=== PATIENT | male | born 1945 | race Caucasian/White ===

== ENCOUNTER 2020-07-14 22:18 | Inpatient (IN) | payer MEDICARE, BC, SELFPAY ==
--- NOTE | ~2020-07-14 | CT_ITS ---
EXAMINATION: CT abdomen pelvis wo con DATE: 07/14/2020 23:49 INDICATION: History of lymphoma. Leg weakness. TECHNIQUE: Computed tomography (CT) of the abdomen and pelvis was performed without intravenous contr ast. Automated exposure control and iterative reconstruction technique were employed. Exam dose: 174 0.68 mGy-cm total exam DLP. COMPARISON: 05/15/2018 CT abdomen pelvis 06/26/2018 PET/CT scan FINDINGS: There is focal patchy left upper lobe. Right patchy left lower lobe infiltrate. Minimal dependent atelectasis in the right lower lobe. Normal heart size. No pericardial or pleural effusion. There are innumerable dependent gallstones. No gallbladder wall thickening or pericholecystic fluid o r fat stranding. No bile duct or pancreatic duct dilatation. Mild surface nodularity of the liver is again suggested, possibly secondary to cirrhosis. Borderline splenic size. Normal morphology of the adrenal glands. Approximately 6.5 x 7.7 mm left renal pelvic calculus (1297 Hounsfield units). Up to 6 x 10.5 mm lower pole left renal calculus (1134 Hounsfield units). There are several additiona l smaller left renal calculi and a couple of nonobstructing right renal calculi. No hydroureteronephrosis is evident. The urinary bladder is unremarkable. Mild prostate enlargement and calcification. Mild bilateral fat containing inguinal hernias. Small fat-containing umbilical hernia. There is a large left anterior ventral abdominal wall hernia containing transverse colon and small surinder wel without strangulation or obstruction. Normal caliber of the abdominal aorta. No intraperitoneal or retroperitoneal or pelvic mass lesion or adenopathy or ascites. Diffuse idiopathic skeletal hyperostosis of the thoracic spine. No suspicious osteolytic or osteoblas tic lesions are noted. IMPRESSION: Left upper and lower lobe infiltrates Cholelithiasis Cirrhosis of the liver Borderline splenic size Bilateral nephrolithiasis Large left anterior ventral abdominal wall hernia containing nonobstructed transverse colon and small bowel Reviewed, dictated and finalized at [facility]. Reviewed, dictated and finalized at [facility]. IMPRESSION: Left upper and lower lobe infiltrates Cholelithiasis Cirrhosis of the liver Borderline splenic size Bilateral nephrolithiasis Large left anterior ventral abdominal wall hernia containing nonobstructed hinkle sverse colon and small bowel
--- NOTE | ~2020-07-14 | XR_ITS ---
XR chest 2V DATE: 07/14/2020 22:49 INDICATION: Fever, sore throat. History of hypertension, lymphoma TECHNIQUE: AP and lateral views COMPARISON: 06/28/2018 portable AP chest FINDINGS: Interval removal of Port-A-Cath since 06/28/2018. Normal heart size. No hilar or mediastinal enlargement is evident. Mild aortic unfolding. There is mild infiltrate or atelectasis at the left lung base. The lungs otherwise appear clear. Prominent osteoarthritic change at both glenohumeral joints. IMPRESSION: Mild infiltrate or atelectasis at left lung base Reviewed, dictated and finalized at [facility].
[2020-07-14 22:17] VITALS: BP 152/112; PULSE 138; RESP 31; TEMP 37.9; O2SAT 97
--- NOTE | 2020-07-14 22:27 | ECG_ITS ---
Measurements Intervals [place] Rate: 76 P: SD: 0 QRS: -76 QRSD: 146 T: 46 QT: 334 QTc: 376 Interpretive Statements ATRIAL FLUTTER/TACHYCARDIA WITH RAPID VENTRICULAR RESPONSE RIGHT BUNDLE BRANCH BLOCK LEFT ANTERIOR FASCICULAR BLOCK LEFT VENTRICULAR HYPERTROPHY AND ST-T CHANGE BASELINE WANDER- I, II, III, AVR, AVL, AVF ABNORMAL ECG Electronically Signed On 07-15-2020 8:47:48 CDT by Chase Ortiz D.O.
[2020-07-14 22:44] LABS: Basophils Absolute Auto 0.1 K/mm3 (0.0-0.1); Basophils Percent Auto 0.6 % (0.2-1.2); Eosinophils Absolute Auto 0.2 K/mm3 (0-0.3); Eosinophils Percent Auto 1.6 % (0-4.4); Hemoglobin 16.2 g/dL (14.0-18.0); Immature Granulocyte Absolute 0.04 K/mm3 (0.00-0.031); Immature Granulocyte Percent A 0.4 % (0-0.5); Lymphocytes Absolute Auto 1.72 K/mm3 (0.9-3.2); Lymphocytes Percent Auto 16.2 % (18.3-44.2); Mean Corpuscular HGB Conc 33.8 g/dl (32-36); Mean Corpuscular Hemoglobin 31.3 pg (26-34); Mean Corpuscular Volume 92.7 fl (80-100); Mean Platelet Volume 10.6 fl (7.4-10.4); Monocytes Percent Auto 9.6 % (2.6-8.5); Neutrophils Absolute Auto 7.6 K/mm3 (1.3-6.7); Neutrophils Percent Auto 71.6 % (45.5-73.1); Platelet Count Result 141 k/mm3 (150-375); Red Blood Count 5.18 M/mm3 (4.6-6.20); White Blood Count 10.6 K/mm3 (4.5-10.0)
[2020-07-14 22:56] LABS: Lactic Acid Reflex 3.8 mmol/L (0.7-2.1)
[2020-07-14 22:57] LABS: Alanine Aminotransferase 41 U/L (4-50); Albumin Level 4.8 g/dL (3.5-5.1); Alkaline Phosphatase 113 U/L (38-126); Anion Gap 16 mmol/L (8-16); Aspartate Amino Transferase 63 U/L (17-59); Bilirubin,Total 1.2 mg/dL (0.2-1.3); Blood Urea Nitrogen 13 mg/dL (9-20); Calcium 10.1 mg/dL (8.4-10.2); Carbon Dioxide 24 mmol/L (22-30); Chloride 95 mmol/L (98-107); Estimated CRCL calculation 70 ml/min; Estimated Glomerular Filt Rate 59; Glucose 179 mg/dL (75-110); Potassium 3.7 mmol/L (3.4-5.0); Sodium 135 mmol/L (137-145)
--- NOTE | 2020-07-14 22:58 | ED.GENADULT ---
HPI - General Adult General Chief complaint: Weakness Stated complaint: leg weakness Time Seen by Provider: 07/14/20 22:39 Source: patient, family, EMS and RN notes reviewed Mode of arrival: EMS Limitations: no limitations History of Present Illness HPI narrative: Patient 74 years old white male brought to the emergency room from home by ambulance complaining of general weakness, sore throat, coughing, loose stool and fever for the last 2 days. Patient denies any nausea, vomiting, chest pain, shortness of breath, abdominal pain. History of lymphoma last management was 2 years ago. Last second dose of Covid vaccine intake was 2 weeks ago Related Data Home Medications Medication Instructions Recorded Confirmed acetaminophen 325 mg capsule 650 mg PO Q4H PRN cap 01/25/19 12/20/19 Allergies Allergy/AdvReac Type Severity Reaction Status Date / Time azithromycin Allergy Unknown Rash Verified 12/20/19 09:31 Sulfa (Sulfonamide Allergy Rash Verified 07/14/20 23:21 Antibiotics) Review of Systems Review of Systems: Narrative: CONSTITUTIONAL: Denies fever, chills, or sweats. EYES: Denies visual changes, redness, or discharge. ENT: Denies rhinorrhea, congestion, sore throat, or otalgia. CARDIOVASCULAR: Denies chest pain, palpitations, or edema. RESPIRATORY: Denies cough or dyspnea. GASTROINTESTINAL: Denies abdominal pain, nausea, vomiting, or diarrhea. GENITOURINARY: Denies dysuria or hematuria. SKIN: Denies rash or itching. MUSCULOSKELETAL: Denies back pain, joint pain, or myalgia. NEUROLOGIC: Denies headache, numbness, or weakness. PSYCHIATRIC: Denies anxiety or depression. PMFSH Past Medical History Medical History Anxiety Aortic stenosis Chronic back pain Essential (primary) hypertension GERD without esophagitis Glaucoma Hyperlipidemia Insomnia Lymphoma Follows with Dr Quiroz - oncology Peripheral neuropathy Type 2 diabetes mellitus with diabetic neuropathy Social History Social History Smoking status: Current every day smoker Alcohol intake: never Exam Narrative: Exam Narrative: General appearance: Well-developed, well-nourished, morbidly obese, son at the bedside Skin: Normal color Head: Normocephalic, nontraumatic Eyes: Clear conjunctiva ENT: Oropharynx normal, dry oral cavity, ears normal, nose normal Neck: Supple, nontender Chest and respiratory: Airway patent, no respiratory distress, no accessory muscle use Heart: Regular rate/rhythm Abdomen: Soft, nontender, no organomegaly, quiet bowel sounds Vascular: Normal peripheral pulses, normal capillary refill. Neurologic: Alert and disoriented to his name only Course Course Emergency Course: Stable Vital Signs Vital signs: Vital Signs Temperature 37.9 C H 07/14/20 22:17 Pulse Rate 138 H 07/14/20 22:17 Respiratory Rate 31 H 07/14/20 22:17 Blood Pressure 152/112 H 07/14/20 22:17 Pulse Oximetry 97 07/14/20 22:17 Temperature 37.9 C H 07/14/20 22:17 Pulse Rate 138 H 07/14/20 22:17 Respiratory Rate 31 H 07/14/20 22:17 Blood Pressure 152/112 H 07/14/20 22:17 Pulse Oximetry 97 07/14/20 22:17 Medical Decision Making [facility] Narrative Medical decision making narrative: Patient presents with weakness. Differential diagnosis as below. Labs, blood culture, UA, chest x-ray, rapid strep, ordered. Further plan to follow Differential Diagnosis Differential Diagnosis: Viral infection, pneumonia, electrolyte imbalance, kidney failure, recurrence of lymphoma Vital Signs Vital Signs: Vital Signs Temperature 37.9 C H 07/14/20 22:17 Pulse Ra
[2020-07-14 23:14] LABS: Troponin I 0.041 ng/mL (0.000-0.034)
[2020-07-14 23:19] VITALS: BP 156/102; PULSE 136; RESP 29; O2SAT 95
[2020-07-14] MEDS: SODIUM CHLORIDE 0.9% IV 1,000 ML 999 ML IV CONT (23:22)
[2020-07-14] MEDS: ACETAMINOPHEN 500 MG TABLET 1000 MG PO (23:23)
[2020-07-15] VITALS (19 sets, daily range): BP systolic 119–155; BP diastolic 71–98; PULSE 79–123; RESP 18–25; TEMP 36.3–36.9; O2SAT 95–99; BMI 47.0
[2020-07-15] MEDS: SODIUM CHLORIDE 0.9% IV 1,000 ML 999 ML IV CONT (00:29)
[2020-07-15 01:41] LABS: Add Urine Microscopic? YES; Appearance Urine Clear (Clear); Bilirubin Urine Negative (Negative); Blood Urine 2+ (Negative); Calcium Oxalate Crystals Urine Present /hpf; Color Urine Yellow (Yellow); Glucose Urine UA 1+ mg/dL (Negative); Ketones Urine 1+ mg/dL (Negative); Leukocyte Esterase Ur Negative LEU/UL (Negative); Mucus Urine Rare /lpf; Nitrate Urine Negative (Negative); Protein Urine 2+ mg/dL (Negative); RBC Urine 21-50 /hpf (0-2); Specific Grav Ur 1.023 (1.001-1.035); Squamous Epithelial Cell Urine Rare /hpf (Few); WBC Urine 0-3 /hpf
[2020-07-15 01:42] LABS: Reflex Lactic Acid Yes or No Add Lactic
--- NOTE | 2020-07-15 02:21 | PC.NURSE ---
This patient, Pino Arias, was admitted to IMU Room 213-01. Patient/family oriented to hospital policies and general routines including ID bracelet, bed and alarms, visiting hours, pain management, procedures, bathroom and other care routines, personal items, smoking policy, room service/diet, and visiting hours. Information on how to activate the Rapid Response Team has been discussed. Patient/Family are encouraged to report perceived risks to care and to ask questions if they do not understand what they are told or what they should do.
[2020-07-15 02:25] LABS: Lactic Acid 1.2 mmol/L (0.7-2.1)
[2020-07-15 03:02] LABS: Troponin I 0.074 ng/mL (0.000-0.034)
--- NOTE | 2020-07-15 03:12 | PC.NURSE ---
Pt given bath upon arrival to unit. pt groin and skin folds macerated with urine. Pt noted to have some dried fecal material on arms as well.
--- NOTE | 2020-07-15 03:25 | ECG_ITS ---
Measurements Intervals [place] Rate: 109 P: -78 [place]: 255 QRS: -73 QRSD: 142 T: 76 QT: 343 QTc: 462 Interpretive Statements SINUS TACHYCARDIA WITH FIRST DEGREE AV BLOCK RIGHT BUNDLE BRANCH BLOCK LEFT ANTERIOR FASCICULAR BLOCK VOLTAGE CRITERIA FOR LVH BASELINE ARTIFACT- I, III, AVR, AVL ABNORMAL ECG Electronically Signed On 07-15-2020 8:51:20 CDT by Chase Ortiz D.O.
--- NOTE | 2020-07-15 03:25 | PM.IMHP ---
H&P: HPI History of Present Illness Date/Time: 07/15/20 03:25 Chief Complaint: weakness Narrative: Patient 74 years old male presents to the ED today with generalised wekaness, sore thraot, coughing and low grade fever since past 2 days. he states he was feeling lot weaker than usual. he is usually bed bound and only uses walker to get to the kitchen or bathroom one to two times in a day, lays on recliner, nomtamicaaly has his family members or other caretakers help him. he reports he has covid vaccine series completed about 2 weeks ago. he denies any exposure to coivd. no nausea, vomiting. he has chornic abdominal pain and loose stools. he was diagnsoed with cirrhosis of liver suspected to be due to alcohol abuse in the past. hx of B cell lymphoma, completed treatment and in remission since past 2 years. In the ED, hew as noted to be tachycardic, mildly febrile with lactic acidosis and also with mild leukocytosis. cxr with basal pneumoina, ct abdomen done confers the simliar findings as well. he recieveed levaquin in the ed. and recived ivf. his lactate has been back normal and his tachycardia has improved as well. Review of Systems Review of Systems: Narrative: - CONSTITUTIONAL: Denies weight loss, reports fever and chills. - HEENT: Denies changes in vision and hearing - RESPIRATORY: reprots some SOB and cough. - CV: Denies palpitations and CP. - GI: Denies abdominal pain, nausea, vomiting and diarrhea. - : Denies dysuria and urinary frequency. - MSK: Denies myalgia and joint pain. - SKIN: Denies rash and pruritus. - NEUROLOGICAL: Denies headache and syncope. - PSYCHIATRIC: Denies recent changes in mood. Denies anxiety and depression. All systems reviewed & are unremarkable except as noted in HPI and below Constitutional: Constitutional: Reports fatigue and Reports weakness Neurologic: Reports weakness Endocrine: Endocrine: Reports fatigue PMF Past Medical History Medical History Anxiety Aortic stenosis Chronic back pain Essential (primary) hypertension GERD without esophagitis Glaucoma Hyperlipidemia Insomnia Lymphoma Follows with Dr Quiroz - oncology Peripheral neuropathy Type 2 diabetes mellitus with diabetic neuropathy Social History Social History Smoking packs per day: 1 Smoking cigarettes per day: 20.0 Smoking status: Former smoker Alcohol intake: never Gender identity (if verbalized by the patient): Male Spiritual care concerns: No Meds Home Medications and Allergies Home Medications Medication Instructions Recorded Confirmed Type acetaminophen 325 mg capsule 650 mg PO Q4H PRN cap 01/25/19 07/15/20 History atorvastatin 20 mg tablet 20 mg PO DAILY #90 tablet 01/08/20 07/15/20 Rx sulfamethoxazole 800 1 tablet PO DAILY #90 tablet 06/15/20 07/15/20 Rx mg-trimethoprim 160 mg tablet lorazepam 0.5 mg tablet 0.5 mg PO BID PRN #60 tablet 07/07/20 07/15/20 Rx glipizide 5 mg tablet See Rx Instructions PO DAILY #360 07/09/20 07/15/20 Rx tablet brimonidine-timolol [Combigan] 1 drp EACH EYE DAILY 07/15/20 07/15/20 History cyclobenzaprine See Rx Instructions .ROUTE 07/15/20 07/15/20 History .COMPLEX PRN finasteride 5 mg PO DAILY 07/15/20 07/15/20 History ketoconazole 1 applic TOPICAL BID 07/15/20 07/15/20 History metformin 500 mg PO BID 07/15/20 07/15/20 History ropinirole See Rx Instructions .ROUTE .COMPLEX 07/15/20 07/15/20 History trazodone See Rx Instructions .ROUTE 07/15/20 07/15/20 History .COMPLEX PRN Allergies Allergy/AdvReac Type Severity Reaction Status Date / Time azithromycin Allergy Unknown Rash Verified 12/20/19 09:31 Vital Signs Vital Signs - 24 hr 07/14/20 22:17 07/14/20 23:19 07/15/20 00:20 Temperature 100.3 F H Pulse Rate 138 H 136 H 123 H Respiratory Rate 31 H 29 H 22 H Blood Pressure 152/112 H 156/102 H 155/90 H Pulse Oximetry
[2020-07-15 04:39] LABS: Hemoglobin A1C 8.2 % (<5.7)
[2020-07-15 04:40] LABS: Lactic Acid Reflex 1.1 mmol/L (0.7-2.1)
[2020-07-15 04:57] LABS: Troponin I 0.079 ng/mL (0.000-0.034)
[2020-07-15] MEDS: SODIUM CHLORIDE 0.9% IV 1,000 ML 75 ML IV CONT (06:37)
[2020-07-15 08:44] LABS: Glucose Point of Care 169 mg/dl (65-105)
[2020-07-15] MEDS: BRIMONIDINE TARTRATE 0.2% OP SOLN 5 ML BTL 1 DROP EACH EYE (08:48)
[2020-07-15] MEDS: ENOXAPARIN 40 MG/0.4 ML SYRINGE SUB-Q (08:48)
[2020-07-15] MEDS: FINASTERIDE 5 MG TABLET PO (08:48)
[2020-07-15] MEDS: rOPINIRole HCL 0.5 MG TABLET BY MOUTH ×2 (08:48→21:27)
[2020-07-15] MEDS: TIMOLOL MALEATE 0.5% OP SOLN 5 ML BOTTLE 1 DROP EACH EYE (08:48)
[2020-07-15] MEDS: ATORVASTATIN 20 MG TABLET PO (08:48)
[2020-07-15 12:05] LABS: Glucose Point of Care 197 mg/dl (65-105)
--- NOTE | 2020-07-15 12:39 | P.PNCROSS_ITS ---
Event Note Event Note Event Note: Follow-up rounding note Patient admitted after midnight At the time my visit he is doing very well He complains of of cough preceded by symptoms of sore throat and runny nose He has been vaccinated against COVID He is not hypoxic on room air plan Continue current care Transfer to [facility] floor with quality assurance monitor body
--- NOTE | 2020-07-15 13:51 | PM.CNCAR ---
Assessment and Plan Assessment and plan (1) Aortic stenosis: Code(s): I35.0 - Nonrheumatic aortic (valve) stenosis Status: Chronic Assessment and Plan: Previously moderate to severe with no further workup. Will recheck a 2D echocardiogram with Doppler (2) Essential (primary) hypertension: Code(s): I10 - Essential (primary) hypertension Status: Acute Assessment and Plan: At goal (3) Elevated troponin: Code(s): R77.8 - Other specified abnormalities of plasma proteins Status: Acute Assessment and Plan: Not related to acute plaque rupture. Possibly secondary to underlying sepsis with aortic stenosis. Will start aspirin 81 mg p.o. daily. Check a 2D echocardiogram Doppler. Will DC IV fluids. Check fasting lipid panel as well as replace the potassium 40 mEq p.o. x1. (4) Hyperlipidemia: Code(s): E78.5 - Hyperlipidemia, unspecified Status: Chronic Assessment and Plan: On statin (5) TARA on CPAP: Code(s): G47.33 - Obstructive sleep apnea (adult) (pediatric); Z99.89 - Dependence on other enabling machines and devices Status: Acute (6) Pneumonia: Qualifiers: Laterality: left Lung location: unspecified part of lung Pneumonia type: due to unspecified organism Qualified Code(s): J18.9 - Pneumonia, unspecified organism Code(s): J18.9 - Pneumonia, unspecified organism Status: Acute Assessment and Plan: Possible COVID infection. Currently in process of being ruled out History of Present Illness History of Present Illness Consult date/time: 07/15/20 13:51 Requesting physician: Jed Spence MD Consult reason: Other (Elevated troponin) Reason For Visit: Pneumonia, elevated troponin, sepsis Narrative: Date of service 07/15/2020 History: Patient 74-year-old male who I have seen today at the request of Dr. Spence in cardiology consultation because of elevated troponin. Patient came to hospital because of generalized weakness, 3-4 day history of sore throat, in coughing. He did have his COVID vaccine is currently in the process of being ruled out for COVID. White count is slightly elevated. In the process of workup troponins were drawn which were minimally elevated and Cardiology consultation was therefore requested. He does have a history of moderate to severe aortic stenosis dating back to 2019 and he has had no follow-up of his aortic stenosis. Instead he was focused on his B-cell lymphoma treatment. Patient states that he has had some progressively worsening shortness of breath also over the past week or so.. No chest pain. No syncope, presyncope, paroxysmal nocturnal dyspnea, orthopnea, edema or palpitations. Review of Systems Review of Systems: All systems reviewed & are unremarkable except as noted in HPI and below Constitutional: Constitutional: Reports weakness Eyes: Eyes: Denies blurry vision ENT: Reports Normal hearing present Cardiovascular: Cardiovascular: Denies chest pain Respiratory: Respiratory: Reports dyspnea Gastrointestinal: Gastrointestinal: Denies abdominal pain Genitourinary: Genitourinary: Denies dysuria Musculoskeletal: Musculoskeletal: Denies neck pain Integumentary/Breasts: Skin/Breast: Denies dry skin Neurologic: Denies headache(s) Psychiatric: Psychiatric: Denies anxiety Endocrine: Endocrine: Denies excessive sweating Hematologic/Lymphatic: Hematologic/Lymphatic: Denies easy bleeding Allergic/Immunologic: Allergic/Immunologic: Denies GI upset with certain foods PMFSH Past Medical History Medical History Anxiety Aortic stenosis Chronic back pain Essential (primary) hypertension GERD without esophagitis Glaucoma Hyperlipidemia Insomnia Lymphoma Follows with Dr Quiroz - oncology Peripheral neuropathy Type 2 diabetes mellitus with diabetic neuropathy Family History Family History (Reviewed
[2020-07-15] MEDS: POTASSIUM CHLORIDE 20 MEQ TABLET 40 MEQ PO (15:06)
[2020-07-15 15:17] LABS: Cholesterol 128 mg/dL (0-200); HDL Direct 28 mg/dL; Triglycerides 146 mg/dL (<150)
[2020-07-15 15:27] LABS: LDL Cholesterol Direct 57 mg/dL
[2020-07-15 17:34] LABS: Glucose Point of Care 240 mg/dl (65-105)
[2020-07-15] MEDS: guaiFENesin 12 HR 600 MG TABCR 1200 MG PO (17:36)
[2020-07-15] MEDS: BENZONATATE 100 MG CAPSULE PO ×2 (17:36→23:09)
[2020-07-15 17:41] LABS: SARS-CoV-2 RNA PCR Negative
[2020-07-15] MEDS: INSULIN ASPART (*BKC) 100 UNITS/ML SUB-Q (18:59)
--- NOTE | 2020-07-15 19:07 | PC.NURSE ---
This patient, Pino Arias, was transferred to [ [id number]] on 07/15/20 at 1920 (pt will be moved by nightshift staff). Personal belongings sent with patient. Report given to [ADRIAN Burden @ [id number]]. Appropriate documentation sent with patient.
--- NOTE | 2020-07-15 19:30 | ADMGEN ---
This patient, Pino Arias, was admitted to [facility] Surg Room 329-01. Patient/family oriented to hospital policies and general routines including ID bracelet, bed and alarms, visiting hours, pain management, procedures, bathroom and other care routines, personal items, smoking policy, room service/diet, and visiting hours. Information on how to activate the Rapid Response Team has been discussed. Patient/Family are encouraged to report perceived risks to care and to ask questions if they do not understand what they are told or what they should do.
[2020-07-15] MEDS: TOLNAFTATE 1% POWDER 45 GM BTL 1 APPLIC TOPICAL (21:27)
[2020-07-15 22:40] LABS: Glucose Point of Care 228 mg/dl (65-105)
[2020-07-16] VITALS (12 sets, daily range): BP systolic 133–148; BP diastolic 75–86; PULSE 86–110; RESP 20; TEMP 36.1–36.6; O2SAT 93–98
--- NOTE | 2020-07-16 | ECHO_ITS ---
Patient Info Name: Pino Arias Age: 74 years : 1945 Gender: Male Ht: 70 in Wt: 327 lbs BSA: 2.78 m2 HR: 104 bpm BP: 148 / 80 mmHg Heart Rhythm: Sinus Rhythm Technical Quality: Poor Exam Date: 07/16/2020 9:13 AM Exam Location: [facility] Patient Status: Inpatient Admit Date: 07/15/2020 Staff Ordering Physician: Dell Wilcox MD Ticket Printer: Beba Duggan RDCS Attending Provider: Dell Wilcox MD Exam Type: CA echo dop color flow w con Study Info Indications - ELEVATED TROPONIN Complete two-dimensional, color flow and Doppler transthoracic echocardiogram is performed with contrast to opacify the left ventricle and to improve the deliniation of the left ventricle endocardial borders. Contrast/Agitated Saline Contrast/Ag. Saline: Definity Amount: 1.00 ml Administered By: Alana Dodd RN Existing IV Access: Yes IV Access Condition: patent with no signs of infiltration Reason for Poor Study: patient body habitus Summary 1. Left ventricular chamber dimension is normal. 2. Left ventricular systolic function is hyperdynamic, estimated at >70%. 3. There is severely increased left ventricular wall thickness. 4. The left ventricular diastolic function is abnormal. 5. Left atrial chamber dimension is mildly enlarged. 6. The aortic valve is not well visualized. 7. There is moderate aortic valve stenosis with a peak velocity of 335.63 cm/s, mean gradient of 31 mmHg, and aortic valve area of 1.55 cm2. 8. There is severe aortic valve calcification. 9. There is mild mitral valve regurgitation. 10. Consider BROOKE for further anatomical evaluation. 11. There is mild pulmonic regurgitation. Left Ventricle Left ventricular chamber dimension is normal. Left ventricular systolic function is hyperdynamic, estimated at >70%. There is severely increased left ventricular wall thickness. The left ventricular diastolic function is abnormal. Right Ventricle Right ventricular chamber dimension is normal. Right ventricular systolic function is normal. Left Atria Left atrial chamber dimension is mildly enlarged. Right Atria Right atrial chamber dimension is normal. Atrial Septum Intact interatrial septum visualized by color flow imaging. Aortic Valve The aortic valve is not well visualized. There is moderate aortic valve stenosis with a peak velocity of 335.63 cm/s, mean gradient of 31 mmHg, and aortic valve area of 1.55 cm2. There is trace aortic valve regurgitation. There is severe aortic valve calcification. Consider BROOKE for further anatomical evaluation. Pulmonic Valve The pulmonic valve is not well visualized. There is no pulmonic valve stenosis. There is mild pulmonic regurgitation. Mitral Valve The mitral valve has calcified annulus. There is no mitral valve stenosis. There is mild mitral valve regurgitation. Tricuspid Valve The tricuspid valve leaflets are normal. There is no significant tricuspid valve stenosis. There is trace tricuspid valve regurgitation. Pericardium/Pleural The pericardium appears normal. There is no pericardial effusion. Inferior Vena Cava Normal inferior vena cava with >50% collapse upon inspiration consistent with normal right atrial pressure, 5 mmHg. Aorta The aortic root size at the sinus of Valsalva is normal. The prox ascending aorta size is normal. Left Ventricular Outflow Tract
[2020-07-16] MEDS: guaiFENesin 12 HR 600 MG TABCR 1200 MG PO ×2 (05:36→17:36)
[2020-07-16] MEDS: BENZONATATE 100 MG CAPSULE PO ×3 (05:37→23:14)
[2020-07-16 06:04] LABS: Basophils Percent Auto 0.5 % (0.2-1.2); Eosinophils Percent Auto 0.5 % (0-4.4); Hemoglobin 14.6 g/dL (14.0-18.0); Immature Granulocyte Absolute 0.03 K/mm3 (0.00-0.031); Immature Granulocyte Percent A 0.3 % (0-0.5); Immature Platelet Fraction Pct 7.1 % (0.9-11.2); Lymphocytes Absolute Auto 1.62 K/mm3 (0.9-3.2); Lymphocytes Percent Auto 18.4 % (18.3-44.2); Mean Corpuscular HGB Conc 34.8 g/dl (32-36); Mean Corpuscular Hemoglobin 31.5 pg (26-34); Mean Corpuscular Volume 90.5 fl (80-100); Mean Platelet Volume 10.8 fl (7.4-10.4); Monocytes Absolute Auto 0.9 K/mm3 (0.1-0.6); Monocytes Percent Auto 10.3 % (2.6-8.5); Neutrophils Absolute Auto 6.2 K/mm3 (1.3-6.7); Platelet Count Result 132 k/mm3 (150-375); Red Blood Count 4.64 M/mm3 (4.6-6.20); Red Cell Distribution Width 13.6 % (11.5-14.5); White Blood Count 8.8 K/mm3 (4.5-10.0)
[2020-07-16 06:14] LABS: Alanine Aminotransferase 31 U/L (4-50); Albumin Level 4.2 g/dL (3.5-5.1); Alkaline Phosphatase 89 U/L (38-126); Anion Gap 12 mmol/L (8-16); Aspartate Amino Transferase 43 U/L (17-59); Blood Urea Nitrogen 12 mg/dL (9-20); Carbon Dioxide 24 mmol/L (22-30); Chloride 98 mmol/L (98-107); Estimated CRCL calculation 103 ml/min; Estimated Glomerular Filt Rate > 60; Glucose 205 mg/dL (75-110); Potassium 3.9 mmol/L (3.4-5.0); Sodium 134 mmol/L (137-145)
[2020-07-16 08:09] LABS: Glucose Point of Care 198 mg/dl (65-105)
[2020-07-16] MEDS: PERFLUTREN LIPID MICROSPHERES 1.5 ML VIAL DILUTED TO 10 ML TOTAL VOLUME IV PUSH (09:35)
[2020-07-16] MEDS: ENOXAPARIN 40 MG/0.4 ML SYRINGE SUB-Q (09:56)
[2020-07-16] MEDS: rOPINIRole HCL 0.5 MG TABLET BY MOUTH ×2 (09:56→21:24)
[2020-07-16] MEDS: FINASTERIDE 5 MG TABLET PO (09:56)
[2020-07-16] MEDS: ATORVASTATIN 20 MG TABLET PO (09:56)
[2020-07-16] MEDS: ASPIRIN 81 MG ENTERIC TABLET PO (09:56)
[2020-07-16] MEDS: TIMOLOL MALEATE 0.5% OP SOLN 5 ML BOTTLE 1 DROP EACH EYE (09:57)
[2020-07-16] MEDS: TOLNAFTATE 1% POWDER 45 GM BTL 1 APPLIC TOPICAL ×2 (09:57→21:24)
[2020-07-16] MEDS: BRIMONIDINE TARTRATE 0.2% OP SOLN 5 ML BTL 1 DROP EACH EYE (09:57)
[2020-07-16 11:48] LABS: Glucose Point of Care 198 mg/dl (65-105)
--- NOTE | 2020-07-16 11:51 | PM.PNCARD ---
Progress Note: A&P Assessment and Plan (1) Aortic stenosis: Code(s): I35.0 - Nonrheumatic aortic (valve) stenosis Status: Chronic Assessment and Plan: echo pending (2) Essential (primary) hypertension: Code(s): I10 - Essential (primary) hypertension Status: Acute Assessment and Plan: At goal (3) Elevated troponin: Code(s): R77.8 - Other specified abnormalities of plasma proteins Status: Acute Assessment and Plan: will add some low-dose metoprolol 12.5 mg p.o. b.i.d. (4) Hyperlipidemia: Code(s): E78.5 - Hyperlipidemia, unspecified Status: Chronic Assessment and Plan: On statin (5) TARA on CPAP: Code(s): G47.33 - Obstructive sleep apnea (adult) (pediatric); Z99.89 - Dependence on other enabling machines and devices Status: Acute (6) Pneumonia: Qualifiers: Laterality: left Lung location: unspecified part of lung Pneumonia type: due to unspecified organism Qualified Code(s): J18.9 - Pneumonia, unspecified organism Code(s): J18.9 - Pneumonia, unspecified organism Status: Acute Assessment and Plan: per hospitalists Subjective Date/time seen: Patient 74-year-old male who I have seen today at the request of Dr. Spence in cardiology consultation because of elevated troponin. Date of service 07/16/2020: He denies any chest pain but still has a sore throat. Still coughing. No shortness of breath Review of Systems Review of Systems: All systems reviewed & are unremarkable except as noted in HPI and below Constitutional: Constitutional: Denies excessive sweating, Denies headache(s) and Reports weakness Eyes: Eyes: Denies blurry vision ENT: Reports Normal hearing present, Denies headache(s) and Denies neck pain Cardiovascular: Cardiovascular: Denies chest pain and Reports dyspnea Respiratory: Respiratory: Reports dyspnea Gastrointestinal: Gastrointestinal: Denies abdominal pain Genitourinary: Genitourinary: Denies dysuria Musculoskeletal: Musculoskeletal: Denies neck pain Integumentary/Breasts: Skin/Breast: Denies dry skin Neurologic: Reports Normal hearing present, Denies headache(s) and Reports weakness Psychiatric: Psychiatric: Denies anxiety Endocrine: Endocrine: Denies excessive sweating Hematologic/Lymphatic: Hematologic/Lymphatic: Denies easy bleeding Allergic/Immunologic: Allergic/Immunologic: Denies GI upset with certain foods Exam Narrative: Exam Narrative: Alert oriented. Appears stated age Const: General: comfortable and no acute distress HENMT: General nose exam: Normal nares present Eyes: Sclera: sclerae normal Neck: Neck: supple and no JVD Chest: Other: No reproducible chest wall pain to palpation Resp: Auscultation: diminished lung sounds Cardio: Rate: regular rate Rhythm: regular rhythm GI: Inspection: non-distended Skin: General skin exam: normal color Neuro: Cranial nerves: Yes Normal hearing present Cognition (Neuro): normal cognition Speech: normal speech Extrem: General: normal to inspection, no edema and no pedal edema Psych: Affect: normal affect Objective Data Vital Signs Vital Signs: Vital Signs - 24 hr 07/15/20 12:00 07/15/20 13:03 07/15/20 16:00 Temperature 36.7 C Pulse Rate 99 100 102 H Respiratory Rate 22 H Blood Pressure 125/82 Pulse Oximetry 97 97 07/15/20 17:42 07/15/20 19:20 07/15/20 20:00 Temperature 36.3 C L 36.3 C L Pulse Rate 101 H 104 H 106 H Respiratory Rate 23 H 18 Blood Pressure 152/84 H 130/79 Pulse Oximetry 98 97 07/15/20 22:10 07/16/20 00:00 07/16/20 04:00 Temperature Pulse Rate 79 107 H 108 H Respiratory Rate 23 H Blood Pressure Pulse Oximetry 95 07/16/20 06:00 07/16/20 08:00 07/16/20 09:43 Temperature 36.1 C L Pulse Rate 107 H 100 Respiratory Rate 20 Blood Pressure 148/80 H Pulse Oximetry 93 95 Intake/Output Intake/Output: Intake
--- NOTE | 2020-07-16 12:16 | PM.IMPN ---
Progress Note: A&P Assessment and Plan (1) Sepsis: Qualifiers: Sepsis acute organ dysfunction status: unspecified Sepsis type: sepsis due to unspecified organism Qualified Code(s): A41.9 - Sepsis, unspecified organism Code(s): A41.9 - Sepsis, unspecified organism Status: Acute (2) Elevated troponin: Code(s): R77.8 - Other specified abnormalities of plasma proteins Status: Acute (3) Lymphoma: Code(s): C85.90 - Non-Hodgkin lymphoma, unspecified, unspecified site Status: Acute (4) Type 2 diabetes mellitus with diabetic neuropathy: Code(s): E11.40 - Type 2 diabetes mellitus with diabetic neuropathy, unspecified Status: Chronic (5) Peripheral neuropathy: Code(s): G62.9 - Polyneuropathy, unspecified Status: Chronic (6) Aortic stenosis: Code(s): I35.0 - Nonrheumatic aortic (valve) stenosis Status: Chronic (7) Chronic back pain: Code(s): M54.9 - Dorsalgia, unspecified; G89.29 - Other chronic pain Status: Chronic (8) Insomnia: Code(s): G47.00 - Insomnia, unspecified Status: Chronic (9) GERD without esophagitis: Code(s): K21.9 - Gastro-esophageal reflux disease without esophagitis Status: Chronic (10) Anxiety: Code(s): F41.9 - Anxiety disorder, unspecified Status: Chronic (11) Hyperlipidemia: Code(s): E78.5 - Hyperlipidemia, unspecified Status: Chronic (12) Essential (primary) hypertension: Code(s): I10 - Essential (primary) hypertension Status: Acute (13) TARA on CPAP: Code(s): G47.33 - Obstructive sleep apnea (adult) (pediatric); Z99.89 - Dependence on other enabling machines and devices Status: Acute (14) Bilateral interstitial pneumonia: Code(s): J84.9 - Interstitial pulmonary disease, unspecified Status: Acute Additional Plan # sepsis; from pneumonia. wbc mildy elevated. lactic acidosis. iv resuscitation. received 2 l iv ns in the ED. continue iv NS @ 75 ccc/hr. # lactic acidosis # pneumonia: CAP. levaquin iv. cxr and ct reviewed. swab for covid # recent covid vaccination 2 weeks back # elevated tronpoin: marcial from above. trend. cardiology consultation in am. no active chest pain. repeat ekg and montiro any dyanmic changes. # htn; stable # HLP; stable. # chornic back pain # GERD: home med # TARA on CPAP # type 2 DM with peripheral neuropathy: ssi. hold oha # hx of B cell lymphoma in remission. # DVT proph: lovenox 07/16/20 trop elevation associated w sepsis cont abx for multifocal pna BG above goal adjust insulin supportive care Chloraseptic spray ordered for comfort am labs PT/OT Subjective Date/time seen: 07/16/20 12:16 complains of cough and sore throat, feels unwell Exam Narrative: Exam Narrative: GENERAL: The patient is well developed, not in acute distress HEENT: Nonicteric sclerae, EOMI. Oropharynx clear. Moist mucous membranes. Conjunctivae appear well perfused. CHEST: Chest wall is nontender. HEART: Regular rate and rhythm without murmur, rubs, or gallops LUNGS: B/L fine crackles no respiratory distress ABDOMEN: Soft, positive bowel sounds, non-tender, no organomegaly. SKIN: No rash, no excessive bruising, petechiae, or purpura. NEUROLOGIC: Cranial nerves II-XII intact, alert and oriented x 3, no gross motor deficits EXTREMITIES: no edema, cyanosis or clubbing Objective Data Vital Signs Vital Signs: Vital Signs - 24 hr 07/15/20 13:03 07/15/20 16:00 07/15/20 17:42 Temperature 98.0 F 97.3 F L Pulse Rate 100 102 H 101 H Respiratory Rate 22 H 23 H Blood Pressure 125/82 152/84 H Pulse Oximetry 97 98 07/15/20 19:20 07/15/20 20:00 07/15/20 22:10 Temperature 97.3 F L Pulse Rate 104 H 106 H 79 Respiratory Rate 18 23 H Blood Pressure 130/79 Pulse Oximetry 97 95 07/16/20 00:00 07/16/20 04:00 07/16/20 06:00 Temperature 97 F L Pulse Rate 107 H 108 H 107 H Respiratory Rate 20 B
[2020-07-16 17:33] LABS: Glucose Point of Care 213 mg/dl (65-105)
[2020-07-16] MEDS: INSULIN ASPART (*BKC) 100 UNITS/ML SUB-Q (17:34)
[2020-07-16] MEDS: METOPROLOL TARTRATE 12.5 MG TABLET PO (21:34)
[2020-07-16 21:39] LABS: Glucose Point of Care 259 mg/dl (65-105)
[2020-07-17] VITALS (11 sets, daily range): BP systolic 117–137; BP diastolic 78–79; PULSE 79–98; RESP 16–18; TEMP 36.6–36.7; O2SAT 94–98
[2020-07-17] MEDS: LORazepam (*CRX) 0.5 MG TABLET PO ×3 (03:14→22:06)
[2020-07-17] MEDS: PHENOL/SOD PHENO SPRAY CHERRY (*BKC) 1 SPRAY MUCOUS MEM ×3 (03:14→20:31)
[2020-07-17] MEDS: BENZONATATE 100 MG CAPSULE PO (05:03)
[2020-07-17] MEDS: guaiFENesin 12 HR 600 MG TABCR 1200 MG PO ×2 (05:03→17:33)
[2020-07-17 06:36] LABS: Basophils Absolute Auto 0.1 K/mm3 (0.0-0.1); Basophils Percent Auto 0.6 % (0.2-1.2); Eosinophils Absolute Auto 0.2 K/mm3 (0-0.3); Eosinophils Percent Auto 2.6 % (0-4.4); Hematocrit 45.8 % (42.0-52.0); Hemoglobin 15.6 g/dL (14.0-18.0); Immature Granulocyte Absolute 0.03 K/mm3 (0.00-0.031); Immature Granulocyte Percent A 0.4 % (0-0.5); Immature Platelet Fraction Pct 8.3 % (0.9-11.2); Lymphocytes Absolute Auto 1.88 K/mm3 (0.9-3.2); Lymphocytes Percent Auto 23.4 % (18.3-44.2); Mean Corpuscular HGB Conc 34.1 g/dl (32-36); Mean Corpuscular Hemoglobin 31.3 pg (26-34); Mean Corpuscular Volume 91.8 fl (80-100); Mean Platelet Volume 10.3 fl (7.4-10.4); Monocytes Absolute Auto 0.9 K/mm3 (0.1-0.6); Monocytes Percent Auto 10.8 % (2.6-8.5); Neutrophils Percent Auto 62.2 % (45.5-73.1); Platelet Count Result 147 k/mm3 (150-375); Red Blood Count 4.99 M/mm3 (4.6-6.20)
[2020-07-17 06:48] LABS: Anion Gap 10 mmol/L (8-16); Blood Urea Nitrogen 14 mg/dL (9-20); CRP 5.4 mg/dL (<1.0); Calcium 9.4 mg/dL (8.4-10.2); Carbon Dioxide 25 mmol/L (22-30); Chloride 99 mmol/L (98-107); Estimated CRCL calculation 104 ml/min; Estimated Glomerular Filt Rate > 60; Glucose 220 mg/dL (75-110); Magnesium 1.6 mg/dL (1.6-2.3); Potassium 3.8 mmol/L (3.4-5.0); Sodium 134 mmol/L (137-145)
[2020-07-17 07:44] LABS: Glucose Point of Care 225 mg/dl (65-105)
[2020-07-17] MEDS: INSULIN ASPART (*BKC) 100 UNITS/ML SUB-Q ×3 (08:37→17:30)
[2020-07-17] MEDS: BRIMONIDINE TARTRATE 0.2% OP SOLN 5 ML BTL 1 DROP EACH EYE (08:45)
[2020-07-17] MEDS: TOLNAFTATE 1% POWDER 45 GM BTL 1 APPLIC TOPICAL ×2 (08:45→20:34)
[2020-07-17] MEDS: TIMOLOL MALEATE 0.5% OP SOLN 5 ML BOTTLE 1 DROP EACH EYE (08:45)
[2020-07-17] MEDS: rOPINIRole HCL 0.5 MG TABLET BY MOUTH ×2 (08:45→20:31)
[2020-07-17] MEDS: ENOXAPARIN 40 MG/0.4 ML SYRINGE SUB-Q (08:45)
[2020-07-17] MEDS: METOPROLOL TARTRATE 12.5 MG TABLET PO ×2 (08:46→20:30)
[2020-07-17] MEDS: FINASTERIDE 5 MG TABLET PO (08:46)
[2020-07-17] MEDS: ASPIRIN 81 MG ENTERIC TABLET PO (08:47)
[2020-07-17] MEDS: ATORVASTATIN 20 MG TABLET PO (08:48)
--- NOTE | 2020-07-17 09:14 | PM.PNCARD ---
Progress Note: A&P Assessment and Plan (1) Aortic stenosis: Code(s): I35.0 - Nonrheumatic aortic (valve) stenosis Status: Chronic Assessment and Plan: At least moderate aortic stenosis. Aortic valve is not well visualized and by gradients it is approaching severe. Outpatient follow-up is advised (2) Essential (primary) hypertension: Code(s): I10 - Essential (primary) hypertension Status: Acute Assessment and Plan: At goal (3) Elevated troponin: Code(s): R77.8 - Other specified abnormalities of plasma proteins Status: Acute Assessment and Plan: Continue metoprolol, aspirin, statin. Outpatient Lexiscan myocardial perfusion study will be ordered for ischemic evaluation (4) Hyperlipidemia: Code(s): E78.5 - Hyperlipidemia, unspecified Status: Chronic Assessment and Plan: On statin (5) TARA on CPAP: Code(s): G47.33 - Obstructive sleep apnea (adult) (pediatric); Z99.89 - Dependence on other enabling machines and devices Status: Acute (6) Pneumonia: Qualifiers: Laterality: left Lung location: unspecified part of lung Pneumonia type: due to unspecified organism Qualified Code(s): J18.9 - Pneumonia, unspecified organism Code(s): J18.9 - Pneumonia, unspecified organism Status: Deleted Assessment and Plan: per hospitalists Subjective Date/time seen: 07/17/20 09:14 Interval history: 74-year-old with pneumonia Date of service 07/17/2020: Feeling better. Cough has improved. Sore throat has improved. No chest pain Review of Systems Review of Systems: All systems reviewed & are unremarkable except as noted in HPI and below Constitutional: Constitutional: Denies excessive sweating, Denies headache(s) and Reports weakness Eyes: Eyes: Denies blurry vision ENT: Reports Normal hearing present, Denies headache(s) and Denies neck pain Cardiovascular: Cardiovascular: Denies chest pain and Reports dyspnea Respiratory: Respiratory: Reports dyspnea Gastrointestinal: Gastrointestinal: Denies abdominal pain Genitourinary: Genitourinary: Denies dysuria Musculoskeletal: Musculoskeletal: Denies neck pain Integumentary/Breasts: Skin/Breast: Denies dry skin Neurologic: Reports Normal hearing present, Denies headache(s) and Reports weakness Psychiatric: Psychiatric: Denies anxiety Endocrine: Endocrine: Denies excessive sweating Hematologic/Lymphatic: Hematologic/Lymphatic: Denies easy bleeding Allergic/Immunologic: Allergic/Immunologic: Denies GI upset with certain foods Exam Narrative: Exam Narrative: Alert oriented. Appears stated age Const: General: comfortable and no acute distress HENMT: General nose exam: Normal nares present Eyes: Sclera: sclerae normal Neck: Neck: supple and no JVD Chest: Other: No reproducible chest wall pain to palpation Resp: Auscultation: diminished lung sounds Cardio: Rate: regular rate Rhythm: regular rhythm Heart sounds: Murmur heart sound present GI: Inspection: non-distended Skin: General skin exam: normal color Neuro: Cranial nerves: Yes Normal hearing present Cognition (Neuro): normal cognition Speech: normal speech Extrem: General: normal to inspection, no edema and no pedal edema Psych: Affect: normal affect Objective Data Vital Signs Vital Signs: Vital Signs - 24 hr 07/16/20 09:43 07/16/20 12:00 07/16/20 14:00 Temperature 36.1 C L Pulse Rate 110 H 95 Respiratory Rate 20 Blood Pressure 144/86 H Pulse Oximetry 95 98 07/16/20 16:00 07/16/20 20:00 07/16/20 21:34 Temperature Pulse Rate 100 99 97 Respiratory Rate Blood Pressure Pulse Oximetry 07/16/20 22:00 07/16/20 23:12 07/17/20 00:00 Temperature 36.6 C Pulse Rate 86 91 96 Respiratory Rate 20 20 Blood Pressure 133/75 Pulse Oximetry 98 97 07/17/20 04:00 07/17/20 06:00 07/17/20 08:46 Temperature 36.7 C Pulse Rate 88 87 9
[2020-07-17] MEDS: ACETAMINOPHEN 325 MG TABLET 650 MG PO (10:52)
[2020-07-17 11:45] LABS: Glucose Point of Care 264 mg/dl (65-105)
[2020-07-17 16:59] LABS: Glucose Point of Care 242 mg/dl (65-105)
--- NOTE | 2020-07-17 17:35 | PM.IMPN ---
Progress Note: A&P Assessment and Plan (1) Sepsis: Qualifiers: Sepsis acute organ dysfunction status: unspecified Sepsis type: sepsis due to unspecified organism Qualified Code(s): A41.9 - Sepsis, unspecified organism Code(s): A41.9 - Sepsis, unspecified organism Status: Acute (2) Elevated troponin: Code(s): R77.8 - Other specified abnormalities of plasma proteins Status: Acute (3) Lymphoma: Code(s): C85.90 - Non-Hodgkin lymphoma, unspecified, unspecified site Status: Acute (4) Type 2 diabetes mellitus with diabetic neuropathy: Code(s): E11.40 - Type 2 diabetes mellitus with diabetic neuropathy, unspecified Status: Chronic (5) Peripheral neuropathy: Code(s): G62.9 - Polyneuropathy, unspecified Status: Chronic (6) Aortic stenosis: Code(s): I35.0 - Nonrheumatic aortic (valve) stenosis Status: Chronic (7) Chronic back pain: Code(s): M54.9 - Dorsalgia, unspecified; G89.29 - Other chronic pain Status: Chronic (8) Insomnia: Code(s): G47.00 - Insomnia, unspecified Status: Chronic (9) GERD without esophagitis: Code(s): K21.9 - Gastro-esophageal reflux disease without esophagitis Status: Chronic (10) Anxiety: Code(s): F41.9 - Anxiety disorder, unspecified Status: Chronic (11) Hyperlipidemia: Code(s): E78.5 - Hyperlipidemia, unspecified Status: Chronic (12) Essential (primary) hypertension: Code(s): I10 - Essential (primary) hypertension Status: Acute (13) TARA on CPAP: Code(s): G47.33 - Obstructive sleep apnea (adult) (pediatric); Z99.89 - Dependence on other enabling machines and devices Status: Acute (14) Bilateral interstitial pneumonia: Code(s): J84.9 - Interstitial pulmonary disease, unspecified Status: Acute Additional Plan sepsis; from pneumonia. wbc mildy elevated. lactic acidosis. iv resuscitation. received 2 l iv ns in the ED. continue iv NS @ 75 ccc/hr. # lactic acidosis # pneumonia: CAP. levaquin iv. cxr and ct reviewed. swab for covid # recent covid vaccination 2 weeks back # elevated tronpoin: marcial from above. trend. cardiology consultation in am. no active chest pain. repeat ekg and montiro any dyanmic changes. # htn; stable # HLP; stable. # chornic back pain # GERD: home med # TARA on CPAP # type 2 DM with peripheral neuropathy: ssi. hold oha # hx of B cell lymphoma in remission. # DVT proph: lovenox 07/16/20 trop elevation associated w sepsis cont abx for multifocal pna BG above goal adjust insulin supportive care Chloraseptic spray ordered for comfort am labs PT/OT 07/17/20 improving as anticipated continue current medical therapy will need ongoing workup in the outpatient setting per cardiology called to pharmacy to requesting information about [facility] ordered antibiotic therapy as suppressant agent ??? increase insulin Subjective Date/time seen: 07/17/20 17:35 patient reports that he is feeling better today he is now on room air. He agrees to go home in the morning after we discuss with pharmacist what his [facility] recommended medication name is and what the indication is. Exam Const: General: comfortable and no acute distress HENMT: General nose exam: Normal nares present Eyes: Sclera: sclerae normal Neck: Neck: no JVD GI: Inspection: non-distended Skin: General skin exam: normal color Neuro: Cranial nerves: Yes Normal hearing present Cognition (Neuro): normal cognition Speech: normal speech Extrem: General: normal to inspection, no edema and no pedal edema Psych: Affect: normal affect Objective Data Vital Signs Vital Signs: Vital Signs - 24 hr 07/16/20 20:00 07/16/20 21:34 07/16/20 22:00 Temperature 98 F Pulse Rate 99 97 86 Respiratory Rate 20 Blood Pressure 133/75 Pulse Oximetry 98 07/16/20 23:12 07/17/20 00:00 07/17/20 04:00 Temperature Pulse Rate 91 9
[2020-07-17] MEDS: INSULIN GLARGINE (*BKC) 100 UNITS/ML 10 UNITS SUB-Q (20:38)
[2020-07-17 21:11] LABS: Glucose Point of Care 242 mg/dl (65-105)
[2020-07-17] MEDS: traZODone HCL 50 MG TABLET 150 MG BY MOUTH (22:07)
[2020-07-18] VITALS (8 sets, daily range): BP systolic 124–142; BP diastolic 77–86; PULSE 83–109; RESP 16–21; TEMP 35.6–37.1; O2SAT 95–98
[2020-07-18] MEDS: guaiFENesin 12 HR 600 MG TABCR 1200 MG PO (05:53)
--- NOTE | 2020-07-18 08:08 | PM.PNCARD ---
Progress Note: A&P Assessment and Plan (1) Aortic stenosis: Code(s): I35.0 - Nonrheumatic aortic (valve) stenosis Status: Chronic Assessment and Plan: At least moderate aortic stenosis. Aortic valve is not well visualized and by gradients it is approaching severe. Outpatient follow-up is advised. Reviewed with patient. Okay for discharge. (2) Essential (primary) hypertension: Code(s): I10 - Essential (primary) hypertension Status: Acute Assessment and Plan: Reasonably controlled. (3) Elevated troponin: Code(s): R77.8 - Other specified abnormalities of plasma proteins Status: Acute Assessment and Plan: Peaked at 0.079. Continue metoprolol, aspirin, statin. Outpatient Lexiscan myocardial perfusion study will be ordered for ischemic evaluation (4) Hyperlipidemia: Code(s): E78.5 - Hyperlipidemia, unspecified Status: Chronic Assessment and Plan: On statin (5) TARA on CPAP: Code(s): G47.33 - Obstructive sleep apnea (adult) (pediatric); Z99.89 - Dependence on other enabling machines and devices Status: Acute Subjective Date/time seen: 07/18/20 08:08 Interval history: Follow-up for 74-year-old male with pneumonia, elevated troponins, and aortic stenosis Date of service 07/18/2020: Feeling better, still with a cough but not bad, not needing oxygen, eager for discharge. Out of bed a little bit, up in a chair yesterday. Review of Systems Review of Systems: All systems reviewed & are unremarkable except as noted in HPI and below Constitutional: Constitutional: Denies excessive sweating, Denies headache(s) and Reports weakness Eyes: Eyes: Denies blurry vision ENT: Reports Normal hearing present and Denies headache(s) Cardiovascular: Cardiovascular: Denies chest pain and Reports dyspnea Respiratory: Respiratory: Reports chest congestion, Reports cough (Productive) and Reports dyspnea Gastrointestinal: Gastrointestinal: Denies abdominal pain Comments: Poor appetite, does not like the food here. Genitourinary: Genitourinary: Denies dysuria Musculoskeletal: Musculoskeletal: Reports myalgias (Generalized mild aches and pains) and Reports neck pain Integumentary/Breasts: Skin/Breast: Denies dry skin Neurologic: Reports Normal hearing present, Denies headache(s) and Reports weakness Psychiatric: Psychiatric: Denies anxiety Endocrine: Endocrine: Denies excessive sweating Hematologic/Lymphatic: Hematologic/Lymphatic: Denies easy bleeding Exam Narrative: Exam Narrative: Alert oriented. Appears stated age Const: General: comfortable and no acute distress HENMT: General nose exam: Normal nares present Eyes: Sclera: sclerae normal Neck: Neck: supple and no JVD Resp: Auscultation: diminished lung sounds Cardio: Rate: regular rate Rhythm: regular rhythm Heart sounds: Murmur heart sound present Other: Harsh high-pitched shrill but faint 1-2/6 DANIKA left sternal border GI: Inspection: non-distended GI Palp: No abdominal tenderness and No Tenderness to palpation present (GI) Skin: General skin exam: normal color Neuro: Cranial nerves: Yes Normal hearing present Cognition (Neuro): normal cognition Speech: normal speech Extrem: General: normal to inspection, no edema and no pedal edema Psych: Affect: normal affect Objective Data Vital Signs Vital Signs: Vital Signs - 24 hr 07/17/20 08:46 07/17/20 12:00 07/17/20 14:00 Temperature 97.8 F Pulse Rate 98 89 90 Respiratory Rate 18 Blood Pressure 117/78 Pulse Oximetry 98 07/17/20 16:00 07/17/20 20:00 07/17/20 20:30 Temperature Pulse Rate 97 87 97 Respiratory Rate Blood Pressure Pulse Oximetry 07/17/20 21:23 07/18/20 00:00 07/18/20 00:11 Temperature 98.1 F Pulse Rate 79 88 90 Respiratory Rate 16 21 H Blood Pressure 126/79 Pulse Oximetry 97 95 07/18/20 04:00 07/18/20 05:50 Temperature 98.7 F Pulse Rate 90 94 Re
[2020-07-18 08:29] LABS: Glucose Point of Care 221 mg/dl (65-105)
[2020-07-18] MEDS: TOLNAFTATE 1% POWDER 45 GM BTL 1 APPLIC TOPICAL (09:05)
[2020-07-18] MEDS: TIMOLOL MALEATE 0.5% OP SOLN 5 ML BOTTLE 1 DROP EACH EYE (09:06)
[2020-07-18] MEDS: ENOXAPARIN 40 MG/0.4 ML SYRINGE SUB-Q (09:06)
[2020-07-18] MEDS: METOPROLOL TARTRATE 12.5 MG TABLET PO (09:06)
[2020-07-18] MEDS: FINASTERIDE 5 MG TABLET PO (09:06)
[2020-07-18] MEDS: BRIMONIDINE TARTRATE 0.2% OP SOLN 5 ML BTL 1 DROP EACH EYE (09:06)
[2020-07-18] MEDS: ASPIRIN 81 MG ENTERIC TABLET PO (09:06)
[2020-07-18] MEDS: BENZONATATE 100 MG CAPSULE PO (09:08)
[2020-07-18] MEDS: ATORVASTATIN 20 MG TABLET PO (09:08)
[2020-07-18] MEDS: rOPINIRole HCL 0.5 MG TABLET BY MOUTH (09:08)
[2020-07-18] MEDS: INSULIN ASPART (*BKC) 100 UNITS/ML SUB-Q (09:11)
[2020-07-18] MEDS: LORazepam (*CRX) 0.5 MG TABLET PO (09:11)
[2020-07-18 12:52] LABS: Glucose Point of Care 230 mg/dl (65-105)
--- NOTE | 2020-07-18 14:17 | PM.DS ---
DS: Admitting Diagnosis Admitting Diagnosis Admitting Diagnosis: (1) Pneumonia: Qualifiers: Laterality: left Lung location: unspecified part of lung Pneumonia type: due to unspecified organism Qualified Code(s): J18.9 - Pneumonia, unspecified organism Code(s): J18.9 - Pneumonia, unspecified organism Status: Acute (2) Sepsis: Qualifiers: Sepsis acute organ dysfunction status: unspecified Sepsis type: sepsis due to unspecified organism Qualified Code(s): A41.9 - Sepsis, unspecified organism Code(s): A41.9 - Sepsis, unspecified organism Status: Acute (3) Elevated troponin: Code(s): R77.8 - Other specified abnormalities of plasma proteins Status: Acute (4) Lymphoma: Code(s): C85.90 - Non-Hodgkin lymphoma, unspecified, unspecified site Status: Acute (5) Type 2 diabetes mellitus with diabetic neuropathy: Code(s): E11.40 - Type 2 diabetes mellitus with diabetic neuropathy, unspecified Status: Chronic (6) Peripheral neuropathy: Code(s): G62.9 - Polyneuropathy, unspecified Status: Chronic (7) Aortic stenosis: Code(s): I35.0 - Nonrheumatic aortic (valve) stenosis Status: Chronic (8) Chronic back pain: Code(s): M54.9 - Dorsalgia, unspecified; G89.29 - Other chronic pain Status: Chronic (9) Insomnia: Code(s): G47.00 - Insomnia, unspecified Status: Chronic (10) GERD without esophagitis: Code(s): K21.9 - Gastro-esophageal reflux disease without esophagitis Status: Chronic (11) Anxiety: Code(s): F41.9 - Anxiety disorder, unspecified Status: Chronic (12) Hyperlipidemia: Code(s): E78.5 - Hyperlipidemia, unspecified Status: Chronic (13) Essential (primary) hypertension: Code(s): I10 - Essential (primary) hypertension Status: Acute (14) TARA on CPAP: Code(s): G47.33 - Obstructive sleep apnea (adult) (pediatric); Z99.89 - Dependence on other enabling machines and devices Status: Acute DS: Discharge Diagnosis Discharge Diagnosis (1) Sepsis: Qualifiers: Sepsis acute organ dysfunction status: unspecified Sepsis type: sepsis due to unspecified organism Qualified Code(s): A41.9 - Sepsis, unspecified organism Code(s): A41.9 - Sepsis, unspecified organism Status: Acute (2) Elevated troponin: Code(s): R77.8 - Other specified abnormalities of plasma proteins Status: Acute (3) Lymphoma: Code(s): C85.90 - Non-Hodgkin lymphoma, unspecified, unspecified site Status: Acute (4) Type 2 diabetes mellitus with diabetic neuropathy: Code(s): E11.40 - Type 2 diabetes mellitus with diabetic neuropathy, unspecified Status: Chronic (5) Peripheral neuropathy: Code(s): G62.9 - Polyneuropathy, unspecified Status: Chronic (6) Aortic stenosis: Code(s): I35.0 - Nonrheumatic aortic (valve) stenosis Status: Chronic (7) Chronic back pain: Code(s): M54.9 - Dorsalgia, unspecified; G89.29 - Other chronic pain Status: Chronic (8) Insomnia: Code(s): G47.00 - Insomnia, unspecified Status: Chronic (9) GERD without esophagitis: Code(s): K21.9 - Gastro-esophageal reflux disease without esophagitis Status: Chronic (10) Anxiety: Code(s): F41.9 - Anxiety disorder, unspecified Status: Chronic (11) Hyperlipidemia: Code(s): E78.5 - Hyperlipidemia, unspecified Status: Chronic (12) Essential (primary) hypertension: Code(s): I10 - Essential (primary) hypertension Status: Acute (13) TARA on CPAP: Code(s): G47.33 - Obstructive sleep apnea (adult) (pediatric); Z99.89 - Dependence on other enabling machines and devices Status: Acute (14) Bilateral interstitial pneumonia: Code(s): J84.9 - Interstitial pulmonary disease, unspecified Status: Acute DS: Summary Hospital Course Reason for h
== END 2020-07-18 15:15 | disposition home health service (06) | DRG 872 ==
LOC: ANHED 07-15 00:37 → ANHIMU 07-15 12:37 → ANH3MEDSUR 07-16 15:01 → ANHIMU 07-20 15:22
PROVIDERS: Internal Medicine Cardiovascular Disease; Admitting Provider Internal Medicine; Emergency Provider Emergency Medicine; PCP Family Medicine; Visit Provider Hospitalist
DX: A41.9 Sepsis, unspecified organism (principal); C85.90 Non-Hodgkin lymphoma, unspecified, unspecified site; J84.9 Interstitial pulmonary disease, unspecified; Z20.822 Contact with and (suspected) exposure to COVID-19; I10 Essential (primary) hypertension; R77.8 Other specified abnormalities of plasma proteins; E11.42 Type 2 diabetes mellitus with diabetic polyneuropathy; I35.0 Nonrheumatic aortic (valve) stenosis; M54.9 Dorsalgia, unspecified; G89.29 Other chronic pain; G47.33 Obstructive sleep apnea (adult) (pediatric); G47.00 Insomnia, unspecified; K21.9 Gastro-esophageal reflux disease without esophagitis; J02.9 Acute pharyngitis, unspecified; F41.9 Anxiety disorder, unspecified; E78.5 Hyperlipidemia, unspecified; Z79.84 Long term (current) use of oral hypoglycemic drugs; Z79.899 Other long term (current) drug therapy; Z87.891 Personal history of nicotine dependence; Z99.89 Dependence on other enabling machines and devices
CPT/HCPCS: 36415; 51701; 71046; 74176; 80048; 80053; 80061; 81001; 82948; 83036; 83605; 83735; 84484; 85025; 85055; 86140; 87040; 87081; 87880; 93005; 96360; 97110; 97116; 97161; 97165; 97530; 97535; 99285; A9270; C8929; C9803; J1650; J1815; J1956; J7030; Q9957; U0003; U0005

== ENCOUNTER 2020-08-05 06:37 | Emergency (ER) | payer MEDICARE, BC, SELFPAY ==
[2020-08-05] VITALS (44 sets, daily range): BP systolic 88–157; BP diastolic 66–103; PULSE 115–132; RESP 16–35; TEMP 36.5; O2SAT 92–97
--- NOTE | ~2020-08-05 | XR_ITS ---
XR tibia fibula RT 2V 08/05/2020 12:02 Indication: Right leg pain Procedure: 2 views right tibia/fibula Comparison: No prior studies for comparison. Findings: There is advanced osteoarthritis of the right knee. No fracture, subluxation or dislocation . There is moderate osteoarthritis of the midfoot. There are degenerative calcaneal enthesophytes. Mi ld soft tissue swelling anterior to the midshaft of the tibia. No foreign bodies. Impression: 1: No acute fracture. Reviewed, dictated and finalized at location B. Impression: 1: No acute fracture.
--- NOTE | ~2020-08-05 | XR_ITS ---
EXAMINATION: XR chest 1V portable DATE: 08/05/2020 07:19 INDICATION: Weakness TECHNIQUE: frontal view of the chest was obtained. COMPARISON: Chest radiograph dated 07/14/2020 FINDINGS: The lungs remain clear with no focal airspace opacities, pulmonary edema, pleural effusion or pneumot horax. The cardiomediastinal silhouette is normal. Moderate left and severe right glenohumeral osteoa rthritis. IMPRESSION: 1. No acute cardiopulmonary disease. Reviewed, dictated and finalized at location A.
--- NOTE | 2020-08-05 06:51 | ECG_ITS ---
Measurements Intervals [place] Rate: 129 P: -83 ND: 207 QRS: -78 QRSD: 142 T: 68 QT: 351 QTc: 514 Interpretive Statements ATRIAL FLUTTER/TACHYCARDIA WITH RAPID VENTRICULAR RESPONSE RIGHT BUNDLE BRANCH BLOCK LEFT ANTERIOR FASCICULAR BLOCK LEFT VENTRICULAR HYPERTROPHY AND ST-T CHANGE BASELINE ARTIFACT- I, III, AVR, AVL, AVF, V1-V2 ABNORMAL ECG Electronically Signed On 08-05-2020 7:19:28 CDT by Chase Ortiz D.O.
[2020-08-05 07:20] LABS: Basophils Percent Auto 0.3 % (0.2-1.2); Eosinophils Percent Auto 0.3 % (0-4.4); Hematocrit 47.1 % (42.0-52.0); Hemoglobin 15.8 g/dL (14.0-18.0); Immature Granulocyte Absolute 0.05 K/mm3 (0.00-0.031); Immature Granulocyte Percent A 0.4 % (0-0.5); Lymphocytes Absolute Auto 0.78 K/mm3 (0.9-3.2); Lymphocytes Percent Auto 6.6 % (18.3-44.2); Mean Corpuscular HGB Conc 33.5 g/dl (32-36); Mean Corpuscular Hemoglobin 31.9 pg (26-34); Monocytes Absolute Auto 0.4 K/mm3 (0.1-0.6); Monocytes Percent Auto 3.4 % (2.6-8.5); Neutrophils Absolute Auto 10.6 K/mm3 (1.3-6.7); Platelet Count Result 161 k/mm3 (150-375); Red Blood Count 4.96 M/mm3 (4.6-6.20); Red Cell Distribution Width 14.3 % (11.5-14.5); White Blood Count 11.9 K/mm3 (4.5-10.0)
[2020-08-05 07:24] LABS: Alanine Aminotransferase 26 U/L (4-50); Albumin Level 4.4 g/dL (3.5-5.1); Alkaline Phosphatase 89 U/L (38-126); Anion Gap 12 mmol/L (8-16); Aspartate Amino Transferase 35 U/L (17-59); Bilirubin,Total 0.9 mg/dL (0.2-1.3); Blood Urea Nitrogen 20 mg/dL (9-20); Calcium 9.4 mg/dL (8.4-10.2); Carbon Dioxide 21 mmol/L (22-30); Chloride 103 mmol/L (98-107); Estimated CRCL calculation 74 ml/min; Estimated Glomerular Filt Rate > 60; Glucose 283 mg/dL (75-110); Potassium 4.4 mmol/L (3.4-5.0); Sodium 136 mmol/L (137-145)
[2020-08-05] MEDS: SODIUM CHLORIDE 0.9% IV 1,000 ML 999 ML IV CONT (07:35)
[2020-08-05 08:07] LABS: Lactic Acid Reflex 1.9 mmol/L (0.7-2.1)
[2020-08-05 08:18] LABS: CRP 7.2 mg/dL (<1.0)
[2020-08-05 08:23] LABS: Partial Thromboplastin Time 27.5 SECONDS (22.3-36.8); Prothrombin Time 14.1 Seconds (11.1-14.7)
[2020-08-05 11:06] LABS: Add Urine Microscopic? YES; Appearance Urine Clear (Clear); Bacteria Urine Trace /hpf; Bilirubin Urine Negative (Negative); Blood Urine 1+ (Negative); Color Urine Amber (Yellow); Glucose Urine UA 2+ mg/dL (Negative); Ketones Urine 1+ mg/dL (Negative); Leukocyte Esterase Ur Trace LEU/UL (Negative); Mucus Urine Rare /lpf; Nitrate Urine Negative (Negative); Protein Urine 2+ mg/dL (Negative); RBC Urine 51-75 /hpf (0-2); Specific Grav Ur 1.029 (1.001-1.035)
[2020-08-05] MEDS: ONDANSETRON INJ 4 MG/2 ML VIAL IV PUSH (11:51)
[2020-08-05] MEDS: HYDROmorphone HCL INJ (*CRX) 1 MG/ML SYR 0.5 MG IV PUSH (11:51)
--- NOTE | 2020-08-05 13:08 | ED.GENADULT ---
HPI - General Adult General Chief complaint: Weakness Stated complaint: WEAKNESS/FALL Time Seen by Provider: 08/05/20 07:20 Source: patient, EMS and RN notes reviewed Mode of arrival: EMS Limitations: no limitations History of Present Illness HPI narrative: Patient 75 years old white female brought to the emergency room from home by ambulance complaining of general weakness for almost more than 2 weeks. Patient was hospitalized in our hospital 2 weeks ago for pneumonia. Currently patient on home rehab without any significant improvement. Patient uses walker, last night had a fall causing skin tear of the right lower leg. Patient denies head injury or other injuries. Patient lives with his son, fever full code, no blood thinner, could not get out of bed today because of the general weakness. Related Data Home Medications Medication Instructions Recorded Confirmed acetaminophen 325 mg capsule 650 mg PO Q4H PRN cap 01/25/19 07/15/20 Combigan 1 drp EACH EYE DAILY 07/15/20 07/15/20 cyclobenzaprine See Rx Instructions .ROUTE 07/15/20 07/15/20 .COMPLEX PRN finasteride 5 mg PO DAILY 07/15/20 07/15/20 ketoconazole 1 applic TOPICAL BID 07/15/20 07/15/20 ropinirole See Rx Instructions .ROUTE .COMPLEX 07/15/20 07/15/20 trazodone See Rx Instructions .ROUTE 07/15/20 07/15/20 .COMPLEX PRN Allergies Allergy/AdvReac Type Severity Reaction Status Date / Time azithromycin Allergy Unknown Rash Verified 12/20/19 09:31 Review of Systems Review of Systems: Narrative: CONSTITUTIONAL: Denies fever, chills, or sweats. EYES: Denies visual changes, redness, or discharge. ENT: Denies rhinorrhea, congestion, sore throat, or otalgia. CARDIOVASCULAR: Denies chest pain, palpitations, or edema. RESPIRATORY: Denies cough or dyspnea. GASTROINTESTINAL: Denies abdominal pain, nausea, vomiting, or diarrhea. GENITOURINARY: Denies dysuria or hematuria. SKIN: Denies rash or itching. MUSCULOSKELETAL: Denies back pain, joint pain, or myalgia. NEUROLOGIC: Denies headache, numbness, or weakness. PSYCHIATRIC: Denies anxiety or depression. [facility] Past Medical History Medical History Anxiety Aortic stenosis Chronic back pain Essential (primary) hypertension GERD without esophagitis Glaucoma Hyperlipidemia Insomnia Lymphoma Follows with Dr Quiroz - oncology Peripheral neuropathy Type 2 diabetes mellitus with diabetic neuropathy Family History Family History Father Lung cancer Social History Social History Smoking packs per day: 1 Smoking cigarettes per day: 20.0 Smoking status: Former smoker Alcohol intake: never Gender identity (if verbalized by the patient): Male Spiritual care concerns: No Exam Narrative: Exam Narrative: General appearance: Well-developed, well-nourished, morbidly obese, Skin: Normal color, skin abrasions right lower leg anterior laterally Head: Normocephalic, nontraumatic Eyes: Clear conjunctiva ENT: Oropharynx normal, ears normal, nose normal Neck: Supple, nontender Chest and respiratory: Airway patent, no respiratory distress, no accessory muscle use Heart: Regular rate/rhythm Abdomen: Soft, nontender, no organomegaly, quiet bowel sounds Vascular: Normal peripheral pulses, normal capillary refill. Musculoskeletal: Generally weak with poor range of motion all over Neurologic: Alert and oriented ?3, COMBINATION MACHINE TENDER is normal as tested, no gross motor deficit Course Course Emergency Course: Stable Vital Signs Vital signs: Vital Signs Temperature 36.5 C 08/05/20 06:40 Pulse Rat
[2020-08-05 13:49] LABS: EDCOVIDSCREEN Negative (Negative)
== END 2020-08-05 18:52 ==
PROVIDERS: Emergency Provider Emergency Medicine; PCP Family Medicine
DX: R53.1 Weakness (principal); S80.811A Abrasion, right lower leg, initial encounter; C85.90 Non-Hodgkin lymphoma, unspecified, unspecified site; I35.0 Nonrheumatic aortic (valve) stenosis; E11.42 Type 2 diabetes mellitus with diabetic polyneuropathy; I10 Essential (primary) hypertension; F41.9 Anxiety disorder, unspecified; Z87.891 Personal history of nicotine dependence; Z79.82 Long term (current) use of aspirin; Z79.84 Long term (current) use of oral hypoglycemic drugs; W19.XXXA Unspecified fall, initial encounter; Z20.822 Contact with and (suspected) exposure to COVID-19
CPT/HCPCS: 36415; 71045; 73590; 80053; 81001; 83605; 85025; 85610; 85730; 86140; 87040; 87077; 87086; 87088; 87186; 87426; 93005; 96361; 96374; 96375; 99284; C9803; J1170; J2405; J7030

== ENCOUNTER 2020-09-16 18:54 | Inpatient (IN) | payer MEDICARE, BC, SELFPAY ==
[2020-09-16] VITALS (11 sets, daily range): BP systolic 98–147; BP diastolic 63–109; PULSE 97–131; RESP 16–28; TEMP 36.6–38.5; O2SAT 87–99
--- NOTE | ~2020-09-16 | CT_ITS ---
EXAMINATION: CT brain wo con DATE: 09/18/2020 11:41 INDICATION: Altered mental status. Atrial fibrillation. TECHNIQUE: Computed tomography (CT) of the head was performed without intravenous contrast. The mA wa s adjusted according to patient size. Iterative reconstruction technique was employed. Exam dose: 68 1.00 mGy-cm total exam DLP. COMPARISON: None FINDINGS: There is central and cortical cerebral and cerebellar atrophy. Prominent bilateral carotid siphon internal carotid artery calcifications. There is nonspecific dimin ished attenuation of the cerebral white matter, likely due to chronic small vessel ischemic changes. No intracranial mass lesion or hemorrhage or cerebrovascular accident is detected. No midline shift o r mass effect. No subdural or epidural hematoma. No orbital mass lesion. No fracture or bone destruction of the cranial vault. There is asymmetric thickening of the lateral w all the right maxillary sinus and right nasal antral window. The paranasal sinuses appear normally de veloped and aerated. The mastoid air cells likewise appear normally developed and aerated. IMPRESSION: Central and cortical cerebral and cerebellar atrophy Cerebral atherosclerosis and chronic small vessel ischemic changes of the cerebral white Reviewed, dictated and finalized at Location A. Reviewed, dictated and finalized at location B. IMPRESSION: Central and cortical cerebral and cerebellar atrophy Cerebral atherosclerosis and chronic small vessel ischemic changes of the cereb ral white
--- NOTE | ~2020-09-16 | XR_ITS ---
EXAMINATION: XR chest 1V portable DATE: 09/16/2020 19:20 INDICATION: Fever and shortness of breath. TECHNIQUE: A single frontal view of the chest was obtained. COMPARISON: Chest single view 08/05/2020, CT abdomen and pelvis 07/14/2020 FINDINGS: There are mild airspace opacities in left lower lung zone. No pleural effusion or pneumotho rax. The heart size is normal. IMPRESSION: 1. Mild airspace opacities in left lower lung zone, consistent with atelectasis/scarring versus pneum onia. Reviewed, dictated and finalized at location A. IMPRESSION: 1. Mild airspace opacities in left lower lung zone, consistent with atelectasis /scarring versus pneumonia.
--- NOTE | 2020-09-16 19:14 | ECG_ITS ---
Measurements Intervals [place] Rate: 131 P: 158 [place]: 109 QRS: -71 QRSD: 146 T: 77 QT: 346 QTc: 511 Interpretive Statements ATRIAL FLUTTER/TACHYCARDIA WITH RAPID VENTRICULAR RESPONSE RIGHT BUNDLE BRANCH BLOCK LEFT ANTERIOR FASCICULAR BLOCK BASELINE ARTIFACT- V1, V3-V6 ABNORMAL ECG Electronically Signed On 09-17-2020 5:55:58 CDT by Chase Ortiz D.O.
--- NOTE | 2020-09-16 19:27 | PC.NURSE ---
Assumed care of pt at this time. Report taken from Blanche CAMPBELL. Pt alert and upright on stretcher, on 2L NC.
[2020-09-16 20:06] LABS: Basophils Percent Auto 0.3 % (0.2-1.2); Eosinophils Percent Auto 0.2 % (0-4.4); Hematocrit 41.3 % (42.0-52.0); Hemoglobin 13.8 g/dL (14.0-18.0); Immature Granulocyte Absolute 0.06 K/mm3 (0.00-0.031); Immature Granulocyte Percent A 0.5 % (0-0.5); Lymphocytes Absolute Auto 0.84 K/mm3 (0.9-3.2); Lymphocytes Percent Auto 7.1 % (18.3-44.2); Mean Corpuscular HGB Conc 33.4 g/dl (32-36); Mean Corpuscular Hemoglobin 32.2 pg (26-34); Mean Corpuscular Volume 96.3 fl (80-100); Mean Platelet Volume 10.7 fl (7.4-10.4); Monocytes Absolute Auto 0.9 K/mm3 (0.1-0.6); Monocytes Percent Auto 7.8 % (2.6-8.5); Neutrophils Absolute Auto 9.9 K/mm3 (1.3-6.7); Neutrophils Percent Auto 84.1 % (45.5-73.1); Platelet Count Result 143 k/mm3 (150-375); Red Blood Count 4.29 M/mm3 (4.6-6.20); Red Cell Distribution Width 14.2 % (11.5-14.5); White Blood Count 11.8 K/mm3 (4.5-10.0)
[2020-09-16 20:15] LABS: Lactic Acid Reflex 2.2 mmol/L (0.7-2.1)
[2020-09-16 20:16] LABS: Alanine Aminotransferase 25 U/L (4-50); Albumin Level 4.4 g/dL (3.5-5.1); Alkaline Phosphatase 105 U/L (38-126); Anion Gap 12 mmol/L (8-16); Aspartate Amino Transferase 33 U/L (17-59); Bilirubin,Total 0.8 mg/dL (0.2-1.3); Blood Urea Nitrogen 14 mg/dL (9-20); Calcium 9.8 mg/dL (8.4-10.2); Carbon Dioxide 23 mmol/L (22-30); Chloride 100 mmol/L (98-107); Estimated CRCL calculation 67 ml/min; Estimated Glomerular Filt Rate 59; Glucose 189 mg/dL (65-110); Potassium 4.4 mmol/L (3.4-5.0); Sodium 135 mmol/L (137-145)
[2020-09-16 20:25] LABS: NT Pro B Type Natriuretic Pept 806 pg/mL (5-100)
--- NOTE | 2020-09-16 20:55 | ED.GENADULT ---
HPI - General Adult General Chief complaint: Weakness Stated complaint: weakness Time Seen by Provider: 09/16/20 18:59 Source: patient Mode of arrival: EMS Limitations: no limitations History of Present Illness HPI narrative: 75-year-old with a history of hypertension, hyperlipidemia, diabetes, peripheral neuropathy here with complaints of marked weakness since this evening. Patient states that he woke up okay but since this afternoon he started feeling extremely weak in his lower extremities could not get of the toilet. He states that he had to call 911 for help and patient was later brought here to the ER. Patient denies any cough shortness of breath, chest pain or abdominal pain. He states he is just weak in his lower extremities. Onset (ago): hour(s) (5) Severity: moderate Quality: other (Weakness) Pain Consistency: constant Relieving factors: none Exacerbating factors: none Associated symptoms: fever/chills Treatments prior to arrival: none Related Data Home Medications Medication Instructions Recorded Confirmed acetaminophen 325 mg capsule 650 mg PO Q4H PRN cap 01/25/19 09/15/20 Combigan 1 drp EACH EYE DAILY 07/15/20 09/15/20 finasteride 5 mg PO DAILY 07/15/20 09/15/20 ketoconazole 1 applic TOPICAL BID 07/15/20 09/15/20 ropinirole 0.5 mg PO 07/15/20 09/15/20 trazodone 150 mg HS PRN 07/15/20 09/15/20 glipizide PO DAILY 08/05/20 09/15/20 Allergies Allergy/AdvReac Type Severity Reaction Status Date / Time azithromycin Allergy Unknown Rash Verified 09/16/20 20:03 [facility] Past Medical History Medical History Anxiety Aortic stenosis Chronic back pain Essential (primary) hypertension GERD without esophagitis Glaucoma Hyperlipidemia Insomnia Lymphoma Follows with Dr Quiroz - oncology Peripheral neuropathy Type 2 diabetes mellitus with diabetic neuropathy Family History Family History Father Lung cancer Social History Social History Smoking packs per day: 1 Smoking cigarettes per day: 20.0 Smoking status: Former smoker Alcohol intake: never Gender identity (if verbalized by the patient): Male Spiritual care concerns: No Course Vital Signs Vital signs: Vital Signs Temperature 38.5 C H 09/16/20 18:58 Pulse Rate 131 H 09/16/20 18:58 Respiratory Rate 25 H 09/16/20 18:58 Blood Pressure 147/109 H 09/16/20 18:58 Pulse Oximetry 87 L 09/16/20 18:58 Temperature 37.8 C H 09/16/20 20:45 Pulse Rate 121 H 09/16/20 20:45 Respiratory Rate 22 H 09/16/20 20:45 Blood Pressure 130/80 09/16/20 20:45 Pulse Oximetry 97 09/16/20 20:45 Medical Decision Making Vital Signs Vital Signs: Vital Signs Temperature 38.5 C H 09/16/20 18:58 Pulse Rate 131 H 09/16/20 18:58 Respiratory Rate 25 H 09/16/20 18:58 Blood Pressure 147/109 H 09/16/20 18:58 Pulse Oximetry 87 L 09/16/20 18:58 Temperature 37.8 C H 09/16/20 20:45 Pulse Rate 121 H 09/16/20 20:45 Respiratory Rate 22 H 09/16/20 20:45 Blood Pressure 130/80 09/16/20 20:45 Pulse Oximetry 97 09/16/20 20:45 Lab Data Result diagrams: 09/16/20 19:51 09/16/20 19:51 Labs: Lab Results 09/16/20 09/16/20 09/16/20 Range/Units 19:51 19:51 19:51 WBC 11.8 H (4.5-10.0) K/mm3 RBC 4.29 L (4.6-6.20) M/mm3 Hgb 13.8 L (14.0-18.0) g/dL Hct 41.3 L (42.0-52.0) % MCV 96.3 (80-100) fl MCH 32.2 (26-34) pg MCHC 33.4 (32-36) g/dl RDW 14.2 (11.5-14.5) % Plt Count 143 L (150-375) k/mm3 MPV 10.7 H (7.4-10.4) fl Immature Gran % (Auto) 0.5 (0-0.5) % Neut % (Auto) 84.1 H (45.5-73.1) % Lymph % (Auto) 7.1 L (18.3-44.2) % [place] % (Auto) 7.8 (2.6-8.5) % Eos % (Auto) 0.2 (0-4.4) % Baso % (Auto) 0.3 (0.2-1.2) % Lymph # (Auto) 0.84 L (0.9-3.2) K/mm3 [place] # (Auto
--- NOTE | 2020-09-16 20:57 | PC.NURSE ---
Pt states he does not feel safe to go home due to the increased weakness. Pt states he would like help finding placement for rehab.
[2020-09-16 20:59] LABS: Add Urine Microscopic? YES; Appearance Urine Cloudy (Clear); Bacteria Urine Trace /hpf; Bilirubin Urine Negative (Negative); Blood Urine 1+ (Negative); Color Urine Yellow (Yellow); Glucose Urine UA 1+ mg/dL (Negative); Ketones Urine 1+ mg/dL (Negative); Leukocyte Esterase Ur 3+ LEU/UL (Negative); Mucus Urine Rare /lpf; Nitrate Urine Negative (Negative); Protein Urine 2+ mg/dL (Negative); Specific Grav Ur 1.014 (1.001-1.035); Urobilinogen Urine Negative mg/dL (<2.0); WBC Urine >75 /hpf
[2020-09-16] MEDS: dilTIAZem HCl INJ 25 MG/5 ML VIAL 10 MG IV PUSH (21:11)
[2020-09-16 23:03] LABS: Reflex Lactic Acid Yes or No Add Lactic
[2020-09-17] VITALS (19 sets, daily range): BP systolic 120–148; BP diastolic 53–86; PULSE 78–114; RESP 14–24; TEMP 36.4–37.2; O2SAT 94–100; BMI 44.8
--- NOTE | 2020-09-17 00:05 | ADMGEN ---
This patient, Pino Arias, was admitted to IMU Room 214-01 at 2345. Patient/family oriented to hospital policies and general routines including ID bracelet, bed and alarms, visiting hours, pain management, procedures, bathroom and other care routines, personal items, smoking policy, room service/diet, and visiting hours. Information on how to activate the Rapid Response Team has been discussed. Patient/Family are encouraged to report perceived risks to care and to ask questions if they do not understand what they are told or what they should do.
[2020-09-17] MEDS: SODIUM CHLORIDE 0.9% IV 1,000 ML 75 ML IV CONT ×2 (00:38→13:47)
--- NOTE | 2020-09-17 00:56 | PM.IMHP ---
H&P: HPI History of Present Illness Date/Time: 09/17/20 00:56 Chief Complaint: WEAKNESS Narrative: This is a 75-year-old male with past medical history significant for type 2 diabetes mellitus, morbid obesity, Diastolic heart failure, moderate aortic stenosis, mitral regurgitation, atrial flutter, right bundle branch block. patient had a recent hospitalization in July in our hospital for pneumonia he was treated and he was discharged home with home health. he comes to the emergency room due to weakness and epigastric discomfort. upon arrival to the emergency room patient was found to be on atrial fibrillation with rapid ventricular response. Patient usually walks within the house to the bathroom and never leaves the house is pretty much homebound his activity is limited to his living space. He denies any fevers rigors chills cough sputum production nausea vomiting diarrhea. Preliminary workup was significant for A SLIGHTLY ELEVATED TROPONIN A SLIGHT ELEVATED LEUKOCYTE COUNT AND URINALYSIS WITH SIGNIFICANT WBC'S. Review of Systems Review of Systems: GENERALIZED WEAKNESS Constitutional: Constitutional: Denies chills, Denies fatigue, Denies fever(s), Denies malaise and Reports weakness Eyes: Eyes: Denies change in vision ENT: Reports system reviewed and no additional complaints, except as documented Cardiovascular: Cardiovascular: Reports chest pain, Denies irregular heart rhythm, Denies radiating jaw, neck or arm pain, Denies palpitations and Reports dyspnea on exertion Respiratory: Respiratory: Reports cough ( NONPRODUCTIVE) Gastrointestinal: Gastrointestinal: Reports abdominal pain, Denies nausea and Denies vomiting Musculoskeletal: Musculoskeletal: Reports muscle weakness Integumentary/Breasts: Skin/Breast: Reports rash ( ABDOMINAL FOLD AND BILATERAL GROIN) Neurologic: Reports system reviewed and no additional complaints, except as documented Psychiatric: Psychiatric: Reports no additional psychiatric complaints Endocrine: Endocrine: Reports no additional endocrine complaints Hematologic/Lymphatic: Hematologic/Lymphatic: Reports no additional hematologic/lymphatic complaints Allergic/Immunologic: Allergic/Immunologic: Reports no additional allergic/immunologic complaints [facility] Past Medical History Medical History Anxiety Aortic stenosis Chronic back pain Essential (primary) hypertension GERD without esophagitis Glaucoma Hyperlipidemia Insomnia Lymphoma Follows with Dr Quiroz - oncology Peripheral neuropathy Type 2 diabetes mellitus with diabetic neuropathy Family History Family History (Updated 09/17/20 @ 00:08 by Lois Echeverria RN) Father Lung cancer Mother Diabetes mellitus Cancer Hx of CABG Glaucoma Social History Social History Smoking packs per day: 1 Smoking cigarettes per day: 20.0 Smoking status: Former smoker Alcohol intake: never Substance use: never Gender identity (if verbalized by the patient): Male Spiritual care concerns: No Meds Home Medications and Allergies Home Medications Medication Instructions Recorded Confirmed Type acetaminophen 325 mg capsule 650 mg PO Q4H PRN cap 01/25/19 09/17/20 History atorvastatin 20 mg tablet 20 mg PO DAILY #90 tablet 01/08/20 09/17/20 Rx Combigan 1 drp EACH EYE DAILY 07/15/20 09/17/20 History finasteride 5 mg PO DAILY 07/15/20 09/17/20 History ketoconazole 1 applic TOPICAL BID 07/15/20 09/17/20 History ropinirole 0.5 mg PO HS 07/15/20 09/17/20 History trazodone 150 mg HS PRN 07/15/20 09/17/20 History aspirin 81 mg PO QAM 30 Days #30 tablet 07/17/20 09/17/20 Rx metformin 1,000 mg PO BID #60 tablet 07/17/20 09/17/20 Rx metoprolol tartrate 12.5 mg PO DAILY #30 tablet 07/17/20 09/17/20 Rx tolnaftate 1 applic TOPICAL Q12HR 20 Days #30 07/17/20 09/17/20 Rx g glipizide 10 mg PO DAILY 08/05/20 09/17/20 History lorazepa
[2020-09-17 01:17] LABS: Lactic Acid 1.2 mmol/L (0.7-2.1)
--- NOTE | 2020-09-17 01:36 | PCRCNOTE ---
Pt refuses hospital issued CPAP. Pt states he will have someone bring his unit tomorrow.
[2020-09-17 01:50] LABS: Troponin I 0.091 ng/mL (0.000-0.034)
--- NOTE | 2020-09-17 02:06 | ECG_ITS ---
Measurements Intervals [place] Rate: 89 P: 149 [place]: 188 QRS: -31 QRSD: 145 T: 149 QT: 398 QTc: 484 Interpretive Statements SINUS RHYTHM LEFT AXIS DEVIATION RIGHT BUNDLE BRANCH BLOCK LEFT VENTRICULAR HYPERTROPHY AND ST-T CHANGE MINIMAL Q WAVES- HIGH LATERAL LEADS ABNORMAL ECG Electronically Signed On 09-17-2020 8:50:35 CDT by Chase Ortiz D.O.
[2020-09-17 04:44] LABS: Anion Gap 8 mmol/L (8-16); Blood Urea Nitrogen 15 mg/dL (9-20); Calcium 9.2 mg/dL (8.4-10.2); Carbon Dioxide 22 mmol/L (22-30); Chloride 103 mmol/L (98-107); Estimated CRCL calculation 80 ml/min; Estimated Glomerular Filt Rate > 60; Glucose 154 mg/dL (65-110); Potassium 4.1 mmol/L (3.4-5.0); Sodium 133 mmol/L (137-145)
[2020-09-17 05:01] LABS: Troponin I 0.095 ng/mL (0.000-0.034)
[2020-09-17 05:16] LABS: Basophils Percent Auto 0.3 % (0.2-1.2); Eosinophils Percent Auto 0.5 % (0-4.4); Hematocrit 38.7 % (42.0-52.0); Hemoglobin 12.7 g/dL (14.0-18.0); Immature Granulocyte Absolute 0.03 K/mm3 (0.00-0.031); Immature Granulocyte Percent A 0.3 % (0-0.5); Immature Platelet Fraction Pct 6.1 % (0.9-11.2); Lymphocytes Absolute Auto 1.56 K/mm3 (0.9-3.2); Mean Corpuscular HGB Conc 32.8 g/dl (32-36); Mean Corpuscular Hemoglobin 31.7 pg (26-34); Mean Corpuscular Volume 96.5 fl (80-100); Monocytes Absolute Auto 1.1 K/mm3 (0.1-0.6); Monocytes Percent Auto 12.5 % (2.6-8.5); Neutrophils Absolute Auto 5.9 K/mm3 (1.3-6.7); Neutrophils Percent Auto 68.4 % (45.5-73.1); Platelet Count Result 140 k/mm3 (150-375); Red Blood Count 4.01 M/mm3 (4.6-6.20); Red Cell Distribution Width 14.2 % (11.5-14.5); White Blood Count 8.7 K/mm3 (4.5-10.0)
[2020-09-17] MEDS: HEPARIN SODIUM 5,000 UNITS/ML VIAL 5000 UNITS SUB-Q ×3 (05:27→20:57)
[2020-09-17] MEDS: TOLNAFTATE 1% POWDER 45 GM BTL 1 APPLIC TOPICAL ×2 (05:58→20:58)
[2020-09-17 08:04] LABS: Prothrombin Time 13.5 Seconds (11.1-14.7)
[2020-09-17] MEDS: BRIMONIDINE TARTRATE 0.2% OP SOLN 5 ML BTL 1 DROP EACH EYE (08:08)
[2020-09-17] MEDS: ASPIRIN 81 MG ENTERIC TABLET PO (08:08)
[2020-09-17 08:09] LABS: Glucose Point of Care 135 mg/dl (65-105)
[2020-09-17] MEDS: METOPROLOL TARTRATE 12.5 MG TABLET PO ×2 (08:09→20:54)
[2020-09-17] MEDS: FINASTERIDE 5 MG TABLET PO (08:10)
[2020-09-17] MEDS: TIMOLOL MALEATE 0.5% OP SOLN 5 ML BOTTLE 1 DROP EACH EYE (08:10)
[2020-09-17] MEDS: ATORVASTATIN 20 MG TABLET PO (08:11)
[2020-09-17] MEDS: MICONAZOLE NITRATE 2% CREAM 30 GM TUBE 1 APPLIC TOPICAL ×2 (09:06→21:07)
[2020-09-17 12:02] LABS: Glucose Point of Care 193 mg/dl (65-105)
[2020-09-17 16:10] LABS: Glucose Point of Care 176 mg/dl (65-105)
--- NOTE | 2020-09-17 16:15 | P.PNIM_ITS ---
Progress Note: A&P Assessment and Plan (1) Urinary tract infection: Code(s): N39.0 - Urinary tract infection, site not specified Status: Acute Assessment and Plan: UA abnormal on presentation with complaints of urinary frequency * Begin IV Rocephin * Urine cultures and blood cultures pending. Await results and tailor antibiotics accordingly * T-max 101.3?, remaining afebrile today. * Discontinue IV fluids as he has been adequately rehydrated and is tolerating oral intake (2) Atrial fibrillation with RVR: Code(s): I48.91 - Unspecified atrial fibrillation Status: Acute Assessment and Plan: evident on EKG at presentation with rate up to 130 * started on Cardizem drip which has since been discontinued * sinus rhythm restored; rate is controlled at this time * continue metoprolol tartrate 12.5 mg b.i.d. * consult to cardiology. Appreciate discussion with family regarding anticoagulation risks versus benefits * monitor on telemetry (3) Elevated troponin: Code(s): R77.8 - Other specified abnormalities of plasma proteins Status: Acute Assessment and Plan: Troponins mildly elevated. * he remained asymptomatic * likely related to atrial tachycardia * appreciate cardiology consultation (4) TARA on CPAP: Code(s): G47.33 - Obstructive sleep apnea (adult) (pediatric); Z99.89 - Dependence on other enabling machines and devices Status: Acute Assessment and Plan: * continue with CPAP at night (5) Essential (primary) hypertension: Code(s): I10 - Essential (primary) hypertension Status: Acute Assessment and Plan: Blood pressures reviewed and have been generally well controlled. Last BP 148/72 * Continue metoprolol * Monitor BP trends (6) Type 2 diabetes mellitus with diabetic neuropathy: Qualifiers: Diabetes mellitus supervisor intermediates insulin use: without supervisor intermediates use Qualified Code(s): E11.40 - Type 2 diabetes mellitus with diabetic neuropathy, unspecified Code(s): E11.40 - Type 2 diabetes mellitus with diabetic neuropathy, unspecified Status: Chronic Assessment and Plan: blood sugars reviewed and have been fairly well controlled * continue Accu-Cheks, sliding scale insulin, hypoglycemic protocol * metformin and glipizide on hold * check updated A1c (7) Generalized weakness: Code(s): R53.1 - Weakness Status: Acute Assessment and Plan: He called EMS because he was not able to get himself up off the toilet and has felt progressively weaker * Suspect related to physical deconditioning, likely worsened by acute infection * Appreciate PT/OT eval * Son feels that patient would benefit from rehab, although the patient is more hesitant Subjective Date/time seen: 09/17/20 16:15 Interval history: date of service: 09/17/20 Pino Arias is a 75-year-old male with a history of hypertension, hyperlipidemia, lymphoma, type 2 diabetes mellitus, aortic stenosis, and anxiety who is seen in follow-up for atrial fibrillation with RVR and suspected UTI. He has multiple complaints today and many of them are chronic in nature. First, he states that he has been unable to take a deep breath and feels that when he does, he has a pit in his stomach or chest that he cannot get air to. This has been going on for the better part of a year. He was just seen by his PCP but did not mention this. Also states frequent urination ongoing for about 1 year with multiple tri
--- NOTE | 2020-09-17 16:15 | PM.IMPN ---
Progress Note: A&P Assessment and Plan (1) Urinary tract infection: Code(s): N39.0 - Urinary tract infection, site not specified Status: Acute Assessment and Plan: UA abnormal on presentation with complaints of urinary frequency Begin IV Rocephin Urine cultures and blood cultures pending. Await results and tailor antibiotics accordingly T-max 101.3?, remaining afebrile today. Discontinue IV fluids as he has been adequately rehydrated and is tolerating oral intake (2) Atrial fibrillation with RVR: Code(s): I48.91 - Unspecified atrial fibrillation Status: Acute Assessment and Plan: evident on EKG at presentation with rate up to 130 started on Cardizem drip which has since been discontinued sinus rhythm restored; rate is controlled at this time continue metoprolol tartrate 12.5 mg b.i.d. consult to cardiology. Appreciate discussion with family regarding anticoagulation risks versus benefits monitor on telemetry (3) Elevated troponin: Code(s): R77.8 - Other specified abnormalities of plasma proteins Status: Acute Assessment and Plan: Troponins mildly elevated. he remained asymptomatic likely related to atrial tachycardia appreciate cardiology consultation (4) TARA on CPAP: Code(s): G47.33 - Obstructive sleep apnea (adult) (pediatric); Z99.89 - Dependence on other enabling machines and devices Status: Acute Assessment and Plan: continue with CPAP at night (5) Essential (primary) hypertension: Code(s): I10 - Essential (primary) hypertension Status: Acute Assessment and Plan: Blood pressures reviewed and have been generally well controlled. Last BP 148/72 Continue metoprolol Monitor BP trends (6) Type 2 diabetes mellitus with diabetic neuropathy: Qualifiers: Diabetes mellitus parts counterman insulin use: without parts counterman use Qualified Code(s): E11.40 - Type 2 diabetes mellitus with diabetic neuropathy, unspecified Code(s): E11.40 - Type 2 diabetes mellitus with diabetic neuropathy, unspecified Status: Chronic Assessment and Plan: blood sugars reviewed and have been fairly well controlled continue Accu-Cheks, sliding scale insulin, hypoglycemic protocol metformin and glipizide on hold check updated A1c (7) Generalized weakness: Code(s): R53.1 - Weakness Status: Acute Assessment and Plan: He called EMS because he was not able to get himself up off the toilet and has felt progressively weaker Suspect related to physical deconditioning, likely worsened by acute infection Appreciate PT/OT eval Son feels that patient would benefit from rehab, although the patient is more hesitant Subjective Date/time seen: 09/17/20 16:15 Interval history: date of service: 09/17/20 Pino Arias is a 75-year-old male with a history of hypertension, hyperlipidemia, lymphoma, type 2 diabetes mellitus, aortic stenosis, and anxiety who is seen in follow-up for atrial fibrillation with RVR and suspected UTI. He has multiple complaints today and many of them are chronic in nature. First, he states that he has been unable to take a deep breath and feels that when he does, he has a pit in his stomach or chest that he cannot get air to. This has been going on for the better part of a year. He was just seen by his PCP but did not mention this. Also states frequent urination ongoing for about 1 year with multiple trips to urinate throughout the night. He denies dysuria or hematuria. He also notes a mild tremor that occurs with activity such as feeding himself. Also ongoing for >1 year but has not been addressed with PCP. Reports last BM was 3 days ago and he is feeling constipated. He denies chest pain. He did have palpitations this morning but this has resolved. He feels very weak which is worsened over the past few days. He has no strength in his lower e
[2020-09-17] MEDS: rOPINIRole HCL 0.5 MG TABLET PO (20:55)
[2020-09-17] MEDS: ONDANSETRON INJ 4 MG/2 ML VIAL IV PUSH (21:14)
[2020-09-17 21:15] LABS: Glucose Point of Care 190 mg/dl (65-105)
[2020-09-18] VITALS (16 sets, daily range): BP systolic 109–141; BP diastolic 41–88; PULSE 77–113; RESP 16–23; TEMP 35.9–36.6; O2SAT 92–98
[2020-09-18] MEDS: HEPARIN SODIUM 5,000 UNITS/ML VIAL 5000 UNITS SUB-Q ×3 (05:04→22:04)
[2020-09-18 06:54] LABS: Basophils Percent Auto 0.3 % (0.2-1.2); Eosinophils Percent Auto 0.1 % (0-4.4); Hematocrit 39.4 % (42.0-52.0); Immature Granulocyte Absolute 0.04 K/mm3 (0.00-0.031); Immature Granulocyte Percent A 0.3 % (0-0.5); Immature Platelet Fraction Pct 5.6 % (0.9-11.2); Lymphocytes Absolute Auto 1.43 K/mm3 (0.9-3.2); Lymphocytes Percent Auto 11.9 % (18.3-44.2); Mean Corpuscular Hemoglobin 31.9 pg (26-34); Mean Corpuscular Volume 96.6 fl (80-100); Mean Platelet Volume 10.6 fl (7.4-10.4); Monocytes Absolute Auto 1.4 K/mm3 (0.1-0.6); Monocytes Percent Auto 11.6 % (2.6-8.5); Neutrophils Absolute Auto 9.1 K/mm3 (1.3-6.7); Neutrophils Percent Auto 75.8 % (45.5-73.1); Platelet Count Result 146 k/mm3 (150-375); Red Blood Count 4.08 M/mm3 (4.6-6.20)
[2020-09-18 07:02] LABS: Anion Gap 9 mmol/L (8-16); Blood Urea Nitrogen 13 mg/dL (9-20); Calcium 8.6 mg/dL (8.4-10.2); Carbon Dioxide 22 mmol/L (22-30); Chloride 97 mmol/L (98-107); Estimated CRCL calculation 86 ml/min; Estimated Glomerular Filt Rate > 60; Glucose 160 mg/dL (65-110); Potassium 3.7 mmol/L (3.4-5.0); Sodium 128 mmol/L (137-145)
[2020-09-18 07:14] LABS: Hemoglobin A1C 5.8 % (<5.7)
[2020-09-18] MEDS: ASPIRIN 81 MG ENTERIC TABLET PO (08:29)
[2020-09-18] MEDS: FINASTERIDE 5 MG TABLET PO (08:30)
[2020-09-18] MEDS: METOPROLOL TARTRATE 12.5 MG TABLET PO ×2 (08:30→20:24)
[2020-09-18] MEDS: ATORVASTATIN 20 MG TABLET PO (08:31)
[2020-09-18] MEDS: TIMOLOL MALEATE 0.5% OP SOLN 5 ML BOTTLE 1 DROP EACH EYE (08:31)
[2020-09-18] MEDS: BRIMONIDINE TARTRATE 0.2% OP SOLN 5 ML BTL 1 DROP EACH EYE (08:31)
[2020-09-18] MEDS: MICONAZOLE NITRATE 2% CREAM 30 GM TUBE 1 APPLIC TOPICAL ×2 (08:36→20:26)
[2020-09-18] MEDS: TOLNAFTATE 1% POWDER 45 GM BTL 1 APPLIC TOPICAL ×2 (08:36→20:26)
[2020-09-18 08:49] LABS: Glucose Point of Care 164 mg/dl (65-105)
[2020-09-18 12:28] LABS: Glucose Point of Care 198 mg/dl (65-105)
--- NOTE | 2020-09-18 12:42 | PM.CNCAR ---
Assessment and Plan Additional Plan this is a 75-year-old man with: Mild to moderate aortic valve stenosis by recent echocardiography. He has no other cardiac history he does have some conduction system disease with bifascicular block according to the ECG. Upon reviewing his chart it is my impression that he probably was in simple sinus tachycardia on presentation since as I mentioned in the text of my note above his heart rate gradually improved and slow down while he has been in the hospital for a couple of days rather than abrupt point of conversion from atrial flutter to sinus rhythm. At this point I would discontinue systemic anticoagulation since I do not think he was in atrial flutter on presentation. As his heart rate is normal now so I do not see the need to advance his beta-swati treatment. Longitudinal follow-up of his aortic valve disease would be appropriate but as the patient on a sleep told me he is not interested in anything like this and he was offered office follow-up on the last discharge about a month ago and was not interested in that. I do not have any other cardiac recommendations to make at this time Santos Cruz MD [facility] History of Present Illness History of Present Illness Consult date/time: 09/18/20 12:42 Consult reason: aortic stenosis Reason For Visit: atrial fib with RVR, fever, lower ext. weakness Narrative: this is a 75-year-old man who I have not seen previously am seeing at the request of the hospitalist today because of concern regarding atrial tachyarrhythmias. The patient was recently seen by my partners in the hospital here when he was in the hospital with what appeared to be urinary infection and some sepsis and in that setting had a modest troponin elevation. Apparently he is known to have aortic stenosis by previous medical records an echocardiography. His aortic valve stenosis appears up till now to be asymptomatic although he is a very debilitated morbidly obese patient who does not hardly perform any physical activities of any kind. In the hospital last month he was seen by Dr. Mansfield of our practice. Echocardiogram was done which demonstrated vigorous left ventricular systolic function and what appears to be mild aortic valve stenosis with a valve area of 1.5 cm2. The patient was discharged to home after recovery from that infection and read long-term/longitudinal follow-up of his aortic valve disease in our office was recommended. The patient did schedule any such appointment because he states he is not interested in cardiac follow-up or with does not believe that he would ever consider the option of an aortic valve procedure. As such he did not schedule follow-up nor does he wish to schedule anything at this time. He was hospitalized again here a couple of days ago with symptoms of severe lower extremity weakness to the point where he could not stand up. The specific reason for this is not known to me he states when he does ambulate at home for a long time he does use a walker in his very weak unsteady gait. He has had previous hip and knee surgery he thinks this has something to do with that. In any event he was unable to stand up and so he was brought to the hospital. Once again he has evidence of a urinary infection has been treated with antibiotics. He is supine in bed when I entered the room to see him and does not offer any other complaints. Specifically he has not been having any chest pain pressure or heaviness he denies any sense of palpitations. On admission to the hospital he was very tachycardic with a regular rhythm at with a pattern of right bundle branch block and left anterior fascicular block. Since he has been in the hospital his heart rate has gradually decreased he is now obviously in sinus rhythm. As his heart rate gradually decreased it was obvious that he had a sinus mechanism. There was no abrupt point of conversion from an atrial tachyarrhythmia back to sinus upon my rev
[2020-09-18] MEDS: ACETAMINOPHEN 325 MG TABLET 650 MG PO ×2 (13:16→20:24)
[2020-09-18] MEDS: ONDANSETRON INJ 4 MG/2 ML VIAL IV PUSH (13:16)
--- NOTE | 2020-09-18 14:38 | P.PNIM_ITS ---
Progress Note: A&P Assessment and Plan (1) Urinary tract infection: Code(s): N39.0 - Urinary tract infection, site not specified Status: Acute Assessment and Plan: UA abnormal on presentation with complaints of urinary frequency * Urine culture with >100k Enterococcus * Stop Rocephin and switch to Vancomycin * Blood cultures negative to date * T-max 101.3?, remaining afebrile >24 hours (2) Tachycardia: Code(s): R00.0 - Tachycardia, unspecified Status: Acute Assessment and Plan: Presented with heart rate in the 130s, EKG findings concerning for atrial fibrillation/flutter with rapid ventricular response * Started on Cardizem drip, rate improved with this and was discontinued on 09/17 * Continuing with p.o. metoprolol tartrate 12.5 b.i.d. * Seen in consultation by cardiology regarding concerns for AFib/flutter. Per cardiology, felt to be sinus tachycardia which was likely related to acute infection and fever. * Monitor on telemetry (3) Elevated troponin: Code(s): R77.8 - Other specified abnormalities of plasma proteins Status: Acute Assessment and Plan: Troponins mildly elevated. * he remained asymptomatic * likely related to atrial tachycardia * no further cardiac workup at this time per cardiology recommendations (4) TARA on CPAP: Code(s): G47.33 - Obstructive sleep apnea (adult) (pediatric); Z99.89 - Dependence on other enabling machines and devices Status: Acute Assessment and Plan: * continue with CPAP at night (5) Essential (primary) hypertension: Code(s): I10 - Essential (primary) hypertension Status: Acute Assessment and Plan: Blood pressures reviewed and have been generally well controlled. Last BP 125/73 * Continue metoprolol * Monitor BP trends (6) Type 2 diabetes mellitus with diabetic neuropathy: Qualifiers: Diabetes mellitus intermodal dispatcher insulin use: without group home use Qualified Code(s): E11.40 - Type 2 diabetes mellitus with diabetic neuropathy, unspecified Code(s): E11.40 - Type 2 diabetes mellitus with diabetic neuropathy, unspecified Status: Chronic Assessment and Plan: A1c is 5.8. Blood sugars reviewed and have been fairly well controlled * continue Accu-Cheks, sliding scale insulin, hypoglycemic protocol * metformin and glipizide on hold (7) Generalized weakness: Code(s): R53.1 - Weakness Status: Acute Assessment and Plan: He called EMS because he was not able to get himself up off the toilet and has felt progressively weaker * Suspect related to physical deconditioning, likely worsened by acute infection * Appreciate PT/OT eval * Son feels that patient would benefit from rehab and is concerned he cannot care for him at home. Care coordination following. Subjective Date/time seen: 09/18/20 14:38 Interval history: date of service: 09/17/20 Pino Arias is a 75-year-old male with a history of hypertension, hyperlipidemia, lymphoma, type 2 diabetes mellitus, aortic stenosis, and anxiet y who is seen in follow-up for urinary tract infection. He is doing fairly Well today. He is complaining of pain his periumbilical region started this afternoon also complains of back very poor and has had much oral intake. Denies nausea or vomiting just states nothing sounds good. No fevers or chills. he reported loose stool today. He is urinating frequently but denies dysuria, hematuria, suprapubic pain, flank pain, back pain.
--- NOTE | 2020-09-18 14:38 | PM.IMPN ---
Progress Note: A&P Assessment and Plan (1) Urinary tract infection: Code(s): N39.0 - Urinary tract infection, site not specified Status: Acute Assessment and Plan: UA abnormal on presentation with complaints of urinary frequency Urine culture with >100k Enterococcus Stop Rocephin and switch to Vancomycin Blood cultures negative to date T-max 101.3?, remaining afebrile >24 hours (2) Tachycardia: Code(s): R00.0 - Tachycardia, unspecified Status: Acute Assessment and Plan: Presented with heart rate in the 130s, EKG findings concerning for atrial fibrillation/flutter with rapid ventricular response Started on Cardizem drip, rate improved with this and was discontinued on 09/17 Continuing with p.o. metoprolol tartrate 12.5 b.i.d. Seen in consultation by cardiology regarding concerns for AFib/flutter. Per cardiology, felt to be sinus tachycardia which was likely related to acute infection and fever. Monitor on telemetry (3) Elevated troponin: Code(s): R77.8 - Other specified abnormalities of plasma proteins Status: Acute Assessment and Plan: Troponins mildly elevated. he remained asymptomatic likely related to atrial tachycardia no further cardiac workup at this time per cardiology recommendations (4) TARA on CPAP: Code(s): G47.33 - Obstructive sleep apnea (adult) (pediatric); Z99.89 - Dependence on other enabling machines and devices Status: Acute Assessment and Plan: continue with CPAP at night (5) Essential (primary) hypertension: Code(s): I10 - Essential (primary) hypertension Status: Acute Assessment and Plan: Blood pressures reviewed and have been generally well controlled. Last BP 125/73 Continue metoprolol Monitor BP trends (6) Type 2 diabetes mellitus with diabetic neuropathy: Qualifiers: Diabetes mellitus manager intermediate insulin use: without snf use Qualified Code(s): E11.40 - Type 2 diabetes mellitus with diabetic neuropathy, unspecified Code(s): E11.40 - Type 2 diabetes mellitus with diabetic neuropathy, unspecified Status: Chronic Assessment and Plan: A1c is 5.8. Blood sugars reviewed and have been fairly well controlled continue Accu-Cheks, sliding scale insulin, hypoglycemic protocol metformin and glipizide on hold (7) Generalized weakness: Code(s): R53.1 - Weakness Status: Acute Assessment and Plan: He called EMS because he was not able to get himself up off the toilet and has felt progressively weaker Suspect related to physical deconditioning, likely worsened by acute infection Appreciate PT/OT eval Son feels that patient would benefit from rehab and is concerned he cannot care for him at home. Care coordination following. Subjective Date/time seen: 09/18/20 14:38 Interval history: date of service: 09/17/20 Pino Arias is a 75-year-old male with a history of hypertension, hyperlipidemia, lymphoma, type 2 diabetes mellitus, aortic stenosis, and anxiety who is seen in follow-up for urinary tract infection. He is doing fairly Well today. He is complaining of pain his periumbilical region started this afternoon also complains of back very poor and has had much oral intake. Denies nausea or vomiting just states nothing sounds good. No fevers or chills. he reported loose stool today. He is urinating frequently but denies dysuria, hematuria, suprapubic pain, flank pain, back pain. He has not been out of bed today. She continues to endorse weakness in his lower extremities and also complains of some neuropathy. Denies shortness breath, cough, chest pain, or palpitations. At patient's request, I spoke with his son via phone to provide updates answer questions. Review of Systems Review of Systems: All systems reviewed & are unremarkable except as noted in HPI and below Exam Narrative: Mr. Andrade
[2020-09-18 17:12] LABS: Glucose Point of Care 232 mg/dl (65-105)
[2020-09-18] MEDS: SACCHAROMYCES BOULARDII 250 MG CAPSULE PO (17:35)
[2020-09-18] MEDS: INSULIN ASPART (*BKC) 100 UNITS/ML SUB-Q (17:36)
--- NOTE | 2020-09-18 18:00 | PC.NURSE ---
This patient, Pino Arias, was received from [ ] on 09/18/20 at 1830. Patient/family oriented to unit policies and routines
[2020-09-18] MEDS: rOPINIRole HCL 0.5 MG TABLET PO (20:24)
[2020-09-18] MEDS: FAMOTIDINE 20 MG TABLET PO (20:25)
[2020-09-18 20:51] LABS: Glucose Point of Care 162 mg/dl (65-105)
[2020-09-18] MEDS: traZODone HCL 50 MG TABLET 150 MG BY MOUTH (22:04)
[2020-09-19] VITALS (8 sets, daily range): BP systolic 101–128; BP diastolic 56–68; PULSE 66–93; RESP 16–20; TEMP 35.8–36.8; O2SAT 94–99
[2020-09-19] MEDS: ONDANSETRON INJ 4 MG/2 ML VIAL IV PUSH ×3 (02:23→12:19)
[2020-09-19] MEDS: ACETAMINOPHEN 325 MG TABLET 650 MG PO ×4 (04:04→21:36)
[2020-09-19] MEDS: HEPARIN SODIUM 5,000 UNITS/ML VIAL 5000 UNITS SUB-Q ×3 (05:30→21:21)
[2020-09-19 05:54] LABS: Hemoglobin 12.3 g/dL (14.0-18.0); Immature Platelet Fraction Pct 6.7 % (0.9-11.2); Mean Corpuscular HGB Conc 32.4 g/dl (32-36); Mean Corpuscular Hemoglobin 31.1 pg (26-34); Mean Platelet Volume 10.4 fl (7.4-10.4); Platelet Count Result 122 k/mm3 (150-375); Red Blood Count 3.96 M/mm3 (4.6-6.20); White Blood Count 8.7 K/mm3 (4.5-10.0)
[2020-09-19 06:07] LABS: Anion Gap 8 mmol/L (8-16); Blood Urea Nitrogen 14 mg/dL (9-20); Calcium 8.7 mg/dL (8.4-10.2); Carbon Dioxide 23 mmol/L (22-30); Chloride 99 mmol/L (98-107); Estimated CRCL calculation 86 ml/min; Estimated Glomerular Filt Rate > 60; Glucose 189 mg/dL (65-110); Potassium 3.5 mmol/L (3.4-5.0); Sodium 130 mmol/L (137-145)
[2020-09-19] MEDS: FINASTERIDE 5 MG TABLET PO (08:19)
[2020-09-19] MEDS: ATORVASTATIN 20 MG TABLET PO (08:19)
[2020-09-19] MEDS: SACCHAROMYCES BOULARDII 250 MG CAPSULE PO ×2 (08:19→18:11)
[2020-09-19] MEDS: ASPIRIN 81 MG ENTERIC TABLET PO (08:19)
[2020-09-19] MEDS: FAMOTIDINE 20 MG TABLET PO ×2 (08:20→21:21)
[2020-09-19] MEDS: METOPROLOL TARTRATE 12.5 MG TABLET PO ×2 (08:21→21:21)
[2020-09-19] MEDS: BRIMONIDINE TARTRATE 0.2% OP SOLN 5 ML BTL 1 DROP EACH EYE (08:22)
[2020-09-19] MEDS: TIMOLOL MALEATE 0.5% OP SOLN 5 ML BOTTLE 1 DROP EACH EYE (08:22)
[2020-09-19] MEDS: TOLNAFTATE 1% POWDER 45 GM BTL 1 APPLIC TOPICAL ×2 (08:23→21:21)
[2020-09-19] MEDS: MICONAZOLE NITRATE 2% CREAM 30 GM TUBE 1 APPLIC TOPICAL ×2 (08:23→21:23)
[2020-09-19 08:43] LABS: Glucose Point of Care 176 mg/dl (65-105)
[2020-09-19] MEDS: INSULIN ASPART (*BKC) 100 UNITS/ML SUB-Q ×2 (13:12→18:42)
[2020-09-19 13:23] LABS: Glucose Point of Care 224 mg/dl (65-105)
--- NOTE | 2020-09-19 14:50 | P.PNIM_ITS ---
Progress Note: A&P Assessment and Plan (1) Urinary tract infection: Code(s): N39.0 - Urinary tract infection, site not specified Status: Acute Assessment and Plan: UA abnormal on presentation with complaints of urinary frequency * Urine culture with >100k Enterococcus * Continue IV Vancomycin started on 09/18/20 * Blood cultures negative to date * T-max 101.3?, remaining afebrile >48 hours (2) Tachycardia: Code(s): R00.0 - Tachycardia, unspecified Status: Acute Assessment and Plan: Presented with heart rate in the 130s, EKG findings concerning for atrial fibrillation/flutter with rapid ventricular response * Started on Cardizem drip, rate improved with this and was discontinued on 09/17 * Continuing with p.o. metoprolol tartrate 12.5 b.i.d. * Seen in consultation by cardiology regarding concerns for AFib/flutter. Per cardiology, felt to be sinus tachycardia which was likely related to acute infection and fever. * Monitor on telemetry; no episodes of tachycardia today (3) Elevated troponin: Code(s): R77.8 - Other specified abnormalities of plasma proteins Status: Acute Assessment and Plan: Troponins mildly elevated. * he remained asymptomatic * likely related to atrial tachycardia * no further cardiac workup at this time per cardiology recommendations (4) TARA on CPAP: Code(s): G47.33 - Obstructive sleep apnea (adult) (pediatric); Z99.89 - Dependence on other enabling machines and devices Status: Acute Assessment and Plan: * continue with CPAP at night (5) Essential (primary) hypertension: Code(s): I10 - Essential (primary) hypertension Status: Acute Assessment and Plan: Blood pressures reviewed and have been generally well controlled. Last BP 102/62 * Continue metoprolol * Monitor BP trends (6) Type 2 diabetes mellitus with diabetic neuropathy: Qualifiers: Diabetes mellitus natural gas engineer insulin use: without natural gas engineer use Qualified Code(s): E11.40 - Type 2 diabetes mellitus with diabetic neuropathy, unspecified Code(s): E11.40 - Type 2 diabetes mellitus with diabetic neuropathy, unspecified Status: Chronic Assessment and Plan: A1c is 5.8. Blood sugars reviewed and have been fairly well controlled * continue Accu-Cheks, sliding scale insulin, hypoglycemic protocol * metformin and glipizide on hold (7) Generalized weakness: Code(s): R53.1 - Weakness Status: Acute Assessment and Plan: He called EMS because he was not able to get himself up off the toilet and has felt progressively weaker * Suspect related to physical deconditioning, likely worsened by acute infection * Appreciate PT/OT eval * TSH wnl. Will check B12 and folate * Son feels that patient would benefit from rehab and is concerned he cannot care for him at home. Care coordination following. Planning for SNF at [facility]. Awaiting insurance authorization. (8) Abnormal head CT: Code(s): R93.0 - Abnormal findings on diagnostic imaging of skull and head, not elsewhere classified Status: Acute Assessment and Plan: Head CT performed on 09/18 with central and cortical cerebral and cerebellar atrophy. * No history of CVA, however patient's son notes progressive issues with short- term memory. also has noticed mild tremor ongoing for >1 year. this may be explained by head CT findings. Could also be contributing to the patient's weakness. He cheek
--- NOTE | 2020-09-19 14:50 | PM.IMPN ---
Progress Note: A&P Assessment and Plan (1) Urinary tract infection: Code(s): N39.0 - Urinary tract infection, site not specified Status: Acute Assessment and Plan: UA abnormal on presentation with complaints of urinary frequency Urine culture with >100k Enterococcus Continue IV Vancomycin started on 09/18/20 Blood cultures negative to date T-max 101.3?, remaining afebrile >48 hours (2) Tachycardia: Code(s): R00.0 - Tachycardia, unspecified Status: Acute Assessment and Plan: Presented with heart rate in the 130s, EKG findings concerning for atrial fibrillation/flutter with rapid ventricular response Started on Cardizem drip, rate improved with this and was discontinued on 09/17 Continuing with p.o. metoprolol tartrate 12.5 b.i.d. Seen in consultation by cardiology regarding concerns for AFib/flutter. Per cardiology, felt to be sinus tachycardia which was likely related to acute infection and fever. Monitor on telemetry; no episodes of tachycardia today (3) Elevated troponin: Code(s): R77.8 - Other specified abnormalities of plasma proteins Status: Acute Assessment and Plan: Troponins mildly elevated. he remained asymptomatic likely related to atrial tachycardia no further cardiac workup at this time per cardiology recommendations (4) TARA on CPAP: Code(s): G47.33 - Obstructive sleep apnea (adult) (pediatric); Z99.89 - Dependence on other enabling machines and devices Status: Acute Assessment and Plan: continue with CPAP at night (5) Essential (primary) hypertension: Code(s): I10 - Essential (primary) hypertension Status: Acute Assessment and Plan: Blood pressures reviewed and have been generally well controlled. Last BP 102/62 Continue metoprolol Monitor BP trends (6) Type 2 diabetes mellitus with diabetic neuropathy: Qualifiers: Diabetes mellitus manager long term care insulin use: without group home use Qualified Code(s): E11.40 - Type 2 diabetes mellitus with diabetic neuropathy, unspecified Code(s): E11.40 - Type 2 diabetes mellitus with diabetic neuropathy, unspecified Status: Chronic Assessment and Plan: A1c is 5.8. Blood sugars reviewed and have been fairly well controlled continue Accu-Cheks, sliding scale insulin, hypoglycemic protocol metformin and glipizide on hold (7) Generalized weakness: Code(s): R53.1 - Weakness Status: Acute Assessment and Plan: He called EMS because he was not able to get himself up off the toilet and has felt progressively weaker Suspect related to physical deconditioning, likely worsened by acute infection Appreciate PT/OT eval TSH wnl. Will check B12 and folate Son feels that patient would benefit from rehab and is concerned he cannot care for him at home. Care coordination following. Planning for SNF at [facility]. Awaiting insurance authorization. (8) Abnormal head CT: Code(s): R93.0 - Abnormal findings on diagnostic imaging of skull and head, not elsewhere classified Status: Acute Assessment and Plan: Head CT performed on 09/18 with central and cortical cerebral and cerebellar atrophy. No history of CVA, however patient's son notes progressive issues with short-term memory. also has noticed mild tremor ongoing for >1 year. this may be explained by head CT findings. Could also be contributing to the patient's weakness. He has no focal deficits. He will benefit from outpatient neurology follow-up. Subjective Date/time seen: 09/19/20 14:50 Interval history: date of service: 09/19/20 Pnio Arias is a 75-year-old male with a history of hypertension, hyperlipidemia, lymphoma, type 2 diabetes mellitus, aortic stenosis, and anxiety who is seen in follow-up for urinary tract infection. He is doing well today. He does have some epigastric discomfort with eating b
[2020-09-19 18:57] LABS: Glucose Point of Care 242 mg/dl (65-105)
[2020-09-19] MEDS: traZODone HCL 50 MG TABLET 150 MG BY MOUTH (21:21)
[2020-09-19] MEDS: rOPINIRole HCL 0.5 MG TABLET PO (21:21)
[2020-09-19 21:34] LABS: Glucose Point of Care 170 mg/dl (65-105)
[2020-09-20] VITALS (11 sets, daily range): BP systolic 102–140; BP diastolic 52–85; PULSE 64–100; RESP 16–20; TEMP 35.9–36.8; O2SAT 95–100
[2020-09-20 01:34] LABS: Vancomycin Trough 17.4 ug/mL (10.0-20.0)
[2020-09-20 06:11] LABS: Hematocrit 37.5 % (42.0-52.0); Hemoglobin 12.4 g/dL (14.0-18.0); Mean Corpuscular HGB Conc 33.1 g/dl (32-36); Mean Corpuscular Hemoglobin 31.6 pg (26-34); Mean Corpuscular Volume 95.4 fl (80-100); Mean Platelet Volume 10.9 fl (7.4-10.4); Platelet Count Result 128 k/mm3 (150-375); Red Blood Count 3.93 M/mm3 (4.6-6.20); Red Cell Distribution Width 13.9 % (11.5-14.5); White Blood Count 6.8 K/mm3 (4.5-10.0)
[2020-09-20 06:27] LABS: Anion Gap 7 mmol/L (8-16); Blood Urea Nitrogen 14 mg/dL (9-20); Calcium 9.1 mg/dL (8.4-10.2); Carbon Dioxide 27 mmol/L (22-30); Chloride 101 mmol/L (98-107); Estimated CRCL calculation 87 ml/min; Estimated Glomerular Filt Rate > 60; Glucose 163 mg/dL (65-110); Lipase 156 U/L (23-300); Potassium 3.6 mmol/L (3.4-5.0); Sodium 135 mmol/L (137-145)
[2020-09-20] MEDS: HEPARIN SODIUM 5,000 UNITS/ML VIAL 5000 UNITS SUB-Q ×3 (06:43→21:46)
[2020-09-20 07:28] LABS: Folic Acid 12.4 ng/mL (2.76->20)
[2020-09-20 07:34] LABS: Glucose Point of Care 196 mg/dl (65-105)
[2020-09-20] MEDS: TIMOLOL MALEATE 0.5% OP SOLN 5 ML BOTTLE 1 DROP EACH EYE (10:36)
[2020-09-20] MEDS: FINASTERIDE 5 MG TABLET PO (10:36)
[2020-09-20] MEDS: BRIMONIDINE TARTRATE 0.2% OP SOLN 5 ML BTL 1 DROP EACH EYE (10:36)
[2020-09-20] MEDS: ASPIRIN 81 MG ENTERIC TABLET PO (10:37)
[2020-09-20] MEDS: ATORVASTATIN 20 MG TABLET PO (10:37)
[2020-09-20] MEDS: METOPROLOL TARTRATE 12.5 MG TABLET PO ×2 (10:37→20:30)
[2020-09-20] MEDS: FAMOTIDINE 20 MG TABLET PO ×2 (10:37→20:30)
[2020-09-20] MEDS: SACCHAROMYCES BOULARDII 250 MG CAPSULE PO ×2 (10:37→17:19)
[2020-09-20] MEDS: MICONAZOLE NITRATE 2% CREAM 30 GM TUBE 1 APPLIC TOPICAL ×2 (10:40→20:33)
[2020-09-20] MEDS: TOLNAFTATE 1% POWDER 45 GM BTL 1 APPLIC TOPICAL ×2 (10:40→20:32)
[2020-09-20] MEDS: ONDANSETRON INJ 4 MG/2 ML VIAL IV PUSH (10:44)
[2020-09-20] MEDS: ACETAMINOPHEN 325 MG TABLET 650 MG PO ×2 (10:44→21:45)
--- NOTE | 2020-09-20 10:45 | P.PNIM_ITS ---
Progress Note: A&P Assessment and Plan (1) Urinary tract infection: Code(s): N39.0 - Urinary tract infection, site not specified Status: Acute Assessment and Plan: UA abnormal on presentation with complaints of urinary frequency * Urine culture with >100k Enterococcus * Discontinue IV vancomycin (received 2 days of therapy) and transition to p.o. ampicillin * Blood cultures negative to date * T-max 101.3?, remaining afebrile >72 hours (2) Tachycardia: Code(s): R00.0 - Tachycardia, unspecified Status: Acute Assessment and Plan: Presented with heart rate in the 130s, EKG findings concerning for atrial fibrillation/flutter with rapid ventricular response * Started on Cardizem drip, rate improved with this and was discontinued on 09/17 * Continuing with p.o. metoprolol tartrate 12.5 b.i.d. * Seen in consultation by cardiology regarding concerns for AFib/flutter. Per cardiology, felt to be sinus tachycardia which was likely related to acute infection and fever. * Rate has been well controlled and he remains in sinus rhythm. Will discontinue telemetry today. (3) Generalized weakness: Code(s): R53.1 - Weakness Status: Acute Assessment and Plan: He called EMS because he was not able to get himself up off the toilet and has felt progressively weaker for the past few months * Suspect related to physical deconditioning, likely worsened by acute infection * Appreciate PT/OT eval * TSH, B12, and folate within normal limits * Son feels that patient would benefit from rehab and is concerned he cannot care for him at home. Care coordination following. Planning for SNF at [facility]. Awaiting insurance authorization. Hopeful discharge tomorrow (4) Type 2 diabetes mellitus with diabetic neuropathy: Qualifiers: Diabetes mellitus terminal makeup operator insulin use: without fpc use Qualified Code(s): E11.40 - Type 2 diabetes mellitus with diabetic neuropathy, unspecified Code(s): E11.40 - Type 2 diabetes mellitus with diabetic neuropathy, unspecified Status: Chronic Assessment and Plan: A1c is 5.8. Blood sugars reviewed and have been fairly well controlled * continue Accu-Cheks, sliding scale insulin, hypoglycemic protocol * metformin and glipizide on hold (5) Abnormal head CT: Code(s): R93.0 - Abnormal findings on diagnostic imaging of skull and head, not elsewhere classified Status: Acute Assessment and Plan: Head CT performed on 09/18 with central and cortical cerebral and cerebellar atrophy. * No history of CVA, however patient's son notes progressive issues with short- term memory. also has noticed mild tremor ongoing for >1 year. this may be explained by head CT findings. Could also be contributing to the patient's weakness. He has no focal deficits. * He will benefit from outpatient neurology follow-up. * Findings discussed with patient and son. They would like to follow-up with PCP and consider neurology referral (6) Essential (primary) hypertension: Code(s): I10 - Essential (primary) hypertension Status: Acute Assessment and Plan: Blood pressures reviewed and have been generally well controlled. Last BP 130/82 * Continue metoprolol * Monitor BP trends (7) Elevated troponin: Code(s): R77.8 - Other specified abnormalities of plasma proteins Status: Acute Assessment and Plan: Troponins mildly elevated. He was asymptomatic and this was likely related to at
--- NOTE | 2020-09-20 10:45 | PM.IMPN ---
Progress Note: A&P Assessment and Plan (1) Urinary tract infection: Code(s): N39.0 - Urinary tract infection, site not specified Status: Acute Assessment and Plan: UA abnormal on presentation with complaints of urinary frequency Urine culture with >100k Enterococcus Discontinue IV vancomycin (received 2 days of therapy) and transition to p.o. ampicillin Blood cultures negative to date T-max 101.3?, remaining afebrile >72 hours (2) Tachycardia: Code(s): R00.0 - Tachycardia, unspecified Status: Acute Assessment and Plan: Presented with heart rate in the 130s, EKG findings concerning for atrial fibrillation/flutter with rapid ventricular response Started on Cardizem drip, rate improved with this and was discontinued on 09/17 Continuing with p.o. metoprolol tartrate 12.5 b.i.d. Seen in consultation by cardiology regarding concerns for AFib/flutter. Per cardiology, felt to be sinus tachycardia which was likely related to acute infection and fever. Rate has been well controlled and he remains in sinus rhythm. Will discontinue telemetry today. (3) Generalized weakness: Code(s): R53.1 - Weakness Status: Acute Assessment and Plan: He called EMS because he was not able to get himself up off the toilet and has felt progressively weaker for the past few months Suspect related to physical deconditioning, likely worsened by acute infection Appreciate PT/OT eval TSH, B12, and folate within normal limits Son feels that patient would benefit from rehab and is concerned he cannot care for him at home. Care coordination following. Planning for SNF at [facility]. Awaiting insurance authorization. Hopeful discharge tomorrow (4) Type 2 diabetes mellitus with diabetic neuropathy: Qualifiers: Diabetes mellitus fdc insulin use: without local intermodal truck driver use Qualified Code(s): E11.40 - Type 2 diabetes mellitus with diabetic neuropathy, unspecified Code(s): E11.40 - Type 2 diabetes mellitus with diabetic neuropathy, unspecified Status: Chronic Assessment and Plan: A1c is 5.8. Blood sugars reviewed and have been fairly well controlled continue Accu-Cheks, sliding scale insulin, hypoglycemic protocol metformin and glipizide on hold (5) Abnormal head CT: Code(s): R93.0 - Abnormal findings on diagnostic imaging of skull and head, not elsewhere classified Status: Acute Assessment and Plan: Head CT performed on 09/18 with central and cortical cerebral and cerebellar atrophy. No history of CVA, however patient's son notes progressive issues with short-term memory. also has noticed mild tremor ongoing for >1 year. this may be explained by head CT findings. Could also be contributing to the patient's weakness. He has no focal deficits. He will benefit from outpatient neurology follow-up. Findings discussed with patient and son. They would like to follow-up with PCP and consider neurology referral (6) Essential (primary) hypertension: Code(s): I10 - Essential (primary) hypertension Status: Acute Assessment and Plan: Blood pressures reviewed and have been generally well controlled. Last BP 130/82 Continue metoprolol Monitor BP trends (7) Elevated troponin: Code(s): R77.8 - Other specified abnormalities of plasma proteins Status: Acute Assessment and Plan: Troponins mildly elevated. He was asymptomatic and this was likely related to atrial tachycardia. No further cardiac workup at this time per cardiology recommendations (8) TARA on CPAP: Code(s): G47.33 - Obstructive sleep apnea (adult) (pediatric); Z99.89 - Dependence on other enabling machines and devices Status: Acute Assessment and Plan: Continue with CPAP at night Subjective Date/time seen: 09/20/20 10:45 Interval history: date of service: 09/20/20 Pino Hugo is a 75-ye
[2020-09-20 11:35] LABS: Glucose Point of Care 280 mg/dl (65-105)
[2020-09-20] MEDS: AMPICILLIN TRIHYDRATE 500 MG CAPSULE PO ×3 (12:11→23:56)
[2020-09-20] MEDS: INSULIN ASPART (*BKC) 100 UNITS/ML SUB-Q ×2 (12:14→17:34)
[2020-09-20 17:22] LABS: Glucose Point of Care 213 mg/dl (65-105)
[2020-09-20] MEDS: DOCUSATE SODIUM 100 MG CAPSULE PO (20:30)
[2020-09-20] MEDS: rOPINIRole HCL 0.5 MG TABLET PO (20:32)
[2020-09-20] MEDS: WATER FOR IRRIGATION, STERILE 1,000 ML BOTTLE 1000 ML (20:34)
[2020-09-20 22:56] LABS: Glucose Point of Care 246 mg/dl (65-105)
[2020-09-21] VITALS: PULSE 108
[2020-09-21 04:00] VITALS: PULSE 63
[2020-09-21 06:00] VITALS: BP 128/65; PULSE 87; RESP 22; TEMP 36.5; O2SAT 96
[2020-09-21] MEDS: AMPICILLIN TRIHYDRATE 500 MG CAPSULE PO ×2 (06:03→11:28)
[2020-09-21] MEDS: HEPARIN SODIUM 5,000 UNITS/ML VIAL 5000 UNITS SUB-Q (06:03)
[2020-09-21 06:08] LABS: Estimated CRCL calculation 87 ml/min; Estimated Glomerular Filt Rate > 60
[2020-09-21 07:24] LABS: Glucose Point of Care 321 mg/dl (65-105)
[2020-09-21 08:58] VITALS: PULSE 92
[2020-09-21] MEDS: METOPROLOL TARTRATE 12.5 MG TABLET PO (08:58)
[2020-09-21] MEDS: FAMOTIDINE 20 MG TABLET PO (08:59)
[2020-09-21] MEDS: DOCUSATE SODIUM 100 MG CAPSULE PO (08:59)
[2020-09-21] MEDS: ATORVASTATIN 20 MG TABLET PO (08:59)
[2020-09-21] MEDS: BRIMONIDINE TARTRATE 0.2% OP SOLN 5 ML BTL 1 DROP EACH EYE (08:59)
[2020-09-21] MEDS: SACCHAROMYCES BOULARDII 250 MG CAPSULE PO (08:59)
[2020-09-21] MEDS: ASPIRIN 81 MG ENTERIC TABLET PO (08:59)
[2020-09-21] MEDS: INSULIN ASPART (*BKC) 100 UNITS/ML SUB-Q ×3 (08:59→11:28)
[2020-09-21] MEDS: FINASTERIDE 5 MG TABLET PO (08:59)
[2020-09-21] MEDS: TIMOLOL MALEATE 0.5% OP SOLN 5 ML BOTTLE 1 DROP EACH EYE (09:01)
[2020-09-21] MEDS: TOLNAFTATE 1% POWDER 45 GM BTL 1 APPLIC TOPICAL (09:01)
[2020-09-21] MEDS: MICONAZOLE NITRATE 2% CREAM 30 GM TUBE 1 APPLIC TOPICAL (09:01)
[2020-09-21] MEDS: polyethylene glycoL 3350 17 GM POWD.PACK PO (09:02)
[2020-09-21 10:30] VITALS: BP 141/75; PULSE 68; RESP 20; TEMP 36.6; O2SAT 100
[2020-09-21 11:21] LABS: Glucose Point of Care 208 mg/dl (65-105)
[2020-09-21] MEDS: ONDANSETRON INJ 4 MG/2 ML VIAL IV PUSH (11:28)
--- NOTE | 2020-09-21 13:24 | PM.DS ---
DS: Admitting Diagnosis Admitting Diagnosis UTI DS: Discharge Diagnosis Discharge Diagnosis (1) Urinary tract infection: Code(s): N39.0 - Urinary tract infection, site not specified Status: Acute Assessment and Plan: UA abnormal on presentation with complaints of urinary frequency. Initially started on IV Rocephin which was discontinued after preliminary urine culture with growth of >100k Enterococcus. Transitioned to IV vancomycin and was transitioned to p.o. ampicillin which he will continue to complete a 7 day course (2) Sepsis: Code(s): A41.9 - Sepsis, unspecified organism Status: Acute Assessment and Plan: Met criteria for sepsis on admission with fever, tachycardia, tachypnea, and leukocytosis with lactic acid 2.2. Source of infection felt to be urinary tract infection. Lactic improved to 1.2 with IV fluid rehydration. Sepsis resolved with treatment of UTI as described above. Blood cultures negative after 6 days. Final cultures will be monitored. (3) Tachycardia: Code(s): R00.0 - Tachycardia, unspecified Status: Acute Assessment and Plan: Presented with heart rate in the 130s, EKG findings concerning for atrial fibrillation/flutter with rapid ventricular response. Started on Cardizem drip. Rate improved with this and was discontinued on 09/17. he was seen in consultation by cardiology regarding concerns for AFib/flutter. per Cardiology, felt to be sinus tachycardia which was likely related to acute infection and fever. Rate remained controlled throughout hospitalization and he was in sinus rhythm. Continue with p.o. metoprolol tartrate 12.5 b.i.d. (4) Generalized weakness: Code(s): R53.1 - Weakness Status: Acute Assessment and Plan: He called EMS because he was not able to get himself up off the toilet and has felt progressively weaker for the past few months. Suspect related to physical deconditioning, likely worsened by acute infection. TSH, B12, and folate within normal limits. Both he and his son felt that he would not be able to care for himself at home. He was evaluated by PT/OT and he was accepted for SNF at [facility]. (5) Type 2 diabetes mellitus with diabetic neuropathy: Qualifiers: Diabetes mellitus intermediate designer insulin use: without nursing home use Qualified Code(s): E11.40 - Type 2 diabetes mellitus with diabetic neuropathy, unspecified Code(s): E11.40 - Type 2 diabetes mellitus with diabetic neuropathy, unspecified Status: Chronic Assessment and Plan: A1c is 5.8. Monitored with accuchecks and covered with sliding scale insulin during hospital stay. Continue metformin and glipizide. (6) Abnormal head CT: Code(s): R93.0 - Abnormal findings on diagnostic imaging of skull and head, not elsewhere classified Status: Acute Assessment and Plan: Head CT performed on 09/18 with central and cortical cerebral and cerebellar atrophy. No history of CVA. Patient's son notes progressive issues with short-term memory. Also has noticed mild tremor ongoing for >1 year. This may be explained by head CT findings. Could also be contributing to the patient's weakness. He has no focal deficits. He will benefit from outpatient neurology follow-up. Findings discussed with patient and son. They would like to follow-up with PCP and consider neurology referral (7) Essential (primary) hypertension: Code(s): I10 - Essential (primary) hypertension Status: Acute Assessment and Plan: Blood pressures reviewed and have been generally well controlled. Continue metoprolol (8) Elevated troponin: Code(s): R77.8 - Other specified abnormalities of plasma proteins Status: Acute Assessment and Plan: Troponins mildly elevated. He was asymptomatic and this was likely related to atrial tachycardia. No further cardiac workup at this time per cardiology recommenda
== END 2020-09-21 15:35 | disposition swing bed (61) | DRG 872 ==
LOC: ANHED 19:25 → ANHIMU 09-17 02:25 → ANH2MED 09-21 13:22 → ANHIMU 09-24 12:24
PROVIDERS: Admitting Provider Internal Medicine; Emergency Provider Family Medicine; PCP Family Medicine; Visit Provider Physician Assistant
DX: A41.9 Sepsis, unspecified organism (principal); N39.0 Urinary tract infection, site not specified; I48.91 Unspecified atrial fibrillation; B35.6 Tinea cruris; F41.9 Anxiety disorder, unspecified; G47.33 Obstructive sleep apnea (adult) (pediatric); E11.42 Type 2 diabetes mellitus with diabetic polyneuropathy; E78.5 Hyperlipidemia, unspecified
CPT/HCPCS: 36415; 51701; 70450; 71045; 80048; 80053; 80202; 81001; 82565; 82607; 82746; 82948; 83036; 83605; 83690; 83880; 84484; 85025; 85027; 85055; 85610; 85730; 87040; 87077; 87086; 87088; 87186; 93005; 94660; 96365; 96375; 97110; 97161; 97165; 97530; 97535; 99285; A9270; J0131; J0696; J1644; J1815; J2405; J3370; J7030

== ENCOUNTER 2020-09-21 16:28 | Inpatient (IN) | payer MEDICARE, BC, SELFPAY ==
[2020-09-21 18:20] VITALS: PULSE 67; RESP 16; TEMP 37.1; O2SAT 95
[2020-09-21 18:24] VITALS: BP 140/68
[2020-09-21] MEDS: ACETAMINOPHEN 325 MG TABLET 650 MG PO (21:07)
[2020-09-21 21:11] LABS: Glucose Point of Care 217 mg/dl (65-105)
[2020-09-21] MEDS: traZODone HCL 50 MG TABLET 150 MG BY MOUTH (22:00)
[2020-09-21] MEDS: rOPINIRole HCL 0.5 MG TABLET PO (22:00)
[2020-09-21] MEDS: TOLNAFTATE 1% POWDER 45 GM BTL 1 APPLIC TOPICAL (22:02)
[2020-09-21] MEDS: LORazepam (*CRX) 0.5 MG TABLET PO (22:02)
[2020-09-22 01:51] VITALS: BP 124/71; PULSE 72; RESP 20; TEMP 36.4; O2SAT 95
--- NOTE | 2020-09-22 02:13 | PM.IMHP ---
H&P: HPI History of Present Illness Date/Time: 09/22/20 02:13 Chief Complaint: Weakness Narrative: 75-year-old man with a history of type 2 diabetes transferred from [facility] to this hospital as a swing bed. Patient presented to [facility] on September 16 with fever, tachycardia, and weakness. He was found to have sepsis there was initially treated with Rocephin but then switched to vancomycin and then to ampicillin for Enterococcus UTI. Tachycardia was felt to be sinus and due to infection and fever. He is to continue with 4 more days of ampicillin p.o. and PT/OT. Review of Systems Review of Systems: All systems reviewed & are unremarkable except as noted in HPI and below Constitutional: Constitutional: Denies anorexia, Denies body ache(s), Denies headache(s), Denies night sweats and Reports weakness Eyes: Eyes: Denies blurry vision and Denies diplopia ENT: Denies vertigo, Denies dizziness, Denies nasal discharge and Denies sore throat Cardiovascular: Cardiovascular: Denies chest pain, Denies rapid heart rate, Denies irregular heart rhythm and Denies leg edema Respiratory: Respiratory: Denies chest congestion, Denies cough and Denies dyspnea Gastrointestinal: Gastrointestinal: Denies abdominal pain, Denies melena, Denies hematochezia, Denies nausea and Denies vomiting Genitourinary: Genitourinary: Denies hematuria, Denies dysuria, Denies flank pain and Denies urinary frequency Musculoskeletal: Musculoskeletal: Denies arthralgias and Denies joint swelling Integumentary/Breasts: Skin/Breast: Denies pruritus, Denies lesions, Denies erythema and Denies rash Neurologic: Denies confusion, Denies vertigo, Denies dizziness and Reports weakness Hematologic/Lymphatic: Hematologic/Lymphatic: Denies easy bleeding and Denies easy bruising Allergic/Immunologic: Allergic/Immunologic: Denies urticaria, Denies lip swelling, Denies throat swelling and Denies tongue swelling [facility] Past Medical History Medical History (Updated 09/22/20 @ 02:37 by Bhanu Ruelas MD) Anxiety Aortic stenosis Chronic back pain Essential (primary) hypertension GERD without esophagitis Glaucoma Hyperlipidemia Insomnia Intertrigo Lymphoma Follows with Dr Quiroz - oncology Peripheral neuropathy Type 2 diabetes mellitus with diabetic neuropathy Family History Family History (Updated 09/17/20 @ 00:08 by Lois Echeverria RN) Father Lung cancer Mother Diabetes mellitus Cancer Hx of CABG Glaucoma Social History Social History Smoking packs per day: 1 Smoking cigarettes per day: 20.0 Smoking status: Former smoker Tobacco type: cigarettes Alcohol intake: former Substance use: never Gender identity (if verbalized by the patient): Male Sexual Orientation (if Verbalized by the Patient): Straight or Heterosexual Spiritual care concerns: No Meds Home Medications and Allergies Home Medications Medication Instructions Recorded Confirmed Type acetaminophen 325 mg capsule 650 mg PO Q4H PRN cap 01/25/19 09/21/20 History atorvastatin 20 mg tablet 20 mg PO DAILY #90 tablet 01/08/20 09/21/20 Rx Combigan 1 drp EACH EYE DAILY 07/15/20 09/21/20 History finasteride 5 mg PO DAILY 07/15/20 09/21/20 History ketoconazole 1 applic TOPICAL BID 07/15/20 09/21/20 History ropinirole 0.5 mg PO HS 07/15/20 09/21/20 History trazodone 150 mg HS PRN 07/15/20 09/21/20 History aspirin 81 mg PO QAM 30 Days #30 tablet 07/17/20 09/21/20 Rx metformin 1,000 mg PO BID #60 tablet 07/17/20 09/21/20 Rx metoprolol tartrate 12.5 mg PO DAILY #30 tablet 07/17/20 09/21/20 Rx tolnaftate 1 applic TOPICAL Q12HR 20 Days #30 07/17/20 09/21/20 Rx g glipizide 10 mg PO QAM 08/05/20 09/21/20 History lorazepam 0.5 mg tablet 0.5 mg PO BID PRN #60 tablet 09/10/20 09/21/20 Rx glipizide 5 mg PO QPM 09/17/20 09/21/20 History Saccharomyces boulardii [Florastor] 250 mg PO BID #20 ca
[2020-09-22 05:49] LABS: Basophils Absolute Auto 0.04 K/mm3 (0.00-0.10); Basophils Percent Auto 0.6 % (0.0-1.0); Eosinophils Absolute Auto 0.26 K/mm3 (0.02-0.50); Eosinophils Percent Auto 4.1 % (1.0-6.0); Hematocrit 39.8 % (37.0-46.0); Hemoglobin 12.8 g/dL (12.4-15.3); Immature Granulocyte Absolute 0.05 K/mm3 (0.00-0.00); Immature Granulocyte Percent A 0.8 % (0.0-0.0); Lymphocytes Absolute Auto 1.61 K/mm3 (1.10-4.50); Lymphocytes Percent Auto 25.3 % (18.0-42.0); Mean Corpuscular HGB Conc 32.2 g/dL (32.0-36.0); Mean Corpuscular Hemoglobin 31.4 pg (27.0-31.0); Mean Corpuscular Volume 97.5 fL (78.0-102.0); Mean Platelet Volume 10.9 fl (8.7-11.0); Monocytes Absolute Auto 0.62 K/mm3 (0.10-0.90); Monocytes Percent Auto 9.7 % (2.0-11.0); Neutrophils Absolute Auto 3.8 K/mm3 (1.7-7.2); Neutrophils Percent Auto 59.5 % (50.0-70.0); Platelet Count Result 142 K/mm3 (150-420); Red Blood Count 4.08 M/mm3 (4.70-6.10); Red Cell Distribution Width 13.7 % (11.6-14.4); White Blood Count 6.4 K/mm3 (4.8-10.8)
[2020-09-22 06:23] LABS: Alanine Aminotransferase 57 U/L (16-63); Alkaline Phosphatase 172 U/L (46-116); Anion Gap 11 mmol/L (8-16); Aspartate Amino Transferase 40 U/L (15-37); Bilirubin,Total 0.3 mg/dL (0.00-1.00); Blood Urea Nitrogen 14 mg/dL (7-18); Calcium 9.1 mg/dL (8.5-10.1); Carbon Dioxide 28 mmol/L (21-32); Chloride 104 mmol/L (98-108); Estimated Glomerular Filt Rate > 60; Glucose 159 mg/dL (70-99); Osmolality Calculated 299 mOsm/kg (285-295); Potassium 3.5 mmol/L (3.5-5.1); Sodium 143 mmol/L (136-145); Total Protein 6.9 g/dL (6.4-8.2)
[2020-09-22 08:00] VITALS: BP 133/80; PULSE 100; RESP 20; TEMP 36.4; O2SAT 98
[2020-09-22 08:42] LABS: Glucose Point of Care 203 mg/dl (65-105)
[2020-09-22] MEDS: ASPIRIN 81 MG ENTERIC TABLET PO (10:06)
[2020-09-22] MEDS: metFORMIN HCL 500 MG TABLET 1000 MG PO ×2 (10:06→17:58)
[2020-09-22] MEDS: FINASTERIDE 5 MG TABLET PO (10:06)
[2020-09-22] MEDS: glipiZIDE 5 MG TABLET 10 MG PO (10:07)
[2020-09-22] MEDS: ATORVASTATIN 10 MG TABLET 20 MG PO (10:07)
[2020-09-22 10:12] VITALS: PULSE 82
[2020-09-22] MEDS: BRIMONIDINE TARTRATE 0.2% OP SOLN 5 ML BTL 1 DROP EACH EYE (10:12)
[2020-09-22] MEDS: METOPROLOL TARTRATE 12.5 MG TABLET PO (10:12)
[2020-09-22] MEDS: SACCHAROMYCES BOULARDII 250 MG CAPSULE PO ×2 (10:14→17:59)
[2020-09-22] MEDS: MICONAZOLE NITRATE 2% CREAM 30 GM TUBE 1 APPLIC TOPICAL ×2 (10:14→18:00)
[2020-09-22] MEDS: TIMOLOL MALEATE 0.5% OP SOLN 5 ML BOTTLE 1 DROP EACH EYE (10:15)
[2020-09-22] MEDS: TOLNAFTATE 1% POWDER 45 GM BTL 1 APPLIC TOPICAL ×2 (10:15→21:34)
[2020-09-22] MEDS: AMOXICILLIN 500 MG CAPSULE PO ×3 (10:21→21:42)
[2020-09-22 12:06] LABS: Glucose Point of Care 193 mg/dl (65-105)
[2020-09-22 16:00] VITALS: BP 111/55; PULSE 68; RESP 18; TEMP 36.3; O2SAT 96
[2020-09-22 17:43] LABS: Glucose Point of Care 104 mg/dl (65-105)
[2020-09-22] MEDS: glipiZIDE 5 MG TABLET PO (17:59)
[2020-09-22] MEDS: rOPINIRole HCL 0.5 MG TABLET PO (21:34)
[2020-09-22] MEDS: ACETAMINOPHEN 325 MG TABLET 650 MG PO (21:35)
[2020-09-22 21:40] LABS: Glucose Point of Care 82 mg/dl (65-105)
[2020-09-22] MEDS: LORazepam (*CRX) 0.5 MG TABLET PO (21:42)
[2020-09-23] VITALS: BP 110/70; PULSE 68; RESP 20; TEMP 35.9; O2SAT 97
--- NOTE | 2020-09-23 00:07 | PC.NURSE ---
Pt resting quietly in bed and watching TV. Pt doesnt voice any c/o discomfort.
--- NOTE | 2020-09-23 02:14 | PC.NURSE ---
Pt up to the bathroom with his walker and standby assist of one. Pt voided 250 ml of clear, michael urine and returned to bed with his walker and standby assist of one. Side rails up x 2 and call pacheco within reach.
--- NOTE | 2020-09-23 04:03 | PC.NURSE ---
Pt asleep and no signs of discomfort noted.
--- NOTE | 2020-09-23 05:45 | PC.NURSE ---
Pt up to the bathroom with his walker and standby assist of one. Pt voided 200 ml of clear, michael urine and returned back to bed with the walker and standby assist of one. Side rails up x2 and call pacheco within reach.
[2020-09-23] MEDS: AMOXICILLIN 500 MG CAPSULE PO ×4 (06:16→22:20)
[2020-09-23 08:00] VITALS: BP 122/80; PULSE 80; RESP 18; TEMP 36.2; O2SAT 95
[2020-09-23 08:05] LABS: Glucose Point of Care 144 mg/dl (65-105)
[2020-09-23] MEDS: metFORMIN HCL 500 MG TABLET 1000 MG PO ×2 (09:36→17:12)
[2020-09-23] MEDS: FINASTERIDE 5 MG TABLET PO (09:36)
[2020-09-23] MEDS: ATORVASTATIN 10 MG TABLET 20 MG PO (09:36)
[2020-09-23] MEDS: ASPIRIN 81 MG ENTERIC TABLET PO (09:36)
[2020-09-23] MEDS: glipiZIDE 5 MG TABLET 10 MG PO (09:36)
[2020-09-23 09:37] VITALS: PULSE 80
[2020-09-23] MEDS: BRIMONIDINE TARTRATE 0.2% OP SOLN 5 ML BTL 1 DROP EACH EYE (09:37)
[2020-09-23] MEDS: SACCHAROMYCES BOULARDII 250 MG CAPSULE PO ×2 (09:37→17:14)
[2020-09-23] MEDS: MICONAZOLE NITRATE 2% CREAM 30 GM TUBE 1 APPLIC TOPICAL ×2 (09:37→17:14)
[2020-09-23] MEDS: TIMOLOL MALEATE 0.5% OP SOLN 5 ML BOTTLE 1 DROP EACH EYE (09:37)
[2020-09-23] MEDS: METOPROLOL TARTRATE 12.5 MG TABLET PO (09:37)
[2020-09-23] MEDS: TOLNAFTATE 1% POWDER 45 GM BTL 1 APPLIC TOPICAL ×2 (09:38→22:29)
[2020-09-23] MEDS: ACETAMINOPHEN 325 MG TABLET 650 MG PO ×2 (09:41→22:23)
--- NOTE | 2020-09-23 10:53 | P.PN_ITS ---
Progress Note: A&P Assessment and Plan (1) Weakness: Code(s): R53.1 - Weakness Status: Acute Assessment and Plan: ? Exhibit tolerance during physical activity as evidenced by a normal fluctuation of vital signs during physical activity. ? Patient will be ability to perform required activities of daily living. ? Provide appropriate nutrition for healing and strength. ? Use appropriate to prevent falls. ? Continue physical therapy/occupational therapy. Patient with a history of multiple falls (2) Essential (primary) hypertension: Code(s): I10 - Essential (primary) hypertension Status: Acute Assessment and Plan: * Stable * Continue metoprolol 12.5 mg daily * Vital signs as ordered * Will adjust medication as needed (3) Hyperlipidemia: Qualifiers: Hyperlipidemia type: unspecified Qualified Code(s): E78.5 - Hyperlipidemia, unspecified Code(s): E78.5 - Hyperlipidemia, unspecified Status: Chronic Assessment and Plan: * Continue statin (4) Anxiety: Code(s): F41.9 - Anxiety disorder, unspecified Status: Chronic Assessment and Plan: * Continue Ativan (5) GERD without esophagitis: Code(s): K21.9 - Gastro-esophageal reflux disease without esophagitis Status: Chronic Assessment and Plan: * Started pantoprazole (6) Insomnia: Qualifiers: Insomnia type: unspecified Qualified Code(s): G47.00 - Insomnia, unspecified Code(s): G47.00 - Insomnia, unspecified Status: Chronic (7) Chronic back pain: Code(s): M54.9 - Dorsalgia, unspecified; G89.29 - Other chronic pain Status: Chronic Assessment and Plan: * Continue pain medication (8) Peripheral neuropathy: Code(s): G62.9 - Polyneuropathy, unspecified Status: Chronic Assessment and Plan: * Continue gabapentin (9) Type 2 diabetes mellitus with diabetic neuropathy: Qualifiers: Diabetes mellitus armament repairer insulin use: without fci use Qualified Code(s): E11.40 - Type 2 diabetes mellitus with diabetic neuropathy, unspecified Code(s): E11.40 - Type 2 diabetes mellitus with diabetic neuropathy, unspecified Status: Chronic Assessment and Plan: * Blood sugar stable * Continue Accu-Chek with hypoglycemic protocol and sliding scale * Continue Metformin and glipizide * Will adjust medication as needed * A1c 09/18/2020 5.8 (10) TARA on CPAP: Code(s): G47.33 - Obstructive sleep apnea (adult) (pediatric); Z99.89 - Dependence on other enabling machines and devices Status: Acute Assessment and Plan: * Continue CPAP with home settings (11) Urinary tract infection: Code(s): N39.0 - Urinary tract infection, site not specified Status: Acute Assessment and Plan: * Patient ampicillin p.o., it is nonformulary for this hospital patient started on amoxicillin 500 mg every 6 hours which is equivalent to ampicillin * UA culture at [facility] with the growth of Enterococcus species which is susceptible to ampicillin * Continue amoxicillin 5 out of 16 doses (12) Atrial fibrillation with RVR: Code(s): I48.91 - Unspecified atrial fibrillation Status: Acute Assessment and Plan: * Continue metoprolol 12.5 and aspirin 81 mg * Patient has a history of multiple falls (13) Erythema intertrigo: Code(s): L30.4 - Erythema intertrigo Status: Acute Assessment and Plan: * Continue tolnaftate for total of 2
--- NOTE | 2020-09-23 10:53 | WPDPN ---
Progress Note: A&P Assessment and Plan (1) Weakness: Code(s): R53.1 - Weakness Status: Acute Assessment and Plan: ? Exhibit tolerance during physical activity as evidenced by a normal fluctuation of vital signs during physical activity. ? Patient will be ability to perform required activities of daily living. ? Provide appropriate nutrition for healing and strength. ? Use appropriate to prevent falls. ? Continue physical therapy/occupational therapy. Patient with a history of multiple falls (2) Essential (primary) hypertension: Code(s): I10 - Essential (primary) hypertension Status: Acute Assessment and Plan: Stable Continue metoprolol 12.5 mg daily Vital signs as ordered Will adjust medication as needed (3) Hyperlipidemia: Qualifiers: Hyperlipidemia type: unspecified Qualified Code(s): E78.5 - Hyperlipidemia, unspecified Code(s): E78.5 - Hyperlipidemia, unspecified Status: Chronic Assessment and Plan: Continue statin (4) Anxiety: Code(s): F41.9 - Anxiety disorder, unspecified Status: Chronic Assessment and Plan: Continue Ativan (5) GERD without esophagitis: Code(s): K21.9 - Gastro-esophageal reflux disease without esophagitis Status: Chronic Assessment and Plan: Started pantoprazole (6) Insomnia: Qualifiers: Insomnia type: unspecified Qualified Code(s): G47.00 - Insomnia, unspecified Code(s): G47.00 - Insomnia, unspecified Status: Chronic (7) Chronic back pain: Code(s): M54.9 - Dorsalgia, unspecified; G89.29 - Other chronic pain Status: Chronic Assessment and Plan: Continue pain medication (8) Peripheral neuropathy: Code(s): G62.9 - Polyneuropathy, unspecified Status: Chronic Assessment and Plan: Continue gabapentin (9) Type 2 diabetes mellitus with diabetic neuropathy: Qualifiers: Diabetes mellitus cross country truck driver insulin use: without cross country truck driver use Qualified Code(s): E11.40 - Type 2 diabetes mellitus with diabetic neuropathy, unspecified Code(s): E11.40 - Type 2 diabetes mellitus with diabetic neuropathy, unspecified Status: Chronic Assessment and Plan: Blood sugar stable Continue Accu-Chek with hypoglycemic protocol and sliding scale Continue Metformin and glipizide Will adjust medication as needed A1c 09/18/2020 5.8 (10) TARA on CPAP: Code(s): G47.33 - Obstructive sleep apnea (adult) (pediatric); Z99.89 - Dependence on other enabling machines and devices Status: Acute Assessment and Plan: Continue CPAP with home settings (11) Urinary tract infection: Code(s): N39.0 - Urinary tract infection, site not specified Status: Acute Assessment and Plan: Patient ampicillin p.o., it is nonformulary for this hospital patient started on amoxicillin 500 mg every 6 hours which is equivalent to ampicillin UA culture at [facility] with the growth of Enterococcus species which is susceptible to ampicillin Continue amoxicillin 5 out of 16 doses (12) Atrial fibrillation with RVR: Code(s): I48.91 - Unspecified atrial fibrillation Status: Acute Assessment and Plan: Continue metoprolol 12.5 and aspirin 81 mg Patient has a history of multiple falls (13) Erythema intertrigo: Code(s): L30.4 - Erythema intertrigo Status: Acute Assessment and Plan: Continue tolnaftate for total of 20 days then re-evaluate. (14) Diarrhea: Code(s): R19.7 - Diarrhea, unspecified Status: Acute Assessment and Plan: Possibly secondary to with the use of antibiotic C. difficile ordered and pending If C. difficile is negative will start Imodium (15) BPH (benign prostatic hyperplasia): Code(s): N40.0 - Benign prostatic hyperplasia without lower urinary tract symptoms Status: Acute Assessment and Plan: Con
[2020-09-23 12:48] LABS: Glucose Point of Care 154 mg/dl (65-105)
[2020-09-23 16:00] VITALS: BP 121/84; PULSE 71; RESP 16; TEMP 36.1; O2SAT 95
[2020-09-23] MEDS: glipiZIDE 5 MG TABLET PO (17:13)
[2020-09-23 17:45] LABS: Glucose Point of Care 132 mg/dl (65-105)
[2020-09-23] MEDS: LOPERAMIDE HCL 2 MG CAPSULE PO (19:15)
--- NOTE | 2020-09-23 22:00 | PC.NURSE ---
Patient's BG was assessed per HS protocol and was 76. Patient was asymptomatic. Patient was given snack and juice. Patient ate 100% and drank 240ml of orange juice. Patient was educated on nutrition and diet. Patient educated on eating and what kind of food to eat. service promoter salesperson notified.
[2020-09-23] MEDS: rOPINIRole HCL 0.5 MG TABLET PO (22:20)
[2020-09-23] MEDS: traZODone HCL 50 MG TABLET 150 MG BY MOUTH (22:23)
[2020-09-23] MEDS: LORazepam (*CRX) 0.5 MG TABLET PO (22:27)
[2020-09-23 22:37] LABS: Glucose Point of Care 76 mg/dl (65-105)
--- NOTE | 2020-09-23 23:30 | PC.NURSE ---
Pt up to the bathroom with his walker and standby assist of one; Pt voided and returned to bed with the walker and standby assist of one. Side rails up x2 and call pacheco within reach.
[2020-09-24] VITALS: BP 139/77; BP 146/64; PULSE 108; PULSE 80; RESP 20; TEMP 35.9; TEMP 36.6; O2SAT 100; O2SAT 98
--- NOTE | 2020-09-24 00:04 | PC.NURSE ---
Pt called and asked if he could sit up in the chair. Pt up to the chair with his walker and standby assist of one
--- NOTE | 2020-09-24 01:14 | PC.NURSE ---
Pt called to go back to bed; Pt assisted to the bathroom and back to bed with the walker and assist of one. Side rails up x2 and call pacheco within reach.
--- NOTE | 2020-09-24 01:50 | PC.NURSE ---
Pt called to sit up in the chair-states he cant sleep. Pt assisted up to the chair with the walker and standby assist of one.
--- NOTE | 2020-09-24 03:06 | PC.NURSE ---
Pt asleep and no signs of discomfort noted.
[2020-09-24] MEDS: AMOXICILLIN 500 MG CAPSULE PO ×4 (04:06→21:12)
--- NOTE | 2020-09-24 04:09 | PC.NURSE ---
Pt given amoxicillin 500 mg po as ordered.
--- NOTE | 2020-09-24 06:13 | PC.NURSE ---
Pt asleep in the chair; No signs of discomfort noted.
[2020-09-24 08:00] VITALS: BP 129/72; PULSE 91; RESP 18; TEMP 36.4; O2SAT 96
[2020-09-24 08:12] LABS: Glucose Point of Care 142 mg/dl (65-105)
[2020-09-24 09:20] VITALS: PULSE 91
[2020-09-24] MEDS: ACETAMINOPHEN 325 MG TABLET 650 MG PO ×2 (09:20→16:45)
[2020-09-24] MEDS: MICONAZOLE NITRATE 2% CREAM 30 GM TUBE 1 APPLIC TOPICAL ×2 (09:20→16:46)
[2020-09-24] MEDS: METOPROLOL TARTRATE 12.5 MG TABLET PO (09:20)
[2020-09-24] MEDS: ASPIRIN 81 MG ENTERIC TABLET PO (09:20)
[2020-09-24] MEDS: PANTOPRAZOLE SOD SESQUIHYDRATE 20 MG TAB PO (09:22)
[2020-09-24] MEDS: ATORVASTATIN 10 MG TABLET 20 MG PO (09:22)
[2020-09-24] MEDS: glipiZIDE 5 MG TABLET 10 MG PO (09:22)
[2020-09-24] MEDS: FINASTERIDE 5 MG TABLET PO (09:23)
[2020-09-24] MEDS: BRIMONIDINE TARTRATE 0.2% OP SOLN 5 ML BTL 1 DROP EACH EYE (09:23)
[2020-09-24] MEDS: metFORMIN HCL 500 MG TABLET 1000 MG PO ×2 (09:23→16:44)
[2020-09-24] MEDS: SACCHAROMYCES BOULARDII 250 MG CAPSULE PO ×2 (09:23→16:47)
[2020-09-24] MEDS: TIMOLOL MALEATE 0.5% OP SOLN 5 ML BOTTLE 1 DROP EACH EYE (09:24)
[2020-09-24] MEDS: TOLNAFTATE 1% POWDER 45 GM BTL 1 APPLIC TOPICAL ×2 (09:24→21:38)
[2020-09-24 12:21] LABS: Glucose Point of Care 167 mg/dl (65-105)
[2020-09-24] MEDS: LOPERAMIDE HCL 2 MG CAPSULE PO ×2 (13:11→16:50)
[2020-09-24 15:52] VITALS: BP 111/61; PULSE 64; RESP 16; TEMP 36.1; O2SAT 100
[2020-09-24 16:27] LABS: Glucose Point of Care 135 mg/dl (65-105)
[2020-09-24] MEDS: glipiZIDE 5 MG TABLET PO (16:46)
[2020-09-24] MEDS: traZODone HCL 50 MG TABLET 150 MG BY MOUTH (21:12)
[2020-09-24] MEDS: LORazepam (*CRX) 0.5 MG TABLET PO (21:13)
[2020-09-24] MEDS: rOPINIRole HCL 0.5 MG TABLET PO (21:13)
[2020-09-24 21:22] LABS: Glucose Point of Care 80 mg/dl (65-105)
[2020-09-25] VITALS: BP 136/72; PULSE 70; RESP 20; TEMP 36.4; O2SAT 97
[2020-09-25 00:17] VITALS: BMI 42.5
[2020-09-25] MEDS: AMOXICILLIN 500 MG CAPSULE PO ×4 (03:53→21:18)
[2020-09-25 07:55] LABS: Glucose Point of Care 114 mg/dl (65-105)
[2020-09-25 08:00] VITALS: BP 126/78; PULSE 90; RESP 20; TEMP 36.1; O2SAT 99
[2020-09-25] MEDS: SACCHAROMYCES BOULARDII 250 MG CAPSULE PO ×2 (08:39→17:11)
[2020-09-25] MEDS: ASPIRIN 81 MG ENTERIC TABLET PO (08:40)
[2020-09-25] MEDS: glipiZIDE 5 MG TABLET 10 MG PO (08:40)
[2020-09-25] MEDS: ACETAMINOPHEN 325 MG TABLET 650 MG PO (08:40)
[2020-09-25] MEDS: FINASTERIDE 5 MG TABLET PO (08:40)
[2020-09-25] MEDS: PANTOPRAZOLE SOD SESQUIHYDRATE 20 MG TAB PO (08:40)
[2020-09-25] MEDS: metFORMIN HCL 500 MG TABLET 1000 MG PO ×2 (08:40→16:56)
[2020-09-25 08:42] VITALS: PULSE 90
[2020-09-25] MEDS: METOPROLOL TARTRATE 12.5 MG TABLET PO (08:42)
[2020-09-25] MEDS: BRIMONIDINE TARTRATE 0.2% OP SOLN 5 ML BTL 1 DROP EACH EYE (08:42)
[2020-09-25] MEDS: ATORVASTATIN 10 MG TABLET 20 MG PO (08:42)
[2020-09-25] MEDS: TOLNAFTATE 1% POWDER 45 GM BTL 1 APPLIC TOPICAL ×2 (08:43→23:19)
[2020-09-25] MEDS: MICONAZOLE NITRATE 2% CREAM 30 GM TUBE 1 APPLIC TOPICAL ×2 (08:43→16:57)
[2020-09-25] MEDS: TIMOLOL MALEATE 0.5% OP SOLN 5 ML BOTTLE 1 DROP EACH EYE (08:43)
[2020-09-25 12:19] LABS: Glucose Point of Care 91 mg/dl (65-105)
[2020-09-25 16:00] VITALS: BP 125/93; PULSE 73; RESP 24; TEMP 36.1; O2SAT 99
[2020-09-25 16:35] LABS: Glucose Point of Care 77 mg/dl (65-105)
[2020-09-25] MEDS: glipiZIDE 5 MG TABLET PO (16:57)
[2020-09-25] MEDS: LOPERAMIDE HCL 2 MG CAPSULE PO ×2 (18:11→19:55)
[2020-09-25] MEDS: rOPINIRole HCL 0.5 MG TABLET PO (21:18)
[2020-09-25] MEDS: traZODone HCL 50 MG TABLET 150 MG BY MOUTH (21:18)
[2020-09-25 23:58] VITALS: BP 141/70; PULSE 86; RESP 20; TEMP 36.6; O2SAT 97
[2020-09-26] MEDS: AMOXICILLIN 500 MG CAPSULE PO (03:55)
[2020-09-26 07:29] LABS: Glucose Point of Care 91 mg/dl (65-105)
[2020-09-26 08:00] VITALS: BP 133/76; PULSE 86; RESP 16; TEMP 36; O2SAT 95
[2020-09-26 08:00] LABS: Glucose Point of Care 116 mg/dl (65-105)
[2020-09-26] MEDS: MICONAZOLE NITRATE 2% CREAM 30 GM TUBE 1 APPLIC TOPICAL ×2 (08:00→17:22)
[2020-09-26] MEDS: metFORMIN HCL 500 MG TABLET 1000 MG PO ×2 (08:10→17:21)
--- NOTE | 2020-09-26 09:24 | PM.EVENT ---
Event Note Event Note Event Note: Patient notes that he continues to have diarrhea according to nursing staff his stools are soft but not liquid. I explained to patient that there is a difference between having soft stool and liquid stool also told him that I will stop his probiotic to see if that was the possible source for his diarrhea. His C. difficile is negative continue Imodium
[2020-09-26] MEDS: ASPIRIN 81 MG ENTERIC TABLET PO (09:56)
[2020-09-26] MEDS: PANTOPRAZOLE SOD SESQUIHYDRATE 20 MG TAB PO (09:56)
[2020-09-26] MEDS: ATORVASTATIN 10 MG TABLET 20 MG PO (09:58)
[2020-09-26] MEDS: FINASTERIDE 5 MG TABLET PO (09:59)
[2020-09-26] MEDS: glipiZIDE 5 MG TABLET 10 MG PO (09:59)
[2020-09-26 10:00] VITALS: PULSE 78
[2020-09-26] MEDS: METOPROLOL TARTRATE 12.5 MG TABLET PO (10:00)
[2020-09-26] MEDS: BRIMONIDINE TARTRATE 0.2% OP SOLN 5 ML BTL 1 DROP EACH EYE (10:06)
[2020-09-26] MEDS: TIMOLOL MALEATE 0.5% OP SOLN 5 ML BOTTLE 1 DROP EACH EYE (10:06)
[2020-09-26] MEDS: TOLNAFTATE 1% POWDER 45 GM BTL 1 APPLIC TOPICAL ×2 (10:07→21:45)
[2020-09-26 11:57] LABS: Glucose Point of Care 139 mg/dl (65-105)
[2020-09-26 16:25] VITALS: BP 111/64; PULSE 72; RESP 20; TEMP 36.6; O2SAT 99
[2020-09-26] MEDS: glipiZIDE 5 MG TABLET PO (17:21)
[2020-09-26 17:26] LABS: Glucose Point of Care 143 mg/dl (65-105)
--- NOTE | 2020-09-26 21:30 | PC.NURSE ---
Accuchek:52 at 2124; asymptomatic. Rechecked 2129: Accuchek:64. Patient given ice cream and turkey sandwich. Ambulated to bathroom with steady gait requiring assist of one for safety.
[2020-09-26] MEDS: rOPINIRole HCL 0.5 MG TABLET PO (21:43)
[2020-09-26] MEDS: traZODone HCL 50 MG TABLET 150 MG BY MOUTH (21:43)
[2020-09-26] MEDS: LORazepam (*CRX) 0.5 MG TABLET PO (21:43)
[2020-09-26 22:47] LABS: Glucose Point of Care 53 mg/dl (65-105)
[2020-09-26 22:47] LABS: Glucose Point of Care 64 mg/dl (65-105)
--- NOTE | 2020-09-26 23:10 | PC.NURSE ---
Accuchek:239 after eating half of sandwich and 100% of ice cream
[2020-09-26 23:15] LABS: Glucose Point of Care 239 mg/dl (65-105)
[2020-09-26 23:57] VITALS: BP 136/73; PULSE 84; RESP 20; TEMP 35.8; O2SAT 97
[2020-09-27] MEDS: ACETAMINOPHEN 325 MG TABLET 650 MG PO ×2 (00:19→09:29)
--- NOTE | 2020-09-27 00:27 | PC.NURSE ---
Refused CPAP; states sleeping in chair. Given additional ice cream and tonya crackers per patient request.
--- NOTE | 2020-09-27 03:00 | PC.NURSE ---
Sleeping in recliner with feet elevated and upon 1 pillow. No distress is noted. Skin pink. No signs of pain.
[2020-09-27] MEDS: metFORMIN HCL 500 MG TABLET 1000 MG PO ×2 (07:50→17:11)
[2020-09-27] MEDS: glipiZIDE 5 MG TABLET 10 MG PO (07:52)
[2020-09-27 07:56] LABS: Glucose Point of Care 189 mg/dl (65-105)
[2020-09-27 08:00] VITALS: BP 114/66; PULSE 88; RESP 16; TEMP 35.8; O2SAT 98
[2020-09-27] MEDS: MICONAZOLE NITRATE 2% CREAM 30 GM TUBE 1 APPLIC TOPICAL ×2 (09:20→17:12)
[2020-09-27] MEDS: TOLNAFTATE 1% POWDER 45 GM BTL 1 APPLIC TOPICAL ×2 (09:20→20:41)
[2020-09-27 09:22] VITALS: PULSE 74
[2020-09-27] MEDS: METOPROLOL TARTRATE 12.5 MG TABLET PO (09:22)
[2020-09-27] MEDS: FINASTERIDE 5 MG TABLET PO (09:23)
[2020-09-27] MEDS: PANTOPRAZOLE SOD SESQUIHYDRATE 20 MG TAB PO (09:23)
[2020-09-27] MEDS: ATORVASTATIN 10 MG TABLET 20 MG PO (09:23)
[2020-09-27] MEDS: ASPIRIN 81 MG ENTERIC TABLET PO (09:24)
[2020-09-27] MEDS: BRIMONIDINE TARTRATE 0.2% OP SOLN 5 ML BTL 1 DROP EACH EYE (09:25)
[2020-09-27] MEDS: TIMOLOL MALEATE 0.5% OP SOLN 5 ML BOTTLE 1 DROP EACH EYE (09:25)
[2020-09-27 12:03] LABS: Glucose Point of Care 86 mg/dl (65-105)
[2020-09-27 15:40] VITALS: BP 143/75; PULSE 79; RESP 18; TEMP 35.9; O2SAT 99
[2020-09-27] MEDS: glipiZIDE 5 MG TABLET PO (17:12)
[2020-09-27 17:35] LABS: Glucose Point of Care 118 mg/dl (65-105)
[2020-09-27] MEDS: LOPERAMIDE HCL 2 MG CAPSULE PO (19:35)
[2020-09-27] MEDS: rOPINIRole HCL 0.5 MG TABLET PO (20:40)
[2020-09-27] MEDS: traZODone HCL 50 MG TABLET 150 MG BY MOUTH (20:41)
[2020-09-27] MEDS: LORazepam (*CRX) 0.5 MG TABLET PO (20:41)
[2020-09-27 20:54] LABS: Glucose Point of Care 85 mg/dl (65-105)
[2020-09-28] VITALS: BP 127/77; PULSE 72; RESP 20; TEMP 36.7; O2SAT 96
[2020-09-28 07:45] VITALS: BP 145/70; PULSE 78; RESP 18; TEMP 36.4; O2SAT 97
[2020-09-28 08:07] LABS: Glucose Point of Care 126 mg/dl (65-105)
[2020-09-28] MEDS: BRIMONIDINE TARTRATE 0.2% OP SOLN 5 ML BTL 1 DROP EACH EYE (09:01)
[2020-09-28] MEDS: TIMOLOL MALEATE 0.5% OP SOLN 5 ML BOTTLE 1 DROP EACH EYE (09:02)
[2020-09-28] MEDS: MICONAZOLE NITRATE 2% CREAM 30 GM TUBE 1 APPLIC TOPICAL ×2 (09:03→17:58)
[2020-09-28] MEDS: glipiZIDE 5 MG TABLET 10 MG PO (09:04)
[2020-09-28] MEDS: ATORVASTATIN 10 MG TABLET 20 MG PO (09:04)
[2020-09-28] MEDS: FINASTERIDE 5 MG TABLET PO (09:04)
[2020-09-28] MEDS: metFORMIN HCL 500 MG TABLET 1000 MG PO ×2 (09:04→17:57)
[2020-09-28] MEDS: PANTOPRAZOLE SOD SESQUIHYDRATE 20 MG TAB PO (09:04)
[2020-09-28 09:05] VITALS: PULSE 76
[2020-09-28] MEDS: ASPIRIN 81 MG ENTERIC TABLET PO (09:05)
[2020-09-28] MEDS: TOLNAFTATE 1% POWDER 45 GM BTL 1 APPLIC TOPICAL ×2 (09:05→21:03)
[2020-09-28] MEDS: traMADol HCL (*CRX) 50 MG TABLET PO ×2 (09:05→17:56)
[2020-09-28] MEDS: METOPROLOL TARTRATE 12.5 MG TABLET PO (09:05)
[2020-09-28] MEDS: LORazepam (*CRX) 0.5 MG TABLET PO ×2 (09:06→21:01)
[2020-09-28 12:04] LABS: Glucose Point of Care 112 mg/dl (65-105)
--- NOTE | 2020-09-28 13:09 | PHAR ---
verified with [facility] in [place] that pt takes metoprolol tartrate (not succinate) 12.5mg only once daily
[2020-09-28 16:00] VITALS: BP 105/80; PULSE 73; RESP 20; TEMP 36; O2SAT 98
[2020-09-28 17:08] LABS: Glucose Point of Care 106 mg/dl (65-105)
[2020-09-28] MEDS: glipiZIDE 5 MG TABLET PO (17:57)
[2020-09-28 20:59] LABS: Glucose Point of Care 85 mg/dl (65-105)
[2020-09-28] MEDS: traZODone HCL 50 MG TABLET 150 MG BY MOUTH (21:01)
[2020-09-28] MEDS: ACETAMINOPHEN 325 MG TABLET 650 MG PO (21:01)
[2020-09-28] MEDS: rOPINIRole HCL 0.5 MG TABLET PO (21:01)
[2020-09-29] VITALS: BP 117/76; PULSE 85; RESP 16; TEMP 36.6; O2SAT 95
[2020-09-29 07:35] LABS: Glucose Point of Care 112 mg/dl (65-105)
[2020-09-29 07:41] VITALS: BP 127/71; PULSE 86; RESP 18; TEMP 35; O2SAT 96
[2020-09-29] MEDS: metFORMIN HCL 500 MG TABLET 1000 MG PO (08:23)
[2020-09-29] MEDS: glipiZIDE 5 MG TABLET 10 MG PO (08:23)
[2020-09-29] MEDS: ATORVASTATIN 10 MG TABLET 20 MG PO (08:24)
[2020-09-29] MEDS: ASPIRIN 81 MG ENTERIC TABLET PO (08:24)
[2020-09-29] MEDS: PANTOPRAZOLE SOD SESQUIHYDRATE 20 MG TAB PO (08:25)
[2020-09-29] MEDS: BRIMONIDINE TARTRATE 0.2% OP SOLN 5 ML BTL 1 DROP EACH EYE (08:25)
[2020-09-29] MEDS: TIMOLOL MALEATE 0.5% OP SOLN 5 ML BOTTLE 1 DROP EACH EYE (08:25)
[2020-09-29] MEDS: FINASTERIDE 5 MG TABLET PO (08:25)
[2020-09-29 08:26] VITALS: PULSE 86
[2020-09-29] MEDS: TOLNAFTATE 1% POWDER 45 GM BTL 1 APPLIC TOPICAL ×2 (08:26→20:54)
[2020-09-29] MEDS: MICONAZOLE NITRATE 2% CREAM 30 GM TUBE 1 APPLIC TOPICAL ×2 (08:26→17:02)
[2020-09-29] MEDS: METOPROLOL TARTRATE 12.5 MG TABLET PO (08:26)
[2020-09-29] MEDS: LORazepam (*CRX) 0.5 MG TABLET PO ×2 (08:27→20:40)
[2020-09-29] MEDS: ACETAMINOPHEN 325 MG TABLET 650 MG PO (08:27)
--- NOTE | 2020-09-29 10:03 | P.PNIM_ITS ---
Progress Note: A&P Assessment and Plan (1) Weakness: Code(s): R53.1 - Weakness <Jaspreet ChangTODDC - Last Filed: 09/29/20 12:38> Status: Acute <Jaspreet ChangALLISONJohnnyReba - Last Filed: 09/29/20 12:38> Assessment and Plan: ? Exhibit tolerance during physical activity as evidenced by a normal fluctuation of vital signs during physical activity. ? Patient will be ability to perform required activities of daily living. ? Provide appropriate nutrition for healing and strength. ? Use appropriate to prevent falls. ? Continue physical therapy/occupational therapy. Patient with a history of multiple falls 10/09/2020 Pt states he is working with PT/OT and says he is being told he is doing well <Jaspreet ChangKEVON - Last Filed: 09/29/20 12:38> (2) Essential (primary) hypertension: Code(s): I10 - Essential (primary) hypertension <Jaspreet ChangKEVON - Last Filed: 09/29/20 12:38> Status: Acute <Jaspreet ChangALLISON-C - Last Filed: 09/29/20 12:38> Assessment and Plan: * Stable * Continue metoprolol 12.5 mg daily * Vital signs as ordered * Will adjust medication as needed 10/09/2020 VSS, no need to adjust medication at this time <Jaspreet ChangALLISON-C - Last Filed: 09/29/20 12:38> (3) Hyperlipidemia: Qualifiers: Hyperlipidemia type: unspecified Qualified Code(s): E78.5 - Hyperlipidemia, unspecified <Jaspreet ChangTODDC - Last Filed: 09/29/20 12:38> Code(s): E78.5 - Hyperlipidemia, unspecified <Jaspreet ButlerALLISON limon-C - Last Filed: 09/29/20 12:38> Status: Chronic <Jaspreet ChangALLISON-C - Last Filed: 09/29/20 12:38> Assessment and Plan: * Continue statin <Jaspreet ButlerALLISON limon-C - Last Filed: 09/29/20 12:38> (4) Anxiety: Code(s): F41.9 - Anxiety disorder, unspecified <Jaspreet Chang BAIL ATTACHER-C - Last Filed: 09/29/20 12:38> Status: Chronic <Jaspreet Chang BAIL ATTACHER-C - Last Filed: 09/29/20 12:38> Assessment and Plan: * Continue Ativan <Jaspreet Chang BAIL ATTACHER-C - Last Filed: 09/29/20 12:38> (5) GERD without esophagitis: Code(s): K21.9 - Gastro-esophageal reflux disease without esophagitis <Jaspreet Chang BAIL ATTACHER-C - Last Filed: 09/29/20 12:38> Status: Chronic <Jaspreet Chang BAIL ATTACHER-C - Last Filed: 09/29/20 12:38> Assessment and Plan: * Started pantoprazole <Jaspreet Chang BAIL ATTACHER-C - Last Filed: 09/29/20 12:38> (6) Insomnia: Qualifiers: Insomnia type: unspecified Qualified Code(s): G47.00 - Insomnia, unspecified <Jaspreet Chang BAIL ATTACHER-C - Last Filed: 09/29/20 12:38> Code(s): G47.00 - Insomnia, unspecified <Jaspreet Chang BAIL ATTACHER-C - Last Filed: 09/29/20 12:38> Status: Chronic <Jaspreet Chang BAIL ATTACHER-C - Last Filed: 09/29/20 12:38> Assessment and Plan: Pt does have 150 mg of Trazodone HS PRN <Jaspreet Chang BAIL ATTACHER-C - Last Filed: 09/29/20 12:38> (7) Chronic back pain: Code(s): M54.9 - Dorsalgia, unspecified; G89.29 - Other chronic pain <Jaspreet Chang BAIL ATTACHER-C - Last Filed: 09/29/20 12:38> Status: Chronic <Jaspreet Chang BAIL ATTACHER-C - Last Filed: 09/29/20 12:38> Assessment and Plan: * Continue pain medication <Jaspreet Chang BAIL ATTACHER-C - Last Filed: 09/29/20 12:38> (8) Peripheral neuropathy: Code(s): G62.9 - Polyneuropathy, unspecified <KEVON Hastings - Last Filed: 09/29/20 12:38> Status: Chronic <KEVON Hastings - Last Filed: 09/29/20 12:38> Assessment and Plan:
--- NOTE | 2020-09-29 10:03 | PM.IMPN ---
Progress Note: A&P Assessment and Plan (1) Weakness: Code(s): R53.1 - Weakness <Jaspreet ChangKEVON - Last Filed: 09/29/20 12:38> Status: Acute <Jaspreet ChangKEVON - Last Filed: 09/29/20 12:38> Assessment and Plan: ? Exhibit tolerance during physical activity as evidenced by a normal fluctuation of vital signs during physical activity. ? Patient will be ability to perform required activities of daily living. ? Provide appropriate nutrition for healing and strength. ? Use appropriate to prevent falls. ? Continue physical therapy/occupational therapy. Patient with a history of multiple falls 10/09/2020 Pt states he is working with PT/OT and says he is being told he is doing well <Jaspreet ButlerKEVON limon - Last Filed: 09/29/20 12:38> (2) Essential (primary) hypertension: Code(s): I10 - Essential (primary) hypertension <Jaspreet ButlerKEVON limon - Last Filed: 09/29/20 12:38> Status: Acute <Jaspreet ChangKEVON - Last Filed: 09/29/20 12:38> Assessment and Plan: Stable Continue metoprolol 12.5 mg daily Vital signs as ordered Will adjust medication as needed 10/09/2020 VSS, no need to adjust medication at this time <Jaspreet ChangKEVON - Last Filed: 09/29/20 12:38> (3) Hyperlipidemia: Qualifiers: Hyperlipidemia type: unspecified Qualified Code(s): E78.5 - Hyperlipidemia, unspecified <Jaspreet ButlerTODD limonC - Last Filed: 09/29/20 12:38> Code(s): E78.5 - Hyperlipidemia, unspecified <Jaspreet Dasilva KEVON Chang - Last Filed: 09/29/20 12:38> Status: Chronic <Jaspreet ButlerKEVON limon - Last Filed: 09/29/20 12:38> Assessment and Plan: Continue statin <Jaspreet Dasilva KEVON Chang - Last Filed: 09/29/20 12:38> (4) Anxiety: Code(s): F41.9 - Anxiety disorder, unspecified <Jaspreet Chang REGULATORY AFFAIRS SPEC-C - Last Filed: 09/29/20 12:38> Status: Chronic <Jaspreet Chang REGULATORY AFFAIRS SPEC-C - Last Filed: 09/29/20 12:38> Assessment and Plan: Continue Ativan <Jaspreet Chang REGULATORY AFFAIRS SPEC-C - Last Filed: 09/29/20 12:38> (5) GERD without esophagitis: Code(s): K21.9 - Gastro-esophageal reflux disease without esophagitis <Jaspreet Chang REGULATORY AFFAIRS SPEC-C - Last Filed: 09/29/20 12:38> Status: Chronic <Jaspreet Chang REGULATORY AFFAIRS SPEC-C - Last Filed: 09/29/20 12:38> Assessment and Plan: Started pantoprazole <Jaspreet Chang REGULATORY AFFAIRS SPEC-C - Last Filed: 09/29/20 12:38> (6) Insomnia: Qualifiers: Insomnia type: unspecified Qualified Code(s): G47.00 - Insomnia, unspecified <Jaspreet Chang REGULATORY AFFAIRS SPEC-C - Last Filed: 09/29/20 12:38> Code(s): G47.00 - Insomnia, unspecified <Jaspreet Chang REGULATORY AFFAIRS SPEC-C - Last Filed: 09/29/20 12:38> Status: Chronic <Jaspreet Chang REGULATORY AFFAIRS SPEC-C - Last Filed: 09/29/20 12:38> Assessment and Plan: Pt does have 150 mg of Trazodone HS PRN <Jaspreet Chang REGULATORY AFFAIRS SPEC-C - Last Filed: 09/29/20 12:38> (7) Chronic back pain: Code(s): M54.9 - Dorsalgia, unspecified; G89.29 - Other chronic pain <Jaspreet Chang REGULATORY AFFAIRS SPEC-C - Last Filed: 09/29/20 12:38> Status: Chronic <Jaspreet Chang REGULATORY AFFAIRS SPEC-C - Last Filed: 09/29/20 12:38> Assessment and Plan: Continue pain medication <Jaspreet Chang REGULATORY AFFAIRS SPEC-C - Last Filed: 09/29/20 12:38> (8) Peripheral neuropathy: Code(s): G62.9 - Polyneuropathy, unspecified <KEVON Hastings - Last Filed: 09/29/20 12:38> Status: Chronic <KEVON Hastings - Last Filed: 09/29/20 12:38> Assessment and Plan: Continue gabapentin <KEVON Hastings - Last Filed: 09/29/20 12:38> (9) Type 2 diabetes mellitus with diabetic neuropathy: Qualifiers: Diabetes mellitus petroleum terminal plant operator insulin use: without petroleum terminal plant operator use Qualified Code(s): E11.40 - Type 2 diabetes mellitus with diabetic neuropathy, unspecified <KEVON Hastings - Last Filed:
--- NOTE | 2020-09-29 11:10 | PC.NURSE ---
PT in to work with patient
--- NOTE | 2020-09-29 14:00 | PC.NURSE ---
Resting in chair, legs elevated, personal items in reach
[2020-09-29] MEDS: traMADol HCL (*CRX) 50 MG TABLET PO (14:36)
[2020-09-29 15:57] VITALS: BP 94/54; PULSE 71; RESP 18; TEMP 35.9; O2SAT 100
[2020-09-29 16:28] LABS: Glucose Point of Care 66 mg/dl (65-105)
[2020-09-29] MEDS: traZODone HCL 50 MG TABLET 150 MG BY MOUTH (20:40)
[2020-09-29] MEDS: rOPINIRole HCL 0.5 MG TABLET PO (20:40)
[2020-09-29 22:22] LABS: Glucose Point of Care 158 mg/dl (65-105)
[2020-09-30 00:31] VITALS: BP 114/73; PULSE 80; RESP 20; TEMP 35.8; O2SAT 98
[2020-09-30 08:00] VITALS: BP 126/72; PULSE 84; RESP 20; TEMP 35.8; O2SAT 96
[2020-09-30 08:02] LABS: Glucose Point of Care 144 mg/dl (65-105)
[2020-09-30] MEDS: glipiZIDE 5 MG TABLET 10 MG PO (08:22)
[2020-09-30] MEDS: PANTOPRAZOLE SOD SESQUIHYDRATE 20 MG TAB PO (08:23)
[2020-09-30] MEDS: metFORMIN HCL 500 MG TABLET 1000 MG PO ×2 (08:23→16:48)
[2020-09-30] MEDS: ASPIRIN 81 MG ENTERIC TABLET PO (08:23)
[2020-09-30 08:24] VITALS: PULSE 83
[2020-09-30] MEDS: METOPROLOL TARTRATE 12.5 MG TABLET PO (08:24)
[2020-09-30] MEDS: ATORVASTATIN 10 MG TABLET 20 MG PO (08:24)
[2020-09-30] MEDS: FINASTERIDE 5 MG TABLET PO (08:24)
[2020-09-30] MEDS: MICONAZOLE NITRATE 2% CREAM 30 GM TUBE 1 APPLIC TOPICAL ×2 (08:27→16:49)
[2020-09-30] MEDS: BRIMONIDINE TARTRATE 0.2% OP SOLN 5 ML BTL 1 DROP EACH EYE (08:27)
[2020-09-30] MEDS: TIMOLOL MALEATE 0.5% OP SOLN 5 ML BOTTLE 1 DROP EACH EYE (08:27)
[2020-09-30] MEDS: TOLNAFTATE 1% POWDER 45 GM BTL 1 APPLIC TOPICAL ×2 (08:27→21:17)
[2020-09-30] MEDS: LORazepam (*CRX) 0.5 MG TABLET PO ×2 (08:35→20:45)
[2020-09-30] MEDS: traMADol HCL (*CRX) 50 MG TABLET PO ×2 (08:35→16:54)
--- NOTE | 2020-09-30 13:09 | PCPTNOTE ---
09/30/20 - 1300 - attended patient care plan meeting with Gali (care coordination), myself, and patient in attendance. handed over patient progress update sheet with plan to DC patient home this Monday or Monday depending on patient's family schedule. RAMIRO
[2020-09-30 16:00] VITALS: BP 121/67; PULSE 75; RESP 18; TEMP 35.7; O2SAT 100
[2020-09-30 16:43] LABS: Glucose Point of Care 176 mg/dl (65-105)
[2020-09-30] MEDS: glipiZIDE 5 MG TABLET PO (16:49)
[2020-09-30] MEDS: rOPINIRole HCL 0.5 MG TABLET PO (20:45)
[2020-09-30] MEDS: traZODone HCL 50 MG TABLET 150 MG BY MOUTH ×2 (20:45→21:18)
[2020-09-30 21:06] LABS: Glucose Point of Care 115 mg/dl (65-105)
[2020-09-30] MEDS: ACETAMINOPHEN 325 MG TABLET 650 MG PO (22:06)
[2020-10-01 00:04] VITALS: BP 129/72; PULSE 75; RESP 20; TEMP 36.1; O2SAT 93
[2020-10-01 08:00] VITALS: BP 122/79; PULSE 84; RESP 20; TEMP 36.4; O2SAT 98
[2020-10-01] MEDS: LORazepam (*CRX) 0.5 MG TABLET PO (08:07)
[2020-10-01] MEDS: glipiZIDE 5 MG TABLET 10 MG PO (08:10)
[2020-10-01] MEDS: TOLNAFTATE 1% POWDER 45 GM BTL 1 APPLIC TOPICAL ×2 (08:13→21:12)
[2020-10-01] MEDS: TIMOLOL MALEATE 0.5% OP SOLN 5 ML BOTTLE 1 DROP EACH EYE (08:14)
[2020-10-01] MEDS: metFORMIN HCL 500 MG TABLET 1000 MG PO ×2 (08:18→16:53)
[2020-10-01] MEDS: FINASTERIDE 5 MG TABLET PO (08:19)
[2020-10-01 08:20] VITALS: PULSE 84
[2020-10-01] MEDS: PANTOPRAZOLE SOD SESQUIHYDRATE 20 MG TAB PO (08:20)
[2020-10-01] MEDS: ATORVASTATIN 10 MG TABLET 20 MG PO (08:20)
[2020-10-01] MEDS: ASPIRIN 81 MG ENTERIC TABLET PO (08:20)
[2020-10-01] MEDS: METOPROLOL TARTRATE 12.5 MG TABLET PO (08:20)
[2020-10-01] MEDS: MICONAZOLE NITRATE 2% CREAM 30 GM TUBE 1 APPLIC TOPICAL ×2 (08:21→16:54)
[2020-10-01] MEDS: BRIMONIDINE TARTRATE 0.2% OP SOLN 5 ML BTL 1 DROP EACH EYE (08:21)
[2020-10-01 15:30] VITALS: BP 105/74; PULSE 75; RESP 18; TEMP 36.3; O2SAT 100
[2020-10-01] MEDS: glipiZIDE 5 MG TABLET PO (16:54)
[2020-10-01 16:55] LABS: Glucose Point of Care 92 mg/dl (65-105)
[2020-10-01] MEDS: LORazepam (*CRX) 1 MG TABLET PO (20:59)
[2020-10-01] MEDS: ACETAMINOPHEN 325 MG TABLET 650 MG PO (20:59)
[2020-10-01] MEDS: rOPINIRole HCL 0.5 MG TABLET PO (20:59)
[2020-10-01] MEDS: traZODone HCL 50 MG TABLET 150 MG BY MOUTH (20:59)
[2020-10-01 21:07] LABS: Glucose Point of Care 92 mg/dl (65-105)
[2020-10-01 23:40] VITALS: BP 90/58; PULSE 77; RESP 20; TEMP 36; O2SAT 98
--- NOTE | 2020-10-01 23:40 | PC.NURSE ---
Pt sleeping per chair. Awakens for assessment and VS. Pt states he doesn't want to be bothered, he just wants to sleep. BP 82/48 on machine. 90/58 taken manually. Pt asymptomatic. Denies pain. A&Ox3. Call pacheco in reach. Reminded to call with needs.
--- NOTE | 2020-10-01 23:42 | PC.NURSE ---
Dr. Vargas notified of patient's BP.
--- NOTE | 2020-10-01 23:43 | PC.NURSE ---
Doctor notified regarding low BP's. Will recheck in 1 hour. Patient asymptomatic.
[2020-10-02 00:53] VITALS: BP 96/56
--- NOTE | 2020-10-02 01:50 | PC.NURSE ---
Pt up in chair. Continues to sleep. No distress noted.
--- NOTE | 2020-10-02 02:50 | PC.NURSE ---
Pt sleeping per chair. Appears comfortable. Call pacheco in reach.
--- NOTE | 2020-10-02 05:55 | PC.NURSE ---
Pt sleeping in chair. No distress noted.
[2020-10-02 08:00] VITALS: BP 136/84; PULSE 96; RESP 20; TEMP 35.9; O2SAT 99
[2020-10-02] MEDS: ATORVASTATIN 10 MG TABLET 20 MG PO (08:12)
[2020-10-02] MEDS: FINASTERIDE 5 MG TABLET PO (08:12)
[2020-10-02] MEDS: metFORMIN HCL 500 MG TABLET 1000 MG PO ×2 (08:12→17:33)
[2020-10-02] MEDS: glipiZIDE 5 MG TABLET 10 MG PO (08:12)
[2020-10-02] MEDS: PANTOPRAZOLE SOD SESQUIHYDRATE 20 MG TAB PO (08:13)
[2020-10-02] MEDS: ASPIRIN 81 MG ENTERIC TABLET PO (08:13)
[2020-10-02 08:16] VITALS: PULSE 96
[2020-10-02] MEDS: METOPROLOL TARTRATE 12.5 MG TABLET PO (08:16)
[2020-10-02] MEDS: LORazepam (*CRX) 1 MG TABLET PO ×2 (08:16→20:52)
[2020-10-02] MEDS: traMADol HCL (*CRX) 50 MG TABLET PO (08:17)
[2020-10-02] MEDS: TIMOLOL MALEATE 0.5% OP SOLN 5 ML BOTTLE 1 DROP EACH EYE (08:24)
[2020-10-02] MEDS: BRIMONIDINE TARTRATE 0.2% OP SOLN 5 ML BTL 1 DROP EACH EYE (08:24)
[2020-10-02] MEDS: MICONAZOLE NITRATE 2% CREAM 30 GM TUBE 1 APPLIC TOPICAL (08:24)
[2020-10-02 15:35] VITALS: BP 114/64; PULSE 77; RESP 18; TEMP 36.3; O2SAT 99
[2020-10-02] MEDS: glipiZIDE 5 MG TABLET PO (17:33)
[2020-10-02 17:39] LABS: Glucose Point of Care 243 mg/dl (65-105)
[2020-10-02] MEDS: rOPINIRole HCL 0.5 MG TABLET PO (20:52)
[2020-10-02 21:34] LABS: Glucose Point of Care 101 mg/dl (65-105)
[2020-10-03 00:24] VITALS: BP 137/66; PULSE 72; RESP 20; TEMP 35.9; O2SAT 98
[2020-10-03] MEDS: TOLNAFTATE 1% POWDER 45 GM BTL 1 APPLIC TOPICAL ×2 (06:08→09:04)
[2020-10-03 08:00] VITALS: BP 129/70; PULSE 83; RESP 16; TEMP 35.8; O2SAT 96
[2020-10-03 08:16] LABS: Glucose Point of Care 113 mg/dl (65-105)
[2020-10-03] MEDS: TIMOLOL MALEATE 0.5% OP SOLN 5 ML BOTTLE 1 DROP EACH EYE (09:02)
[2020-10-03] MEDS: BRIMONIDINE TARTRATE 0.2% OP SOLN 5 ML BTL 1 DROP EACH EYE (09:03)
[2020-10-03 09:04] VITALS: PULSE 68
[2020-10-03] MEDS: METOPROLOL TARTRATE 12.5 MG TABLET PO (09:04)
[2020-10-03] MEDS: ASPIRIN 81 MG ENTERIC TABLET PO (09:04)
[2020-10-03] MEDS: FINASTERIDE 5 MG TABLET PO (09:04)
[2020-10-03] MEDS: glipiZIDE 5 MG TABLET 10 MG PO (09:04)
[2020-10-03] MEDS: metFORMIN HCL 500 MG TABLET 1000 MG PO (09:04)
[2020-10-03] MEDS: PANTOPRAZOLE SOD SESQUIHYDRATE 20 MG TAB PO (09:05)
[2020-10-03] MEDS: ATORVASTATIN 10 MG TABLET 20 MG PO (09:05)
[2020-10-03] MEDS: LORazepam (*CRX) 1 MG TABLET PO (09:05)
[2020-10-03] MEDS: traMADol HCL (*CRX) 50 MG TABLET PO (09:05)
--- NOTE | 2020-10-03 10:48 | PM.DS ---
DS: Admitting Diagnosis Admitting Diagnosis UTI, BPH, Weakness DS: Discharge Diagnosis Discharge Diagnosis (1) Weakness: Code(s): R53.1 - Weakness Status: Acute Assessment and Plan: ? Exhibit tolerance during physical activity as evidenced by a normal fluctuation of vital signs during physical activity. ? Patient will be ability to perform required activities of daily living. ? Provide appropriate nutrition for healing and strength. ? Use appropriate to prevent falls. ? Continue physical therapy/occupational therapy. Patient with a history of multiple falls 09/29/2020 Pt states he is working with PT/OT and says he is being told he is doing well 10/03/2020 Pt states he has been working with PT/OT and feels he is strong enough to return home safely (2) Essential (primary) hypertension: Code(s): I10 - Essential (primary) hypertension Status: Acute Assessment and Plan: Stable Continue metoprolol 12.5 mg daily Vital signs as ordered Will adjust medication as needed 09/29/2020 VSS, no need to adjust medication at this time 10/03/2020 VSS, no changes were made to his medications (3) Hyperlipidemia: Qualifiers: Hyperlipidemia type: unspecified Qualified Code(s): E78.5 - Hyperlipidemia, unspecified Code(s): E78.5 - Hyperlipidemia, unspecified Status: Chronic Assessment and Plan: Continue statin (4) Anxiety: Code(s): F41.9 - Anxiety disorder, unspecified Status: Chronic Assessment and Plan: Continue Ativan (5) GERD without esophagitis: Code(s): K21.9 - Gastro-esophageal reflux disease without esophagitis Status: Chronic Assessment and Plan: Started pantoprazole (6) Insomnia: Qualifiers: Insomnia type: unspecified Qualified Code(s): G47.00 - Insomnia, unspecified Code(s): G47.00 - Insomnia, unspecified Status: Chronic Assessment and Plan: Pt does have 150 mg of Trazodone HS PRN 10/03/2020 No issues reported by Pt or staff (7) Chronic back pain: Code(s): M54.9 - Dorsalgia, unspecified; G89.29 - Other chronic pain Status: Chronic Assessment and Plan: Continue pain medication (8) Peripheral neuropathy: Code(s): G62.9 - Polyneuropathy, unspecified Status: Chronic Assessment and Plan: Continue gabapentin (9) Type 2 diabetes mellitus with diabetic neuropathy: Qualifiers: Diabetes mellitus intermediate school teacher insulin use: without intermediate school teacher use Qualified Code(s): E11.40 - Type 2 diabetes mellitus with diabetic neuropathy, unspecified Code(s): E11.40 - Type 2 diabetes mellitus with diabetic neuropathy, unspecified Status: Chronic Assessment and Plan: Blood sugar stable Continue Accu-Chek with hypoglycemic protocol and sliding scale Continue Metformin and glipizide Will adjust medication as needed A1c 09/18/2020 5.8 09/29/2020 Glucose is well controlled, no changes to medications or diet 10/03/2020 Glucose well controlled (10) TARA on CPAP: Code(s): G47.33 - Obstructive sleep apnea (adult) (pediatric); Z99.89 - Dependence on other enabling machines and devices Status: Acute Assessment and Plan: Continue CPAP with home settings (11) Urinary tract infection: Code(s): N39.0 - Urinary tract infection, site not specified Status: Acute Assessment and Plan: Patient ampicillin p.o., it is nonformulary for this hospital patient started on amoxicillin 500 mg every 6 hours which is equivalent to ampicillin UA culture at [facility] with the growth of Enterococcus species which is susceptible to ampicillin Continue amoxicillin 5 out of 16 doses 09/29/2020 No c/o urinary symptoms 10/03/2020 no symptoms (12) Atrial fibrillation with RVR: Code(s): I48.91 - Unspecified atrial fibrillation Status: Acute Assessment and Plan: Continue metoprolol 12.5 and aspirin 81 mg Pat
[2020-10-03 11:59] LABS: Glucose Point of Care 121 mg/dl (65-105)
--- NOTE | 2020-10-03 14:10 | PC.NURSE ---
Discharge instructions reviewed with patient and son. Son carried belongings out to vehicle. Patient taken off floor per wheelchair.
[2020-10-05 14:51] LABS: Glucose Point of Care 142 mg/dl (65-105)
[2020-10-05 14:51] LABS: Glucose Point of Care 150 mg/dl (65-105)
[2020-10-05 14:51] LABS: Glucose Point of Care 139 mg/dl (65-105)
[2020-10-05 14:51] LABS: Glucose Point of Care 122 mg/dl (65-105)
[2020-10-05 14:51] LABS: Glucose Point of Care 126 mg/dl (65-105)
[2020-10-05 14:51] LABS: Glucose Point of Care 118 mg/dl (65-105)
== END 2020-10-03 14:10 | disposition home health service (06) | DRG 948 ==
PROVIDERS: Admitting Provider Emergency Medicine; PCP Family Medicine; Visit Provider Emergency Medicine
DX: R53.1 Weakness (principal); N39.0 Urinary tract infection, site not specified; C85.90 Non-Hodgkin lymphoma, unspecified, unspecified site; I48.20 Chronic atrial fibrillation, unspecified; E78.5 Hyperlipidemia, unspecified; E11.42 Type 2 diabetes mellitus with diabetic polyneuropathy; I35.0 Nonrheumatic aortic (valve) stenosis; I10 Essential (primary) hypertension; K21.9 Gastro-esophageal reflux disease without esophagitis; L30.4 Erythema intertrigo; H40.9 Unspecified glaucoma; M54.9 Dorsalgia, unspecified; N40.0 Benign prostatic hyperplasia without lower urinary tract symptoms; R19.7 Diarrhea, unspecified; G47.33 Obstructive sleep apnea (adult) (pediatric); G89.29 Other chronic pain; G47.00 Insomnia, unspecified; B95.2 Enterococcus as the cause of diseases classified elsewhere; F41.9 Anxiety disorder, unspecified; Z87.891 Personal history of nicotine dependence
CPT/HCPCS: 36415; 80053; 82948; 85025; 87324; 97110; 97161; 97165; 97530; 97535; A9270

== ENCOUNTER 2021-02-27 23:30 | Inpatient (IN) | payer MEDICARE, BC, SELFPAY ==
--- NOTE | ~2021-02-27 | CT_ITS ---
EXAMINATION: CT brain wo con DATE: 02/28/2021 11:03 INDICATION: Weakness. TECHNIQUE: Computed tomography (CT) of the head was performed without intravenous contrast. The dose- length product was 681.00 mGy-cm. Automated exposure control and iterative reconstruction technique w ere employed. COMPARISON: CT dated 09/18/2020 FINDINGS: Generalized atrophy. There are scattered mild periventricular and subcortical white matter changes, most likely related to small vessel ischemic disease (microangiopathy). No ventriculomegaly or midline shift. Basilar cisterns are patent. There is mild mucosal thickening of the ethmoid air ce lls. There is mucoperiosteal reaction of the right maxillary sinus. Mastoids are pneumatized. IMPRESSION: 1. No acute intracranial abnormality. 2: Chronic age-related findings. Reviewed, dictated and finalized at location A. E RECRUITER
--- NOTE | ~2021-02-27 | XR_ITS ---
EXAMINATION: XR chest 1V portable 02/28/2021 01:12 INDICATION: Fever and cough PROCEDURE: AP portable chest COMPARISON: Comparison to multiple prior studies sequentially, with oldest reviewed study dated 06/28. FINDINGS: The lungs are clear. The cardiomediastinal silhouette is within normal limits. There are no pleural effusions. There is no pneumothorax suspected. 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 IMPRESSION: 1: NO ACUTE CARDIOPULMONARY DISEASE. Reviewed, dictated and finalized at location A. ATRIC CARE MANAGER
[2021-02-27 23:39] VITALS: BP 129/82; PULSE 108; RESP 16; TEMP 37.3; O2SAT 100
[2021-02-28] VITALS (30 sets, daily range): BP systolic 111–139; BP diastolic 58–92; PULSE 83–118; RESP 18–26; TEMP 36.3–37.7; O2SAT 93–99; BMI 43.5; BMI 43.6
[2021-02-28] MEDS: SODIUM CHLORIDE 0.9% IV 1,000 ML 999 ML IV CONT (01:26)
[2021-02-28 01:39] LABS: Basophils Percent Auto 0.3 % (0.2-1.2); Eosinophils Percent Auto 0.3 % (0-4.4); Hematocrit 41.1 % (42.0-52.0); Hemoglobin 14.1 g/dL (14.0-18.0); Immature Granulocyte Absolute 0.02 K/mm3 (0.00-0.031); Immature Granulocyte Percent A 0.3 % (0-0.5); Lymphocytes Absolute Auto 1.08 K/mm3 (0.9-3.2); Lymphocytes Percent Auto 14.2 % (18.3-44.2); Mean Corpuscular HGB Conc 34.3 g/dl (32-36); Mean Corpuscular Volume 93.4 fl (80-100); Mean Platelet Volume 11.7 fl (7.4-10.4); Monocytes Absolute Auto 0.8 K/mm3 (0.1-0.6); Neutrophils Absolute Auto 5.7 K/mm3 (1.3-6.7); Neutrophils Percent Auto 73.9 % (45.5-73.1); Platelet Count Result 106 k/mm3 (150-375); White Blood Count 7.6 K/mm3 (4.5-10.0)
[2021-02-28 01:56] LABS: Lactic Acid Reflex 2.5 mmol/L (0.7-2.1)
[2021-02-28 02:25] LABS: Alanine Aminotransferase 42 U/L (4-50); Albumin Level 4.3 g/dL (3.5-5.1); Alkaline Phosphatase 100 U/L (38-126); Anion Gap 11 mmol/L (8-16); Aspartate Amino Transferase 59 U/L (17-59); Bilirubin,Total 0.7 mg/dL (0.2-1.3); Blood Urea Nitrogen 23 mg/dL (9-20); Carbon Dioxide 25 mmol/L (22-30); Chloride 96 mmol/L (98-107); Estimated CRCL calculation 65 ml/min; Estimated Glomerular Filt Rate 59; Glucose 170 mg/dL (65-110); Potassium 3.9 mmol/L (3.4-5.0); Sodium 132 mmol/L (137-145)
--- NOTE | 2021-02-28 03:24 | ED.GENADULT ---
HPI - General Adult General Chief complaint: Weakness Stated complaint: general weakness Time Seen by Provider: 02/28/21 00:50 History of Present Illness HPI narrative: Patient 75-year-old gentleman who presents the emergency department with chief complaint of generalized weakness. Patient was exposed to COVID-19 with his son being positive for COVID. Patient reports that he is achy all over feels weak. Patient reports he was recently treated for UTI Related Data Home Medications Medication Instructions Recorded Confirmed acetaminophen 325 mg capsule 650 mg PO Q4H PRN cap 01/25/19 09/21/20 Combigan 1 drp EACH EYE DAILY 07/15/20 09/21/20 finasteride 5 mg PO DAILY 07/15/20 09/21/20 ketoconazole 1 applic TOPICAL BID 07/15/20 09/21/20 glipizide 10 mg PO QAM 08/05/20 09/21/20 Allergies Allergy/AdvReac Type Severity Reaction Status Date / Time No Known Allergies Allergy Verified 02/27/21 23:46 Review of Systems Review of Systems: A 10 system review of systems was completed on the patient and is negative except for what is stated in the HPI. Nursing and ancillary documentation was reviewed. [facility] Past Medical History Medical History Anxiety Aortic stenosis Chronic back pain Essential (primary) hypertension GERD without esophagitis Glaucoma Hyperlipidemia Insomnia Intertrigo Lymphoma Follows with Dr Quiroz - oncology Peripheral neuropathy Type 2 diabetes mellitus with diabetic neuropathy Family History Family History Father Lung cancer Mother Diabetes mellitus Cancer Hx of CABG Glaucoma Social History Social History Smoking packs per day: 1 Smoking cigarettes per day: 20.0 Smoking status: Former smoker Tobacco type: cigarettes Alcohol intake: former Substance use: never Gender identity (if verbalized by the patient): Male Sexual Orientation (if Verbalized by the Patient): Straight or Heterosexual Spiritual care concerns: No Exam Narrative: GENERAL: Well-appearing, well-nourished, and in no acute distress. HEAD: Normocephalic, atraumatic. EYES: PERRLA and EOMI. ENT: Nares clear, no rhinorrhea or epistaxis. Mucous membranes moist. NECK: Supple. CHEST: Clear to auscultation. No respiratory distress. HEART: Regular rate and rhythm. No murmur heard. Normal peripheral pulses. ABDOMEN: Soft, nontender, nondistended, normal active bowel sounds. EXTREMITIES: Normal range of motion. No edema. SKIN: Warm, dry, no rash. NEURO: No focal deficits. Alert and oriented x3. PSYCH: Normal mood and affect. Course Course Emergency Course: Patient was attempted to be ambulated in the emergency department the patient was unable to ambulate without extreme difficulty even using a walker. Given this the case was discussed with the hospitalist who will admit the patient. Given the patient is currently not hypoxic the patient does not meet criteria for Decadron or remdesivir Vital Signs Vital signs: Vital Signs Temperature 37.3 C 02/27/21 23:39 Pulse Rate 108 H 02/27/21 23:39 Respiratory Rate 16 02/27/21 23:39 Blood Pressure 129/82 02/27/21 23:39 Pulse Oximetry 100 02/27/21 23:39 Temperature 37.0 C 02/28/21 04:53 Pulse Rate 102 H 02/28/21 04:53 Respiratory Rate 22 H 02/28/21 04:53 Blood Pressure 114/67 02/28/21 04:53 Pulse Oximetry 97 02/28/21 04:53 Medical Decision Making Vital Signs Vital Signs: Vital Signs Temperature 37.3 C 02/27/21 23:39 Pulse Rate 108 H 02/27/21 23:39 Respiratory Rate 16 02/27/21 23:39 Blood Pressure 129/82 02/27/21 23:39 Pulse Oximetry 100 02/27/21 23:39 Temperature 37.0 C 02/28/21 04:53 Pulse Rate 102 H 02/28/21 04:53 Respiratory Rate 22 H 02/28/21 04:53 Blood Pressure 114/67 02/28/21 04:53 Pulse Oximetry 97
[2021-02-28 03:41] LABS: Add Urine Microscopic? YES; Appearance Urine Clear (Clear); Bilirubin Urine Negative (Negative); Blood Urine 2+ (Negative); Color Urine Yellow (Yellow); Glucose Urine UA Negative (Negative); Ketones Urine Trace mg/dL (Negative); Leukocyte Esterase Ur 1+ LEU/UL (Negative); Mucus Urine Rare /lpf; Nitrate Urine Negative (Negative); Protein Urine 2+ mg/dL (Negative); RBC Urine >75 /hpf (0-2); Squamous Epithelial Cell Urine Rare /hpf (Few); WBC Urine 51-75 /hpf
[2021-02-28 03:46] LABS: SARS-CoV-2 RNA PCR Positive
[2021-02-28 04:31] LABS: Influenza A QL RT-PCR Negative (Negative); Influenza B QL RT-PCR Negative (Negative)
[2021-02-28 04:37] LABS: Reflex Lactic Acid Yes or No Add Lactic
[2021-02-28] MEDS: SODIUM CHLORIDE 0.9% IV 1,000 ML 125 ML IV CONT (05:51)
[2021-02-28 06:29] LABS: Lactic Acid 1.1 mmol/L (0.7-2.1)
--- NOTE | 2021-02-28 07:28 | PC.NURSE ---
This patient, Pino Arias, was admitted to [facility] Surg Room 313-01. Patient/family oriented to hospital policies and general routines including ID bracelet, bed and alarms, visiting hours, pain management, procedures, bathroom and other care routines, personal items, smoking policy, room service/diet, and visiting hours. Patient arrived at 0655 Information on how to activate the Rapid Response Team has been discussed. Patient/Family are encouraged to report perceived risks to care and to ask questions if they do not understand what they are told or what they should do.
[2021-02-28 07:43] LABS: D Dimer 0.48 ug/mL (<0.48)
[2021-02-28 07:56] LABS: CRP 3.1 mg/dL (<1.0); Lactate Dehydrogenase 482 U/L (313-618)
[2021-02-28 07:57] LABS: NT Pro B Type Natriuretic Pept 542 pg/mL (5-100)
--- NOTE | 2021-02-28 09:45 | PM.IMHP ---
H&P: HPI History of Present Illness Date/Time: 02/28/21 09:45 Chief Complaint: Weakness Narrative: Patient is a 75 year old male with a past medical history of HLD, GERD, Lymphoma, DM2 who present to the ED with complaints of weakness. Patient has been exposed to COVID by his son. Since then he has been very weak, with body aches, and just weak all over. Patient stated that he has been going down home for about a week. However over the last 2 days he has noticed that it has been even worse. He also stated that he has had upset stomach nauseous as well periodically throughout the week however he ate something away. It is late was when he was the bathroom has to urinate however just trying to get back to his room is pretty tough. He denies pain and urgency with urination. He could not tell me if he was having frequency he just said he urinates all the time. He also stated that he has had constipation for the last 3 days. He has had a couple of small bowel movements and another bowel movement today. Which he does about there is significant or not. He also stated that a few times over the week he has gotten up has been very early in the morning and he thought it was later in the morning and he had some night. Sleep is 1 of his biggest complaints and states that he can not go to sleep and he gets this nervous feeling in his crotch and has to wait about an hour or 2 before he can finally go to sleep. Patient also stated that he is taking the trazodone however it is not working. Patient denies chest pain, sweats, fevers, chills, lightheadedness, dizziness, headaches, fatigue. Patient did say that he was having some shortness of breath which has been within normal and a cough. He did say that his cough is productive and producing a white with yellow sputum that is then. However he did say that he takes Mucinex at home which he does note that is affected. Patient also states that he has been vaccinated with Pfizer x2 doses. Patient also states that he has been choking with fluids and food. Review of Systems Review of Systems: All systems reviewed & are unremarkable except as noted in HPI and below PMFSH Past Medical History Medical History Anxiety Aortic stenosis Chronic back pain Essential (primary) hypertension GERD without esophagitis Glaucoma Hyperlipidemia Insomnia Intertrigo Lymphoma Follows with Dr Quiroz - oncology Peripheral neuropathy Type 2 diabetes mellitus with diabetic neuropathy Family History Family History Father Lung cancer Mother Diabetes mellitus Cancer Hx of CABG Glaucoma Social History Social History (Updated 02/28/21 @ 12:24 by KEVON Duncan) Social History: Patient lives with his son. Patient was to be a full code and his son would be his surrogate. Smoking packs per day: 1 Smoking cigarettes per day: 20.0 Years smoked: 5 Smoking pack-years: 5.00 Smoking status: Former smoker Tobacco type: cigarettes Alcohol intake: never Substance use: never Living arrangements: with family Additional living arrangements comments: Lives with son Occupation/Education: retired Gender identity (if verbalized by the patient): Male Sexual Orientation (if Verbalized by the Patient): Straight or Heterosexual Spiritual care concerns: No Meds Home Medications and Allergies Home Medications Medication Instructions Recorded Confirmed Type acetaminophen 325 mg capsule 650 mg PO Q4H PRN cap 01/25/19 02/28/21 History atorvastatin 20 mg tablet 20 mg PO DAILY #90 tablet 01/08/20 02/28/21 Rx Combigan 1 drp EACH EYE DAILY 07/15/20 02/28/21 History finasteride 5 mg PO DAILY 07/15/20 02/28/21 History ketoconazole 1 applic TOPICAL BID 07/15/20 02/28/21 History aspirin 81 mg PO QAM 30 Days #30 tablet 07/17/20 02/28/21 Rx metoprolol tartrate 12.5 mg PO DAILY #30 table
[2021-02-28] MEDS: ATORVASTATIN 20 MG TABLET PO (12:16)
[2021-02-28] MEDS: ASPIRIN 81 MG ENTERIC TABLET PO (12:16)
[2021-02-28] MEDS: CHOLECALCIFEROL 1,000 UNITS TABLET 1000 UNITS PO (12:16)
[2021-02-28] MEDS: METOPROLOL TARTRATE 12.5 MG TABLET PO (12:18)
[2021-02-28] MEDS: MULTIVITAMINS THERAPEUTIC TAB (*BKC) 1 TABLET PO (12:19)
[2021-02-28] MEDS: FINASTERIDE 5 MG TABLET PO (12:19)
[2021-02-28] MEDS: LORazepam (*CRX) 0.5 MG TABLET PO ×2 (12:21→20:40)
[2021-02-28] MEDS: BRIMONIDINE TARTRATE 0.2% OP SOLN 5 ML BTL 1 DROP EACH EYE (12:21)
--- NOTE | 2021-02-28 14:08 | PCSTNOTE ---
Please refer to the Bedside Swallow Evaluation in the EMR. Please note, silent aspiration cannot be ruled out at bedside. No further ST services indicated at this time.
[2021-02-28] MEDS: PANTOPRAZOLE SODIUM IV 40 MG VIAL IV PUSH (17:05)
[2021-02-28] MEDS: GABAPENTIN 100 MG CAPSULE PO (17:06)
[2021-02-28] MEDS: diphenhydrAMINE HCl CAP 25 MG CAPSULE PO (20:40)
[2021-02-28] MEDS: rOPINIRole HCL 0.5 MG TABLET PO (20:40)
[2021-02-28] MEDS: traZODone HCL 50 MG TABLET 150 MG PO (20:40)
[2021-03-01] VITALS (8 sets, daily range): BP systolic 115–151; BP diastolic 60–72; PULSE 82–109; RESP 18–21; TEMP 35.6–37.8; O2SAT 92–96
[2021-03-01 06:47] LABS: Basophils Percent Auto 0.3 % (0.2-1.2); Eosinophils Percent Auto 0.2 % (0-4.4); Hematocrit 36.2 % (42.0-52.0); Hemoglobin 12.3 g/dL (14.0-18.0); Immature Granulocyte Absolute 0.02 K/mm3 (0.00-0.031); Immature Granulocyte Percent A 0.3 % (0-0.5); Immature Platelet Fraction Pct 7.8 % (0.9-11.2); Lymphocytes Absolute Auto 1.59 K/mm3 (0.9-3.2); Lymphocytes Percent Auto 24.8 % (18.3-44.2); Mean Corpuscular Hemoglobin 31.5 pg (26-34); Mean Corpuscular Volume 92.6 fl (80-100); Mean Platelet Volume 11.6 fl (7.4-10.4); Monocytes Absolute Auto 0.6 K/mm3 (0.1-0.6); Monocytes Percent Auto 9.4 % (2.6-8.5); Neutrophils Absolute Auto 4.2 K/mm3 (1.3-6.7); Platelet Count Result 85 k/mm3 (150-375); Red Blood Count 3.91 M/mm3 (4.6-6.20); Red Cell Distribution Width 13.9 % (11.5-14.5); White Blood Count 6.4 K/mm3 (4.5-10.0)
[2021-03-01 07:18] LABS: D Dimer 0.47 ug/mL (<0.48)
[2021-03-01 07:22] LABS: Alanine Aminotransferase 35 U/L (4-50); Albumin Level 3.8 g/dL (3.5-5.1); Alkaline Phosphatase 86 U/L (38-126); Anion Gap 10 mmol/L (8-16); Aspartate Amino Transferase 56 U/L (17-59); Bilirubin,Total 0.5 mg/dL (0.2-1.3); Blood Urea Nitrogen 14 mg/dL (9-20); CRP 5.3 mg/dL (<1.0); Calcium 8.4 mg/dL (8.4-10.2); Carbon Dioxide 25 mmol/L (22-30); Chloride 98 mmol/L (98-107); Estimated CRCL calculation 79 ml/min; Estimated Glomerular Filt Rate > 60; Glucose 156 mg/dL (65-110); Lactate Dehydrogenase 485 U/L (313-618); Magnesium 1.4 mg/dL (1.6-2.3); Potassium 3.4 mmol/L (3.4-5.0); Sodium 133 mmol/L (137-145)
--- NOTE | 2021-03-01 08:00 | P.PNIM_ITS ---
Progress Note: A&P Assessment and Plan (1) Abnormal urinalysis: Code(s): R82.90 - Unspecified abnormal findings in urine Status: Acute Assessment and Plan: * UA shows 2+ positive protein, 2+ blood, 1+ leukocyte esterase, wbc's 51-75 * Ceftriaxone day 2 * Urine culture pending * Tailor antibiotics with urine culture * Monitor urine output (2) COVID-19: Code(s): U07.1 - COVID-19 Status: Acute Assessment and Plan: * Known exposure from son * Positive PCR * No respiratory distress or oxygen needs * Hold remdesivir and dexamethasone * Inflammatory markers show D-dimer 0.47, ferritin 160, LDH 483, CRP 5.3 * Chest x-ray shows no acute cardiopulmonary disease * BNP elevated at 542 (3) Generalized weakness: Code(s): R53.1 - Weakness Status: Acute Assessment and Plan: * Probably secondary to UTI/COVID * Head CT no acute intracranial findings, chronic age related findings * PT and OT (4) Hyperlipidemia: Qualifiers: Hyperlipidemia type: unspecified Qualified Code(s): E78.5 - Hy perlipidemia, unspecified Code(s): E78.5 - Hyperlipidemia, unspecified Status: Chronic Assessment and Plan: * Continue home atorvastatin (5) Insomnia: Qualifiers: Insomnia type: unspecified Qualified Code(s): G47.00 - Insomnia, unspecified Code(s): G47.00 - Insomnia, unspecified Status: Chronic Assessment and Plan: * Continue home trazodone 150 mg p.o. q.h.s. * Added melatonin, will add Atarax (6) GERD without esophagitis: Code(s): K21.9 - Gastro-esophageal reflux disease without esophagitis Status: Chronic Assessment and Plan: * Consider protonix for stress prophylaxis (7) BPH (benign prostatic hyperplasia): Code(s): N40.0 - Benign prostatic hyperplasia without lower urinary tract symptoms Status: Acute Assessment and Plan: * Continue home finasteride 5mg PO * Trend urine output * Bladder scan PRN (8) Lactic acidosis: Code(s): E87.2 - Acidosis Status: Acute Assessment and Plan: * Elevated lactic acid at 2.5 * Fluids given in the ED * Repeat lactic is 1.1 * No other indicators of sepsis at this time (9) Type 2 diabetes mellitus with diabetic neuropathy: Qualifiers: Diabetes mellitus terminal supervisor insulin use: without alf use Qualified Code(s): E11.40 - Type 2 diabetes mellitus with diabetic neuropathy, unspecified Code(s): E11.40 - Type 2 diabetes mellitus with diabetic neuropathy, unspecified Status: Chronic Assessment and Plan: * Glucose 156 * Accu cheks AC/HS * Hold home glipizide, metformin * Check A1c * Sliding scale insulin * Trend Glucose * Adjust therapy as indicated Subjective Date/time seen: 03/01/21 0800 Interval history: Date/Time 02/28/21 0945 Patient is a 75 year old male with a past medical history of HLD, GERD, Lymphoma, DM2 who present to the ED with complaints of weakness. Patient has been exposed to COVID by his son. Since then he has been very weak, with body aches, and just weak all over. Patient stated that he has been going down home for about a week. However over the last 2 days he has noticed that it has been even worse. He also stated that he has had upset stomach nauseous as wel
--- NOTE | 2021-03-01 08:00 | PM.IMPN ---
Progress Note: A&P Assessment and Plan (1) Abnormal urinalysis: Code(s): R82.90 - Unspecified abnormal findings in urine Status: Acute Assessment and Plan: UA shows 2+ positive protein, 2+ blood, 1+ leukocyte esterase, wbc's 51-75 Ceftriaxone day 2 Urine culture pending Tailor antibiotics with urine culture Monitor urine output (2) COVID-19: Code(s): U07.1 - COVID-19 Status: Acute Assessment and Plan: Known exposure from son Positive PCR No respiratory distress or oxygen needs Hold remdesivir and dexamethasone Inflammatory markers show D-dimer 0.47, ferritin 160, LDH 483, CRP 5.3 Chest x-ray shows no acute cardiopulmonary disease BNP elevated at 542 (3) Generalized weakness: Code(s): R53.1 - Weakness Status: Acute Assessment and Plan: Probably secondary to UTI/COVID Head CT no acute intracranial findings, chronic age related findings PT and OT (4) Hyperlipidemia: Qualifiers: Hyperlipidemia type: unspecified Qualified Code(s): E78.5 - Hyperlipidemia, unspecified Code(s): E78.5 - Hyperlipidemia, unspecified Status: Chronic Assessment and Plan: Continue home atorvastatin (5) Insomnia: Qualifiers: Insomnia type: unspecified Qualified Code(s): G47.00 - Insomnia, unspecified Code(s): G47.00 - Insomnia, unspecified Status: Chronic Assessment and Plan: Continue home trazodone 150 mg p.o. q.h.s. Added melatonin, will add Atarax (6) GERD without esophagitis: Code(s): K21.9 - Gastro-esophageal reflux disease without esophagitis Status: Chronic Assessment and Plan: Consider protonix for stress prophylaxis (7) BPH (benign prostatic hyperplasia): Code(s): N40.0 - Benign prostatic hyperplasia without lower urinary tract symptoms Status: Acute Assessment and Plan: Continue home finasteride 5mg PO Trend urine output Bladder scan PRN (8) Lactic acidosis: Code(s): E87.2 - Acidosis Status: Acute Assessment and Plan: Elevated lactic acid at 2.5 Fluids given in the ED Repeat lactic is 1.1 No other indicators of sepsis at this time (9) Type 2 diabetes mellitus with diabetic neuropathy: Qualifiers: Diabetes mellitus care home insulin use: without care home use Qualified Code(s): E11.40 - Type 2 diabetes mellitus with diabetic neuropathy, unspecified Code(s): E11.40 - Type 2 diabetes mellitus with diabetic neuropathy, unspecified Status: Chronic Assessment and Plan: Glucose 156 Accu cheks AC/HS Hold home glipizide, metformin Check A1c Sliding scale insulin Trend Glucose Adjust therapy as indicated Subjective Date/time seen: 03/01/21 0800 Interval history: Date/Time 02/28/21 0919 Patient is a 75 year old male with a past medical history of HLD, GERD, Lymphoma, DM2 who present to the ED with complaints of weakness. Patient has been exposed to COVID by his son. Since then he has been very weak, with body aches, and just weak all over. Patient stated that he has been going down home for about a week. However over the last 2 days he has noticed that it has been even worse. He also stated that he has had upset stomach nauseous as well periodically throughout the week however he ate something away. It is late was when he was the bathroom has to urinate however just trying to get back to his room is pretty tough. He denies pain and urgency with urination. He could not tell me if he was having frequency he just said he urinates all the time. He also stated that he has had constipation for the last 3 days. He has had a couple of small bowel movements and another bowel movement today. Which he does about there is significant or not. He also stated that a few times over the week he has gotten up has been very
[2021-03-01] MEDS: GABAPENTIN 100 MG CAPSULE PO ×3 (08:32→16:58)
[2021-03-01] MEDS: LORazepam (*CRX) 0.5 MG TABLET PO ×2 (08:32→20:57)
[2021-03-01] MEDS: PANTOPRAZOLE SODIUM IV 40 MG VIAL IV PUSH (08:32)
[2021-03-01] MEDS: FINASTERIDE 5 MG TABLET PO (08:33)
[2021-03-01] MEDS: CHOLECALCIFEROL 1,000 UNITS TABLET 1000 UNITS PO (08:33)
[2021-03-01] MEDS: BRIMONIDINE TARTRATE 0.2% OP SOLN 5 ML BTL 1 DROP EACH EYE (08:33)
[2021-03-01] MEDS: ATORVASTATIN 20 MG TABLET PO (08:33)
[2021-03-01] MEDS: ASPIRIN 81 MG ENTERIC TABLET PO (08:33)
[2021-03-01] MEDS: ENOXAPARIN 40 MG/0.4 ML SYRINGE SUB-Q (08:33)
[2021-03-01] MEDS: METOPROLOL TARTRATE 12.5 MG TABLET PO (08:33)
[2021-03-01] MEDS: TIMOLOL MALEATE 0.5% OP SOLN 5 ML BOTTLE 1 DROP EACH EYE (08:33)
[2021-03-01] MEDS: MULTIVITAMINS THERAPEUTIC TAB (*BKC) 1 TABLET PO (08:33)
[2021-03-01] MEDS: MAGNESIUM SULF 4 GM/WATER100ML 4 GM/100 ML BAG IVPB (15:49)
[2021-03-01] MEDS: traZODone HCL 50 MG TABLET 150 MG PO (20:57)
[2021-03-01] MEDS: rOPINIRole HCL 0.5 MG TABLET PO (20:57)
[2021-03-01] MEDS: diphenhydrAMINE HCl CAP 25 MG CAPSULE 50 MG PO (20:57)
[2021-03-02] VITALS (8 sets, daily range): BP systolic 113–136; BP diastolic 64–74; PULSE 93–108; RESP 20–22; TEMP 35.7–37.6; O2SAT 93–98
[2021-03-02 07:36] LABS: Basophils Percent Auto 0.3 % (0.2-1.2); Eosinophils Percent Auto 0.2 % (0-4.4); Hematocrit 36.3 % (42.0-52.0); Hemoglobin 12.2 g/dL (14.0-18.0); Immature Granulocyte Absolute 0.03 K/mm3 (0.00-0.031); Immature Granulocyte Percent A 0.5 % (0-0.5); Immature Platelet Fraction Pct 8.1 % (0.9-11.2); Lymphocytes Absolute Auto 1.44 K/mm3 (0.9-3.2); Lymphocytes Percent Auto 23.5 % (18.3-44.2); Mean Corpuscular HGB Conc 33.6 g/dl (32-36); Mean Corpuscular Volume 92.1 fl (80-100); Mean Platelet Volume 11.7 fl (7.4-10.4); Monocytes Absolute Auto 0.5 K/mm3 (0.1-0.6); Monocytes Percent Auto 7.5 % (2.6-8.5); Neutrophils Absolute Auto 4.2 K/mm3 (1.3-6.7); Platelet Count Result 84 k/mm3 (150-375); Red Blood Count 3.94 M/mm3 (4.6-6.20); Red Cell Distribution Width 13.6 % (11.5-14.5); White Blood Count 6.1 K/mm3 (4.5-10.0)
[2021-03-02] MEDS: MULTIVITAMINS THERAPEUTIC TAB (*BKC) 1 TABLET PO (07:47)
[2021-03-02] MEDS: CHOLECALCIFEROL 1,000 UNITS TABLET 1000 UNITS PO (07:47)
[2021-03-02] MEDS: GABAPENTIN 100 MG CAPSULE PO ×3 (07:47→16:44)
[2021-03-02] MEDS: METOPROLOL TARTRATE 12.5 MG TABLET PO (07:48)
[2021-03-02] MEDS: ASPIRIN 81 MG ENTERIC TABLET PO (07:48)
[2021-03-02] MEDS: BRIMONIDINE TARTRATE 0.2% OP SOLN 5 ML BTL 1 DROP EACH EYE (07:48)
[2021-03-02] MEDS: LORazepam (*CRX) 0.5 MG TABLET PO ×2 (07:48→20:57)
[2021-03-02] MEDS: FINASTERIDE 5 MG TABLET PO (07:48)
[2021-03-02] MEDS: ATORVASTATIN 20 MG TABLET PO (07:48)
[2021-03-02] MEDS: TIMOLOL MALEATE 0.5% OP SOLN 5 ML BOTTLE 1 DROP EACH EYE (07:49)
[2021-03-02] MEDS: PANTOPRAZOLE SODIUM IV 40 MG VIAL IV PUSH (07:49)
[2021-03-02 07:59] LABS: D Dimer 0.51 ug/mL (<0.48)
--- NOTE | 2021-03-02 08:45 | P.PNIM_ITS ---
Progress Note: A&P Assessment and Plan (1) Abnormal urinalysis: Code(s): R82.90 - Unspecified abnormal findings in urine Status: Acute Assessment and Plan: * UA shows 2+ positive protein, 2+ blood, 1+ leukocyte esterase, wbc's 51-75 * Ceftriaxone day 2, changed to macrobid * Urine culture Enterococcus * Suscepabilities show vanc, macrobid, ampicillin * Tailor antibiotics with urine culture * Monitor urine output (2) COVID-19: Code(s): U07.1 - COVID-19 Status: Acute Assessment and Plan: * Known exposure from son * Positive PCR * No respiratory distress or oxygen needs * Hold remdesivir and dexamethasone * Inflammatory markers show D-dimer 0.51, ferritin 248, LDH 620, CRP 10.6 * Chest x-ray shows no acute cardiopulmonary disease * BNP elevated at 542 (3) Generalized weakness: Code(s): R53.1 - Weakness Status: Acute Assessment and Plan: * Probably secondary to UTI/COVID * Head CT no acute intracranial findings, chronic age related findings * PT and OT (4) Hyperlipidemia: Qualifiers: Hyperlipidemia type: unspecified Qualified Code(s): E78.5 - Hyperlipidemia, unspecified Code(s): E78.5 - Hyperlipidemia, unspecified Status: Chronic Assessment and Plan: * Continue home atorvastatin (5) Insomnia: Qualifiers: Insomnia type: unspecified Qualified Code(s): G47.00 - Insomnia, unspecified Code(s): G47.00 - Insomnia, unspecified Status: Chronic Assessment and Plan: * Continue home trazodone 150 mg p.o. q.h.s. * Added melatonin * Benadryl was added, increased to 50mg (6) GERD without esophagitis: Code(s): K21.9 - Gastro-esophageal reflux disease without esophagitis Status: Chronic Assessment and Plan: * Consider protonix for stress prophylaxis (7) BPH (benign prostatic hyperplasia): Code(s): N40.0 - Benign prostatic hyperplasia without lower urinary tract symptoms Status: Acute Assessment and Plan: * Continue home finasteride 5mg PO * Trend urine output * Bladder scan PRN (8) Lactic acidosis: Code(s): E87.2 - Acidosis Status: Acute Assessment and Plan: * Elevated lactic acid at 2.5 * Fluids given in the ED * Repeat lactic is 1.1 * No other indicators of sepsis at this time (9) Type 2 diabetes mellitus with diabetic neuropathy: 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: without custodial use Qualified Code(s): E11.40 - Type 2 diabetes mellitus with diabetic neuropathy, unspecified Code(s): E11.40 - Type 2 diabetes mellitus with diabetic neuropathy, unspecified Status: Chronic Assessment and Plan: * Glucose 171 * Accu cheks AC/HS * Hold home glipizide, metformin * Check A1c * Sliding scale insulin * Trend Glucose * Adjust therapy as indicated Time Spent With Patient Time with patient: Greater than 35 minutes Subjective Date/time seen: 03/02/21 0845 Interval history: Date/Time 02/28/21 0945 Patient is a 75 year old male with a past medical history of HLD, GERD, Lymphoma, DM2 who present to the ED with complaints of weakness. Patient has been exposed to COVID by his son. Since then he has been very weak, with body aches, and just weak all over. Patient stated that he has be
--- NOTE | 2021-03-02 08:45 | PM.IMPN ---
Progress Note: A&P Assessment and Plan (1) Abnormal urinalysis: Code(s): R82.90 - Unspecified abnormal findings in urine Status: Acute Assessment and Plan: UA shows 2+ positive protein, 2+ blood, 1+ leukocyte esterase, wbc's 51-75 Ceftriaxone day 2, changed to macrobid Urine culture Enterococcus Suscepabilities show vanc, macrobid, ampicillin Tailor antibiotics with urine culture Monitor urine output (2) COVID-19: Code(s): U07.1 - COVID-19 Status: Acute Assessment and Plan: Known exposure from son Positive PCR No respiratory distress or oxygen needs Hold remdesivir and dexamethasone Inflammatory markers show D-dimer 0.51, ferritin 248, LDH 620, CRP 10.6 Chest x-ray shows no acute cardiopulmonary disease BNP elevated at 542 (3) Generalized weakness: Code(s): R53.1 - Weakness Status: Acute Assessment and Plan: Probably secondary to UTI/COVID Head CT no acute intracranial findings, chronic age related findings PT and OT (4) Hyperlipidemia: Qualifiers: Hyperlipidemia type: unspecified Qualified Code(s): E78.5 - Hyperlipidemia, unspecified Code(s): E78.5 - Hyperlipidemia, unspecified Status: Chronic Assessment and Plan: Continue home atorvastatin (5) Insomnia: Qualifiers: Insomnia type: unspecified Qualified Code(s): G47.00 - Insomnia, unspecified Code(s): G47.00 - Insomnia, unspecified Status: Chronic Assessment and Plan: Continue home trazodone 150 mg p.o. q.h.s. Added melatonin Benadryl was added, increased to 50mg (6) GERD without esophagitis: Code(s): K21.9 - Gastro-esophageal reflux disease without esophagitis Status: Chronic Assessment and Plan: Consider protonix for stress prophylaxis (7) BPH (benign prostatic hyperplasia): Code(s): N40.0 - Benign prostatic hyperplasia without lower urinary tract symptoms Status: Acute Assessment and Plan: Continue home finasteride 5mg PO Trend urine output Bladder scan PRN (8) Lactic acidosis: Code(s): E87.2 - Acidosis Status: Acute Assessment and Plan: Elevated lactic acid at 2.5 Fluids given in the ED Repeat lactic is 1.1 No other indicators of sepsis at this time (9) Type 2 diabetes mellitus with diabetic neuropathy: 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: without shelter use Qualified Code(s): E11.40 - Type 2 diabetes mellitus with diabetic neuropathy, unspecified Code(s): E11.40 - Type 2 diabetes mellitus with diabetic neuropathy, unspecified Status: Chronic Assessment and Plan: Glucose 171 Accu cheks AC/HS Hold home glipizide, metformin Check A1c Sliding scale insulin Trend Glucose Adjust therapy as indicated Time Spent With Patient Time with patient: Greater than 35 minutes Subjective Date/time seen: 03/02/21844 Interval history: Date/Time 02/28/21944 Patient is a 75 year old male with a past medical history of HLD, GERD, Lymphoma, DM2 who present to the ED with complaints of weakness. Patient has been exposed to COVID by his son. Since then he has been very weak, with body aches, and just weak all over. Patient stated that he has been going down home for about a week. However over the last 2 days he has noticed that it has been even worse. He also stated that he has had upset stomach nauseous as well periodically throughout the week however he ate something away. It is late was when he was the bathroom has to urinate however just trying to get back to his room is pretty tough. He denies pain and urgency with urination. He could not tell me if he was having frequency he just said he urinates all the time. He also stated that he has had constipation for the last 3 days. He has had a couple of small bowel movement
[2021-03-02 08:57] LABS: Alanine Aminotransferase 29 U/L (4-50); Albumin Level 3.8 g/dL (3.5-5.1); Alkaline Phosphatase 76 U/L (38-126); Anion Gap 11 mmol/L (8-16); Aspartate Amino Transferase 48 U/L (17-59); Bilirubin,Total 0.7 mg/dL (0.2-1.3); Blood Urea Nitrogen 12 mg/dL (9-20); Carbon Dioxide 22 mmol/L (22-30); Chloride 97 mmol/L (98-107); Estimated CRCL calculation 87 ml/min; Estimated Glomerular Filt Rate > 60; Glucose 171 mg/dL (65-110); Magnesium 1.9 mg/dL (1.6-2.3); Potassium 3.1 mmol/L (3.4-5.0); Sodium 130 mmol/L (137-145)
[2021-03-02 09:08] LABS: CRP 10.6 mg/dL (<1.0); Lactate Dehydrogenase 620 U/L (313-618)
[2021-03-02] MEDS: NITROFURANTOIN MONOHYD MACROCR 100 MG CAP PO ×2 (09:28→20:57)
[2021-03-02] MEDS: POTASSIUM CHLORIDE 20 MEQ TABLET 40 MEQ PO (13:11)
[2021-03-02] MEDS: FUROSEMIDE INJ 40 MG/4 ML VIAL IV PUSH (13:11)
[2021-03-02] MEDS: rOPINIRole HCL 0.5 MG TABLET PO (20:57)
[2021-03-02] MEDS: traZODone HCL 50 MG TABLET 150 MG PO (20:57)
[2021-03-02] MEDS: diphenhydrAMINE HCl CAP 25 MG CAPSULE 50 MG PO (20:57)
[2021-03-03] VITALS (8 sets, daily range): BP systolic 106–135; BP diastolic 65–87; PULSE 84–102; RESP 20; TEMP 35.5–36.8; O2SAT 93–95
[2021-03-03 07:18] LABS: Basophils Percent Auto 0.1 % (0.2-1.2); Eosinophils Percent Auto 0.1 % (0-4.4); Hemoglobin 13.4 g/dL (14.0-18.0); Immature Granulocyte Absolute 0.04 K/mm3 (0.00-0.031); Immature Granulocyte Percent A 0.5 % (0-0.5); Lymphocytes Absolute Auto 1.29 K/mm3 (0.9-3.2); Lymphocytes Percent Auto 15.2 % (18.3-44.2); Mean Corpuscular HGB Conc 34.4 g/dl (32-36); Mean Corpuscular Hemoglobin 31.6 pg (26-34); Mean Platelet Volume 11.4 fl (7.4-10.4); Monocytes Absolute Auto 0.5 K/mm3 (0.1-0.6); Monocytes Percent Auto 5.7 % (2.6-8.5); Neutrophils Absolute Auto 6.6 K/mm3 (1.3-6.7); Neutrophils Percent Auto 78.4 % (45.5-73.1); Platelet Count Result 99 k/mm3 (150-375); Red Blood Count 4.24 M/mm3 (4.6-6.20); Red Cell Distribution Width 13.5 % (11.5-14.5); White Blood Count 8.5 K/mm3 (4.5-10.0)
[2021-03-03 07:30] LABS: D Dimer 0.99 ug/mL (<0.48)
[2021-03-03 07:34] LABS: Alanine Aminotransferase 30 U/L (4-50); Albumin Level 4.1 g/dL (3.5-5.1); Alkaline Phosphatase 103 U/L (38-126); Anion Gap 13 mmol/L (8-16); Aspartate Amino Transferase 53 U/L (17-59); Bilirubin,Total 0.8 mg/dL (0.2-1.3); Blood Urea Nitrogen 13 mg/dL (9-20); Calcium 8.5 mg/dL (8.4-10.2); Carbon Dioxide 24 mmol/L (22-30); Chloride 96 mmol/L (98-107); Estimated CRCL calculation 87 ml/min; Estimated Glomerular Filt Rate > 60; Glucose 228 mg/dL (65-110); Lactate Dehydrogenase 612 U/L (313-618); Magnesium 1.7 mg/dL (1.6-2.3); Potassium 3.2 mmol/L (3.4-5.0); Sodium 133 mmol/L (137-145)
[2021-03-03 07:43] LABS: CRP 16.1 mg/dL (<1.0)
--- NOTE | 2021-03-03 08:00 | P.PNIM_ITS ---
Progress Note: A&P Assessment and Plan (1) Abnormal urinalysis: Code(s): R82.90 - Unspecified abnormal findings in urine Status: Acute Assessment and Plan: * UA shows 2+ positive protein, 2+ blood, 1+ leukocyte esterase, wbc's 51-75 * Ceftriaxone day 2, changed to macrobid * Urine culture Enterococcus * Suscepabilities show vanc, macrobid, ampicillin * Tailor antibiotics with urine culture * Monitor urine output (2) COVID-19: Code(s): U07.1 - COVID-19 Status: Acute Assessment and Plan: * Known exposure from son * Positive PCR * No respiratory distress or oxygen needs * Hold remdesivir and dexamethasone * Inflammatory markers show D-dimer 0.99, ferritin 242, LDH 612, CRP 16.1 * Chest x-ray shows no acute cardiopulmonary disease * BNP elevated at 542 (3) Generalized weakness: Code(s): R53.1 - Weakness Status: Acute Assessment and Plan: * Probably secondary to UTI/COVID * Head CT no acute intracranial findings, chronic age related findings * PT and OT (4) Hyperlipidemia: Qualifiers: Hyperlipidemia type: unspecified Qualified Code(s): E78.5 - Hyperlipidemia, unspecified Code(s): E78.5 - Hyperlipidemia, unspecified Status: Chronic Assessment and Plan: * Continue home atorvastatin (5) Insomnia: Qualifiers: Insomnia type: unspecified Qualified Code(s): G47.00 - Insomnia, unspecified Code(s): G47.00 - Insomnia, unspecified Status: Chronic Assessment and Plan: * Continue home trazodone 150 mg p.o. q.h.s. * Added melatonin * Benadryl was added, increased to 50mg (6) GERD without esophagitis: Code(s): K21.9 - Gastro-esophageal reflux disease without esophagitis Status: Chronic Assessment and Plan: * Consider protonix for stress prophylaxis (7) BPH (benign prostatic hyperplasia): Code(s): N40.0 - Benign prostatic hyperplasia without lower urinary tract symptoms Status: Acute Assessment and Plan: * Continue home finasteride 5mg PO * Trend urine output * Bladder scan PRN (8) Lactic acidosis: Code(s): E87.2 - Acidosis Status: Acute Assessment and Plan: * Elevated lactic acid at 2.5 * Fluids given in the ED * Repeat lactic is 1.1 * No other indicators of sepsis at this time (9) Type 2 diabetes mellitus with diabetic neuropathy: 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: without care home use Qualified Code(s): E11.40 - Type 2 diabetes mellitus with diabetic neuropathy, unspecified Code(s): E11.40 - Type 2 diabetes mellitus with diabetic neuropathy, unspecified Status: Chronic Assessment and Plan: * Glucose 228 * Accu cheks AC/HS * Hold home glipizide, metformin * Check A1c * Sliding scale insulin * Trend Glucose * Adjust therapy as indicated Time Spent With Patient Time with patient: Greater than 35 minutes Subjective Date/time seen: 03/03/21 0800 Interval history: Date/Time 02/28/21 0945 Patient is a 75 year old male with a past medical history of HLD, GERD, Lymphoma, DM2 who present to the ED with complaints of weakness. Patient has been exposed to COVID by his son. Since then he has been very weak, with body aches, and just weak all over. Patient stated that he
--- NOTE | 2021-03-03 08:00 | PM.IMPN ---
Progress Note: A&P Assessment and Plan (1) Abnormal urinalysis: Code(s): R82.90 - Unspecified abnormal findings in urine Status: Acute Assessment and Plan: UA shows 2+ positive protein, 2+ blood, 1+ leukocyte esterase, wbc's 51-75 Ceftriaxone day 2, changed to macrobid Urine culture Enterococcus Suscepabilities show vanc, macrobid, ampicillin Tailor antibiotics with urine culture Monitor urine output (2) COVID-19: Code(s): U07.1 - COVID-19 Status: Acute Assessment and Plan: Known exposure from son Positive PCR No respiratory distress or oxygen needs Hold remdesivir and dexamethasone Inflammatory markers show D-dimer 0.99, ferritin 242, LDH 612, CRP 16.1 Chest x-ray shows no acute cardiopulmonary disease BNP elevated at 542 (3) Generalized weakness: Code(s): R53.1 - Weakness Status: Acute Assessment and Plan: Probably secondary to UTI/COVID Head CT no acute intracranial findings, chronic age related findings PT and OT (4) Hyperlipidemia: Qualifiers: Hyperlipidemia type: unspecified Qualified Code(s): E78.5 - Hyperlipidemia, unspecified Code(s): E78.5 - Hyperlipidemia, unspecified Status: Chronic Assessment and Plan: Continue home atorvastatin (5) Insomnia: Qualifiers: Insomnia type: unspecified Qualified Code(s): G47.00 - Insomnia, unspecified Code(s): G47.00 - Insomnia, unspecified Status: Chronic Assessment and Plan: Continue home trazodone 150 mg p.o. q.h.s. Added melatonin Benadryl was added, increased to 50mg (6) GERD without esophagitis: Code(s): K21.9 - Gastro-esophageal reflux disease without esophagitis Status: Chronic Assessment and Plan: Consider protonix for stress prophylaxis (7) BPH (benign prostatic hyperplasia): Code(s): N40.0 - Benign prostatic hyperplasia without lower urinary tract symptoms Status: Acute Assessment and Plan: Continue home finasteride 5mg PO Trend urine output Bladder scan PRN (8) Lactic acidosis: Code(s): E87.2 - Acidosis Status: Acute Assessment and Plan: Elevated lactic acid at 2.5 Fluids given in the ED Repeat lactic is 1.1 No other indicators of sepsis at this time (9) Type 2 diabetes mellitus with diabetic neuropathy: Qualifiers: 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: without fpc use Qualified Code(s): E11.40 - Type 2 diabetes mellitus with diabetic neuropathy, unspecified Code(s): E11.40 - Type 2 diabetes mellitus with diabetic neuropathy, unspecified Status: Chronic Assessment and Plan: Glucose 228 Accu cheks AC/HS Hold home glipizide, metformin Check A1c Sliding scale insulin Trend Glucose Adjust therapy as indicated Time Spent With Patient Time with patient: Greater than 35 minutes Subjective Date/time seen: 03/03/21 0800 Interval history: Date/Time 02/28/21 0945 Patient is a 75 year old male with a past medical history of HLD, GERD, Lymphoma, DM2 who present to the ED with complaints of weakness. Patient has been exposed to COVID by his son. Since then he has been very weak, with body aches, and just weak all over. Patient stated that he has been going down home for about a week. However over the last 2 days he has noticed that it has been even worse. He also stated that he has had upset stomach nauseous as well periodically throughout the week however he ate something away. It is late was when he was the bathroom has to urinate however just trying to get back to his room is pretty tough. He denies pain and urgency with urination. He could not tell me if he was having frequency he just said he urinates all the time. He also stated that he has had constipation for the last 3 days. He has had a couple of small bowel moveme
[2021-03-03] MEDS: ATORVASTATIN 20 MG TABLET PO (09:37)
[2021-03-03] MEDS: ASPIRIN 81 MG ENTERIC TABLET PO (09:37)
[2021-03-03] MEDS: POTASSIUM CHLORIDE 20 MEQ TABLET 40 MEQ PO (09:37)
[2021-03-03] MEDS: CHOLECALCIFEROL 1,000 UNITS TABLET 1000 UNITS PO (09:38)
[2021-03-03] MEDS: BRIMONIDINE TARTRATE 0.2% OP SOLN 5 ML BTL 1 DROP EACH EYE (09:38)
[2021-03-03] MEDS: MULTIVITAMINS THERAPEUTIC TAB (*BKC) 1 TABLET PO (09:38)
[2021-03-03] MEDS: NITROFURANTOIN MONOHYD MACROCR 100 MG CAP PO ×2 (09:38→20:31)
[2021-03-03] MEDS: FINASTERIDE 5 MG TABLET PO (09:38)
[2021-03-03] MEDS: LORazepam (*CRX) 0.5 MG TABLET PO ×2 (09:38→20:34)
[2021-03-03] MEDS: TIMOLOL MALEATE 0.5% OP SOLN 5 ML BOTTLE 1 DROP EACH EYE (09:39)
[2021-03-03] MEDS: PANTOPRAZOLE SODIUM IV 40 MG VIAL IV PUSH (09:39)
[2021-03-03] MEDS: GABAPENTIN 100 MG CAPSULE 200 MG PO ×3 (09:39→17:11)
[2021-03-03] MEDS: METOPROLOL TARTRATE 12.5 MG TABLET PO (09:41)
[2021-03-03] MEDS: BISACODYL 10 MG SUPPOSITORY RECTAL (14:19)
[2021-03-03] MEDS: MAGNESIUM SULF 4 GM/WATER100ML 4 GM/100 ML BAG IVPB (14:19)
[2021-03-03] MEDS: traZODone HCL 50 MG TABLET 150 MG PO (20:30)
[2021-03-03] MEDS: rOPINIRole HCL 0.5 MG TABLET PO (20:30)
[2021-03-03] MEDS: SENNA/DOCUSATE SODIUM TABLET 1 TAB PO (20:31)
[2021-03-03] MEDS: diphenhydrAMINE HCl CAP 25 MG CAPSULE 50 MG PO (20:31)
[2021-03-04 04:00] VITALS: BP 105/56; PULSE 87; RESP 18; TEMP 36.3; O2SAT 94
[2021-03-04 08:00] VITALS: BP 123/77; PULSE 75; PULSE 95; RESP 18; TEMP 36.1; O2SAT 100; O2SAT 95
[2021-03-04 08:23] VITALS: PULSE 88
[2021-03-04] MEDS: METOPROLOL TARTRATE 12.5 MG TABLET PO (08:23)
[2021-03-04] MEDS: ATORVASTATIN 20 MG TABLET PO (08:23)
[2021-03-04] MEDS: CHOLECALCIFEROL 1,000 UNITS TABLET 1000 UNITS PO (08:23)
[2021-03-04] MEDS: NITROFURANTOIN MONOHYD MACROCR 100 MG CAP PO (08:23)
[2021-03-04] MEDS: FINASTERIDE 5 MG TABLET PO (08:23)
[2021-03-04] MEDS: GABAPENTIN 100 MG CAPSULE 200 MG PO ×2 (08:23→13:18)
[2021-03-04] MEDS: MULTIVITAMINS THERAPEUTIC TAB (*BKC) 1 TABLET PO (08:23)
[2021-03-04] MEDS: ASPIRIN 81 MG ENTERIC TABLET PO (08:23)
[2021-03-04] MEDS: BRIMONIDINE TARTRATE 0.2% OP SOLN 5 ML BTL 1 DROP EACH EYE (08:24)
[2021-03-04] MEDS: polyethylene glycoL 3350 17 GM POWD.PACK PO (08:24)
[2021-03-04] MEDS: ACETAMINOPHEN 325 MG TABLET 650 MG PO (08:24)
[2021-03-04] MEDS: PANTOPRAZOLE SODIUM IV 40 MG VIAL IV PUSH (08:24)
[2021-03-04] MEDS: TIMOLOL MALEATE 0.5% OP SOLN 5 ML BOTTLE 1 DROP EACH EYE (08:24)
[2021-03-04] MEDS: CYCLOBENZAPRINE HCL 5 MG TABLET PO (08:27)
[2021-03-04] MEDS: LORazepam (*CRX) 0.5 MG TABLET PO (08:27)
--- NOTE | 2021-03-04 10:00 | P.DS_ITS ---
DS: Admitting Diagnosis Discharge Date 03/04/21 1000 Admitting Diagnosis Acute UTI, COVID-19 DS: Discharge Diagnosis Discharge Diagnosis (1) Abnormal urinalysis: Code(s): R82.90 - Unspecified abnormal findings in urine Status: Acute Assessment and Plan: * UA shows 2+ positive protein, 2+ blood, 1+ leukocyte esterase, wbc's 51-75 * Ceftriaxone day 2, changed to macrobid * Urine culture Enterococcus * Suscepabilities show vanc, macrobid, ampicillin * Tailor antibiotics with urine culture * Monitor urine output (2) COVID-19: Code(s): U07.1 - COVID-19 Status: Acute Assessment and Plan: * Known exposure from son * Positive PCR * No respiratory distress or oxygen needs * Hold remdesivir and dexamethasone * Inflammatory markers show D-dimer 0.99, ferritin 242, LDH 612, CRP 16.1 * Chest x-ray shows no acute cardiopulmonary disease * BNP elevated at 542 (3) Generalized weakness: Code(s): R53.1 - Weakness Status: Acute Assessment and Plan: * Probably secondary to UTI/COVID * Head CT no acute intracranial findings, chronic age related findings * PT and OT (4) Hyperlipidemia: Qualifiers: Hyperlipidemia type: unspecified Qualified Code(s): E78.5 - Hyperlipidemia, unspecified Code(s): E78.5 - Hyperlipidemia, unspecified Status: Chronic Assessment and Plan: * Continue home atorvastatin (5) Insomnia: Qualifiers: Insomnia type: unspecified Qualified Code(s): G47.00 - Insomnia, unspe cified Code(s): G47.00 - Insomnia, unspecified Status: Chronic Assessment and Plan: * Continue home trazodone 150 mg p.o. q.h.s. * Added melatonin * Benadryl was added, increased to 50mg (6) GERD without esophagitis: Code(s): K21.9 - Gastro-esophageal reflux disease without esophagitis Status: Chronic Assessment and Plan: * Consider protonix for stress prophylaxis (7) BPH (benign prostatic hyperplasia): Code(s): N40.0 - Benign prostatic hyperplasia without lower urinary tract symptoms Status: Acute Assessment and Plan: * Continue home finasteride 5mg PO * Trend urine output * Bladder scan PRN (8) Lactic acidosis: Code(s): E87.2 - Acidosis Status: Acute Assessment and Plan: * Elevated lactic acid at 2.5 * Fluids given in the ED * Repeat lactic is 1.1 * No other indicators of sepsis at this time (9) Type 2 diabetes mellitus with diabetic neuropathy: Qualifiers: Diabetes mellitus termite exterminator insulin use: without penitentiary use Qualified Code(s): E11.40 - Type 2 diabetes mellitus with diabetic neuropathy, unspecified Code(s): E11.40 - Type 2 diabetes mellitus with diabetic neuropathy, unspecified Status: Chronic Assessment and Plan: * Glucose 228 * Accu cheks AC/HS * Hold home glipizide, metformin * Check A1c * Sliding scale insulin * Trend Glucose * Adjust therapy as indicated DS: Summary Hospital Course Hospital Course: Patient is a 75-year-old male with a past medical history of hyperlipidemia, lymphoma, diabetes who presented to the ED with complaints of weakness, body aches, increased insomnia. Patient has been exposed by his son however was COVID vaccinated find the [employer] with 2 doses. UA did ind
--- NOTE | 2021-03-04 10:00 | PM.DS ---
DS: Admitting Diagnosis Discharge Date 03/04/21 1000 Admitting Diagnosis Acute UTI, COVID-19 DS: Discharge Diagnosis Discharge Diagnosis (1) Abnormal urinalysis: Code(s): R82.90 - Unspecified abnormal findings in urine Status: Acute Assessment and Plan: UA shows 2+ positive protein, 2+ blood, 1+ leukocyte esterase, wbc's 51-75 Ceftriaxone day 2, changed to macrobid Urine culture Enterococcus Suscepabilities show vanc, macrobid, ampicillin Tailor antibiotics with urine culture Monitor urine output (2) COVID-19: Code(s): U07.1 - COVID-19 Status: Acute Assessment and Plan: Known exposure from son Positive PCR No respiratory distress or oxygen needs Hold remdesivir and dexamethasone Inflammatory markers show D-dimer 0.99, ferritin 242, LDH 612, CRP 16.1 Chest x-ray shows no acute cardiopulmonary disease BNP elevated at 542 (3) Generalized weakness: Code(s): R53.1 - Weakness Status: Acute Assessment and Plan: Probably secondary to UTI/COVID Head CT no acute intracranial findings, chronic age related findings PT and OT (4) Hyperlipidemia: Qualifiers: Hyperlipidemia type: unspecified Qualified Code(s): E78.5 - Hyperlipidemia, unspecified Code(s): E78.5 - Hyperlipidemia, unspecified Status: Chronic Assessment and Plan: Continue home atorvastatin (5) Insomnia: Qualifiers: Insomnia type: unspecified Qualified Code(s): G47.00 - Insomnia, unspecified Code(s): G47.00 - Insomnia, unspecified Status: Chronic Assessment and Plan: Continue home trazodone 150 mg p.o. q.h.s. Added melatonin Benadryl was added, increased to 50mg (6) GERD without esophagitis: Code(s): K21.9 - Gastro-esophageal reflux disease without esophagitis Status: Chronic Assessment and Plan: Consider protonix for stress prophylaxis (7) BPH (benign prostatic hyperplasia): Code(s): N40.0 - Benign prostatic hyperplasia without lower urinary tract symptoms Status: Acute Assessment and Plan: Continue home finasteride 5mg PO Trend urine output Bladder scan PRN (8) Lactic acidosis: Code(s): E87.2 - Acidosis Status: Acute Assessment and Plan: Elevated lactic acid at 2.5 Fluids given in the ED Repeat lactic is 1.1 No other indicators of sepsis at this time (9) Type 2 diabetes mellitus with diabetic neuropathy: Qualifiers: 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 Patient has been exposed by his son however was COVID vaccinated find the [employer] 11 with 2 doses. UA did indicate the patient had a UTI. Urine culture came back with Enterococcus species. Patient was started on Macrobid. WBCs have been within normal range. Potassium was little low however was replaced as appropriately. Renal function has been normal. Patient has not needed any oxygen so was not given any steroids or remdesivir for COVID. Inflammatory markers have been on trend since admission and within normal level. Patient denies chest pain, shortness of breath, nausea, vomiting, diarrhea, constipation. Patient was also complaining of insomnia and was started on Benadryl p.o. and has been doin
--- NOTE | 2021-03-04 10:36 | PC.NURSE ---
Pt requiring son to drop off clothes of discharge to [facility] today. Riaz Arias called, will drop off clothes of pt.
[2021-03-04 12:00] VITALS: BP 101/61; PULSE 75; RESP 18; TEMP 36; O2SAT 100
--- NOTE | 2021-03-04 13:28 | PC.NURSE ---
Called [facility] to give report, no answer. reattempting.
--- NOTE | 2021-03-04 13:37 | PC.NURSE ---
Report given to Maria T at [facility].
--- NOTE | 2021-03-04 13:47 | PC.NURSE ---
[facility] called for transport to [facility].
[2021-03-04 14:05] LABS: EDCOVIDSCREEN Positive (Negative)
== END 2021-03-04 14:25 | DRG 178 ==
LOC: ANHED 02-28 04:47 → ANH3MEDSUR 02-28 05:49
PROVIDERS: Admitting Provider Internal Medicine; Emergency Provider Emergency Medicine; PCP Family Medicine; Visit Provider Nurse Practitioner
DX: U07.1 COVID-19 (principal); E87.2 Acidosis; N39.0 Urinary tract infection, site not specified; B95.2 Enterococcus as the cause of diseases classified elsewhere; E78.5 Hyperlipidemia, unspecified; G47.00 Insomnia, unspecified; K21.9 Gastro-esophageal reflux disease without esophagitis; N40.0 Benign prostatic hyperplasia without lower urinary tract symptoms; E11.42 Type 2 diabetes mellitus with diabetic polyneuropathy; I35.0 Nonrheumatic aortic (valve) stenosis; H40.9 Unspecified glaucoma; Z85.72 Personal history of non-Hodgkin lymphomas; Z87.891 Personal history of nicotine dependence; Z79.84 Long term (current) use of oral hypoglycemic drugs; Z79.82 Long term (current) use of aspirin
CPT/HCPCS: 36415; 51701; 70450; 71045; 80053; 81001; 82728; 83605; 83615; 83735; 83880; 85025; 85055; 85380; 86140; 87077; 87086; 87088; 87181; 87186; 87426; 87502; 92610; 96365; 96366; 96372; 96375; 97110; 97162; 97165; 97530; 97535; 99285; A9270; C9113; C9803; G0378; J0131; J0696; J1650; J1940; J3475; J7030; U0003; U0005

== ENCOUNTER 2022-02-04 09:22 | Inpatient (IN) | payer MEDICARE, BC, SELFPAY ==
[2022-02-04] VITALS (28 sets, daily range): BP systolic 91–198; BP diastolic 67–178; PULSE 98–146; RESP 16–28; TEMP 36.4–38.1; O2SAT 95–100; BMI 46.3; BMI 45.8
--- NOTE | ~2022-02-04 | XR_ITS ---
EXAMINATION: XR chest port-a-cath/central DATE: 02/05/2022 22:00 INDICATION: Central line placement TECHNIQUE: frontal view of the chest was obtained. COMPARISON: Chest radiograph dated 02/05/22 FINDINGS: New right internal jugular central venous catheter with distal tip at the cephalad superior vena cava . Endotracheal tube tip 4.5 cm above the debi. Nasogastric tube extends below the left hemidiaphra gm with distal tip collimated off the study. No significant change attending for differences in technique in diffuse airspace opacities throughout the lungs relatively sparing the apices. Hazy opacities left lower lung zone with obscuration of the left hemidiaphragm suggesting small posterior layering pleural effusion. No pneumothorax or evident right pleural effusion. Cardiomediastinal silhouette is within normal limits for AP technique. IMPRESSION: 1. Right internal jugular central venous catheter tip at the cephalad superior vena cava. 2. No significant change in diffuse bilateral airspace opacities which could represent pulmonary terrell a or pneumonia. 2. Possible small posterior layering left pleural effusion. Reviewed, dictated and finalized at location A. RPRISE MOBILITY ARCHITECT IMPRESSION: 1. Right internal jugular central venous catheter tip at the cephalad superior vena cava. 2. No significant change in diffuse bilateral airspace opacities which could re present pulmonary edema or pneumonia. 2. Possible small posterior layering left pleural effusion.
--- NOTE | ~2022-02-04 | XR_ITS ---
EXAMINATION: XR chest 1V portable DATE: 02/07/2022 05:48 INDICATION: Respiratory failure TECHNIQUE: frontal view of the chest was obtained. COMPARISON: Chest radiograph dated 02/06/2022 FINDINGS: Endotracheal tube tip 3.5 cm above the debi. Nasogastric tube extends below the left hemidiaphragm with distal tip collimated off the study. Right internal jugular central venous catheter with distal tip in the cephalad superior vena cava. Interval decrease in bilateral perihilar and basilar predominant airspace opacities. No pleural effus ion or pneumothorax. Cardiomediastinal silhouette is normal. IMPRESSION: 1. Decreasing bilateral perihilar and basilar opacities which could represent atelectasis, pulmonary edema, pneumonia or some combination thereof. Reviewed, dictated and finalized at location A. CH MARKETING SPECIALIST IMPRESSION: 1. Decreasing bilateral perihilar and basilar opacities which could represent a telectasis, pulmonary edema, pneumonia or some combination thereof.
--- NOTE | ~2022-02-04 | XR_ITS ---
EXAM: XR abdomen NG/feed tube insert DATE: 02/05/2022 17:33 HISTORY: og insertion . COMPARISON: None available. FINDINGS: NG tube is subdiaphragmatic, tip and side port not visualized. Bilateral mid and lower lung atelectasis/consolidation. The [id number] excludes much of the upper abdomen. Degenerative change in the spine. IMPRESSION: NG tube is subdiaphragmatic, noting that the tip and side port are not visualized as they were excluded from the [id number]. Reviewed, dictated and finalized at location K. ERY MECHANIC IMPRESSION: NG tube is subdiaphragmatic, noting that the tip and side port are not visualized as they were excluded from the [id number].
--- NOTE | ~2022-02-04 | XR_ITS ---
EXAMINATION: XR chest 1V portable DATE: 02/04/2022 09:51 INDICATION: Shortness of breath, cough and weakness TECHNIQUE: frontal view of the chest was obtained. COMPARISON: Chest radiograph dated 02/28/21 FINDINGS: Mild opacities in the left lower lung zone partially obscuring the margin of the apex of the left hem idiaphragm. No pleural effusion or pneumothorax. The cardiomediastinal silhouette is normal. Moderate to severe osteoarthritis at the bilateral glenohumeral and acromioclavicular joints. IMPRESSION: 1. Mild left basilar opacities which could represent atelectasis or pneumonia. Reviewed, dictated and finalized at location B. DULING AGENT
--- NOTE | ~2022-02-04 | XR_ITS ---
Portable chest x-ray Comparison: 02/10/2022 Clinical History: Respiratory failure Findings: Endotracheal tube, NG tube, and right IJ line are in satisfactory positions. Stable pulmon margarita edema pattern with left lower lobe atelectasis and small pleural effusions. Cardiomediastinal si lhouette is stable. Bones and soft tissues are unremarkable. Impression: Mild pulmonary edema pattern with left lower lobe atelectasis and small pleural effusions. Support tubes, as above. Reviewed, dictated and finalized at location . THA WASHING SYSTEM OPERATOR Impression: Mild pulmonary edema pattern with left lower lobe atelectasis and small pleural effusions. Support tubes, as above.
--- NOTE | ~2022-02-04 | XR_ITS ---
EXAMINATION: XR chest 1V portable Exam Date/Time: 02/05/2022 17:20 CASH RECONCILIATION SPECIALIST HISTORY: increased oxygen needs Comparison: Same date at 5:17 PM. RESULT: Lines, tubes, and devices: Endotracheal tube terminating 4.5 cm above the debi. Nasogastric tube, poorly visualized, appears to be subdiaphragmatic. Lungs and pleura: Diffuse groundglass and multifocal patchy airspace opacities bilaterally. Obscurat ion of left hemidiaphragm. Cardiomediastinal silhouette: Stable. Other: No acute osseous or upper abdominal finding. IMPRESSION: No interval change. Diffuse pulmonary opacities may represent pulmonary edema versus pneumonia. Endot chip tube, in good position. Poorly visualized nasogastric tube. Reviewed, dictated and finalized at location K. RECONCILIATION SPECIALIST IMPRESSION: No interval change. Diffuse pulmonary opacities may represent pulmonary edema v ersus pneumonia. Endotracheal tube, in good position. Poorly visualized nasogas tric tube.
--- NOTE | ~2022-02-04 | XR_ITS ---
Portable chest x-ray Comparison: 02/08/2022 Clinical History: Respiratory failure Findings: Endotracheal tube, NG tube, and right IJ line are in place. Small bilateral pleural effusi ons are present with mild pulmonary edema pattern. Cardiomediastinal silhouette is stable. Bones and soft tissues are unremarkable. Impression: Small bilateral pleural effusions with mild pulmonary edema pattern. Support tubes, as above. Reviewed, dictated and finalized at location . NIC PREPARATION ANALYST Impression: Small bilateral pleural effusions with mild pulmonary edema pattern. Support tubes, as above.
--- NOTE | ~2022-02-04 | XR_ITS ---
Portable chest x-ray Comparison: 02/07/2022 Clinical History: Respiratory failure Findings: Endotracheal tube and NG tube and right IJ line are in satisfactory positions. There is mi ld pulmonary edema pattern with minimal pleural effusions and left lower lobe atelectasis. Cardiomedi astinal silhouette is stable. Bones and soft tissues are unremarkable. Impression: Support tubes, as above. Mild pulmonary edema pattern with minimal pleural effusions and left lower lobe atelectasis. Reviewed, dictated and finalized at location . TOOTH LAPPING MACHINE OPERATOR Impression: Support tubes, as above. Mild pulmonary edema pattern with minimal pleural effusions and left lower lobe atelectasis.
--- NOTE | ~2022-02-04 | XR_ITS ---
EXAMINATION: XR chest 1V portable DATE: 02/12/2022 06:37 INDICATION: Respiratory failure. TECHNIQUE: A single frontal view of the chest was obtained. COMPARISON: Chest single view 02/11/2022, chest CT 02/06/2022 FINDINGS: There are airspace opacities in the mid and lower lung zones with a left basilar predominan ce. There are small pleural effusions. No pneumothorax. The heart size is normal. The endotracheal tu be tip is 4.7 cm above the debi. The nasogastric tube tip is beyond the inferior margin of the radi ograph, but at least to the stomach. A right internal jugular central venous catheter is seen with ti p in the superior vena cava. IMPRESSION: 1. Airspace opacities in the mid and lower lung zones with a basilar predominance, likely stable give n the differences in technique, consistent with atelectasis versus pneumonia. 2. Stable small pleural effusions. Reviewed, dictated and finalized at location A. INIST WOOD IMPRESSION: 1. Airspace opacities in the mid and lower lung zones with a basilar predominan ce, likely stable given the differences in technique, consistent with atelectas is versus pneumonia. 2. Stable small pleural effusions.
--- NOTE | ~2022-02-04 | XR_ITS ---
EXAMINATION: XR chest ET placement, XR abdomen NG/feed tube insert DATE: 02/10/2022 13:25 INDICATION: Endotracheal tube exchange and orogastric tube exchange TECHNIQUE: 1. Portable AP view of the chest was obtained. 2. Portable AP view of the abdomen was obtained. COMPARISON: Chest radiograph dated 02/10/2022 at 5:19 AM FINDINGS: Chest: Endotracheal tube tip 4.3 cm above the debi. Right internal jugular central venous catheter with di stal tip at the cephalad superior vena cava. Persistent hazy opacities with basilar predominance in t he bilateral mid and lower lung zones consistent with small posterior layering bilateral pleural effu sions and associated basilar atelectasis and/or pneumonia. No pulmonary edema or pneumothorax. The ca rdiomediastinal silhouette is normal. Abdomen: Nasogastric tube tip in proximal side port in the body of the stomach. No dilated loops of gas-filled bowel in the visualized upper abdomen to suggest obstruction. IMPRESSION: 1. Lines and tubes in expected positions. 2. Small bilateral posterior layering pleural effusions with associated bibasilar atelectasis versus pneumonia. Reviewed, dictated and finalized at location A. R SECURITY ANALYST IMPRESSION: 1. Lines and tubes in expected positions. 2. Small bilateral posterior layering pleural effusions with associated bibasil ar atelectasis versus pneumonia.
--- NOTE | ~2022-02-04 | XR_ITS ---
EXAMINATION: XR chest ET placement Exam Date/Time: 02/05/2022 17:20 PAIN MANAGEMENT PHYSICIAN HISTORY: intubation Comparison: 02/04/2022. RESULT: Lines, tubes, and devices: Endotracheal tube terminating 4.5 cm above the debi. Nasogastric tube, poorly visualized, appears to be subdiaphragmatic. Lungs and pleura: Diffuse groundglass and multifocal patchy airspace opacities bilaterally. Obscurat ion of left hemidiaphragm. Cardiomediastinal silhouette: Stable. Other: No acute osseous or upper abdominal finding. IMPRESSION: Diffuse pulmonary opacities may represent pulmonary edema versus pneumonia. Endotracheal tube, in goo d position. Poorly visualized nasogastric tube. Reviewed, dictated and finalized at location K. MANAGEMENT PHYSICIAN IMPRESSION: Diffuse pulmonary opacities may represent pulmonary edema versus pneumonia. End otracheal tube, in good position. Poorly visualized nasogastric tube.
--- NOTE | ~2022-02-04 | XR_ITS ---
EXAMINATION: XR chest 1V portable DATE: 02/14/2022 09:31 INDICATION: Intubation. TECHNIQUE: A single frontal view of the chest was obtained. COMPARISON: Chest single view 02/12/2022 FINDINGS: There are airspace opacities in the mid and lower lung zones with a left basilar predominan ce. There is a small left pleural effusion. No pneumothorax. The heart size is normal. The endotrache al tube tip is 4.4 cm above the debi. The nasogastric tube tip is beyond the inferior margin of the radiograph, but at least to the stomach. A right internal jugular central venous catheter is seen wi th tip in the superior vena cava. IMPRESSION: 1. Stable airspace opacities in the mid and lower lung zones with a left basilar predominance, consis tent with atelectasis versus pneumonia. 2. Stable small left pleural effusion. Reviewed, dictated and finalized at location A. SCHOOL DRAFTING TEACHER IMPRESSION: 1. Stable airspace opacities in the mid and lower lung zones with a left basila r predominance, consistent with atelectasis versus pneumonia. 2. Stable small left pleural effusion.
--- NOTE | ~2022-02-04 | CT_ITS ---
EXAMINATION: CT chest abdomen pelvis wo con DATE: 02/13/2022 10:11 INDICATION: Fever. TECHNIQUE: Computed tomography (CT) of the chest, abdomen, and pelvis was performed without intraveno us contrast. Automated exposure control and iterative reconstruction technique were employed. The dos e-length product was 2032.11 mGy-cm. COMPARISON: Chest CT 02/06/2022, CT abdomen and pelvis 07/14/2020 FINDINGS: CHEST CT: There are small pleural effusions. There are airspace opacities in right lower lobe, consistent with pneumonia. There are dependent atelectasis airspace opacities in left lower lobe and lingula, likely atelectasis. A right internal jugular central venous catheter is seen with tip in the superior vena c caleb. The endotracheal tube tip is in expected position above the debi. The heart size is normal. Th ere are calcifications of the aortic valve. There are coronary artery calcifications. No pericardial effusion. The nasogastric tube tip is in the distal stomach. There are old healed right rib fractures . ABDOMEN/PELVIS CT: The liver demonstrates surface nodularity, consistent with cirrhosis. There are gallstones in the gal lbladder, which is normal in size. There is mild splenomegaly. The pancreas and adrenal glands are no rmal. There is a 3 mm stone in right kidney. There are 4 stones in left kidney measuring up to 14 mm. The bladder is decompressed by a Heck catheter. There is diverticulosis of the colon without eviden ce of diverticulitis. There is a supraumbilical ventral hernia containing nonobstructed small and lar ge bowel. The appendix is not visualized. There are mildly dilated loops of small bowel, likely adyna jina ileus. There are no pathologically enlarged lymph nodes. There is no free intraperitoneal fluid. There is a total left hip arthroplasty. IMPRESSION: 1. Airspace opacities in right lung lower lobe with interval improvement, consistent with pneumonia. 2. Small pleural effusions. 3. Cirrhosis of the liver with portal venous hypertension. 4. Supraumbilical ventral hernia containing nonobstructed small and large bowel. 5. Mildly dilated dilated loops of small bowel, likely adynamic ileus. Reviewed, dictated and finalized at location A. OLOGY MANAGER IMPRESSION: 1. Airspace opacities in right lung lower lobe with interval improvement, consi stent with pneumonia. 2. Small pleural effusions. 3. Cirrhosis of the liver with portal venous hypertension. 4. Supraumbilical ventral hernia containing nonobstructed small and large bowel . 5. Mildly dilated dilated loops of small bowel, likely adynamic ileus.
--- NOTE | ~2022-02-04 | XR_ITS ---
EXAMINATION: XR chest 1V portable DATE: 02/06/2022 06:00 INDICATION: Respiratory failure and intubation. TECHNIQUE: frontal view of the chest was obtained. COMPARISON: Chest radiograph dated 02/05/2022 FINDINGS: Endotracheal tube tip 4.3 cm above the debi. Right internal jugular central venous catheter with di stal tip at the cephalad superior vena cava. Nasogastric tube extends below the left hemidiaphragm w ith distal tip collimated off the study. Interval decrease in airspace opacities in the bilateral mid and lower lung zones. No pneumothorax. T he cardiomediastinal silhouette is within normal limits for AP technique. IMPRESSION: 1. Improvement in opacities in bilateral mid and lower lung zones which could represent atelectasis, pneumonia, pulmonary edema, small posterior layering pleural effusions or some combination thereof. Reviewed, dictated and finalized at location A. ATE BRANCH EXCHANGE INSTALLER IMPRESSION: 1. Improvement in opacities in bilateral mid and lower lung zones which could r epresent atelectasis, pneumonia, pulmonary edema, small posterior layering pleu ral effusions or some combination thereof.
--- NOTE | ~2022-02-04 | US_ITS ---
EXAMINATION: US venous doppler [facility] DATE: 02/05/2022 11:36 INDICATION: Bilateral lower extremity edema and pain. TECHNIQUE: Grayscale images without and with compression and Doppler images of the bilateral lower ex tremity veins were obtained. COMPARISON: None FINDINGS: Generalized suboptimal imaging due to body habitus. The right common femoral vein, profunda (deep) femoral vein, femoral vein, popliteal vein, peroneal v ein, posterior tibial veins, gastrocnemius vein, and greater saphenous vein are patent. The left common femoral vein, profunda femoral vein, femoral vein, popliteal vein, peroneal vein, pos terior tibial veins, gastrocnemius vein, and greater saphenous vein are patent. IMPRESSION: 1. Patent bilateral lower extremity veins. No evidence of deep venous thrombosis. Reviewed, dictated and finalized at location K. MATOLOGY NURSE IMPRESSION: 1. Patent bilateral lower extremity veins. No evidence of deep venous thrombos is.
--- NOTE | ~2022-02-04 | XR_ITS ---
EXAM: XR abdomen NG/feed tube insert DATE: 02/12/2022 20:06 HISTORY: OG tube reinsertion . COMPARISON: 12/11/2021. FINDINGS: Bibasilar atelectasis. NG tube tip and side port project over the expected location of the stomach. No bowel dilation. IMPRESSION: NG tube, in good position. Reviewed, dictated and finalized at location K. RONMENTAL FIELD OFFICE MANAGER IMPRESSION: NG tube, in good position.
--- NOTE | ~2022-02-04 | US_ITS ---
EXAMINATION: US venous doppler [facility] DATE: 02/12/2022 15:57 INDICATION: fevers . TECHNIQUE: Grayscale images without and with compression and Doppler images of the bilateral lower ex tremity veins were obtained. COMPARISON: None FINDINGS: The right gastrocnemius vein is not visualized. The right common femoral vein, profunda (deep) femora l vein, femoral vein, popliteal vein, peroneal vein, posterior tibial veins, gastrocnemius vein, and greater saphenous vein are patent. The left common femoral vein, profunda femoral vein, femoral vein, popliteal vein, peroneal vein, pos terior tibial veins, gastrocnemius vein, and greater saphenous vein are patent. IMPRESSION: 1. Right gastrocnemius vein not visualized. 2. Otherwise patent bilateral lower extremity veins. No evidence of deep venous thrombosis. Reviewed, dictated and finalized at location K. SSION NURSE COORDINATOR
--- NOTE | ~2022-02-04 | XR_ITS ---
EXAM: XR abdomen NG/feed tube rechec DATE: 02/05/2022 19:02 HISTORY: og insertion . COMPARISON: Same date at 5:19 PM. FINDINGS/IMPRESSION: Nasogastric tube tip terminates in the gastric antrum. Reviewed, dictated and finalized at location K. ICAL EDUCATION SPECIALIST
--- NOTE | ~2022-02-04 | US_ITS ---
EXAMINATION: US venous doppler [facility] DATE: 02/12/2022 15:57 INDICATION: Fevers. TECHNIQUE: Grayscale ultrasound images without and with compression and Doppler ultrasound images of the bilateral upper extremity veins were obtained. COMPARISON: None.. FINDINGS: The visualized portions of the bilateral internal jugular vein, subclavian vein, axillary vein, brach ial veins, basilic vein, cephalic vein, radial vein, and ulnar vein are patent. IMPRESSION: 1. No deep venous thrombosis. Reviewed, dictated and finalized at location K. NFORMATICS RESEARCH TECHNICIAN
--- NOTE | ~2022-02-04 | CT_ITS ---
EXAMINATION: CT soft tissue neck chest wo DATE: 02/06/2022 15:28 INDICATION: Resp Failure, Hematoma from RIJ insertion TECHNIQUE: Computed tomography (CT) of the soft tissue neck and chest was performed without intraveno us contrast. Automated exposure control and iterative reconstruction technique were employed. The dos e-length product was 1248.90 mGy-cm. COMPARISON: X-ray chest, same date, CT abdomen and pelvis 07/14/2020. FINDINGS: Examination limited by lack of contrast, beam hardening from arm positioning, body habitus, as well a s mesentery motion. SOFT TISSUE NECK: Right IJ central venous line, terminating at the junction internal jugular and brachiocephalic veins. Mild soft tissue stranding and fluid in the right neck soft tissues, likely from recent catheter martha cement. The thyroid gland is unremarkable. The submandibular and parotid glands are symmetric. Th ere is no cervical lymphadenopathy. There are no masses identified. The superior mediastinum is u nremarkable. The airway is obscured by endotracheal tube. Parapharyngeal and pre-glottic fat plane s are preserved. Bilateral lens replacements. Visualized sinuses and mastoid air cells are well aer ated. There is severe cervical spondylosis, with multilevel vertebral body fusions. CHEST: Endotracheal tube, terminating 4 cm above the debi. Nasogastric tube is subdiaphragmatic, tip is be low the [id number]. Thoracic aorta: Mild arch ectasia. Lung parenchyma and airways: Bilateral dependent upper and lower lobe consolidation. Thoracic inlet, axillae and chest wall: No thyroid or soft tissue mass. No axillary lymphadenopathy. Mediastinum: No mass or lymphadenopathy. Dilated central pulmonary arteries as can be seen with pulmo nary arterial hypertension. Heart and pericardium: Cardiomegaly. Aortic valve replacement. No pericardial effusion. Coronary artery calcifications: Mild. Pleura: Trace bilateral fluid collections are suspected. Upper abdomen: No significant finding. Thoracic bones: No acute osseous finding in the chest. IMPRESSION: Limited examination, as detailed above. Uncomplicated appearing right IJ central line. Endotracheal a nd nasogastric tubes are in good position. Bilateral dependent consolidations may reflect atelectasis /edema, noting that infection is not excluded. Suspected trace bilateral pleural effusions. Reviewed, dictated and finalized at location K. COVERER AND INSULATOR IMPRESSION: Limited examination, as detailed above. Uncomplicated appearing right IJ centra l line. Endotracheal and nasogastric tubes are in good position. Bilateral depe ndent consolidations may reflect atelectasis/edema, noting that infection is no t excluded. Suspected trace bilateral pleural effusions.
--- NOTE | ~2022-02-04 | XR_ITS ---
EXAMINATION: XR abdomen NG/feed tube rechec DATE: 02/14/2022 09:31 INDICATION: Orogastric tube placement. TECHNIQUE: A semiupright view of the abdomen was obtained. COMPARISON: Abdomen radiograph 02/12/2022 FINDINGS: The lower abdomen is excluded. The nasogastric tube tip is in the distal stomach. IMPRESSION: 1. Nasogastric tube tip in the distal stomach. Reviewed, dictated and finalized at location A. HOUSE LOADER
--- NOTE | ~2022-02-04 | CT_ITS ---
EXAMINATION: CT brain wo con DATE: 02/13/2022 10:11 INDICATION: Fever. TECHNIQUE: Computed tomography (CT) of the head was performed without intravenous contrast. The mA wa s adjusted according to patient size. Iterative reconstruction technique was employed. The dose-lengt h product was 681.00 mGy-cm. COMPARISON: Head CT 02/28/2021 FINDINGS: There is no intracranial hemorrhage, acute infarction, or abnormal intracranial mass lesion . The ventricles are normal in size. There are likely changes of ocular lens replacement surgeries. T here is mild mucosal thickening in the paranasal sinuses. There is thickening and sclerosis of the wa lls of right maxillary sinus. There are changes of right uncinectomy and right middle turbinectomy. T he mastoid air cells are normal. There is cerumen in the external auditory canals. IMPRESSION: 1. Normal brain. Reviewed, dictated and finalized at location A. RVISOR PRINTING SHOP IMPRESSION: 1. Normal brain.
--- NOTE | ~2022-02-04 | XR_ITS ---
Portable chest x-ray Comparison: 02/09/2022 Clinical History: Respiratory failure Findings: Endotracheal tube, NG tube, and right IJ line are in satisfactory positions. Small bilater al pleural effusions are present with left lower lobe atelectasis and mild pulmonary edema. Cardiome diastinal silhouette is stable. Bones and soft tissues are unremarkable. Impression: Mild pulmonary edema pattern, with small bilateral pleural effusions and left lower lobe atelectasis. Support tubes, as above. Reviewed, dictated and finalized at location M. TY PROSECUTING ATTORNEY Impression: Mild pulmonary edema pattern, with small bilateral pleural effusions and left l ower lobe atelectasis. Support tubes, as above.
--- NOTE | 2022-02-04 09:34 | ECG_ITS ---
Measurements Intervals [place] Rate: 145 P: [place]: 0 QRS: -77 QRSD: 134 T: 61 QT: 299 QTc: 466 Interpretive Statements SVT CONSIDER ATYPICAL ATRIAL FLUTTER RIGHT BUNDLE BRANCH BLOCK [120+ ms QRS DURATION, UPRIGHT V1, 40+ ms S IN I/aVL/V4/V5/V6] LEFT ANTERIOR FASCICULAR BLOCK [QRS AXIS <= -45, QR IN I, RS IN II] LEFT VENTRICULAR HYPERTROPHY AND ST-T CHANGE [VOLTAGE CRITERIA PLUS ST/T ABNORMALITY] COMPARED TO ECG 09/17/2020 01:42:56 SVT/FLUTTER REPLACES SINUS Electronically Signed On 02-04-2022 19:59:12 [employer] by Santos Cruz M.D.
--- NOTE | 2022-02-04 09:43 | ED.ARRPALP ---
HPI - Arrhythmia/Palpitations General Chief Complaint: Arrhythmia/Palpitations Stated Complaint: weakness Time Seen by Provider: 02/04/22 09:28 History of Present Illness HPI narrative: Patient is a 76-year-old male with a history of A. fib, aortic stenosis, hypertension, diabetes, hyperlipidemia presenting with generalized weakness. Patient reports that he started feeling funny earlier today. States that he feels generally weak and he felt lightheaded while walking. States he has also had a productive cough for the last several days. Today, his son called EMS due to his generalized weakness. He was found to be in a wide-complex tachycardia and was started on amiodarone. On arrival, the patient states that he currently feels okay. States that he still feels generally weak but he denies any pain or focal weakness. He denies shortness of breath or palpitations. Denies headaches, fevers or chills, chest pain, nausea or vomiting, diarrhea, dysuria. States that he does have some epigastric pain. Related Data Home Medications Medication Instructions Recorded Confirmed acetaminophen 325 mg capsule 650 mg PO Q4H PRN Pain 01/25/19 02/04/22 brimonidine 0.2 %-timolol 0.5 % 1 drp EACH EYE DAILY 07/15/20 02/04/22 eye drops (Combigan) ketoconazole 2 % topical cream 1 applic topical BID 07/15/20 02/04/22 Allergies Allergy/AdvReac Type Severity Reaction Status Date / Time azithromycin Allergy Rash Verified 02/04/22 14:01 Review of Systems Review of Systems: All systems reviewed & are unremarkable except as noted in HPI and below PMFSH Past Medical History Medical History (Updated 02/05/22 @ 08:23 by Padmaja Rayo MD) Anxiety Aortic stenosis, severe Atrial fibrillation with RVR Chronic back pain Diffuse large B cell lymphoma Follows with Dr. Campos at [facility]. Essential (primary) hypertension GERD without esophagitis Glaucoma Hyperlipidemia Insomnia Obstructive sleep apnea on CPAP Peripheral neuropathy Restless leg Type 2 diabetes mellitus with diabetic neuropathy Ulcerative colitis Surgical History Surgical History (Updated 02/04/22 @ 14:16 by Mera Huffman PA-C) History of colostomy History of left hip replacement History of left knee replacement History of tonsillectomy and adenoidectomy Family History Family History Father Lung cancer Mother Diabetes mellitus Hx of CABG Glaucoma Cancer Social History Social History (Updated 02/04/22 @ 22:12 by Mera Huffman PA-C) Social History: Surrogate medical decision maker: Indio Arias, son. Code status: Full code. Smoking packs per day: 1 Smoking cigarettes per day: 20.0 Years smoked: 5 Smoking pack-years: 5.00 Smoking status: Former smoker Tobacco type: cigarettes Second hand tobacco smoke exposure: No Smoking end date: 02/13/71 Alcohol intake: former Substance use: never Lack of Transportation: No Lack of Food: Never True Current Housing: I Have Housing Concerned About Future Housing: No Difficulty Paying Gas/Electric Bills: No Difficulty Paying for Meds: No Currently Unemployed: No Education: High School Diploma/GED Difficulty w/ Childcare or Family Care: No Additional living arrangements comments: Lives with son. Spiritual care concerns: No Exam Narrative: GENERAL: Appears chronically ill, in no acute distress, cooperative and pleasant HEAD: Normocephalic, atraumatic. EYES: PERRLA and EOMI. ENT: Nares clear, no rhinorrhea or epistaxis. Mucous membranes moist. NECK: Supple. CHEST: Coarse breath sounds bilaterally. No respiratory distress. HEART: Tachycardic, regular rhythm, + systolic murmur. Normal peripheral pulses. ABDOMEN: Soft, nontender, nondistended, normal active bowel sounds. EXTREMITIES: Normal range of motion. Pitting edema bilateral lower extremities with a lot of overlying dry skin SKIN: Warm, dry
[2022-02-04 10:27] LABS: Basophils Absolute Auto 0.1 K/mm3 (0.0-0.1); Basophils Percent Auto 0.6 % (0.2-1.2); Eosinophils Absolute Auto 0.2 K/mm3 (0-0.3); Eosinophils Percent Auto 1.5 % (0-4.4); Hematocrit 42.8 % (42.0-52.0); Hemoglobin 14.1 g/dL (14.0-18.0); Immature Granulocyte Absolute 0.03 K/mm3 (0.00-0.031); Immature Granulocyte Percent A 0.3 % (0-0.5); Lymphocytes Absolute Auto 0.73 K/mm3 (0.9-3.2); Mean Corpuscular HGB Conc 32.9 g/dl (32-36); Mean Corpuscular Hemoglobin 31.6 pg (26-34); Mean Platelet Volume 11.2 fl (7.4-10.4); Monocytes Absolute Auto 0.7 K/mm3 (0.1-0.6); Monocytes Percent Auto 6.9 % (2.6-8.5); Neutrophils Absolute Auto 8.7 K/mm3 (1.3-6.7); Neutrophils Percent Auto 83.7 % (45.5-73.1); Platelet Count Result 118 k/mm3 (150-375); Red Blood Count 4.46 M/mm3 (4.6-6.20); Red Cell Distribution Width 14.1 % (11.5-14.5); White Blood Count 10.4 K/mm3 (4.5-10.0)
[2022-02-04 10:38] LABS: Prothrombin Time 13.1 Seconds (11.1-14.7)
[2022-02-04 10:39] LABS: Partial Thromboplastin Time 26.3 SECONDS (22.3-36.8)
[2022-02-04 10:51] LABS: Lactic Acid Reflex 2.6 mmol/L (0.7-2.0)
[2022-02-04 11:01] LABS: Influenza A QL RT-PCR Positive (Negative); Influenza B QL RT-PCR Negative (Negative); RSV RNA, RT-PCR Negative (Negative); SARS-CoV-2 RNA PCR Negative
[2022-02-04] MEDS: SODIUM CHLORIDE 0.9% IV 1,000 ML 999 ML IV CONT ×2 (11:03→12:54)
[2022-02-04] MEDS: AMIODARONE 360 MG/D5W 200 ML 360 MG/200 ML BAG 33.33 MG IV CONT (11:03)
[2022-02-04 11:09] LABS: Alanine Aminotransferase 35 U/L (6-50); Albumin Level 4.6 g/dL (3.5-5.1); Alkaline Phosphatase 111 U/L (38-126); Anion Gap 10 mmol/L (8-16); Aspartate Amino Transferase 39 U/L (17-59); Bilirubin,Total 0.8 mg/dL (0.2-1.3); Blood Urea Nitrogen 16 mg/dL (9-20); Calcium 9.2 mg/dL (8.4-10.2); Carbon Dioxide 25 mmol/L (22-30); Chloride 100 mmol/L (98-107); Estimated CRCL calculation 74 ml/min; Estimated Glomerular Filt Rate > 60; Glucose 270 mg/dL (65-110); Lipase 151 U/L (23-300); NT Pro B Type Natriuretic Pept 380 pg/mL (5-100); Potassium 4.4 mmol/L (3.4-5.0); Sodium 135 mmol/L (137-145); Troponin I 0.025 ng/mL (0.000-0.034)
[2022-02-04 11:26] LABS: Magnesium 1.4 mg/dL (1.6-2.3)
[2022-02-04 12:01] LABS: Add Urine Microscopic? YES; Appearance Urine Clear (Clear); Bilirubin Urine Negative (Negative); Blood Urine 2+ (Negative); Color Urine Yellow (Yellow); Glucose Urine UA 2+ mg/dL (Negative); Ketones Urine Trace mg/dL (Negative); Leukocyte Esterase Ur 1+ LEU/UL (Negative); Nitrate Urine Negative (Negative); Protein Urine 2+ mg/dL (Negative); Urobilinogen Urine 0.2 mg/dL (<2.0); pH Urine 6.5 (5.0-9.0)
[2022-02-04 12:05] LABS: Bacteria Urine Trace /hpf; Mucus Urine Rare /lpf; RBC Urine >75 /hpf (0-2); WBC Urine >75 /hpf
[2022-02-04] MEDS: MAGNESIUM SULF 2 GM/WATER 50ML 2 GM/50 ML BAG IVPB (12:53)
[2022-02-04] MEDS: OSELTAMIVIR PHOSPHATE 75 MG CAPSULE PO ×2 (12:54→20:27)
--- NOTE | 2022-02-04 13:00 | PM.IMHP ---
H&P: HPI History of Present Illness Date/Time: 02/04/22 13:00 Chief Complaint: Weakness. Narrative: This is a pleasant 76-year-old male with aortic stenosis, atrial fibrillation, hypertension, diabetes, sleep apnea, B cell lymphoma, and ulcerative colitis who presented to the ED for evaluation of weakness. The last couple of days he has not been feeling great with subjective fever, mild dysuria, urinary urgency and frequency, runny nose, mild sore throat, cough productive of clear phlegm, and decreased appetite. His son and granddaughter have had similar symptoms. This morning he tells me that he was moving slower than usual and not long before arrival he got up to go to the bathroom and was so weak and his son had to help him there. EMS was summoned was and he was brought to the ER where his temperature was 100.5? and is blood pressure was 91/80. He was noted to be in a wide complex tachycardia and was started on an amiodarone drip. Labs were significant for white blood cell count of 10.4, lactic acid 2.6, magnesium 1.4, and troponin up to 0.048. Urine was negative for nitrates but was positive for leukocyte esterase due to, bacteria, and greater than 75 WBCs. He tested positive for influenza A. Chest x-ray showed left mid basilar airspace opacities which could be atelectasis or pneumonia. He is being admitted in this setting for further treatment and evaluation. Review of Systems Review of Systems: Twelve systems were reviewed. No significant headache or neck ache. He denies chest pain pleuritic pain. He has no sensations of racing heart or palpitations. He has not felt short of breath. Appetite has been decreased but no nausea or vomiting. No diarrhea. Except as documented, all other systems were reviewed and are negative. [facility] Past Medical History Medical History (Updated 02/04/22 @ 14:18 by Mera Huffman PA-C) Anxiety Aortic stenosis, severe Atrial fibrillation with RVR Chronic back pain Diffuse large B cell lymphoma Follows with Dr. Campos at [facility]. Essential (primary) hypertension GERD without esophagitis Glaucoma Hyperlipidemia Insomnia Obstructive sleep apnea on CPAP Peripheral neuropathy Restless leg Type 2 diabetes mellitus with diabetic neuropathy Ulcerative colitis Surgical History Surgical History (Updated 02/04/22 @ 14:16 by Mera Huffman PA-C) History of colostomy History of left hip replacement History of left knee replacement History of tonsillectomy and adenoidectomy Family History Family History Father Lung cancer Mother Diabetes mellitus Hx of CABG Glaucoma Cancer Social History Social History (Updated 02/04/22 @ 22:12 by Mera Huffman PA-C) Social History: Surrogate medical decision maker: [place] Arias, son. Code status: Full code. Smoking packs per day: 1 Smoking cigarettes per day: 20.0 Years smoked: 5 Smoking pack-years: 5.00 Smoking status: Former smoker Tobacco type: cigarettes Second hand tobacco smoke exposure: No Smoking end date: 02/13/71 Alcohol intake: former Substance use: never Lack of Transportation: No Lack of Food: Never True Current Housing: I Have Housing Concerned About Future Housing: No Difficulty Paying Gas/Electric Bills: No Difficulty Paying for Meds: No Currently Unemployed: No Education: High School Diploma/GED Difficulty w/ Childcare or Family Care: No Additional living arrangements comments: Lives with son. Spiritual care concerns: No Meds Home Medications and Allergies Home Medications Medication Instructions Recorded Confirmed Type acetaminophen 325 mg capsule 650 mg PO Q4H PRN Pain 01/25/19 02/04/22 History brimonidine 0.2 %-timolol 0.5 % 1 drp EACH EYE DAILY 07/15/20 02/04/22 History eye drops (Combigan) ketoconazole 2 % topical cream 1 applic topical BID 07/15/20 02/04/22 History aspirin 81 mg tablet,del
[2022-02-04 13:19] LABS: Reflex Lactic Acid Yes or No Add Lactic
[2022-02-04 13:49] LABS: Lactic Acid 1.3 mmol/L (0.7-2.0)
[2022-02-04 14:04] LABS: Troponin I 0.041 ng/mL (0.000-0.034)
--- NOTE | 2022-02-04 15:18 | PC.NURSE ---
Patient care report called to ADRIAN Grijalva. All questions answered at this time.
--- NOTE | 2022-02-04 16:19 | PC.NURSE ---
pt admitted to IMU room 214 @1545. Oriented to the room, call light placed within reach, bed alarm turned on, and dinner ordered. admission history entered.
[2022-02-04 16:31] LABS: Troponin I 0.048 ng/mL (0.000-0.034)
[2022-02-04] MEDS: AMIODARONE 360 MG/D5W 200 ML 360 MG/200 ML BAG 16.67 MG IV CONT (18:51)
[2022-02-04] MEDS: ENOXAPARIN 80 MG/0.8 ML SYRINGE 145 MG SUB-Q (23:22)
[2022-02-05] VITALS (29 sets, daily range): BP systolic 75–149; BP diastolic 51–73; PULSE 64–109; RESP 16–33; TEMP 35.6–38.2; O2SAT 93–99
[2022-02-05 00:11] LABS: Magnesium 1.7 mg/dL (1.6-2.3)
[2022-02-05 00:19] LABS: Hemoglobin A1C 6.8 % (<5.7)
[2022-02-05] MEDS: LORazepam (*CRX) 0.5 MG TABLET PO ×2 (02:28→11:02)
[2022-02-05] MEDS: traZODone HCL 50 MG TABLET 150 MG PO (02:28)
[2022-02-05] MEDS: diphenhydrAMINE HCl CAP 25 MG CAPSULE 50 MG PO (02:29)
[2022-02-05] MEDS: rOPINIRole HCL 0.5 MG TABLET PO (02:29)
[2022-02-05 05:43] LABS: Hematocrit 39.7 % (42.0-52.0); Hemoglobin 13.3 g/dL (14.0-18.0); Immature Platelet Fraction Pct 8.7 % (0.9-11.2); Mean Corpuscular HGB Conc 33.5 g/dl (32-36); Mean Corpuscular Hemoglobin 31.9 pg (26-34); Mean Corpuscular Volume 95.2 fl (80-100); Mean Platelet Volume 11.4 fl (7.4-10.4); Platelet Count Result 105 k/mm3 (150-375); Red Blood Count 4.17 M/mm3 (4.6-6.20); Red Cell Distribution Width 14.2 % (11.5-14.5); White Blood Count 7.5 K/mm3 (4.5-10.0)
[2022-02-05 06:01] LABS: Alanine Aminotransferase 31 U/L (6-50); Albumin Level 4.2 g/dL (3.5-5.1); Alkaline Phosphatase 94 U/L (38-126); Anion Gap 9 mmol/L (8-16); Aspartate Amino Transferase 33 U/L (17-59); Bilirubin,Total 0.6 mg/dL (0.2-1.3); Blood Urea Nitrogen 13 mg/dL (9-20); Calcium 8.6 mg/dL (8.4-10.2); Carbon Dioxide 24 mmol/L (22-30); Chloride 102 mmol/L (98-107); Estimated CRCL calculation 88 ml/min; Estimated Glomerular Filt Rate > 60; Glucose 196 mg/dL (65-110); Magnesium 1.6 mg/dL (1.6-2.3); Potassium 3.9 mmol/L (3.4-5.0); Sodium 135 mmol/L (137-145)
[2022-02-05] MEDS: AMIODARONE 360 MG/D5W 200 ML 360 MG/200 ML BAG 16.67 MG IV CONT (07:30)
[2022-02-05 07:55] LABS: Glucose Point of Care 199 mg/dl (65-105)
--- NOTE | 2022-02-05 08:27 | PM.IMPN ---
Progress Note: A&P Assessment and Plan (1) Atrial fibrillation with rapid ventricular response: Code(s): I48.91 - Unspecified atrial fibrillation Status: Acute Assessment and Plan: Patient present with irregular her beats, but is unaware his tachycardia. Telemetry shows what appears to be in atrial flutter/fib. EKG confirms SVT/atrial flutter. Continue amiodarone drip started in ED. TSH was normal at 1.9. Repeat EKG this morning. Cardiology consulted. On today's exam, the patient remains in atrial flutter heart rate better controlled on IV amiodarone.? per Cardiology recommendation, he was increased to metoprolol tartrate to 25 mg q.12 hours.? Continue IV amiodarone today, transition to oral regimen tomorrow. per Cardiology recommendation is will be transition to enoxaparin 1 milligram/kg subcutaneous q.12 hours 2 Eliquis 5 mg b.i.d. tomorrow. His troponin remains elevated, although without up trending. Per Cardiology an ischemic workup may be considered as an outpatient. (2) Influenza A: Code(s): J10.1 - Influenza due to other identified influenza virus with other respiratory manifestations Status: Acute Assessment and Plan: Patient present with upper respiratory symptoms. Influenza a was positive. He is breathing comfortably on room air saturating 95%. Chest x-ray shows mild left lower lobe opacities that may represent pneumonia or atelectasis. He has been started on Tamiflu. Encourage incentive spirometry. Continue Tamiflu. (3) Abnormal urinalysis: Code(s): R82.90 - Unspecified abnormal findings in urine Status: Acute Assessment and Plan: Patient presented with UTI symptoms. He was appropriately started on ceftriaxone. Continue IV ceftriaxone. Urine culture sent on admission and are pending at the time of this dictation. (4) Hypomagnesemia: Code(s): E83.42 - Hypomagnesemia Status: Acute Assessment and Plan: Magnesium was replaced; repeat magnesium improve at 1.6. Follow up repeat chemistry and magnesium today. (5) Obstructive sleep apnea on CPAP: Code(s): G47.33 - Obstructive sleep apnea (adult) (pediatric); Z99.89 - Dependence on other enabling machines and devices Status: Acute Assessment and Plan: CPAP per home parameters. (6) Type 2 diabetes mellitus with diabetic neuropathy: Qualifiers: Diabetes mellitus superintendent container terminal insulin use: without superintendent container terminal use Qualified Code(s): E11.40 - Type 2 diabetes mellitus with diabetic neuropathy, unspecified Code(s): E11.40 - Type 2 diabetes mellitus with diabetic neuropathy, unspecified Status: Chronic Assessment and Plan: Continue glipizide. Initiate sliding scale insulin, Accu-Cheks, and hypoglycemic protocol. HGB A1c 6.8. Accu-Chek was 199 this morning. Continue monitoring. Time Spent With Patient Time with patient: 15 - 25 minutes Subjective Date/time seen: 02/05/22 08:27 Interval history: Narrative:This is a pleasant 76-year-old male with aortic stenosis, atrial fibrillation, hypertension, diabetes, sleep apnea, B cell lymphoma, and ulcerative colitis who presented to the ED for evaluation of weakness. The last couple of days he has not been feeling great with subjective fever, mild dysuria, urinary urgency and frequency, runny nose, mild sore throat, cough productive of clear phlegm, and decreased appetite. His son and granddaughter have had similar symptoms. This morning he tells me that he was moving slower than usual and not long before arrival he got up to go to the bathroom and was so weak and his son had to help him there. EMS was summoned was and he was brought to the ER where his temperature was 100.5? and is blood pressure was 91/80. He was noted to be in a wide complex tachycardia and was started on an amiodarone drip. Labs were significant for white blood cell count of 10.4, lactic acid 2.6, magnesium 1.4, and troponin up t
--- NOTE | 2022-02-05 08:30 | ECG_ITS ---
Measurements Intervals [place] Rate: 72 P: 46 UT: 229 QRS: -60 QRSD: 161 T: 64 QT: 439 QTc: 482 Interpretive Statements SINUS RHYTHM WITH FIRST DEGREE AV BLOCK RIGHT BUNDLE-BRANCH BLOCK VOLTAGE CRITERIA FOR LVH ABNORMAL ECG COMPARED TO ECG 02/04/2022 09:28:55 SINUS RHYTHM HAS REPLACED ATRIAL FLUTTER WITH RAPID VENTRICULAR RESPONSE FIRST DEGREE AV BLOCK NOW PRESENT Electronically Signed On 02-05-2022 13:43:23 ALLIGATOR TRAPPER by Octavio Nowak M.D.
--- NOTE | 2022-02-05 09:09 | PM.CNCAR ---
Assessment and Plan Assessment and plan (1) Atrial flutter with rapid ventricular response: Code(s): I48.92 - Unspecified atrial flutter Status: Acute Assessment and Plan: New diagnosis atrial flutter with rapid ventricular response and variable AV block. Remains in atrial flutter heart rate better controlled on IV amiodarone. Increase metoprolol tartrate to 25 mg q.12 hours. Continue IV amiodarone today, transition to oral regimen tomorrow. No doubt exacerbated by influenza A and underlying UTI. Explained to patient pathophysiology, management strategy including medications versus cardioversion to restore sinus rhythm. Patient states he is not interested in sedation or cardioversion at all. He is willing to take medications including anticoagulation for block stroke risk reduction. We discussed the balance of stroke risk reduction versus bleeding risk. He understands accepts this risk. Transition to enoxaparin 1 milligram/kilogram subcutaneous q.12 hours to Eliquis 5 mg b.i.d. tomorrow. Preservative heart rate control strategy will be pursued at this time. Will escalate beta-swati therapy as tolerated. Initial plan would be for short-term use of amiodarone given longer-term risks involving the eyes, thyroid and lungs and need for ongoing monitoring as an outpatient. Continue telemetry. 2D echocardiogram heart rate better controlled. Recommendations to follow. (2) Elevated troponin: Code(s): R77.8 - Other specified abnormalities of plasma proteins Status: Acute Assessment and Plan: Chronic, flat not secondary to acute coronary syndrome and/or plaque rupture a type 2 infarction related to rapid tachyarrhythmia, influenza A and underlying UTI. Patient certainly has risk factors for coronary disease further workup with ischemic testing may be considered on outpatient basis if patient agreeable. (3) Influenza A: Code(s): J10.1 - Influenza due to other identified influenza virus with other respiratory manifestations Status: Acute Assessment and Plan: Continue management for influenza A per primary service. (4) Aortic stenosis: Code(s): I35.0 - Nonrheumatic aortic (valve) stenosis Status: Acute Assessment and Plan: Moderate severity echocardiogram 07/2020. Repeat echocardiogram pending. (5) UTI (urinary tract infection): Code(s): N39.0 - Urinary tract infection, site not specified Status: Acute Assessment and Plan: Continue antibiotics. Management per primary service. (6) Obstructive sleep apnea on CPAP: Code(s): G47.33 - Obstructive sleep apnea (adult) (pediatric); Z99.89 - Dependence on other enabling machines and devices Status: Acute Assessment and Plan: Compliance with CPAP. (7) Essential (primary) hypertension: Code(s): I10 - Essential (primary) hypertension Status: Acute Assessment and Plan: Stable, hemodynamically improved since admission. Continue monitor. (8) Type 2 diabetes mellitus with diabetic neuropathy: Qualifiers: Diabetes mellitus fci insulin use: without termite exterminator use Qualified Code(s): E11.40 - Type 2 diabetes mellitus with diabetic neuropathy, unspecified Code(s): E11.40 - Type 2 diabetes mellitus with diabetic neuropathy, unspecified Status: Chronic Assessment and Plan: Management per primary service. History of Present Illness History of Present Illness Consult date/time: Date of service: 02/05/22 09:09 Requesting physician: Mera Huffman PA-C Consult reason: atrial fibrillation Reason For Visit: Wide Complex Tachycardia Narrative: Patient is a 76-year-old male with a history of morbid obesity, moderate aortic stenosis, hypertension, type 2 diabetes mellitus, TARA, history of B-cell lymphoma, ulcer colitis who presented emergency department with complaints of weakness fever, dysuria and urgency, productive cough decli
[2022-02-05] MEDS: TOLNAFTATE 1% POWDER 45 GM BTL 1 APPLIC TOPICAL ×2 (09:50→22:08)
[2022-02-05] MEDS: MAGNESIUM SULF 1 GM/D5W 100 ML 1 GM/100 ML BAG IVPB (09:51)
[2022-02-05] MEDS: ATORVASTATIN 20 MG TABLET PO (09:51)
[2022-02-05] MEDS: ASPIRIN 81 MG ENTERIC TABLET PO (09:51)
[2022-02-05] MEDS: TIMOLOL MALEATE 0.5% OP SOLN 5 ML BOTTLE 1 DROP EACH EYE (09:51)
[2022-02-05] MEDS: BRIMONIDINE TARTRATE 0.2% OP SOLN 5 ML BTL 1 DROP EACH EYE (09:51)
[2022-02-05] MEDS: CHOLECALCIFEROL 1,000 UNITS TABLET 1000 UNITS PO (09:52)
[2022-02-05] MEDS: MULTIVITAMINS THERAPEUTIC TAB (*BKC) 1 TABLET PO (09:52)
[2022-02-05] MEDS: metFORMIN HCL 500 MG TABLET 1000 MG PO (09:52)
[2022-02-05] MEDS: SULFAMETHOXAZOLE/TRIMETHOPRIM 800/160 MG DS TABLET 1 TAB PO (09:52)
[2022-02-05] MEDS: glipiZIDE 5 MG TABLET 10 MG PO (09:53)
[2022-02-05] MEDS: GABAPENTIN 300 MG CAPSULE PO (09:53)
[2022-02-05] MEDS: FINASTERIDE 5 MG TABLET PO (09:53)
[2022-02-05] MEDS: PERFLUTREN LIPID MICROSPHERES 1.5 ML VIAL DILUTED TO 10 ML TOTAL VOLUME IV PUSH (10:45)
[2022-02-05] MEDS: METOPROLOL TARTRATE 25 MG TABLET PO (11:02)
[2022-02-05 12:05] LABS: Glucose Point of Care 239 mg/dl (65-105)
[2022-02-05] MEDS: INSULIN ASPART (*BKC) 100 UNITS/ML SUB-Q (12:29)
[2022-02-05] MEDS: ENOXAPARIN 80 MG/0.8 ML SYRINGE 145 MG SUB-Q ×2 (12:30→22:10)
[2022-02-05] MEDS: MAG HYDROX/AL HYDROX/SIMETH 30 ML UDC PO (14:27)
[2022-02-05] MEDS: OSELTAMIVIR PHOSPHATE 75 MG CAPSULE PO (14:27)
--- NOTE | 2022-02-05 16:37 | ECG_ITS ---
Measurements Intervals [place] Rate: 84 P: [place]: 0 QRS: -60 QRSD: 165 T: 89 QT: 372 QTc: 441 Interpretive Statements SINUS RHYTHM WITH FREQUENT PREMATURE ATRIAL CONTRACTIONS BASELINE ARTIFACT RIGHT BUNDLE-BRANCH BLOCK VOLTAGE CRITERIA FOR LVH ABNORMAL ECG COMPARED TO ECG 02/05/2022 12:06:14 PREMATURE ATRIAL CONTRACTIONS ARE PRESENT Electronically Signed On 02-06-2022 15:41:50 PILOT INSTRUCTOR by Octavio Nowak M.D.
--- NOTE | 2022-02-05 16:47 | PM.EVENT ---
Event Note Event Note Event Note: Patient with increased O2 needs and AMS. Port chest, ABG ordered stat. Discussed with Dr Rodrigues who graciously evaluated the patient prior to my arrival. O2 saturation improved from the mids 50s to 65%. Mental status poor; patient is unable to protect his airways. Patient is transferred to the ICU for intubation and higher level of care. Impression: Acute respiratory failure multifactorial: flu, TARA/hyponea syndrome, possible aspiration pna, superimposed bacterial PNA.
[2022-02-05 16:57] LABS: Base Excess ABG -6.9 mEq/l (+/-2.0); Fractional Inspired Oxygen 100 %; Oxygen Content ABG 21.2 %vol (16.0-22.0); Oxygen Saturation ABG 92.6 % (95.0-100.0); Oxyhemoglobin 92.1 % THb (90.0-100.0); PO2 FiO2 Ratio Arterial Blood 0.94 %; Total Hemoglobin 16.3 g/dL (12.0-18.0)
--- NOTE | 2022-02-05 17:00 | WPDPROCEDUR ---
Procedures Intubation Intubation Date: 02/05/22 Intubation Time: 17:07 Consent: Son gave verbal consent. Sedative: etomidate Mg given: 20 Paralytic: succinylcholine Mg given: 100 Laryngoscope: fiber optic video scope Assist device used: fiber optic device ET tube size: 8 Tube secured depth (cm): 24 Tube secured location: teeth Tube placement confirmation: visualized tube passing through cords, equal breath sounds bilaterally, no breath sounds over epigastrium and confirmation by capnometry Patient tolerated procedure: well Intubation complications: none Additional comments: Called to bedside by [facility] hospitalist. Patient has become increasingly short of breath and is now somnolent and hypoxic. Concerns for possible aspiration. Patient was evaluated in the ICU, he did briefly squeeze my hand but he followed no commands and did not answer any questions. ABG showed a pH of 7.041, pCO2 102, bicarb 27 and decision was made to intubate. Respirations were assisted by respiratory therapist with Ambu bag with an SpO2 of 98% at the time of RSI. The patient was intubated quickly, easily, and atraumatically on 1st attempt using MAC for with the glide scope. Tube was visualized passing through the cords with good colorimetric change and missed noted in the 2. Lung sounds were auscultated bilaterally, anteriorly and at the flanks. Blood pressures remained stable throughout. Chest x-ray pending at the time of this dictation. Vent settings and sedation orders per field human resources manager.
[2022-02-05 17:03] LABS: Site Drawn LEFT BRACHIAL; pH ABG 7.041 (7.350-7.450)
[2022-02-05 17:04] LABS: Device NON-REBREATHER MASK
--- NOTE | 2022-02-05 17:13 | PM.EVENT ---
Event Note Event Note Event Note: 76-year-old male with critical aortic valve stenosis here with influenza and AFib with RVR was found to be short of breath. Family grabbed me as I was walking by the room due to concern for patient's change in mentation and breathing patterns. Upon arrival to the room, I was notified by the CRYSTAL SYRUP MAKER that a set of vital signs was done within the last 10 minutes that was completely normal. Heart rate was 81, respiration rate was 20, blood pressure was 120/63, he was 97% on room air and temperature was 96.7? which was similar to his previous which was 96.1. At that time, per family he was in the room, patient was alert and oriented x4 at his baseline mentation. He had not eaten or drank anything since lunch. Per nursing staff, lung sounds were essentially clear but diminished earlier in the day. General: Lethargic, somnolent, intermittently alert, easily arousable, somewhat confused HEENT: Atraumatic, normocephalic, mucous membranes dry CV: Irregularly irregular, S1, S2 Lungs: Coarse breath sounds throughout, rhonchorous breath sounds noted Abdomen: Soft, nontender, nondistended Extremities: Mottling noted on B/L LE Assessment: ABG, chest x-ray, 12 lead EKG were all ordered EKG showed atrial fibrillation, rate in the 90s ABG and chest x-ray are still pending Amiodarone was infusing Pulse ox was unable to be obtained, when a reading was able to be seen, he was in the 60s to 70s The attending physician was notified arrived at bedside. Plan: Due to the severe respiratory status, known flu positive status and severe aortic stenosis, decision was made to move the patient to the ICU for intubation to stabilize the respiratory status. The ICU physician Dr. Stephenson was notified and was in agreement with the plan. Critical care PA Mera Baltazar was also notified and arrived at bedside. Upon arrival to the ICU, pulse ox was still in 60s to 70s. A set of vital signs was pending. X-ray was nearby. Family was updated on the condition and status of the patient and the guarded prognosis.
[2022-02-05] MEDS: PROPOFOL IV EMULSION 100 ML 8.7 MG IV CONT (17:33)
[2022-02-05] MEDS: MICONAZOLE NITRATE 2% CREAM 30 GM TUBE 1 APPLIC TOPICAL (17:35)
[2022-02-05] MEDS: FUROSEMIDE INJ 40 MG/4 ML VIAL 20 MG IV PUSH (17:35)
[2022-02-05 17:53] LABS: Triglycerides 119 mg/dL (<150)
--- NOTE | 2022-02-05 18:10 | PC.NURSE ---
Tech came to get RN because patient didnt look right. Son met RN at the door stated patient wasnt breathing right. Dr. Victoria and RN to bedside. Patient found with labored breathing and unable to get a good pulse ox saturation, and heart rate into the 30s. Amio Drip stopped. Orders for chest xray, EKG, and ABG. Esme ordered to transfer patient to ICU for acute respiratory distress.
[2022-02-05 18:17] LABS: Alveolar/Arterial O2 Gradient 334.4 mmHg; Base Excess ABG -4.8 mEq/l (+/-2.0); Fractional Inspired Oxygen 100 %; HCO3 ABG 23.1 mEq/l (22.0-26.0); Oxygen Content ABG 22.1 %vol (16.0-22.0); Oxygen Saturation ABG 99.6 % (95.0-100.0); Oxyhemoglobin 97.3 % THb (90.0-100.0); PCO2 ABG 53.7 mmHg (35.0-45.0); PO2 ABG 324.9 mmHg (80.0-100.0); PO2 FiO2 Ratio Arterial Blood 3.25 %; Total Hemoglobin 15.6 g/dL (12.0-18.0)
[2022-02-05 18:19] LABS: Arterial Blood Gas PEEP 8 cmH2O; Arterial Blood Gas Tidal Volume 450 ml; Arterial Blood Gas Vent Mode CMV; Arterial Blood Gas Ventilator rate 20 /MIN; Device VENTILATOR; Modified Allen's Test Pass; Site Drawn RIGHT RADIAL; pH ABG 7.251 (7.350-7.450)
[2022-02-05] MEDS: MIDAZOLAM 100MG/NS 100ML(*CRX) 100 MG/100 ML BAG IV CONT (19:01)
[2022-02-05] MEDS: FENTANYL 2,500MCG/NS250ML(*CRX 2,500 MCG/250 ML BAG IV CONT (19:02)
[2022-02-05] MEDS: metroNIDAZOLE 500 MG/ISO 100ML 500 MG/100 ML BAG 100 MG IVPB (19:02)
[2022-02-05] MEDS: ALBUMIN HUMAN 5% 25 GM/500 ML BTL IV CONT (19:03)
[2022-02-05] MEDS: SODIUM CHLORIDE 0.9% IV 1,000 ML 100 ML IV CONT (19:03)
[2022-02-05] MEDS: SODIUM CHLORIDE 0.9% IV 1,000 ML 999 ML IV CONT (20:56)
--- NOTE | 2022-02-05 21:50 | WPDPROCEDUR ---
Procedures Central Line Placement Right IJ: Central Line Date: 02/05/22 Central Line Time: 21:30 Consent: I have discussed with the patient and/or surrogate, the non-emergent placement of a central venous catheter, including its clinical necessity/indication and associated potential risks and complications. The patient and/or surrogate understand(s) and acknowledge(s) the need to proceed with central venous catheter insertion as an important element of the patient's clinical management. Time Out Performed: Yes Patient Position: other (Vascular) Patient placed on monitor/pulse ox: Yes Provider Prep: mask, sterile gown, sterile gloves, Max. sterile barrier precautions, cap and hand hygiene with conventional soap/water or alcohol based hand rub Central line prep: 2% Chlorhexidine scrub Sterile US Technique with sterile gel/sterile probe covers: Yes Central line lumen inserted: triple Brazilian: 7 Length (cm): 16 Depth of Insertion (cm): 15 Post Procedure: sutured in place, good blood return, all ports aspirated, flushed, capped, transparent dressing, hemostatic product, antimicrobial product, securement product and aseptic technique maintained throughout procedure Post procedure x-ray: tip of catheter in good position and no pneumothorax seen Patient tolerated procedure: well Additional comments: Chest x-ray personally reviewed. On the 1st attempt for the procedure guidewire would not feed. I reposition on 2nd attempt with more proximal approach with successful placement of right IJ. less than 10 mL of blood loss
[2022-02-05] MEDS: NOREPINEPHRINE 8 MG/D5W 250 ML 8 MG/250 ML BAG 9.38 MG IV CONT (21:54)
--- NOTE | 2022-02-05 21:54 | P.PNCROSS_ITS ---
Event Note Event Note Event Note: Nursing staff thought me telling me know the patient was hypotensive. The zenaida ent had evidently received 500 mL of albumin and despite albumin patient's blood pressure dropped from the mid 80s down to the 60 systolic. Patient was also febrile is known to have influenza. He does have severe aortic stenosis but preserved ejection fraction. Differential for patient's respiratory failure includes flash pulmonary edema versus ARDS. However now the patient is from the hypotensive could be due to septic versus cardiogenic shock. I had ordered Levophed for once the patient's blood pressures had stabilized. During central line placement patient's blood pressures did improve to the 90s when the patient was in vascular position. Nursing staff had also completely discontinue the patient's sedation but he began to cough against the vent and move around during the procedure and sedation had to be restarted. Patient's heart rate is stable. He maintain oxygenation on the ventilator throughout the procedure. Chest x- ray was personally reviewed i did discuss the patient's case with the butadiene converter helper who agreed with central line placement. Levophed was initiated after central line placement was confirmed. A chest x-ray did demonstrate bilateral pulmonary opacities again pulmonary edema versus ARDS. Infiltrates appear worse than previous study performed around 17:00. Given that the patient is still febrile and has possible post influenza pneumonia will add vancomycin antibiotic coverage. Assessment: Shock: Cardiogenic versus septic Severe aortic stenosis Acute hypoxic respiratory failure 40 minutes was spent in critical care activities in exclusion of procedures. Due to a high probability of clinically significant, life threatening deterioration, the patient required my highest level of preparedness to intervene emergently and I personally spent this critical care time directly and personally managing the patient. This critical care time included obtaining a history; examining the patient; pulse oximetry; ordering and review of studies; arranging urgent treatment with development of a management plan; evaluation of patient's response to treatment; frequent reassessment; and discussions with other providers. It was exclusive of separately billable procedures and treating other patients and teaching time. Please see Assessment and Plan section and the rest of the note for further information on patient assessment and treatment.
[2022-02-05] MEDS: MINERAL OIL/WHITE PETROLATUM OINTMENT 1 APPLIC EACH EYE (22:08)
[2022-02-05] MEDS: CENTRAL LINE FLUSH 10 ML IV PUSH (22:09)
--- NOTE | 2022-02-05 22:17 | ECHO_ITS ---
Patient Info Name: Pino Arias Age: 76 years : 1945 Gender: Male Ht: 70 in Wt: 320 lbs BSA: 2.75 m2 HR: 88 bpm BP: 123 / 64 mmHg Heart Rhythm: Atrial Flutter Technical Quality: Poor Exam Date: 02/05/2022 11:09 AM Exam Location: [facility] Pul[facility] Patient Status: Inpatient Admit Date: 02/04/2022 Staff Ordering Physician: Mera Huffman PA-C Resident Director: Sandrine Ragland RDCS Attending Provider: Daniele Kwong MD Referring Physician: Armida PIKE; Exam Type: CA echo dop color flow w con Study Info Indications I48.1 - Persistent atrial fibrillation Complete two-dimensional, color flow and Doppler transthoracic echocardiogram is performed with contrast to opacify the left ventricle and to improve the deliniation of the left ventricle endocardial borders. Contrast/Agitated Saline Contrast/Ag. Saline: Definity Amount: 4.00 ml Administered By: Sandrine Ragland [facility] Reason for Poor Study: patient body habitus Summary 1. Technically difficult study with limited views despite definity echo contrast enhancement with limited regional wall motion assessment due to poor endomyocardial border definition. 2. Left ventricular chamber dimension is normal. 3. There is moderately increased left ventricular wall thickness. 4. Left ventricular systolic function is normal, estimated at 55%. 5. Right ventricular systolic function is normal. TAPSE 2.0. 6. There is severe aortic valve stenosis with a peak velocity of 4.50 cm/s, mean gradient of 57 mmHg, and aortic valve area of 0.80 cm2. 7. There is mild mitral valve regurgitation. Left Ventricle Left ventricular chamber dimension is normal. Left ventricular systolic function is normal, estimated at 55%. There is moderately increased left ventricular wall thickness. Left ventricular septal wall motion is abnormal with septal motion related to bundle branch block. The left ventricular diastolic function is indeterminate. E/e' 19.56 is moderately elevated. Technically difficult study with limited views despite definity echo contrast enhancement with limited regional wall motion assessment due to poor endomyocardial border definition. Right Ventricle Right ventricular chamber dimension is not well visualized. Right ventricular systolic function is normal. TAPSE 2.0. Left Atria Left atrial chamber dimension is not well visualized. Right Atria Right atrial chamber dimension is not well visualized. Aortic Valve The aortic valve is not well visualized. There is severe aortic valve stenosis with a peak velocity of 4.50 cm/s, mean gradient of 57 mmHg, and aortic valve area of 0.80 cm2. Pulmonic Valve The pulmonic valve is not well visualized. Mitral Valve The mitral valve has thickened leaflets. There is mild mitral valve regurgitation. Tricuspid Valve The tricuspid valve leaflets are not well visualized. There is mild tricuspid valve regurgitation. Unable to assess PA systolic pressures due to poorly visualized tricuspid regurgitant jet velocity. Pericardium/Pleural The pericardium appears not well visualized. There is no pericardial effusion. Inferior Vena Cava Normal inferior vena cava with >50% collapse upon inspiration consistent with normal right atrial pressure, 5 mmHg. Aorta The aortic root size at the sinus of Valsalva is normal. There is moderate-severe aortic atherosclerosis. Left Ventricular Outflow Tract
[2022-02-05] MEDS: PIPERACILLIN/TAZOBACTAM SOD 4.5 GM in SODIUM CHLORIDE 0.9% IV 100 ML 200 ML IVPB (22:46)
[2022-02-05 22:50] LABS: Glucose Point of Care 212 mg/dl (65-105)
[2022-02-06] VITALS (54 sets, daily range): BP systolic 89–125; BP diastolic 43–85; PULSE 51–96; RESP 20–32; TEMP 36.8–38.5; O2SAT 92–100
[2022-02-06] MEDS: INSULIN ASPART (*BKC) 100 UNITS/ML SUB-Q ×4 (01:09→20:23)
[2022-02-06 01:15] LABS: Glucose Point of Care 214 mg/dl (65-105)
[2022-02-06] MEDS: metroNIDAZOLE 500 MG/ISO 100ML 500 MG/100 ML BAG 100 MG IVPB ×3 (01:35→11:46)
[2022-02-06 04:19] LABS: Alveolar/Arterial O2 Gradient 84.6 mmHg; Base Excess ABG 0.3 mEq/l (+/-2.0); Fractional Inspired Oxygen 30 %; HCO3 ABG 24.2 mEq/l (22.0-26.0); Oxygen Content ABG 18.2 %vol (16.0-22.0); Oxygen Saturation ABG 96.8 % (95.0-100.0); Oxyhemoglobin 95.4 % THb (90.0-100.0); PCO2 ABG 36.9 mmHg (35.0-45.0); PO2 ABG 85.9 mmHg (80.0-100.0); PO2 FiO2 Ratio Arterial Blood 2.86 %; Total Hemoglobin 13.5 g/dL (12.0-18.0); pH ABG 7.435 (7.350-7.450)
[2022-02-06 04:23] LABS: Device VENTILATOR; Modified Allen's Test Pass; Site Drawn LEFT RADIAL
[2022-02-06 04:24] LABS: Arterial Blood Gas PEEP 8 cmH2O; Arterial Blood Gas Tidal Volume 450 ml; Arterial Blood Gas Vent Mode CMV; Arterial Blood Gas Ventilator rate 25 /MIN
[2022-02-06] MEDS: CELLULOSE OXIDIZED 2 x 14 INCH 1 PKT XX (05:14)
[2022-02-06] MEDS: PIPERACILLIN/TAZOBACTAM SOD 4.5 GM in SODIUM CHLORIDE 0.9% IV 100 ML 200 ML IVPB ×3 (05:25→17:08)
[2022-02-06 05:27] LABS: Hematocrit 37.7 % (42.0-52.0); Hemoglobin 12.7 g/dL (14.0-18.0); Mean Corpuscular HGB Conc 33.7 g/dl (32-36); Mean Corpuscular Hemoglobin 31.8 pg (26-34); Mean Corpuscular Volume 94.3 fl (80-100); Mean Platelet Volume 10.4 fl (7.4-10.4); Platelet Count Result 157 k/mm3 (150-375); Red Cell Distribution Width 14.5 % (11.5-14.5); White Blood Count 13.5 K/mm3 (4.5-10.0)
[2022-02-06 05:37] LABS: Alanine Aminotransferase 24 U/L (6-50); Albumin Level 3.8 g/dL (3.5-5.1); Alkaline Phosphatase 70 U/L (38-126); Anion Gap 7 mmol/L (8-16); Aspartate Amino Transferase 34 U/L (17-59); Bilirubin,Total 0.7 mg/dL (0.2-1.3); Blood Urea Nitrogen 16 mg/dL (9-20); Calcium 8.1 mg/dL (8.4-10.2); Carbon Dioxide 27 mmol/L (22-30); Chloride 97 mmol/L (98-107); Estimated CRCL calculation 73 ml/min; Estimated Glomerular Filt Rate > 60; Glucose 200 mg/dL (65-110); Magnesium 1.6 mg/dL (1.6-2.3); Potassium 3.6 mmol/L (3.4-5.0); Sodium 131 mmol/L (137-145)
[2022-02-06] MEDS: CENTRAL LINE FLUSH 10 ML IV PUSH ×3 (05:44→21:41)
--- NOTE | 2022-02-06 07:27 | PCOTNOTE ---
Patient currently on mechanical ventilation in ICU. Discharging OT orders at this time. Can re-order when medically appropriate.
--- NOTE | 2022-02-06 07:29 | PCPTNOTE ---
Patient currently on mechanical ventilation in ICU. Discharging PT orders at this time. Can re-order when medically appropriate.
[2022-02-06] MEDS: NOREPINEPHRINE 8 MG/D5W 250 ML 8 MG/250 ML BAG 24.38 MG IV CONT (07:53)
[2022-02-06] MEDS: MAGNESIUM SULF 2 GM/WATER 50ML 2 GM/50 ML BAG IVPB (09:48)
[2022-02-06] MEDS: POTASSIUM CHLORIDE 20 MEQ PACKET (FOR LIQUID) 40 MEQ FEED TUBE (09:48)
[2022-02-06] MEDS: TOLNAFTATE 1% POWDER 45 GM BTL 1 APPLIC TOPICAL ×2 (09:49→20:22)
[2022-02-06] MEDS: ATORVASTATIN 20 MG TABLET PO (09:49)
[2022-02-06] MEDS: MINERAL OIL/WHITE PETROLATUM OINTMENT 1 APPLIC EACH EYE ×2 (09:50→20:23)
[2022-02-06] MEDS: MICONAZOLE NITRATE 2% CREAM 30 GM TUBE 1 APPLIC TOPICAL ×2 (09:50→17:05)
[2022-02-06] MEDS: BRIMONIDINE TARTRATE 0.2% OP SOLN 5 ML BTL 1 DROP EACH EYE (09:52)
[2022-02-06] MEDS: CHOLECALCIFEROL 1,000 UNITS TABLET 1000 UNITS PO ×2 (09:58→09:59)
[2022-02-06] MEDS: TIMOLOL MALEATE 0.5% OP SOLN 5 ML BOTTLE 1 DROP EACH EYE (09:59)
[2022-02-06] MEDS: SULFAMETHOXAZOLE/TRIMETHOPRIM 800/160 MG DS TABLET 1 TAB PO (09:59)
[2022-02-06] MEDS: MULTIVITAMINS THERAPEUTIC TAB (*BKC) 1 TABLET PO (10:00)
[2022-02-06] MEDS: OSELTAMIVIR PHOSPHATE 75 MG CAPSULE PO ×2 (10:00→20:23)
[2022-02-06 10:04] LABS: Glucose Point of Care 177 mg/dl (65-105)
[2022-02-06] MEDS: ACETAMINOPHEN 325 MG TABLET 650 MG PO (10:10)
--- NOTE | 2022-02-06 10:29 | PC.NURSE ---
8 beat run of [facility] at [id number] Dr. Stephenson made aware. No new orders noted.
[2022-02-06] MEDS: ASPIRIN 81 MG CHEWABLE TABLET PO (10:58)
--- NOTE | 2022-02-06 11:37 | WPDCNINT ---
Assessment and Plan Assessment and plan (1) Acute respiratory failure: Code(s): J96.00 - Acute respiratory failure, unspecified whether with hypoxia or hypercapnia Status: Acute Assessment and Plan: Acute hypoxic and hypercarbic Respiratory failure secondary to influenza, pulmonary edema, secondary bacterial pneumonia versus ARDS Patient's BNP is elevated but not markedly high. Echo shows severe aortic stenosis Patient admitted with influenza A and at risk of secondary bacterial infection ARDS also possibility Continue full mechanical ventilation support to prevent hypoxemia/hypercarbia and end organ damage. ABG and ventilator settings reviewed currently on 30% FiO2 and 8 of PEEP Chest x-ray reviewed Will check CT chest considering patient is morbidly obese for better evaluation Low tidal volume ventilation strategy to prevent volutrauma Continue Tamiflu Hold diuretics due to shock Empiric antibiotics vancomycin and Zosyn. Will discontinue Flagyl and Bactrim (2) Sepsis: Code(s): A41.9 - Sepsis, unspecified organism Status: Acute Assessment and Plan: Secondary to influenza a and possible bacterial pneumonia. Also has UTI Blood culture sent and pending Urine cultures growing Enterococcus which is sensitive to vancomycin the patient is on (3) Shock: Code(s): R57.9 - Shock, unspecified Status: Acute Assessment and Plan: Likely multifactorial secondary to a severe aortic stenosis and sepsis Patient is getting conservative IV fluids due to concern of pulmonary edema and heart failure Continue Levophed And vasopressin and stress dose steroids (4) UTI (urinary tract infection): Code(s): N39.0 - Urinary tract infection, site not specified Status: Acute Assessment and Plan: See above (5) Atrial flutter with rapid ventricular response: Code(s): I48.92 - Unspecified atrial flutter Status: Acute Assessment and Plan: Patient has now converted to sinus rhythm On Eliquis for anticoagulation Not on beta-swati due to shock (6) Influenza A: Code(s): J10.1 - Influenza due to other identified influenza virus with other respiratory manifestations Status: Acute Assessment and Plan: On Tamiflu (7) Aortic stenosis, severe: Code(s): I35.0 - Nonrheumatic aortic (valve) stenosis Status: Acute Assessment and Plan: Echocardiogram 02/05/2022 Summary ? 1. Technically difficult study with limited views despite definity echo contrast enhancement with limited regional wall motion assessment due to poor endomyocardial border definition. ? 2. Left ventricular chamber dimension is normal. ? 3. There is moderately increased left ventricular wall thickness. ? 4. Left ventricular systolic function is normal, estimated at 55%. ? 5. Right ventricular systolic function is normal.? TAPSE 2.0. ? 6. There is severe aortic valve stenosis with a peak velocity of 4.50 cm/s, mean gradient of 57 mmHg, and aortic valve area of 0.80 cm2. ? 7. There is mild mitral valve regurgitation. Cardiology following (8) Hyperlipidemia: Qualifiers: Hyperlipidemia type: unspecified Qualified Code(s): E78.5 - Hyperlipidemia, unspecified Code(s): E78.5 - Hyperlipidemia, unspecified Status: Chronic Assessment and Plan: Continue Lipitor (9) GERD without esophagitis: Code(s): K21.9 - Gastro-esophageal reflux disease without esophagitis Status: Chronic Assessment and Plan: Start Protonix (10) Type 2 diabetes mellitus with diabetic neuropathy: Qualifiers: Diabetes mellitus jail insulin use: without jail use Qualified Code(s): E11.40 - Type 2 diabetes mellitus with diabetic neuropathy, unspecified Code(s): E11.40 - Type 2 diabetes mellitus with diabetic neuropathy, unspecified Status: Chronic Assessment and Plan: Sliding scale insulin (11) Bleeding:
--- NOTE | 2022-02-06 11:45 | PM.PNCARD ---
Progress Note: A&P Assessment and Plan (1) Shock: Code(s): R57.9 - Shock, unspecified Status: Acute Assessment and Plan: Patient is critically ill. Most likely septic shock secondary to worsening pneumonia versus ARDS. Remains on broad-spectrum antibiotics. Blood Cultures pending. Urine culture positive for vancomycin sensitive Enterococcus. (2) Acute respiratory failure: Code(s): J96.00 - Acute respiratory failure, unspecified whether with hypoxia or hypercapnia Status: Acute Assessment and Plan: Status post intubation mechanical ventilatory support. Defer management to Critical Care. Clinically there appears to be degree of congestive heart failure as well, however, given pressor dependence unable to aggressively diurese. Monitor volume status closely. (3) Aortic stenosis: Code(s): I35.0 - Nonrheumatic aortic (valve) stenosis Status: Acute Assessment and Plan: Severity has progressed now severe valve area 0.8 centimeter squared by echocardiogram this hospitalization. Peak velocity 4.5m/s mean gradient 57 mmHg. Patient previously declined further workup, treatment, surgical intervention and or follow-up. Explained to the patient is on a bedside this me very seriously complicate his comorbidities and can be very dangerous with limited options. Also reminded Mr. Arias's son that there were no surgical or interventional treatment options for his aortic stenosis available this hospital which he acknowledged. We discussed how severe hypotension can be very seriously complicated by severe aortic stenosis and may be life-threatening. (4) Atrial flutter with rapid ventricular response: Code(s): I48.92 - Unspecified atrial flutter Status: Acute Assessment and Plan: New diagnosis atrial flutter with rapid ventricular response and variable AV block. Currently resolved. Amiodarone and metoprolol discontinued due to transient bradycardia and now septic shock requiring pressor support. Continue telemetry. If recurrence of atrial flutter with RVR amiodarone would be best option the need to exercise caution in this regard. (5) Sepsis: Code(s): A41.9 - Sepsis, unspecified organism Status: Acute Assessment and Plan: As above. (6) Influenza A: Code(s): J10.1 - Influenza due to other identified influenza virus with other respiratory manifestations Status: Acute Assessment and Plan: Continue management for influenza A per primary service. (7) Elevated troponin: Code(s): R77.8 - Other specified abnormalities of plasma proteins Status: Acute Assessment and Plan: Chronic, flat not secondary to acute coronary syndrome and/or plaque rupture a type 2 infarction related to rapid tachyarrhythmia, influenza A and underlying UTI. Patient certainly has risk factors for coronary disease further workup with ischemic testing may be considered on outpatient basis if patient agreeable. (8) UTI (urinary tract infection): Code(s): N39.0 - Urinary tract infection, site not specified Status: Acute Assessment and Plan: Continue antibiotics. Management per primary service. (9) Type 2 diabetes mellitus with diabetic neuropathy: Qualifiers: Diabetes mellitus termite technician insulin use: without termite technician use Qualified Code(s): E11.40 - Type 2 diabetes mellitus with diabetic neuropathy, unspecified Code(s): E11.40 - Type 2 diabetes mellitus with diabetic neuropathy, unspecified Status: Chronic Assessment and Plan: Management per primary service. Subjective Date/time seen: Date of service: 02/06/22 11:45 Follow-up for atrial fibrillation, aortic stenosis, influenza A, respiratory failure Patient acutely decompensated yesterday afternoon with fever, confusion hypoxia and eventual severe hypertension. Intubated transferred to the intensive care unit started on Levophed with additional ant
[2022-02-06] MEDS: VASOPRESSIN INJ 100 UNITS in DEXTROSE 5% 95 ML IV CONT (12:16)
[2022-02-06] MEDS: HYDROCORTISONE SODIUM SUCCINATE 100 MG/2 ML VIAL IV PUSH ×2 (12:16→21:40)
[2022-02-06] MEDS: PANTOPRAZOLE SODIUM IV 40 MG VIAL IV PUSH (12:18)
[2022-02-06 13:08] LABS: Glucose Point of Care 241 mg/dl (65-105)
--- NOTE | 2022-02-06 14:58 | PM.IMPN ---
Progress Note: A&P Assessment and Plan (1) Atrial fibrillation with rapid ventricular response: Code(s): I48.91 - Unspecified atrial fibrillation Status: Acute Assessment and Plan: Patient present with irregular her beats, but is unaware his tachycardia. Telemetry shows what appears to be in atrial flutter/fib. EKG confirms SVT/atrial flutter. Continue amiodarone drip started in ED. TSH was normal at 1.9. Repeat EKG this morning. Cardiology consulted. On today's exam, the patient remains in atrial flutter heart rate better controlled on IV amiodarone.? per Cardiology recommendation, he was increased to metoprolol tartrate to 25 mg q.12 hours.? Continue IV amiodarone today, transition to oral regimen tomorrow. per Cardiology recommendation is will be transition to enoxaparin 1 milligram/kg subcutaneous q.12 hours 2 Eliquis 5 mg b.i.d. tomorrow. His troponin remains elevated, although without up trending. Per Cardiology an ischemic workup may be considered as an outpatient. 02/06/2022 interval history: patient went into respiratory failure currently intubated most likely secondary to influenza a, pneumonia and severe aortic stenosis as well as atrial flutter, patient on vent unable to provide any review of symptoms, waterway traffic checker spoke with the patient's son patient had expressed in the past he does not want any surgical intervention for aortic stenosis, patient is seen by Cardiology and waterway traffic checker continue to monitor (2) Influenza A: Code(s): J10.1 - Influenza due to other identified influenza virus with other respiratory manifestations Status: Acute Assessment and Plan: Patient present with upper respiratory symptoms. Influenza a was positive. He is breathing comfortably on room air saturating 95%. Chest x-ray shows mild left lower lobe opacities that may represent pneumonia or atelectasis. He has been started on Tamiflu. Encourage incentive spirometry. Continue Tamiflu. (3) Abnormal urinalysis: Code(s): R82.90 - Unspecified abnormal findings in urine Status: Acute Assessment and Plan: Patient presented with UTI symptoms. He was appropriately started on ceftriaxone. Continue IV ceftriaxone. Urine culture sent on admission and are pending at the time of this dictation. (4) Hypomagnesemia: Code(s): E83.42 - Hypomagnesemia Status: Acute Assessment and Plan: Magnesium was replaced; repeat magnesium improve at 1.6. Follow up repeat chemistry and magnesium today. (5) Obstructive sleep apnea on CPAP: Code(s): G47.33 - Obstructive sleep apnea (adult) (pediatric); Z99.89 - Dependence on other enabling machines and devices Status: Acute Assessment and Plan: CPAP per home parameters. (6) Type 2 diabetes mellitus with diabetic neuropathy: Qualifiers: Diabetes mellitus termite treater helper insulin use: without mcc use Qualified Code(s): E11.40 - Type 2 diabetes mellitus with diabetic neuropathy, unspecified Code(s): E11.40 - Type 2 diabetes mellitus with diabetic neuropathy, unspecified Status: Chronic Assessment and Plan: Continue glipizide. Initiate sliding scale insulin, Accu-Cheks, and hypoglycemic protocol. HGB A1c 6.8. Accu-Chek was 199 this morning. Continue monitoring. Subjective Date/time seen: 02/06/22 14:58 02/06/2022 interval history: patient went into respiratory failure currently intubated most likely secondary to influenza a, pneumonia and severe aortic stenosis as well as atrial flutter, patient on vent unable to provide any review of symptoms, waterway traffic checker spoke with the patient's son patient had expressed in the past he does not want any surgical intervention for aortic stenosis, patient is seen by Cardiology and waterway traffic checker continue to monitor Review of Systems Review of Systems: ROS unobtainable: Yes unobtainable due to endotracheal tube Exam Narrative: morbidly
[2022-02-06 15:09] LABS: Hematocrit 36.9 % (42.0-52.0); Hemoglobin 12.3 g/dL (14.0-18.0); Immature Platelet Fraction Pct 6.2 % (0.9-11.2); Mean Corpuscular HGB Conc 33.3 g/dl (32-36); Mean Corpuscular Hemoglobin 31.4 pg (26-34); Mean Corpuscular Volume 94.1 fl (80-100); Mean Platelet Volume 10.1 fl (7.4-10.4); Platelet Count Result 158 k/mm3 (150-375); Red Blood Count 3.92 M/mm3 (4.6-6.20); Red Cell Distribution Width 14.5 % (11.5-14.5); White Blood Count 10.7 K/mm3 (4.5-10.0)
[2022-02-06 15:39] LABS: INR 1.2
[2022-02-06 16:09] LABS: Fibrinogen 544 mg/dl (215-510)
[2022-02-06 16:51] LABS: Glucose Point of Care 288 mg/dl (65-105)
[2022-02-06] MEDS: FENTANYL 2,500MCG/NS250ML(*CRX 2,500 MCG/250 ML BAG 15 MCG IV CONT (18:20)
[2022-02-06] MEDS: MIDAZOLAM 100MG/NS 100ML(*CRX) 100 MG/100 ML BAG IV CONT (18:21)
[2022-02-06 20:21] LABS: Glucose Point of Care 261 mg/dl (65-105)
[2022-02-07] VITALS (88 sets, daily range): BP systolic 88–134; BP diastolic 48–76; PULSE 47–84; RESP 18–25; TEMP 36.8–38.1; O2SAT 97–100; BMI 46.0
[2022-02-07 00:27] LABS: Glucose Point of Care 306 mg/dl (65-105)
[2022-02-07] MEDS: INSULIN ASPART (*BKC) 100 UNITS/ML SUB-Q ×6 (00:35→20:34)
[2022-02-07 04:59] LABS: Hematocrit 32.8 % (42.0-52.0); Hemoglobin 10.9 g/dL (14.0-18.0); Immature Platelet Fraction Pct 8.4 % (0.9-11.2); Mean Corpuscular HGB Conc 33.2 g/dl (32-36); Mean Corpuscular Hemoglobin 31.5 pg (26-34); Mean Corpuscular Volume 94.8 fl (80-100); Mean Platelet Volume 10.6 fl (7.4-10.4); Platelet Count Result 112 k/mm3 (150-375); Red Blood Count 3.46 M/mm3 (4.6-6.20); Red Cell Distribution Width 14.2 % (11.5-14.5); White Blood Count 6.7 K/mm3 (4.5-10.0)
[2022-02-07 05:08] LABS: Alanine Aminotransferase 21 U/L (6-50); Albumin Level 3.3 g/dL (3.5-5.1); Alkaline Phosphatase 56 U/L (38-126); Anion Gap 4 mmol/L (8-16); Aspartate Amino Transferase 25 U/L (17-59); Bilirubin,Total 0.4 mg/dL (0.2-1.3); Blood Urea Nitrogen 20 mg/dL (9-20); Calcium 7.9 mg/dL (8.4-10.2); Carbon Dioxide 27 mmol/L (22-30); Chloride 98 mmol/L (98-107); Estimated CRCL calculation 81 ml/min; Estimated Glomerular Filt Rate > 60; Glucose 253 mg/dL (65-110); Magnesium 1.9 mg/dL (1.6-2.3); Potassium 3.8 mmol/L (3.4-5.0); Sodium 129 mmol/L (137-145)
[2022-02-07] MEDS: HYDROCORTISONE SODIUM SUCCINATE 100 MG/2 ML VIAL IV PUSH ×3 (05:49→21:55)
[2022-02-07] MEDS: CENTRAL LINE FLUSH 10 ML IV PUSH ×3 (05:49→20:35)
[2022-02-07] MEDS: PIPERACILLIN/TAZOBACTAM SOD 4.5 GM in SODIUM CHLORIDE 0.9% IV 100 ML 200 ML IVPB ×4 (05:49→17:26)
[2022-02-07 05:50] LABS: INR 1.3; Prothrombin Time 15.2 Seconds (11.1-14.7)
[2022-02-07] MEDS: ATORVASTATIN 20 MG TABLET PO (08:07)
[2022-02-07] MEDS: ASPIRIN 81 MG CHEWABLE TABLET PO (08:07)
[2022-02-07] MEDS: APIXABAN 5 MG TABLET PO ×2 (08:07→20:35)
[2022-02-07] MEDS: CHOLECALCIFEROL 1,000 UNITS TABLET 1000 UNITS PO (08:07)
[2022-02-07] MEDS: OSELTAMIVIR PHOSPHATE 75 MG CAPSULE PO ×2 (08:08→20:35)
[2022-02-07] MEDS: MULTIVITAMINS THERAPEUTIC TAB (*BKC) 1 TABLET PO (08:08)
[2022-02-07] MEDS: MICONAZOLE NITRATE 2% CREAM 30 GM TUBE 1 APPLIC TOPICAL ×2 (08:08→17:24)
[2022-02-07] MEDS: BRIMONIDINE TARTRATE 0.2% OP SOLN 5 ML BTL 1 DROP EACH EYE (08:08)
[2022-02-07] MEDS: PANTOPRAZOLE SODIUM IV 40 MG VIAL IV PUSH (08:08)
[2022-02-07] MEDS: TIMOLOL MALEATE 0.5% OP SOLN 5 ML BOTTLE 1 DROP EACH EYE (08:08)
[2022-02-07 08:09] LABS: Glucose Point of Care 252 mg/dl (65-105)
[2022-02-07] MEDS: MINERAL OIL/WHITE PETROLATUM OINTMENT 1 APPLIC EACH EYE ×2 (08:09→20:34)
[2022-02-07] MEDS: INSULIN GLARGINE (*BKC) 100 UNITS/ML 20 UNITS SUB-Q (08:11)
[2022-02-07] MEDS: POTASSIUM CHLORIDE 20 MEQ PACKET (FOR LIQUID) FEED TUBE (08:12)
[2022-02-07] MEDS: NOREPINEPHRINE 8 MG/D5W 250 ML 8 MG/250 ML BAG 9.38 MG IV CONT (08:12)
[2022-02-07] MEDS: TOLNAFTATE 1% POWDER 45 GM BTL 1 APPLIC TOPICAL ×2 (08:13→20:34)
--- NOTE | 2022-02-07 10:53 | WPDINTPN ---
Progress Note: A&P Assessment and Plan (1) Acute respiratory failure: Code(s): J96.00 - Acute respiratory failure, unspecified whether with hypoxia or hypercapnia Status: Acute Assessment and Plan: Acute hypoxic and hypercarbic Respiratory failure secondary to influenza, pulmonary edema, secondary bacterial pneumonia Patient's BNP is elevated but not markedly high. Echo shows severe aortic stenosis Patient admitted with influenza A and at risk of secondary bacterial infection CT showed Bilateral dependent consolidations may reflect atelectasis/edema, noting that infection is not excluded. Suspected trace bilateral pleural effusions. Continue full mechanical ventilation support to prevent hypoxemia/hypercarbia and end organ damage. ABG and ventilator settings reviewed currently on 30% FiO2 and 8 of PEEP Low tidal volume ventilation strategy to prevent volutrauma Continue Tamiflu Hold diuretics due to shock Empiric antibiotics vancomycin and Zosyn for now. Off Flagyl and Bactrim (2) Sepsis: Code(s): A41.9 - Sepsis, unspecified organism Status: Acute Assessment and Plan: Secondary to influenza A and possible bacterial pneumonia. Also has UTI Blood culture sent and pending Urine cultures growing Enterococcus which is sensitive to vancomycin the patient is on (3) Shock: Code(s): R57.9 - Shock, unspecified Status: Acute Assessment and Plan: Likely multifactorial secondary to a severe aortic stenosis and sepsis Patient received conservative IV fluids due to concern of pulmonary edema and heart failure Continue Levophed and wean vasopressin Continue stress dose steroids (4) UTI (urinary tract infection): Code(s): N39.0 - Urinary tract infection, site not specified Status: Acute Assessment and Plan: See above (5) Atrial flutter with rapid ventricular response: Code(s): I48.92 - Unspecified atrial flutter Status: Acute Assessment and Plan: Patient has now converted to sinus rhythm On Eliquis for anticoagulation Not on beta-swati due to shock (6) Influenza A: Code(s): J10.1 - Influenza due to other identified influenza virus with other respiratory manifestations Status: Acute Assessment and Plan: On Tamiflu (7) Aortic stenosis, severe: Code(s): I35.0 - Nonrheumatic aortic (valve) stenosis Status: Acute Assessment and Plan: Echocardiogram 02/05/2022 Summary ? 1. Technically difficult study with limited views despite definity echo contrast enhancement with limited regional wall motion assessment due to poor endomyocardial border definition. ? 2. Left ventricular chamber dimension is normal. ? 3. There is moderately increased left ventricular wall thickness. ? 4. Left ventricular systolic function is normal, estimated at 55%. ? 5. Right ventricular systolic function is normal.? TAPSE 2.0. ? 6. There is severe aortic valve stenosis with a peak velocity of 4.50 cm/s, mean gradient of 57 mmHg, and aortic valve area of 0.80 cm2. ? 7. There is mild mitral valve regurgitation. Cardiology following (8) Hyperlipidemia: Qualifiers: Hyperlipidemia type: unspecified Qualified Code(s): E78.5 - Hyperlipidemia, unspecified Code(s): E78.5 - Hyperlipidemia, unspecified Status: Chronic Assessment and Plan: Continue Lipitor (9) GERD without esophagitis: Code(s): K21.9 - Gastro-esophageal reflux disease without esophagitis Status: Chronic Assessment and Plan: Continue Protonix (10) Type 2 diabetes mellitus with diabetic neuropathy: Qualifiers: Diabetes mellitus residential insulin use: without rn long term care use Qualified Code(s): E11.40 - Type 2 diabetes mellitus with diabetic neuropathy, unspecified Code(s): E11.40 - Type 2 diabetes mellitus with diabetic neuropathy, unspecified Status: Chronic Assessment and Plan: Sliding scale insu
[2022-02-07 12:18] LABS: Glucose Point of Care 260 mg/dl (65-105)
[2022-02-07] MEDS: FENTANYL 2,500MCG/NS250ML(*CRX 2,500 MCG/250 ML BAG 15 MCG IV CONT (12:57)
[2022-02-07] MEDS: MIDAZOLAM 100MG/NS 100ML(*CRX) 100 MG/100 ML BAG IV CONT (12:57)
--- NOTE | 2022-02-07 14:28 | PM.IMPN ---
Progress Note: A&P Assessment and Plan (1) Atrial fibrillation with rapid ventricular response: Code(s): I48.91 - Unspecified atrial fibrillation Status: Acute Assessment and Plan: Patient present with irregular her beats, but is unaware his tachycardia. Telemetry shows what appears to be in atrial flutter/fib. EKG confirms SVT/atrial flutter. Continue amiodarone drip started in ED. TSH was normal at 1.9. Repeat EKG this morning. Cardiology consulted. On today's exam, the patient remains in atrial flutter heart rate better controlled on IV amiodarone.? per Cardiology recommendation, he was increased to metoprolol tartrate to 25 mg q.12 hours.? Continue IV amiodarone today, transition to oral regimen tomorrow. per Cardiology recommendation is will be transition to enoxaparin 1 milligram/kg subcutaneous q.12 hours 2 Eliquis 5 mg b.i.d. tomorrow. His troponin remains elevated, although without up trending. Per Cardiology an ischemic workup may be considered as an outpatient. 02/07/2022 interval history: patient went into respiratory failure currently intubated most likely secondary to influenza a, pneumonia and severe aortic stenosis as well as atrial flutter, patient on vent unable to provide any review of symptoms, first crusher spoke with the patient's son patient had expressed in the past he does not want any surgical intervention for aortic stenosis, discusses with first crusher there are no new concerns, patient is seen by Cardiology and first crusher continue to monitor (2) Influenza A: Code(s): J10.1 - Influenza due to other identified influenza virus with other respiratory manifestations Status: Acute Assessment and Plan: Patient present with upper respiratory symptoms. Influenza a was positive. He is breathing comfortably on room air saturating 95%. Chest x-ray shows mild left lower lobe opacities that may represent pneumonia or atelectasis. He has been started on Tamiflu. Encourage incentive spirometry. Continue Tamiflu. (3) Abnormal urinalysis: Code(s): R82.90 - Unspecified abnormal findings in urine Status: Acute Assessment and Plan: Patient presented with UTI symptoms. He was appropriately started on ceftriaxone. Continue IV ceftriaxone. Urine culture sent on admission and are pending at the time of this dictation. (4) Hypomagnesemia: Code(s): E83.42 - Hypomagnesemia Status: Acute Assessment and Plan: Magnesium was replaced; repeat magnesium improve at 1.6. Follow up repeat chemistry and magnesium today. (5) Obstructive sleep apnea on CPAP: Code(s): G47.33 - Obstructive sleep apnea (adult) (pediatric); Z99.89 - Dependence on other enabling machines and devices Status: Acute Assessment and Plan: CPAP per home parameters. (6) Type 2 diabetes mellitus with diabetic neuropathy: Qualifiers: Diabetes mellitus terminal supervisor insulin use: without terminal supervisor use Qualified Code(s): E11.40 - Type 2 diabetes mellitus with diabetic neuropathy, unspecified Code(s): E11.40 - Type 2 diabetes mellitus with diabetic neuropathy, unspecified Status: Chronic Assessment and Plan: Continue glipizide. Initiate sliding scale insulin, Accu-Cheks, and hypoglycemic protocol. HGB A1c 6.8. Accu-Chek was 199 this morning. Continue monitoring. Subjective Date/time seen: 02/07/22 14:28 Patient present with irregular her beats, but is unaware his tachycardia. Telemetry shows what appears to be in atrial flutter/fib. EKG confirms SVT/atrial flutter. Continue amiodarone drip started in ED. TSH was normal at 1.9. Repeat EKG this morning. Cardiology consulted. On today's exam, the patient remains in atrial flutter heart rate better controlled on IV amiodarone.? per Cardiology recommendation, he was increased to metoprolol tartrate to 25 mg q.12 hours.? Continue IV amiodarone today, transition to oral regim
--- NOTE | 2022-02-07 15:42 | PM.PNCARD ---
Progress Note: A&P Assessment and Plan (1) Shock: Code(s): R57.9 - Shock, unspecified Status: Acute Assessment and Plan: Patient remains critically ill. Most likely septic shock secondary to worsening pneumonia versus ARDS although stabilizing. Remains on broad-spectrum antibiotics. Blood Cultures pending. Urine culture positive for vancomycin sensitive Enterococcus. (2) Acute respiratory failure: Code(s): J96.00 - Acute respiratory failure, unspecified whether with hypoxia or hypercapnia Status: Acute Assessment and Plan: Status post intubation mechanical ventilatory support. Defer management to Critical Care. Clinically there appears to be degree of congestive heart failure as well, however, given pressor dependence unable to aggressively diurese. Monitor volume status closely. (3) Aortic stenosis: Code(s): I35.0 - Nonrheumatic aortic (valve) stenosis Status: Acute Assessment and Plan: Severity has progressed now severe valve area 0.8 centimeter squared by echocardiogram this hospitalization. Peak velocity 4.5m/s mean gradient 57 mmHg. Patient previously declined further workup, treatment, surgical intervention and or follow-up. Explained to the patient is on a bedside this me very seriously complicate his comorbidities and can be very dangerous with limited options. Also reminded Mr. Arias's son that there were no surgical or interventional treatment options for his aortic stenosis available this hospital which he acknowledged. We discussed how severe hypotension can be very seriously complicated by severe aortic stenosis and may be life-threatening. (4) Atrial flutter with rapid ventricular response: Code(s): I48.92 - Unspecified atrial flutter Status: Acute Assessment and Plan: New diagnosis atrial flutter with rapid ventricular response and variable AV block. Currently resolved. Off amiodarone and metoprolol due to bradycardia and shock. Maintaining sinus rhythm thus far. Continue telemetry. (5) Sepsis: Code(s): A41.9 - Sepsis, unspecified organism Status: Acute Assessment and Plan: As above. (6) Influenza A: Code(s): J10.1 - Influenza due to other identified influenza virus with other respiratory manifestations Status: Acute Assessment and Plan: Continue management for influenza A per primary service. (7) Elevated troponin: Code(s): R77.8 - Other specified abnormalities of plasma proteins Status: Acute Assessment and Plan: Chronic, flat not secondary to acute coronary syndrome and/or plaque rupture a type 2 infarction related to rapid tachyarrhythmia, influenza A and underlying UTI. Patient certainly has risk factors for coronary disease further workup with ischemic testing may be considered on outpatient basis if patient agreeable. (8) UTI (urinary tract infection): Code(s): N39.0 - Urinary tract infection, site not specified Status: Acute Assessment and Plan: Continue antibiotics. Management per primary service. (9) Type 2 diabetes mellitus with diabetic neuropathy: Qualifiers: Diabetes mellitus intermediate school teacher insulin use: without intermediate school teacher use Qualified Code(s): E11.40 - Type 2 diabetes mellitus with diabetic neuropathy, unspecified Code(s): E11.40 - Type 2 diabetes mellitus with diabetic neuropathy, unspecified Status: Chronic Assessment and Plan: Management per primary service. Subjective Date/time seen: Date of service: 02/07/22 11:15 Follow-up for atrial flutter, aortic stenosis, influenza, respiratory failure He remains sedated on mechanical ventilatory support. He is maintained on Levophed and vasopressin. Maintaining sinus rhythm and sinus bradycardia. No longer febrile. Review of Systems Review of Systems: All systems reviewed & are unremarkable except as noted in HPI and below ROS unobtainable: Yes unobtainable du
[2022-02-07 16:23] LABS: Glucose Point of Care 257 mg/dl (65-105)
[2022-02-07 20:29] LABS: Glucose Point of Care 273 mg/dl (65-105)
[2022-02-07 21:05] LABS: Triglycerides 135 mg/dL (<150)
[2022-02-08] VITALS (118 sets, daily range): BP systolic 92–145; BP diastolic 50–67; PULSE 51–79; RESP 22–35; TEMP 36.8–37.2; O2SAT 97–100
[2022-02-08] MEDS: PIPERACILLIN/TAZOBACTAM SOD 4.5 GM in SODIUM CHLORIDE 0.9% IV 100 ML 200 ML IVPB ×3 (00:20→17:15)
[2022-02-08 01:27] LABS: Glucose Point of Care 324 mg/dl (65-105)
[2022-02-08] MEDS: INSULIN ASPART (*BKC) 100 UNITS/ML SUB-Q ×5 (01:36→17:09)
[2022-02-08 04:35] LABS: Hematocrit 34.8 % (42.0-52.0); Hemoglobin 11.6 g/dL (14.0-18.0); Mean Corpuscular HGB Conc 33.3 g/dl (32-36); Mean Corpuscular Hemoglobin 31.5 pg (26-34); Mean Corpuscular Volume 94.6 fl (80-100); Mean Platelet Volume 10.8 fl (7.4-10.4); Platelet Count Result 159 k/mm3 (150-375); Red Blood Count 3.68 M/mm3 (4.6-6.20); Red Cell Distribution Width 14.6 % (11.5-14.5); White Blood Count 13.5 K/mm3 (4.5-10.0)
[2022-02-08] MEDS: FENTANYL 2,500MCG/NS250ML(*CRX 2,500 MCG/250 ML BAG 15 MCG IV CONT ×2 (04:45→21:55)
[2022-02-08 04:50] LABS: Alanine Aminotransferase 20 U/L (6-50); Albumin Level 3.4 g/dL (3.5-5.1); Alkaline Phosphatase 62 U/L (38-126); Anion Gap 5 mmol/L (8-16); Aspartate Amino Transferase 24 U/L (17-59); Bilirubin,Total 0.3 mg/dL (0.2-1.3); Blood Urea Nitrogen 22 mg/dL (9-20); Calcium 8.6 mg/dL (8.4-10.2); Carbon Dioxide 28 mmol/L (22-30); Chloride 101 mmol/L (98-107); Estimated CRCL calculation 80 ml/min; Estimated Glomerular Filt Rate > 60; Glucose 244 mg/dL (65-110); Magnesium 2.1 mg/dL (1.6-2.3); Sodium 134 mmol/L (137-145)
[2022-02-08] MEDS: HYDROCORTISONE SODIUM SUCCINATE 100 MG/2 ML VIAL IV PUSH ×2 (05:16→20:07)
[2022-02-08] MEDS: CENTRAL LINE FLUSH 10 ML IV PUSH ×3 (05:16→20:08)
[2022-02-08 05:53] LABS: Alveolar/Arterial O2 Gradient 70.6 mmHg; Arterial Blood Gas Ventilator rate 25 /MIN; Base Excess ABG 2.2 mEq/l (+/-2.0); Carboxyhemoglobin 0.3 % THb (0-2.0); Device VENTILATOR; Fractional Inspired Oxygen 30 %; HCO3 ABG 25.9 mEq/l (22.0-26.0); Methemoglobin ABG 0.2 %THb (0-1.5); Modified Allen's Test Unable to perform; Oxygen Content ABG 17.2 %vol (16.0-22.0); Oxygen Saturation ABG 97.9 % (95.0-100.0); Oxyhemoglobin 96.2 % THb (90.0-100.0); PCO2 ABG 37.2 mmHg (35.0-45.0); PO2 ABG 99.6 mmHg (80.0-100.0); PO2 FiO2 Ratio Arterial Blood 3.32 %; Reduced Hemoglobin 3.3 %THb (0-5.0); Site Drawn RIGHT RADIAL; Total Hemoglobin 12.6 g/dL (12.0-18.0); pH ABG 7.461 (7.350-7.450)
[2022-02-08 05:54] LABS: Arterial Blood Gas PEEP 8 cmH2O; Arterial Blood Gas Tidal Volume 450 ml; Arterial Blood Gas Vent Mode CMV
[2022-02-08] MEDS: MIDAZOLAM 100MG/NS 100ML(*CRX) 100 MG/100 ML BAG IV CONT (06:51)
[2022-02-08 07:34] LABS: Glucose Point of Care 247 mg/dl (65-105)
[2022-02-08] MEDS: MICONAZOLE NITRATE 2% CREAM 30 GM TUBE 1 APPLIC TOPICAL ×2 (08:41→17:11)
[2022-02-08] MEDS: TIMOLOL MALEATE 0.5% OP SOLN 5 ML BOTTLE 1 DROP EACH EYE (08:41)
[2022-02-08] MEDS: TOLNAFTATE 1% POWDER 45 GM BTL 1 APPLIC TOPICAL ×2 (08:41→20:08)
[2022-02-08] MEDS: BRIMONIDINE TARTRATE 0.2% OP SOLN 5 ML BTL 1 DROP EACH EYE (08:41)
[2022-02-08] MEDS: APIXABAN 5 MG TABLET PO ×2 (08:42→20:07)
[2022-02-08] MEDS: ASPIRIN 81 MG CHEWABLE TABLET PO (08:42)
[2022-02-08] MEDS: ATORVASTATIN 20 MG TABLET PO (08:42)
[2022-02-08] MEDS: MINERAL OIL/WHITE PETROLATUM OINTMENT 1 APPLIC EACH EYE ×2 (08:43→20:07)
[2022-02-08] MEDS: MULTIVITAMINS THERAPEUTIC TAB (*BKC) 1 TABLET PO (08:43)
[2022-02-08] MEDS: PANTOPRAZOLE SODIUM IV 40 MG VIAL IV PUSH (08:44)
[2022-02-08] MEDS: OSELTAMIVIR PHOSPHATE 75 MG CAPSULE PO ×2 (08:44→20:08)
[2022-02-08] MEDS: INSULIN GLARGINE (*BKC) 100 UNITS/ML 30 UNITS SUB-Q (08:48)
--- NOTE | 2022-02-08 10:23 | PM.PNCARD ---
Progress Note: A&P Assessment and Plan (1) Shock: Code(s): R57.9 - Shock, unspecified Status: Acute Assessment and Plan: Patient remains critically ill. Most likely septic shock secondary to worsening pneumonia versus ARDS although stabilizing. Remains on broad-spectrum antibiotics. Blood Cultures pending. Urine culture positive for vancomycin sensitive Enterococcus. (2) Acute respiratory failure: Code(s): J96.00 - Acute respiratory failure, unspecified whether with hypoxia or hypercapnia Status: Acute Assessment and Plan: Status post intubation mechanical ventilatory support. Defer management to Critical Care. Clinically there appears to be degree of congestive heart failure as well, however, given pressor dependence unable to aggressively diurese. Monitor volume status closely. (3) Aortic stenosis: Code(s): I35.0 - Nonrheumatic aortic (valve) stenosis Status: Acute Assessment and Plan: Severity has progressed now severe valve area 0.8 centimeter squared by echocardiogram this hospitalization. Peak velocity 4.5m/s mean gradient 57 mmHg. Patient previously declined further workup, treatment, surgical intervention and or follow-up. Explained to the patient is on a bedside this me very seriously complicate his comorbidities and can be very dangerous with limited options. Also reminded Mr. Arias's son that there were no surgical or interventional treatment options for his aortic stenosis available this hospital which he acknowledged. We discussed how severe hypotension can be very seriously complicated by severe aortic stenosis and may be life-threatening. (4) Atrial flutter with rapid ventricular response: Code(s): I48.92 - Unspecified atrial flutter Status: Acute Assessment and Plan: New diagnosis atrial flutter with rapid ventricular response and variable AV block. Currently resolved. Off amiodarone and metoprolol due to bradycardia and shock. Maintaining sinus rhythm thus far. Continue telemetry. (5) Sepsis: Code(s): A41.9 - Sepsis, unspecified organism Status: Acute Assessment and Plan: As above. (6) Influenza A: Code(s): J10.1 - Influenza due to other identified influenza virus with other respiratory manifestations Status: Acute Assessment and Plan: Continue management for influenza A per primary service. (7) Elevated troponin: Code(s): R77.8 - Other specified abnormalities of plasma proteins Status: Acute Assessment and Plan: Chronic, flat not secondary to acute coronary syndrome and/or plaque rupture a type 2 infarction related to rapid tachyarrhythmia, influenza A and underlying UTI. Patient certainly has risk factors for coronary disease further workup with ischemic testing may be considered on outpatient basis if patient agreeable. (8) UTI (urinary tract infection): Code(s): N39.0 - Urinary tract infection, site not specified Status: Acute Assessment and Plan: Continue antibiotics. Management per primary service. (9) Type 2 diabetes mellitus with diabetic neuropathy: Qualifiers: Diabetes mellitus terminal clerk insulin use: without terminal clerk use Qualified Code(s): E11.40 - Type 2 diabetes mellitus with diabetic neuropathy, unspecified Code(s): E11.40 - Type 2 diabetes mellitus with diabetic neuropathy, unspecified Status: Chronic Assessment and Plan: Management per primary service. Subjective Date/time seen: 02/08/22 10:23 Cardiology follow up for severe , atrial flutter Remains clinically stable. On vaso and norepi still. HR improved, mid 50's-60's on telemetry. Review of Systems Review of Systems: All systems reviewed & are unremarkable except as noted in HPI and below ROS unobtainable: Yes unobtainable due to endotracheal tube, unobtainable due to medical condition and unobtainable due to mental status Constitutional:
--- NOTE | 2022-02-08 10:52 | PCNFU ---
Nutrition Follow-Up Complete: Inadequate intake from tube feeding related to increased protein energy needs as evidenced by tube feeding order meeting 66% estimated energy needs Goal:Meet estimated nutrition needs - Progressing toward goal Pt current nutrition is Glucerna 1.2 @ 50 ml/h. Tolerating. Pressors are coming down. Vasopressin is off and levophed down to 2 ml/h. Blood pressures improving, MAP up to 72. MD prefers to stay with Glucerna formula due to high blood sugars. Nutrition recommendation: Stay with current formula and rate until pressors are off and then probably recommend increasing to goal rate of 75 ml/h to meet protein energy needs. Last recorded weight is 144.2 kg. Bowel Motility: +1 BM 02/07/22 Labs Reviewed: Alb 3.4, Na 134, BUN 22, Glu 244-324 Meds Noted: Fentanyl, versed, Eliquis, vancomycin, hydrocortisone Skin: wnl Additional Notes: Continue current care plan due to decrease in pressors and improvement to blood pressures. Monitor tolerance, plan of care, labs, meds, etc Follow daily in ICU rounds. Reassess Monday and Monday.
--- NOTE | 2022-02-08 11:09 | WPDINTPN ---
Progress Note: A&P Assessment and Plan (1) Acute respiratory failure: Code(s): J96.00 - Acute respiratory failure, unspecified whether with hypoxia or hypercapnia Status: Acute Assessment and Plan: Acute hypoxic and hypercarbic Respiratory failure secondary to influenza, pulmonary edema, secondary bacterial pneumonia -Patient's BNP is elevated but not markedly high. Echo shows severe aortic stenosis -admitted with influenza A and at risk of secondary bacterial infection -02/06: CT showed Bilateral dependent consolidations may reflect atelectasis/edema, noting that infection is not excluded. Suspected trace bilateral pleural effusions. -Continue full mechanical ventilation support to prevent hypoxemia/hypercarbia and end organ damage. ABG and ventilator settings reviewed currently on 30% FiO2 and 8 of PEEP Low tidal volume ventilation strategy to prevent volutrauma -Continue Tamiflu -Hold diuretics due to shock -Empiric antibiotics vancomycin and Zosyn for now. Off Flagyl and Bactrim -sedated with fentanyl and propofol, will start weaning down, maintain RASS of 0 to -1 (2) Sepsis: Code(s): A41.9 - Sepsis, unspecified organism Status: Acute Assessment and Plan: Secondary to influenza A and possible bacterial pneumonia. Also has UTI 02/04:Blood culture: No growth 02/04: Urine cultures growing Enterococcus which is sensitive to vancomycin the patient (3) Shock: Code(s): R57.9 - Shock, unspecified Status: Acute Assessment and Plan: -Likely multifactorial secondary to a severe aortic stenosis and sepsis due to pneumonia and UTI -Patient received conservative IV fluids due to concern of pulmonary edema and heart failure -wean Levophed to maintain mean arterial pressure > 65 mmHg -off vasopressin -start weaning stress dose steroids (4) UTI (urinary tract infection): Code(s): N39.0 - Urinary tract infection, site not specified Status: Acute Assessment and Plan: Urine cultures growing Enterococcus, continue vancomycin (5) Atrial flutter with rapid ventricular response: Code(s): I48.92 - Unspecified atrial flutter Status: Acute Assessment and Plan: Patient has now converted to sinus rhythm On Eliquis for anticoagulation -Not on amiodarone or beta-swati due to bradycardia -appreciate cardiology following the patient (6) Influenza A: Code(s): J10.1 - Influenza due to other identified influenza virus with other respiratory manifestations Status: Acute Assessment and Plan: Continue a full course of Tamiflu (7) Aortic stenosis, severe: Code(s): I35.0 - Nonrheumatic aortic (valve) stenosis Status: Acute Assessment and Plan: Echocardiogram 02/05/2022 Summary ? 1. Technically difficult study with limited views despite definity echo contrast enhancement with limited regional wall motion assessment due to poor endomyocardial border definition. ? 2. Left ventricular chamber dimension is normal. ? 3. There is moderately increased left ventricular wall thickness. ? 4. Left ventricular systolic function is normal, estimated at 55%. ? 5. Right ventricular systolic function is normal.? TAPSE 2.0. ? 6. There is severe aortic valve stenosis with a peak velocity of 4.50 cm/s, mean gradient of 57 mmHg, and aortic valve area of 0.80 cm2. ? 7. There is mild mitral valve regurgitation. Cardiology following (8) Hyperlipidemia: Qualifiers: Hyperlipidemia type: unspecified Qualified Code(s): E78.5 - Hyperlipidemia, unspecified Code(s): E78.5 - Hyperlipidemia, unspecified Status: Chronic Assessment and Plan: Continue Lipitor (9) GERD without esophagitis: Code(s): K21.9 - Gastro-esophageal reflux disease without esophagitis Status: Chronic Assessment and Plan: Continue Protonix (10) Type 2 diabetes mellitus with diabetic neuropathy: Qualifiers: Diabetes m
[2022-02-08 11:37] LABS: Glucose Point of Care 208 mg/dl (65-105)
[2022-02-08] MEDS: PIPERACILLIN/TAZOBACTAM SOD 4.5 GM in SODIUM CHLORIDE 0.9% IV 100 ML IVPB (12:17)
[2022-02-08 17:08] LABS: Glucose Point of Care 230 mg/dl (65-105)
[2022-02-08 19:46] LABS: Glucose Point of Care 191 mg/dl (65-105)
[2022-02-09] VITALS (38 sets, daily range): BP systolic 83–179; BP diastolic 44–76; PULSE 53–86; RESP 16–25; TEMP 36.6–37.4; O2SAT 98–100; BMI 45.6
[2022-02-09 00:17] LABS: Glucose Point of Care 185 mg/dl (65-105)
[2022-02-09] MEDS: PIPERACILLIN/TAZOBACTAM SOD 4.5 GM in SODIUM CHLORIDE 0.9% IV 100 ML IVPB ×4 (00:31→16:57)
[2022-02-09] MEDS: MIDAZOLAM 100MG/NS 100ML(*CRX) 100 MG/100 ML BAG IV CONT (02:06)
[2022-02-09 04:21] LABS: Glucose Point of Care 224 mg/dl (65-105)
[2022-02-09 05:18] LABS: Hematocrit 34.5 % (42.0-52.0); Hemoglobin 11.2 g/dL (14.0-18.0); Immature Platelet Fraction Pct 8.3 % (0.9-11.2); Mean Corpuscular HGB Conc 32.5 g/dl (32-36); Mean Corpuscular Hemoglobin 31.5 pg (26-34); Mean Corpuscular Volume 97.2 fl (80-100); Mean Platelet Volume 11.1 fl (7.4-10.4); Platelet Count Result 138 k/mm3 (150-375); Red Blood Count 3.55 M/mm3 (4.6-6.20); Red Cell Distribution Width 14.4 % (11.5-14.5); White Blood Count 9.8 K/mm3 (4.5-10.0)
[2022-02-09 05:26] LABS: Alveolar/Arterial O2 Gradient 42.6 mmHg; Base Excess ABG 3.1 mEq/l (+/-2.0); Carboxyhemoglobin 0.5 % THb (0-2.0); Fractional Inspired Oxygen 30 %; HCO3 ABG 26.5 mEq/l (22.0-26.0); Methemoglobin ABG 0.1 %THb (0-1.5); Oxygen Content ABG 22.2 %vol (16.0-22.0); Oxygen Saturation ABG 98.8 % (95.0-100.0); Oxyhemoglobin 97.4 % THb (90.0-100.0); PCO2 ABG 36.5 mmHg (35.0-45.0); PO2 ABG 128.4 mmHg (80.0-100.0); PO2 FiO2 Ratio Arterial Blood 4.28 %; Total Hemoglobin 16.1 g/dL (12.0-18.0); pH ABG 7.478 (7.350-7.450)
[2022-02-09 05:27] LABS: Device VENTILATOR; Modified Allen's Test Pass; Site Drawn RIGHT RADIAL
[2022-02-09 05:28] LABS: Arterial Blood Gas PEEP 8 cmH2O; Arterial Blood Gas Tidal Volume 450 ml; Arterial Blood Gas Vent Mode CMV; Arterial Blood Gas Ventilator rate 25 /MIN
[2022-02-09 05:29] LABS: Alanine Aminotransferase 20 U/L (6-50); Albumin Level 3.2 g/dL (3.5-5.1); Alkaline Phosphatase 59 U/L (38-126); Anion Gap 5 mmol/L (8-16); Aspartate Amino Transferase 25 U/L (17-59); Bilirubin,Total 0.3 mg/dL (0.2-1.3); Blood Urea Nitrogen 25 mg/dL (9-20); Calcium 8.5 mg/dL (8.4-10.2); Carbon Dioxide 29 mmol/L (22-30); Chloride 100 mmol/L (98-107); Estimated CRCL calculation 73 ml/min; Estimated Glomerular Filt Rate > 60; Glucose 221 mg/dL (65-110); Potassium 4.3 mmol/L (3.4-5.0); Sodium 134 mmol/L (137-145)
[2022-02-09] MEDS: INSULIN ASPART (*BKC) 100 UNITS/ML SUB-Q ×4 (05:43→20:02)
[2022-02-09] MEDS: CENTRAL LINE FLUSH 10 ML IV PUSH ×3 (05:44→19:57)
[2022-02-09 07:30] LABS: Glucose Point of Care 218 mg/dl (65-105)
[2022-02-09] MEDS: TIMOLOL MALEATE 0.5% OP SOLN 5 ML BOTTLE 1 DROP EACH EYE (08:30)
[2022-02-09] MEDS: BRIMONIDINE TARTRATE 0.2% OP SOLN 5 ML BTL 1 DROP EACH EYE (08:30)
[2022-02-09] MEDS: ATORVASTATIN 20 MG TABLET PO (08:31)
[2022-02-09] MEDS: ASPIRIN 81 MG CHEWABLE TABLET PO (08:31)
[2022-02-09] MEDS: APIXABAN 5 MG TABLET PO ×2 (08:31→19:57)
[2022-02-09] MEDS: MULTIVITAMINS THERAPEUTIC TAB (*BKC) 1 TABLET PO (08:31)
[2022-02-09] MEDS: PANTOPRAZOLE SODIUM IV 40 MG VIAL IV PUSH (08:31)
[2022-02-09] MEDS: CHOLECALCIFEROL 1,000 UNITS TABLET 1000 UNITS PO (08:31)
[2022-02-09] MEDS: TOLNAFTATE 1% POWDER 45 GM BTL 1 APPLIC TOPICAL ×2 (08:32→19:57)
[2022-02-09] MEDS: MICONAZOLE NITRATE 2% CREAM 30 GM TUBE 1 APPLIC TOPICAL ×2 (08:32→16:57)
[2022-02-09] MEDS: INSULIN GLARGINE (*BKC) 100 UNITS/ML 35 UNITS SUB-Q (08:34)
--- NOTE | 2022-02-09 08:55 | P.CDI_ITS ---
CDI Query Clarified Diagnosis Clarified Diagnosis: Elevated BNP on 02/04 lab work. Acute Respiratory Failure noted on the assessment and plan secondary to pulmonary edema. 02/06 Clinically there appears to be a degree of congestive heart failure Please specify type and acuity of heart failure if known. * Acute * Chronic * Acute on Chronic * Unknown * Systolic * Diastolic * Combined Systolic and Diastolic * Unknown
--- NOTE | 2022-02-09 10:50 | PCNFU ---
Nutrition Follow-Up Complete: Inadequate intake from tube feeding related to increased protein energy needs as evidenced by tube feeding order meeting 66% estimated energy needs New: Excessive fluid intake from tube feeding related to fluid overload as evidenced by report Goal: Meet estimated nutrition needs - Goal being met Pt current nutrition is Glucerna 1.2 @ 50 ml/h: 1320 kcals, 66 g protein, 885 ml free water. total free water 1015 ml/day. Nutrition recommendation: Modify tube feeding formula and rate to Vital HP 1.5 @ 45 ml/h: 1485 kcals, 86 g protein, 827 ml free water from formula. Flushes 30 ml q 4 h. Total fluid 1007 ml/day. Last recorded weight is 144.4 kg. Bowel Motility: + 1 BM 03/11/21 Labs Reviewed: Alb 3.2, Na 134, BUN 25, Glu 185-247 Meds Noted:Fentanyl, versed, Eliquis, Vnaco, hydrcortisone Skin: WNL Additional Notes: Remains on vent. Tolerating tube feed. Recommend switching to more calorie dense formula to decrease volume while providing more protein. Discussed with MD. Monitor tolerance, plan of care, labs, meds, etc Follow daily in ICU rounds. Reassess Monday and Monday.
[2022-02-09] MEDS: HYDROCORTISONE SODIUM SUCCINATE 100 MG/2 ML VIAL IV PUSH ×2 (11:19→19:57)
[2022-02-09] MEDS: OSELTAMIVIR PHOSPHATE 75 MG CAPSULE PO (11:19)
[2022-02-09 11:32] LABS: Glucose Point of Care 197 mg/dl (65-105)
[2022-02-09] MEDS: NOREPINEPHRINE 8 MG/D5W 250 ML 8 MG/250 ML BAG 9.38 MG IV CONT (12:40)
--- NOTE | 2022-02-09 13:05 | WPDINTPN ---
Progress Note: A&P Assessment and Plan (1) Acute respiratory failure: Code(s): J96.00 - Acute respiratory failure, unspecified whether with hypoxia or hypercapnia Status: Acute Assessment and Plan: Acute hypoxic and hypercarbic Respiratory failure secondary to influenza, pulmonary edema due to aortic stenosis, secondary bacterial pneumonia -Patient's BNP is elevated but not markedly high. Echo shows severe aortic stenosis -admitted with influenza A and at risk of secondary bacterial infection -02/06: CT showed Bilateral dependent consolidations may reflect atelectasis/edema, noting that infection is not excluded. Suspected trace bilateral pleural effusions. -Continue full mechanical ventilation support to prevent hypoxemia/hypercarbia and end organ damage. ABG and ventilator settings reviewed currently on 30% FiO2 and 8 of PEEP -chest x-ray this morning:Small bilateral pleural effusions with mild pulmonary edema pattern Low tidal volume ventilation strategy to prevent volutrauma -Continue Tamiflu -Hold diuretics due to shock -Empiric antibiotics vancomycin and Zosyn for now. Off Flagyl and Bactrim -sedated with fentanyl and propofol, will start weaning down, maintain RASS of 0 to -1 (2) Sepsis: Code(s): A41.9 - Sepsis, unspecified organism Status: Acute Assessment and Plan: Secondary to influenza A and possible bacterial pneumonia. Also has UTI 02/04:Blood culture: No growth 02/04: Urine cultures growing Enterococcus which is sensitive to vancomycin the patient, continue vancomycin (3) Shock: Code(s): R57.9 - Shock, unspecified Status: Acute Assessment and Plan: -Likely multifactorial secondary to a severe aortic stenosis and sepsis due to pneumonia and UTI -Patient received conservative IV fluids due to concern of pulmonary edema and heart failure -wean Levophed to maintain mean arterial pressure > 65 mmHg -off vasopressin - weaning stress dose steroids (4) UTI (urinary tract infection): Code(s): N39.0 - Urinary tract infection, site not specified Status: Acute Assessment and Plan: Urine cultures growing Enterococcus, continue vancomycin (5) Atrial flutter with rapid ventricular response: Code(s): I48.92 - Unspecified atrial flutter Status: Acute Assessment and Plan: Patient has now converted to sinus rhythm On Eliquis for anticoagulation -Not on amiodarone or beta-swati due to bradycardia -appreciate cardiology following the patient (6) Influenza A: Code(s): J10.1 - Influenza due to other identified influenza virus with other respiratory manifestations Status: Acute Assessment and Plan: Continue a full course of Tamiflu (7) Aortic stenosis, severe: Code(s): I35.0 - Nonrheumatic aortic (valve) stenosis Status: Acute Assessment and Plan: Echocardiogram 02/05/2022 Summary ? 1. Technically difficult study with limited views despite definity echo contrast enhancement with limited regional wall motion assessment due to poor endomyocardial border definition. ? 2. Left ventricular chamber dimension is normal. ? 3. There is moderately increased left ventricular wall thickness. ? 4. Left ventricular systolic function is normal, estimated at 55%. ? 5. Right ventricular systolic function is normal.? TAPSE 2.0. ? 6. There is severe aortic valve stenosis with a peak velocity of 4.50 cm/s, mean gradient of 57 mmHg, and aortic valve area of 0.80 cm2. ? 7. There is mild mitral valve regurgitation. Cardiology following (8) Hyperlipidemia: Qualifiers: Hyperlipidemia type: unspecified Qualified Code(s): E78.5 - Hyperlipidemia, unspecified Code(s): E78.5 - Hyperlipidemia, unspecified Status: Chronic Assessment and Plan: Continue Lipitor (9) GERD without esophagitis: Code(s): K21.9 - Gastro-esophageal reflux disease without esophagitis Status: Chronic Ass
[2022-02-09] MEDS: FENTANYL 2,500MCG/NS250ML(*CRX 2,500 MCG/250 ML BAG 15 MCG IV CONT (16:00)
[2022-02-09 16:07] LABS: Glucose Point of Care 231 mg/dl (65-105)
[2022-02-09 18:44] LABS: Triglycerides 152 mg/dL (<150)
[2022-02-09] MEDS: MINERAL OIL/WHITE PETROLATUM OINTMENT 1 APPLIC EACH EYE (19:57)
[2022-02-09 20:09] LABS: Glucose Point of Care 250 mg/dl (65-105)
[2022-02-09 23:18] LABS: Vancomycin Trough 22.7 ug/mL (10.0-20.0)
[2022-02-09] MEDS: MIDAZOLAM 100MG/NS 100ML(*CRX) 100 MG/100 ML BAG 8 MG IV CONT (23:40)
[2022-02-10] VITALS (37 sets, daily range): BP systolic 115–175; BP diastolic 45–96; PULSE 51–134; RESP 24–34; TEMP 37.2–38.7; O2SAT 96–100
[2022-02-10 00:32] LABS: Glucose Point of Care 237 mg/dl (65-105)
[2022-02-10] MEDS: PIPERACILLIN/TAZOBACTAM SOD 4.5 GM in SODIUM CHLORIDE 0.9% IV 100 ML 200 ML IVPB ×4 (00:40→18:34)
[2022-02-10] MEDS: INSULIN ASPART (*BKC) 100 UNITS/ML SUB-Q ×5 (00:40→18:35)
[2022-02-10 04:49] LABS: Alveolar/Arterial O2 Gradient 56.3 mmHg; Base Excess ABG -0.4 mEq/l (+/-2.0); Carboxyhemoglobin 0.6 % THb (0-2.0); Device VENTILATOR; Fractional Inspired Oxygen 30 %; Methemoglobin ABG 0.1 %THb (0-1.5); Modified Allen's Test Pass; Oxygen Content ABG 17.6 %vol (16.0-22.0); Oxygen Saturation ABG 98.5 % (95.0-100.0); Oxyhemoglobin 96.8 % THb (90.0-100.0); PCO2 ABG 33.9 mmHg (35.0-45.0); PO2 ABG 117.8 mmHg (80.0-100.0); PO2 FiO2 Ratio Arterial Blood 3.93 %; Reduced Hemoglobin 2.5 %THb (0-5.0); Site Drawn RIGHT RADIAL; Total Hemoglobin 12.8 g/dL (12.0-18.0); pH ABG 7.449 (7.350-7.450)
[2022-02-10 04:50] LABS: Arterial Blood Gas PEEP 8 cmH2O; Arterial Blood Gas Tidal Volume 450 ml; Arterial Blood Gas Vent Mode CMV; Arterial Blood Gas Ventilator rate 25 /MIN
[2022-02-10] MEDS: CENTRAL LINE FLUSH 10 ML IV PUSH ×3 (06:20→21:42)
[2022-02-10 06:21] LABS: Hematocrit 36.7 % (42.0-52.0); Hemoglobin 11.9 g/dL (14.0-18.0); Mean Corpuscular HGB Conc 32.4 g/dl (32-36); Mean Corpuscular Hemoglobin 31.5 pg (26-34); Mean Corpuscular Volume 97.1 fl (80-100); Mean Platelet Volume 10.8 fl (7.4-10.4); Platelet Count Result 172 k/mm3 (150-375); Red Blood Count 3.78 M/mm3 (4.6-6.20); Red Cell Distribution Width 14.5 % (11.5-14.5); White Blood Count 13.8 K/mm3 (4.5-10.0)
[2022-02-10 06:32] LABS: Alanine Aminotransferase 22 U/L (6-50); Albumin Level 3.3 g/dL (3.5-5.1); Alkaline Phosphatase 61 U/L (38-126); Anion Gap 7 mmol/L (8-16); Aspartate Amino Transferase 25 U/L (17-59); Bilirubin,Total 0.4 mg/dL (0.2-1.3); Blood Urea Nitrogen 30 mg/dL (9-20); Calcium 8.4 mg/dL (8.4-10.2); Carbon Dioxide 29 mmol/L (22-30); Chloride 99 mmol/L (98-107); Estimated CRCL calculation 80 ml/min; Estimated Glomerular Filt Rate > 60; Glucose 302 mg/dL (65-110); Potassium 4.2 mmol/L (3.4-5.0); Sodium 135 mmol/L (137-145)
[2022-02-10] MEDS: FENTANYL 2,500MCG/NS250ML(*CRX 2,500 MCG/250 ML BAG 15 MCG IV CONT (07:42)
[2022-02-10] MEDS: APIXABAN 5 MG TABLET PO ×2 (07:47→21:41)
[2022-02-10] MEDS: CHOLECALCIFEROL 1,000 UNITS TABLET 1000 UNITS PO (07:47)
[2022-02-10] MEDS: HYDROCORTISONE SODIUM SUCCINATE 100 MG/2 ML VIAL IV PUSH ×2 (07:47→21:41)
[2022-02-10] MEDS: TIMOLOL MALEATE 0.5% OP SOLN 5 ML BOTTLE 1 DROP EACH EYE (07:47)
[2022-02-10] MEDS: ASPIRIN 81 MG CHEWABLE TABLET PO (07:47)
[2022-02-10] MEDS: MULTIVITAMINS THERAPEUTIC TAB (*BKC) 1 TABLET PO (07:47)
[2022-02-10] MEDS: ATORVASTATIN 20 MG TABLET PO (07:47)
[2022-02-10] MEDS: PANTOPRAZOLE SODIUM IV 40 MG VIAL IV PUSH (07:47)
[2022-02-10] MEDS: BRIMONIDINE TARTRATE 0.2% OP SOLN 5 ML BTL 1 DROP EACH EYE (07:48)
[2022-02-10] MEDS: TOLNAFTATE 1% POWDER 45 GM BTL 1 APPLIC TOPICAL ×2 (07:49→21:41)
[2022-02-10 08:06] LABS: Glucose Point of Care 350 mg/dl (65-105)
[2022-02-10] MEDS: INSULIN GLARGINE (*BKC) 100 UNITS/ML 42 UNITS SUB-Q (08:06)
[2022-02-10] MEDS: FUROSEMIDE INJ 40 MG/4 ML VIAL 20 MG IV PUSH (08:19)
[2022-02-10] MEDS: dexmedeTOMIDine 400 MCG/100 ML 400 MCG/100 ML BAG 18 MCG IV CONT (09:15)
[2022-02-10] MEDS: METOPROLOL TARTRATE INJ 5 MG/5 ML VIAL 2.5 MG IV PUSH (09:51)
[2022-02-10] MEDS: MIDAZOLAM HCL (*CRX) 2 MG/2 ML VIAL IV PUSH (09:52)
[2022-02-10] MEDS: MICONAZOLE NITRATE 2% CREAM 30 GM TUBE 1 APPLIC TOPICAL ×2 (09:53→18:34)
[2022-02-10] MEDS: MINERAL OIL/WHITE PETROLATUM OINTMENT 1 APPLIC EACH EYE ×2 (09:53→21:41)
--- NOTE | 2022-02-10 11:19 | PCFNICU ---
ICU Rounding Note: Pt current nutrition is Vital HP 1.5@ 45 ml/h. 1485 kcal, 86 g protein, 827 ml free water. Flushes 30 ml q 4 h. Total water 1007 ml/d. Nutrition recommendation: Continue with current tube feeding order and monitoring. Last recorded weight is 144 kg. Bowel Motility: Last BM +1 02/08/22 Labs Reviewed: Alb 3.2, Na 134, BUN 2.5 Meds Noted: Precedex, eliquis, fentanyl, versed Skin: WNL Additional Notes: Continues on vent. Current tube feeding order is underfeeding meeting only ~75% EER, for the reason of preventing fluid overload and because pt had low MAPs and was on pressors. Pressors are now off and BP is improving. Consider increasing tube feeding rate to Vital HP 1.5@ 60 ml/h to better meet protein calorie needs. Will re-evaluate tomorrow to decide if rate should be increased. Following daily in ICU rounds. Monitor tolerance, plan of care, labs, meds, etc Follow daily in ICU rounds. Reassess Monday and Monday..
[2022-02-10 11:37] LABS: Glucose Point of Care 278 mg/dl (65-105)
[2022-02-10] MEDS: ETOMIDATE 20 MG/10 ML AMPUL IV PUSH (12:47)
[2022-02-10] MEDS: PROPOFOL IV EMULSION 200 MG/20 ML VIAL IV PUSH (12:47)
--- NOTE | 2022-02-10 13:00 | PC.NURSE ---
This RN found the pt attempting to expel copious thick creamy secretions, and a notable gurgle sound with inspiration. Attempted to suction the pt with no change. RT and mediator notified of suspected leak, multiple vent alarms, and copious secretions. Human Resources Designate noted that the ET tube needed exchanged after attempt to reinflate cuff. Successful ET tube exchange at 1250. See MAR for meds given. OG replaced. KUB and chest XR obtained and confirmed placement of ET tube and OG tube.
--- NOTE | 2022-02-10 13:01 | WPDINTPN ---
Progress Note: A&P Assessment and Plan (1) Acute respiratory failure: Code(s): J96.00 - Acute respiratory failure, unspecified whether with hypoxia or hypercapnia Status: Acute Assessment and Plan: Acute hypoxic and hypercarbic Respiratory failure secondary to influenza, pulmonary edema due to aortic stenosis, secondary bacterial pneumonia -Patient's BNP is elevated but not markedly high. Echo shows severe aortic stenosis -admitted with influenza A and at risk of secondary bacterial infection -Continue full mechanical ventilation support to prevent hypoxemia/hypercarbia and end organ damage. ABG and ventilator settings reviewed currently on 30% FiO2 and 8 of PEEP -chest x-ray this morning: Mild pulmonary edema pattern, with small bilateral pleural effusions and left lower lobe atelectasis. Low tidal volume ventilation strategy to prevent volutrauma -status post full course of Tamiflu -Empiric antibiotics vancomycin and Zosyn for now. Off Flagyl and Bactrim -sedated with fentanyl and Versed, will switch to Precedex and wean fentanyl and Versed. maintain RASS of 0 to -1 Now that he is off Levophed and blood pressures are adequate, will gently diurese patient -02/06: CT showed Bilateral dependent consolidations may reflect atelectasis/edema, noting that infection is not excluded. Suspected trace bilateral pleural effusions (2) Sepsis: Code(s): A41.9 - Sepsis, unspecified organism Status: Acute Assessment and Plan: Secondary to influenza A and possible bacterial pneumonia. Also has UTI 02/04:Blood culture: No growth 02/04: Urine cultures growing Enterococcus which is sensitive to vancomycin the patient, continue vancomycin (3) Shock: Code(s): R57.9 - Shock, unspecified Status: Acute Assessment and Plan: -Likely multifactorial secondary to a severe aortic stenosis and sepsis due to pneumonia and UTI -Patient received conservative IV fluids due to concern of pulmonary edema and heart failure -off Levophed this morning on 02/10 -off vasopressin - weaning stress dose steroids (4) UTI (urinary tract infection): Code(s): N39.0 - Urinary tract infection, site not specified Status: Acute Assessment and Plan: Urine cultures growing Enterococcus, continue vancomycin (5) Atrial flutter with rapid ventricular response: Code(s): I48.92 - Unspecified atrial flutter Status: Acute Assessment and Plan: Patient has now converted to sinus rhythm On Eliquis for anticoagulation -Not on amiodarone or beta-swati due to bradycardia -appreciate cardiology following the patient (6) Influenza A: Code(s): J10.1 - Influenza due to other identified influenza virus with other respiratory manifestations Status: Acute Assessment and Plan: Continue a full course of Tamiflu (7) Aortic stenosis, severe: Code(s): I35.0 - Nonrheumatic aortic (valve) stenosis Status: Acute Assessment and Plan: Echocardiogram 02/05/2022 Summary ? 1. Technically difficult study with limited views despite definity echo contrast enhancement with limited regional wall motion assessment due to poor endomyocardial border definition. ? 2. Left ventricular chamber dimension is normal. ? 3. There is moderately increased left ventricular wall thickness. ? 4. Left ventricular systolic function is normal, estimated at 55%. ? 5. Right ventricular systolic function is normal.? TAPSE 2.0. ? 6. There is severe aortic valve stenosis with a peak velocity of 4.50 cm/s, mean gradient of 57 mmHg, and aortic valve area of 0.80 cm2. ? 7. There is mild mitral valve regurgitation. Cardiology following (8) Hyperlipidemia: Qualifiers: Hyperlipidemia type: unspecified Qualified Code(s): E78.5 - Hyperlipidemia, unspecified Code(s): E78.5 - Hyperlipidemia, unspecified Status: Chronic Assessment and Plan: Continue Lipitor (9) GERD without eso
--- NOTE | 2022-02-10 13:08 | WPDPROCEDUR ---
Procedures Intubation Intubation Date: 02/10/22 Intubation Time: 12:50 Sedative: etomidate Laryngoscope: fiber optic video scope Assist device used: fiber optic device ET tube size: 8 Tube secured depth (cm): 26 Tube secured location: lips Tube placement confirmation: visualized tube passing through cords, equal breath sounds bilaterally, no breath sounds over epigastrium and confirmation by capnometry Patient tolerated procedure: well Intubation complications: none Additional comments: Patient already has any ETT, which had a cuff leak, so changed the endotracheal tube over a tube exchanger using the glide scope with size 8 ET tube. Bilateral breath sounds auscultated
[2022-02-10] MEDS: dexmedeTOMIDine 400 MCG/100 ML 400 MCG/100 ML BAG 21.6 MCG IV CONT (13:25)
[2022-02-10] MEDS: ACETAMINOPHEN ELIXIR 325 MG/10.15 ML UDC 650 MG PO ×2 (15:39→21:43)
[2022-02-10 15:57] LABS: Glucose Point of Care 300 mg/dl (65-105)
[2022-02-10] MEDS: dexmedeTOMIDine 400 MCG/100 ML 400 MCG/100 ML BAG 25.2 MCG IV CONT (18:40)
[2022-02-10 18:56] LABS: Glucose Point of Care 323 mg/dl (65-105)
[2022-02-10] MEDS: dexmedeTOMIDine 400 MCG/100 ML 400 MCG/100 ML BAG 28.8 MCG IV CONT (23:00)
[2022-02-11] VITALS (50 sets, daily range): BP systolic 101–177; BP diastolic 55–100; PULSE 56–86; RESP 10–36; TEMP 38.2–39.3; O2SAT 98–100; BMI 44.6
[2022-02-11 00:17] LABS: Glucose Point of Care 366 mg/dl (65-105)
[2022-02-11] MEDS: PIPERACILLIN/TAZOBACTAM SOD 4.5 GM in SODIUM CHLORIDE 0.9% IV 100 ML 200 ML IVPB ×2 (00:38→06:30)
[2022-02-11] MEDS: INSULIN ASPART (*BKC) 100 UNITS/ML SUB-Q ×4 (00:38→17:14)
[2022-02-11] MEDS: dexmedeTOMIDine 400 MCG/100 ML 400 MCG/100 ML BAG 28.8 MCG IV CONT ×3 (02:07→18:47)
[2022-02-11] MEDS: ACETAMINOPHEN ELIXIR 325 MG/10.15 ML UDC 650 MG PO ×4 (02:10→17:07)
[2022-02-11] MEDS: IBUPROFEN IV 800 MG/200 ML 800 MG/200 ML BAG 400 MG IVPB (04:15)
[2022-02-11 04:54] LABS: Alveolar/Arterial O2 Gradient 101.4 mmHg; Base Excess ABG 4.1 mEq/l (+/-2.0); Carboxyhemoglobin 0.3 % THb (0-2.0); Fractional Inspired Oxygen 35 %; HCO3 ABG 27.4 mEq/l (22.0-26.0); Methemoglobin ABG 0.1 %THb (0-1.5); Oxygen Content ABG 19.4 %vol (16.0-22.0); Oxygen Saturation ABG 98.2 % (95.0-100.0); Oxyhemoglobin 96.8 % THb (90.0-100.0); PO2 ABG 105.1 mmHg (80.0-100.0); Reduced Hemoglobin 2.8 %THb (0-5.0); Site Drawn RIGHT RADIAL; Total Hemoglobin 14.2 g/dL (12.0-18.0); pH ABG 7.488 (7.350-7.450)
[2022-02-11 04:55] LABS: Arterial Blood Gas PEEP 8 cmH2O; Arterial Blood Gas Tidal Volume 450 ml; Arterial Blood Gas Vent Mode CMV; Arterial Blood Gas Ventilator rate 24 /MIN; Device VENTILATOR; Modified Allen's Test Unable to perform
[2022-02-11] MEDS: dexmedeTOMIDine 400 MCG/100 ML 400 MCG/100 ML BAG 25.2 MCG IV CONT ×2 (05:35→08:27)
[2022-02-11] MEDS: CENTRAL LINE FLUSH 10 ML IV PUSH ×3 (05:43→20:46)
[2022-02-11 06:39] LABS: Hematocrit 38.4 % (42.0-52.0); Hemoglobin 12.9 g/dL (14.0-18.0); Immature Platelet Fraction Pct 8.1 % (0.9-11.2); Mean Corpuscular HGB Conc 33.6 g/dl (32-36); Mean Corpuscular Hemoglobin 31.8 pg (26-34); Mean Corpuscular Volume 94.6 fl (80-100); Platelet Count Result 125 k/mm3 (150-375); Red Blood Count 4.06 M/mm3 (4.6-6.20); Red Cell Distribution Width 13.6 % (11.5-14.5); White Blood Count 9.6 K/mm3 (4.5-10.0)
[2022-02-11 06:57] LABS: Alanine Aminotransferase 26 U/L (6-50); Albumin Level 3.5 g/dL (3.5-5.1); Alkaline Phosphatase 66 U/L (38-126); Anion Gap 6 mmol/L (8-16); Aspartate Amino Transferase 26 U/L (17-59); Bilirubin,Total 0.4 mg/dL (0.2-1.3); Blood Urea Nitrogen 26 mg/dL (9-20); Calcium 8.1 mg/dL (8.4-10.2); Carbon Dioxide 33 mmol/L (22-30); Chloride 94 mmol/L (98-107); Estimated CRCL calculation 97 ml/min; Estimated Glomerular Filt Rate > 60; Glucose 379 mg/dL (65-110); Potassium 3.1 mmol/L (3.4-5.0); Sodium 133 mmol/L (137-145)
[2022-02-11] MEDS: POTASSIUM CHLORIDE 20 MEQ PACKET (FOR LIQUID) 40 MEQ FEED TUBE ×2 (08:15→17:08)
[2022-02-11] MEDS: ASPIRIN 81 MG CHEWABLE TABLET PO (08:15)
[2022-02-11] MEDS: FUROSEMIDE INJ 40 MG/4 ML VIAL 20 MG IV PUSH (08:15)
[2022-02-11] MEDS: INSULIN GLARGINE (*BKC) 100 UNITS/ML 55 UNITS SUB-Q (08:15)
[2022-02-11] MEDS: APIXABAN 5 MG TABLET PO ×2 (08:16→20:45)
[2022-02-11] MEDS: ATORVASTATIN 20 MG TABLET PO (08:16)
[2022-02-11] MEDS: MINERAL OIL/WHITE PETROLATUM OINTMENT 1 APPLIC EACH EYE ×2 (08:16→20:45)
[2022-02-11] MEDS: MICONAZOLE NITRATE 2% CREAM 30 GM TUBE 1 APPLIC TOPICAL ×2 (08:16→17:14)
[2022-02-11] MEDS: MULTIVITAMINS THERAPEUTIC TAB (*BKC) 1 TABLET PO (08:16)
[2022-02-11] MEDS: BRIMONIDINE TARTRATE 0.2% OP SOLN 5 ML BTL 1 DROP EACH EYE (08:16)
[2022-02-11] MEDS: TIMOLOL MALEATE 0.5% OP SOLN 5 ML BOTTLE 1 DROP EACH EYE (08:16)
[2022-02-11] MEDS: PANTOPRAZOLE SODIUM IV 40 MG VIAL IV PUSH (08:16)
[2022-02-11] MEDS: CHOLECALCIFEROL 1,000 UNITS TABLET 1000 UNITS PO (08:16)
[2022-02-11] MEDS: TOLNAFTATE 1% POWDER 45 GM BTL 1 APPLIC TOPICAL ×2 (08:28→20:45)
--- NOTE | 2022-02-11 11:15 | PCNFU ---
Nutrition Follow-Up Complete: Inadequate intake from tube feeding related to increased protein energy needs as evidenced by tube feeding order meeting 66% estimated energy needs Goal: Meet estimated nutrition needs - Not meeting goal, increasing tube feedings to meet goal Pt current nutrition is Vital HP 1.5@ 45 ml/h: 1485 kcals, 86 g protien, 827 ml free water. Flushes 30 ml q 4 h. Total water 1007 ml/d. Nutrition recommendation: Increase goal rate to Vital HP 1.5 @60 ml/h to meet EER at 94%: 1980 kcals, 116 g protein, 1103 ml free water. Flushes 30 ml q 4h. Total water 1283 ml/d. Last recorded weight is 141.3 kg. Bowel Motility: Last BM 02/08/22: miralax added Labs Reviewed:Hgb 12.9, Hct 38.4, Alb 3.1, Na 133, BUN 26, Glu 278-379 Meds Noted:Eliquis, Precedex, miralax Skin: yeast in skin folds Additional Notes: Off all pressors and blood pressures are better. Perfusion is adequate to increase the tube feeding closer to EER. Discussed with MD. Increase to Vital 1.5 @ 60ml/h to meet 94% EER. Monitor tolerance, plan of care, labs, meds, etc Follow daily in ICU rounds. Reassess Monday and Monday.
--- NOTE | 2022-02-11 11:39 | WPDINTPN ---
Progress Note: A&P Assessment and Plan (1) Fever: Code(s): R50.9 - Fever, unspecified Status: Acute Assessment and Plan: 02/11: Patient with T-max of 102.8? to 103? F -could be related to urine infection, possible ventilator associated pneumonia, other infectious pathology would be central line, Heck catheter or abdominal source, bacteremia -if fevers do not trend down, will obtain CT scan -WBC count trending down -02/11: Blood, urine, sputum cultures have been obtained - Tylenol and ice packs to control body temperature -antibiotics switched to imipenem, levofloxacin, vancomycin (02/11) -blood pressures have been stable -will continue to monitor blood pressures for adequate end organ perfusion (2) Acute respiratory failure: Code(s): J96.00 - Acute respiratory failure, unspecified whether with hypoxia or hypercapnia Status: Acute Assessment and Plan: Acute hypoxic and hypercarbic Respiratory failure secondary to influenza, pulmonary edema due to aortic stenosis, secondary bacterial pneumonia, initial BNP on admission was slightly elevated - Echo shows severe aortic stenosis -positive for influenza A on admission and at risk of secondary bacterial infection -Continue full mechanical ventilation support to prevent hypoxemia/hypercarbia and end organ damage. ABG and ventilator settings reviewed currently on 30% FiO2 and 8 of PEEP -chest x-ray this morning: Mild pulmonary edema pattern with left lower lobe atelectasis and small pleural effusions. Low tidal volume ventilation strategy to prevent volutrauma -status post full course of Tamiflu -antibiotics as above -sedated with Precedex infusion, maintain RASS of 0 to -1 Blood pressures are stable, patient diuresed well yesterday, will gently diurese again today -02/06: CT showed Bilateral dependent consolidations may reflect atelectasis/edema, noting that infection is not excluded. Suspected trace bilateral pleural effusions (3) Sepsis: Code(s): A41.9 - Sepsis, unspecified organism Status: Acute Assessment and Plan: Secondary to influenza A and possible bacterial pneumonia. Also has UTI 02/04:Blood culture: No growth 02/04: Urine cultures growing Enterococcus which is sensitive to vancomycin the patient, continue vancomycin (4) Shock: Code(s): R57.9 - Shock, unspecified Status: Acute Assessment and Plan: RESOLVED -Likely multifactorial secondary to a severe aortic stenosis and sepsis due to pneumonia and UTI -Patient received conservative IV fluids due to concern of pulmonary edema and heart failure -off Levophed this morning on 02/10 -off vasopressin - weaning stress dose steroids (5) UTI (urinary tract infection): Code(s): N39.0 - Urinary tract infection, site not specified Status: Acute Assessment and Plan: 02/04: Urine cultures growing Enterococcus, continue vancomycin (6) Atrial flutter with rapid ventricular response: Code(s): I48.92 - Unspecified atrial flutter Status: Acute Assessment and Plan: Patient has now converted to sinus rhythm On Eliquis for anticoagulation -Not on amiodarone or beta-swati due to bradycardia -appreciate cardiology following the patient (7) Influenza A: Code(s): J10.1 - Influenza due to other identified influenza virus with other respiratory manifestations Status: Acute Assessment and Plan: Status post full course of Tamiflu (8) Aortic stenosis, severe: Code(s): I35.0 - Nonrheumatic aortic (valve) stenosis Status: Acute Assessment and Plan: Echocardiogram 02/05/2022 Summary ? 1. Technically difficult study with limited views despite definity echo contrast enhancement with limited regional wall motion assessment due to poor endomyocardial border definition. ? 2. Left ventricular chamber dimension is normal. ? 3. There is moderately increased left ventricular wall thickness. ? 4. Left ventri
[2022-02-11 11:52] LABS: Glucose Point of Care 323 mg/dl (65-105)
[2022-02-11 14:55] LABS: Mean Platelet Volume 10.6 fl (7.4-10.4); Platelet Count Result 148 k/mm3 (150-375)
[2022-02-11 15:07] LABS: Magnesium 1.8 mg/dL (1.6-2.3)
[2022-02-11 15:16] LABS: INR 1.4; Prothrombin Time 16.8 Seconds (11.1-14.7)
[2022-02-11 15:17] LABS: Fibrinogen 477 mg/dl (215-510); Partial Thromboplastin Time 25.6 SECONDS (22.3-36.8)
[2022-02-11] MEDS: dexmedeTOMIDine 400 MCG/100 ML 400 MCG/100 ML BAG 36 MCG IV CONT ×2 (15:58→22:43)
[2022-02-11 16:08] LABS: D Dimer 2.38 ug/mL (<0.48)
[2022-02-11 16:45] LABS: Vancomycin Trough 12.7 ug/mL (10.0-20.0)
[2022-02-11 19:07] LABS: Glucose Point of Care 337 mg/dl (65-105)
[2022-02-11] MEDS: MIDAZOLAM HCL (*CRX) 2 MG/2 ML VIAL IV PUSH (20:56)
[2022-02-12] VITALS (35 sets, daily range): BP systolic 114–183; BP diastolic 57–92; PULSE 65–115; RESP 19–34; TEMP 37.7–38.8; O2SAT 97–100
[2022-02-12] MEDS: INSULIN ASPART (*BKC) 100 UNITS/ML 15 UNITS SUB-Q (00:51)
[2022-02-12 00:56] LABS: Glucose Point of Care 422 mg/dl (65-105)
[2022-02-12] MEDS: dexmedeTOMIDine 400 MCG/100 ML 400 MCG/100 ML BAG 36 MCG IV CONT ×6 (01:30→18:50)
[2022-02-12] MEDS: ACETAMINOPHEN ELIXIR 325 MG/10.15 ML UDC 650 MG PO ×2 (02:45→15:54)
[2022-02-12 04:50] LABS: Alveolar/Arterial O2 Gradient 69.5 mmHg; Base Excess ABG 4.7 mEq/l (+/-2.0); Fractional Inspired Oxygen 30 %; HCO3 ABG 28.2 mEq/l (22.0-26.0); Oxygen Content ABG 15.4 %vol (16.0-22.0); Oxyhemoglobin 96.8 % THb (90.0-100.0); PCO2 ABG 37.6 mmHg (35.0-45.0); PO2 ABG 100.2 mmHg (80.0-100.0); PO2 FiO2 Ratio Arterial Blood 3.34 %; Reduced Hemoglobin 3.2 %THb (0-5.0); Total Hemoglobin 11.2 g/dL (12.0-18.0); pH ABG 7.493 (7.350-7.450)
[2022-02-12 04:51] LABS: Arterial Blood Gas PEEP 8 cmH2O; Arterial Blood Gas Tidal Volume 450 ml; Arterial Blood Gas Vent Mode CMV; Arterial Blood Gas Ventilator rate 24 /MIN; Device VENTILATOR; Modified Allen's Test Unable to perform; Site Drawn LEFT RADIAL
[2022-02-12] MEDS: CENTRAL LINE FLUSH 10 ML IV PUSH ×3 (05:17→20:20)
[2022-02-12] MEDS: INSULIN ASPART (*BKC) 100 UNITS/ML SUB-Q ×4 (05:21→23:56)
[2022-02-12 05:43] LABS: Hemoglobin 12.9 g/dL (14.0-18.0); Immature Platelet Fraction Pct 8.8 % (0.9-11.2); Mean Corpuscular HGB Conc 33.9 g/dl (32-36); Mean Corpuscular Hemoglobin 31.9 pg (26-34); Mean Corpuscular Volume 93.8 fl (80-100); Mean Platelet Volume 11.2 fl (7.4-10.4); Platelet Count Result 153 k/mm3 (150-375); Red Blood Count 4.05 M/mm3 (4.6-6.20); Red Cell Distribution Width 13.7 % (11.5-14.5); White Blood Count 12.7 K/mm3 (4.5-10.0)
[2022-02-12 05:51] LABS: Anion Gap 7 mmol/L (8-16); Blood Urea Nitrogen 29 mg/dL (9-20); Calcium 8.2 mg/dL (8.4-10.2); Carbon Dioxide 33 mmol/L (22-30); Chloride 98 mmol/L (98-107); Estimated CRCL calculation 97 ml/min; Estimated Glomerular Filt Rate > 60; Glucose 355 mg/dL (65-110); Potassium 3.2 mmol/L (3.4-5.0); Sodium 138 mmol/L (137-145)
[2022-02-12 06:01] LABS: Glucose Point of Care 339 mg/dl (65-105)
--- NOTE | 2022-02-12 08:00 | PC.NURSE ---
Pt mplaced on ASV mode and to trail SBT later. Precedex decreased so that patient can maintain breathing on his own.
[2022-02-12] MEDS: ASPIRIN 81 MG CHEWABLE TABLET PO (08:19)
[2022-02-12] MEDS: INSULIN GLARGINE (*BKC) 100 UNITS/ML 40 UNITS SUB-Q ×2 (08:19→20:18)
[2022-02-12] MEDS: PANTOPRAZOLE SODIUM IV 40 MG VIAL IV PUSH (08:19)
[2022-02-12] MEDS: POTASSIUM CHLORIDE 20 MEQ PACKET (FOR LIQUID) 40 MEQ FEED TUBE ×2 (08:19→17:33)
[2022-02-12] MEDS: APIXABAN 5 MG TABLET PO ×2 (08:20→20:20)
[2022-02-12] MEDS: CHOLECALCIFEROL 1,000 UNITS TABLET 1000 UNITS PO (08:20)
[2022-02-12] MEDS: TOLNAFTATE 1% POWDER 45 GM BTL 1 APPLIC TOPICAL ×2 (08:20→20:18)
[2022-02-12] MEDS: ATORVASTATIN 20 MG TABLET PO (08:20)
[2022-02-12] MEDS: MULTIVITAMINS THERAPEUTIC TAB (*BKC) 1 TABLET PO (08:20)
[2022-02-12] MEDS: MICONAZOLE NITRATE 2% CREAM 30 GM TUBE 1 APPLIC TOPICAL ×2 (08:20→17:30)
[2022-02-12] MEDS: TIMOLOL MALEATE 0.5% OP SOLN 5 ML BOTTLE 1 DROP EACH EYE (08:20)
[2022-02-12] MEDS: BRIMONIDINE TARTRATE 0.2% OP SOLN 5 ML BTL 1 DROP EACH EYE (08:20)
[2022-02-12] MEDS: MINERAL OIL/WHITE PETROLATUM OINTMENT 1 APPLIC EACH EYE ×2 (08:20→20:20)
[2022-02-12] MEDS: dexmedeTOMIDine 400 MCG/100 ML 400 MCG/100 ML BAG 28.8 MCG IV CONT (09:58)
--- NOTE | 2022-02-12 11:02 | WPDINTPN ---
Progress Note: A&P Assessment and Plan (1) Fever: Code(s): R50.9 - Fever, unspecified Status: Acute Assessment and Plan: 02/11: Patient with T-max of 103? F -could be related to urine infection, possible ventilator associated pneumonia, other infectious pathology would be central line, Heck catheter or abdominal source, bacteremia -if fevers do not trend down, will obtain CT scan -white count elevated -02/11: Blood cultures, preliminary report is negative x2 so far -02/11: Urine cultures pending -02/11: Sputum cultures pending - Tylenol and ice packs to control body temperature -continue imipenem, levofloxacin, vancomycin (02/11) -blood pressures have been stable -will continue to monitor blood pressures for adequate end organ perfusion (2) Acute respiratory failure: Code(s): J96.00 - Acute respiratory failure, unspecified whether with hypoxia or hypercapnia Status: Acute Assessment and Plan: Acute hypoxic and hypercarbic Respiratory failure secondary to influenza, pulmonary edema due to aortic stenosis, secondary bacterial pneumonia, initial BNP on admission was slightly elevated - Echo shows severe aortic stenosis -positive for influenza A on admission and at risk of secondary bacterial infection -Continue full mechanical ventilation support to prevent hypoxemia/hypercarbia and end organ damage. ABG and ventilator settings reviewed currently on 30% FiO2 and 8 of PEEP -chest x-ray this morning: Airspace opacities in the mid and lower lung zones with a basilar predominance, likely stable given the differences in technique, consistent with atelectasis versus pneumonia.. Stable small pleural effusions. Low tidal volume ventilation strategy to prevent volutrauma -status post full course of Tamiflu -antibiotics as above -continue Precedex infusion, maintain RASS of 0 to -1 Blood pressures are stable, patient has diuresed significantly well over the last few days, euvolemic since admission -placed patient on pressure support ventilation 11/17, lasted for 2 hours and he was tachypneic, with noticeable respiratory distress, was placed back on CMV mode, will retry later this afternoon -02/06: CT showed Bilateral dependent consolidations may reflect atelectasis/edema, noting that infection is not excluded. Suspected trace bilateral pleural effusions (3) Sepsis: Code(s): A41.9 - Sepsis, unspecified organism Status: Acute Assessment and Plan: Secondary to influenza A and possible bacterial pneumonia. Also has UTI 02/04:Blood culture: No growth 02/04: Urine cultures growing Enterococcus which is sensitive to vancomycin the patient, continue vancomycin (4) Shock: Code(s): R57.9 - Shock, unspecified Status: Acute Assessment and Plan: RESOLVED -Likely multifactorial secondary to a severe aortic stenosis and sepsis due to pneumonia and UTI -Patient received conservative IV fluids due to concern of pulmonary edema and heart failure -off Levophed this morning on 02/10 -off vasopressin - weaning stress dose steroids (5) UTI (urinary tract infection): Code(s): N39.0 - Urinary tract infection, site not specified Status: Acute Assessment and Plan: 02/04: Urine cultures growing Enterococcus, continue vancomycin (6) Atrial flutter with rapid ventricular response: Code(s): I48.92 - Unspecified atrial flutter Status: Acute Assessment and Plan: Patient has now converted to sinus rhythm On Eliquis for anticoagulation -Not on amiodarone or beta-swati due to bradycardia -appreciate cardiology following the patient (7) Influenza A: Code(s): J10.1 - Influenza due to other identified influenza virus with other respiratory manifestations Status: Acute Assessment and Plan: Status post full course of Tamiflu (8) Aortic stenosis, severe: Code(s): I35.0 - Nonrheumatic aortic (valve) stenosis Status: Acute
[2022-02-12 12:13] LABS: Glucose Point of Care 301 mg/dl (65-105)
[2022-02-12 17:58] LABS: Glucose Point of Care 237 mg/dl (65-105)
[2022-02-12] MEDS: MIDAZOLAM HCL (*CRX) 2 MG/2 ML VIAL IV PUSH (19:40)
[2022-02-12 20:31] LABS: Glucose Point of Care 322 mg/dl (65-105)
[2022-02-12] MEDS: dexmedeTOMIDine 400 MCG/100 ML 400 MCG/100 ML BAG 39.6 MCG IV CONT ×2 (21:36→23:55)
[2022-02-13] VITALS (30 sets, daily range): BP systolic 93–160; BP diastolic 51–80; PULSE 58–93; RESP 12–34; TEMP 37.2–38.8; O2SAT 98–100
[2022-02-13] MEDS: ACETAMINOPHEN ELIXIR 325 MG/10.15 ML UDC 650 MG PO
[2022-02-13 00:18] LABS: Glucose Point of Care 353 mg/dl (65-105)
[2022-02-13] MEDS: dexmedeTOMIDine 400 MCG/100 ML 400 MCG/100 ML BAG 39.6 MCG IV CONT ×3 (02:31→07:49)
[2022-02-13 05:17] LABS: Hematocrit 36.1 % (42.0-52.0); Hemoglobin 12.1 g/dL (14.0-18.0); Immature Platelet Fraction Pct 8.7 % (0.9-11.2); Mean Corpuscular HGB Conc 33.5 g/dl (32-36); Mean Corpuscular Hemoglobin 31.5 pg (26-34); Mean Platelet Volume 11.2 fl (7.4-10.4); Platelet Count Result 146 k/mm3 (150-375); Red Blood Count 3.84 M/mm3 (4.6-6.20); Red Cell Distribution Width 13.8 % (11.5-14.5); White Blood Count 10.9 K/mm3 (4.5-10.0)
[2022-02-13] MEDS: CENTRAL LINE FLUSH 10 ML IV PUSH ×3 (05:22→20:54)
[2022-02-13] MEDS: INSULIN ASPART (*BKC) 100 UNITS/ML SUB-Q ×3 (05:22→17:31)
[2022-02-13 05:33] LABS: Anion Gap 5 mmol/L (8-16); Blood Urea Nitrogen 31 mg/dL (9-20); Calcium 8.3 mg/dL (8.4-10.2); Carbon Dioxide 31 mmol/L (22-30); Chloride 97 mmol/L (98-107); Estimated CRCL calculation 97 ml/min; Estimated Glomerular Filt Rate > 60; Glucose 298 mg/dL (65-110); Potassium 3.5 mmol/L (3.4-5.0); Sodium 133 mmol/L (137-145)
[2022-02-13 05:35] LABS: Glucose Point of Care 309 mg/dl (65-105)
[2022-02-13 05:57] LABS: Vancomycin Trough 18.2 ug/mL (10.0-20.0)
[2022-02-13 05:59] LABS: Alveolar/Arterial O2 Gradient 84.7 mmHg; Base Excess ABG 5.8 mEq/l (+/-2.0); Carboxyhemoglobin 0.3 % THb (0-2.0); Fractional Inspired Oxygen 30 %; Oxygen Content ABG 19.1 %vol (16.0-22.0); Oxygen Saturation ABG 97.8 % (95.0-100.0); Oxyhemoglobin 96.2 % THb (90.0-100.0); PCO2 ABG 33.3 mmHg (35.0-45.0); PO2 ABG 90.1 mmHg (80.0-100.0); Reduced Hemoglobin 3.5 %THb (0-5.0); Total Hemoglobin 14.1 g/dL (12.0-18.0)
[2022-02-13 06:01] LABS: Device VENTILATOR; Modified Allen's Test Unable to perform; Site Drawn RIGHT RADIAL
[2022-02-13 06:02] LABS: Arterial Blood Gas PEEP 8 cmH2O; Arterial Blood Gas Tidal Volume 450 ml; Arterial Blood Gas Vent Mode CMV; Arterial Blood Gas Ventilator rate 24 /MIN
[2022-02-13 06:04] LABS: pH ABG 7.543 (7.350-7.450)
--- NOTE | 2022-02-13 07:41 | PM.IMPN ---
Progress Note: A&P Assessment and Plan (1) Acute respiratory failure: Code(s): J96.00 - Acute respiratory failure, unspecified whether with hypoxia or hypercapnia Status: Acute Assessment and Plan: Originally due to influenza A, completed course of tamiflu, now unsure of etiology, possibly VAP? appreciate crit care management (2) Sepsis: Code(s): A41.9 - Sepsis, unspecified organism Status: Acute Assessment and Plan: on vanc, imipenem, levaquin and recently added micafungin (3) Shock: Code(s): R57.9 - Shock, unspecified Status: Acute Assessment and Plan: off pressors, off steroids, HDS at this time, likely preload dependent due to severe , keep SBP above 100 (4) UTI (urinary tract infection): Code(s): N39.0 - Urinary tract infection, site not specified Status: Acute Assessment and Plan: Urine cultures growing Enterococcus, continue vancomycin (5) Atrial flutter with rapid ventricular response: Code(s): I48.92 - Unspecified atrial flutter Status: Acute Assessment and Plan: cont eliquis, in sinur rhythm, janneth, appreciate cardio consult (6) Influenza A: Code(s): J10.1 - Influenza due to other identified influenza virus with other respiratory manifestations Status: Acute Assessment and Plan: completed tamiflu (7) Aortic stenosis, severe: Code(s): I35.0 - Nonrheumatic aortic (valve) stenosis Status: Acute Assessment and Plan: appreciate cardio, keep SBP above 100 (8) Hyperlipidemia: Qualifiers: Hyperlipidemia type: unspecified Qualified Code(s): E78.5 - Hyperlipidemia, unspecified Code(s): E78.5 - Hyperlipidemia, unspecified Status: Chronic Assessment and Plan: Continue Lipitor (9) GERD without esophagitis: Code(s): K21.9 - Gastro-esophageal reflux disease without esophagitis Status: Chronic Assessment and Plan: Continue Protonix (10) Type 2 diabetes mellitus with diabetic neuropathy: Qualifiers: Diabetes mellitus ferry terminal supervisor insulin use: without ferry terminal supervisor use Qualified Code(s): E11.40 - Type 2 diabetes mellitus with diabetic neuropathy, unspecified Code(s): E11.40 - Type 2 diabetes mellitus with diabetic neuropathy, unspecified Status: Chronic Assessment and Plan: cont lantus, SSI, accuchecks (11) Bleeding: Code(s): R58 - Hemorrhage, not elsewhere classified Status: Acute Assessment and Plan: resolved, monitor on eliquis (12) Atrial fibrillation with rapid ventricular response: Code(s): I48.91 - Unspecified atrial fibrillation Status: Acute Assessment and Plan: in sinus now (13) Abnormal urinalysis: Code(s): R82.90 - Unspecified abnormal findings in urine Status: Acute Assessment and Plan: urine culture negative (14) Hypomagnesemia: Code(s): E83.42 - Hypomagnesemia Status: Acute Assessment and Plan: resolved (15) Obstructive sleep apnea on CPAP: Code(s): G47.33 - Obstructive sleep apnea (adult) (pediatric); Z99.89 - Dependence on other enabling machines and devices Status: Acute Assessment and Plan: cpap at night Plan DVT prophylaxis with eliquis GI prophylaxis with PPI Code status full code Subjective Date/time seen: 02/13/22 07:41 Interval history: Intubated, sedated, still spiking fevers overnight. Tmax 101.8. No emesis. Patient arousable, able to answer yes or no, states he is feeling uncomfortable. Review of Systems Review of Systems: able to review as much as possible, patient able to shake his head yes or no only ROS unobtainable: Yes unobtainable due to endotracheal tube Exam Narrative: General: resting relatively comfortably with ET tube in place, somewhat irritable, in soft wrist restraints HEENT: Atraumatic, normocephalic, mucous membranes moist CV: bradycard
[2022-02-13] MEDS: MICAFUNGIN SODIUM 100 MG in SODIUM CHLORIDE 0.9% IV 100 ML IVPB (08:09)
[2022-02-13] MEDS: INSULIN GLARGINE (*BKC) 100 UNITS/ML 55 UNITS SUB-Q ×2 (08:10→21:02)
[2022-02-13] MEDS: BRIMONIDINE TARTRATE 0.2% OP SOLN 5 ML BTL 1 DROP EACH EYE (08:17)
[2022-02-13] MEDS: ASPIRIN 81 MG CHEWABLE TABLET PO (08:17)
[2022-02-13] MEDS: PANTOPRAZOLE SODIUM IV 40 MG VIAL IV PUSH (08:17)
[2022-02-13] MEDS: MINERAL OIL/WHITE PETROLATUM OINTMENT 1 APPLIC EACH EYE ×2 (08:17→20:54)
[2022-02-13] MEDS: CHOLECALCIFEROL 1,000 UNITS TABLET 1000 UNITS PO (08:17)
[2022-02-13] MEDS: TIMOLOL MALEATE 0.5% OP SOLN 5 ML BOTTLE 1 DROP EACH EYE (08:17)
[2022-02-13] MEDS: MICONAZOLE NITRATE 2% CREAM 30 GM TUBE 1 APPLIC TOPICAL ×2 (08:18→17:20)
[2022-02-13] MEDS: TOLNAFTATE 1% POWDER 45 GM BTL 1 APPLIC TOPICAL ×2 (08:18→20:53)
[2022-02-13] MEDS: APIXABAN 5 MG TABLET PO ×2 (08:18→20:54)
[2022-02-13] MEDS: ATORVASTATIN 20 MG TABLET PO (08:18)
[2022-02-13] MEDS: MULTIVITAMINS THERAPEUTIC TAB (*BKC) 1 TABLET PO (08:18)
--- NOTE | 2022-02-13 08:31 | PC.NURSE ---
Precedex rate decrease d/t pt being placed on SBT
--- NOTE | 2022-02-13 09:46 | WPDINTPN ---
Progress Note: A&P Assessment and Plan (1) Fever: Code(s): R50.9 - Fever, unspecified Status: Acute Assessment and Plan: 02/11: Patient with T-max of 103? F -could be related to urine infection, possible ventilator associated pneumonia, other infectious pathology would be central line, Heck catheter or abdominal source, bacteremia -white count elevated -02/11: Blood cultures, preliminary report is negative x2 so far -02/11: Urine cultures: No growth -02/11: Sputum cultures: Preliminary result with no growth -02/12, venous Dopplers of upper and lower extremities were negative -02/13/2022: Patient remains febrile with a T-max of 101.8?, will obtain CT scan of the chest, abdomen, pelvis. - Tylenol to control fevers -continue imipenem, levofloxacin, vancomycin (02/11) -added micafungin (02/13/2022) -blood pressures, renal function and urine output have been adequate -will continue to monitor blood pressures for adequate end organ perfusion (2) Acute respiratory failure: Code(s): J96.00 - Acute respiratory failure, unspecified whether with hypoxia or hypercapnia Status: Acute Assessment and Plan: Acute hypoxic and hypercarbic Respiratory failure secondary to influenza, pulmonary edema due to aortic stenosis, secondary bacterial pneumonia, initial BNP on admission was slightly elevated - Echo shows severe aortic stenosis -positive for influenza A on admission and at risk of secondary bacterial infection -Continue full mechanical ventilation support to prevent hypoxemia/hypercarbia and end organ damage. ABG and ventilator settings reviewed currently on 30% FiO2 and 8 of PEEP -chest x-ray this morning: Airspace opacities in the mid and lower lung zones with a basilar predominance, likely stable given the differences in technique, consistent with atelectasis versus pneumonia.. Stable small pleural effusions. Low tidal volume ventilation strategy to prevent volutrauma -status post full course of Tamiflu -antibiotics as above -continue Precedex infusion, maintain RASS of 0 to -1 Blood pressures are stable, patient has diuresed significantly well over the last few days, euvolemic since admission -02/12:placed patient on pressure support ventilation 10/5, lasted for 2 hours and he was tachypneic, with noticeable respiratory distress, was placed back on CMV mode, will retry later this afternoon -02/13/2022: will place patient again on pressure support this morning -02/06: CT showed Bilateral dependent consolidations may reflect atelectasis/edema, noting that infection is not excluded. Suspected trace bilateral pleural effusions (3) Sepsis: Code(s): A41.9 - Sepsis, unspecified organism Status: Acute Assessment and Plan: Secondary to influenza A and possible bacterial pneumonia. Also has UTI 02/04:Blood culture: No growth 02/04: Urine cultures growing Enterococcus which is sensitive to vancomycin the patient, continue vancomycin (4) Shock: Code(s): R57.9 - Shock, unspecified Status: Acute Assessment and Plan: RESOLVED -Likely multifactorial secondary to a severe aortic stenosis and sepsis due to pneumonia and UTI -Patient received conservative IV fluids due to concern of pulmonary edema and heart failure -off Levophed this morning on 02/10 -off vasopressin - weaning stress dose steroids (5) UTI (urinary tract infection): Code(s): N39.0 - Urinary tract infection, site not specified Status: Acute Assessment and Plan: 02/04: Urine cultures growing Enterococcus, continue vancomycin (6) Atrial flutter with rapid ventricular response: Code(s): I48.92 - Unspecified atrial flutter Status: Acute Assessment and Plan: Patient has now converted to sinus rhythm On Eliquis for anticoagulation -Not on amiodarone or beta-swati due to bradycardia -appreciate cardiology following the patient (7) Influenza A: Code(s): J10.1 - Influe
[2022-02-13] MEDS: dexmedeTOMIDine 400 MCG/100 ML 400 MCG/100 ML BAG 28.8 MCG IV CONT (11:18)
[2022-02-13 12:07] LABS: Glucose Point of Care 226 mg/dl (65-105)
[2022-02-13] MEDS: dexmedeTOMIDine 400 MCG/100 ML 400 MCG/100 ML BAG 18 MCG IV CONT (13:19)
[2022-02-13 17:32] LABS: Glucose Point of Care 201 mg/dl (65-105)
[2022-02-13] MEDS: dexmedeTOMIDine 400 MCG/100 ML 400 MCG/100 ML BAG 14.4 MCG IV CONT (19:12)
[2022-02-13 22:20] LABS: Glucose Point of Care 264 mg/dl (65-105)
[2022-02-14] VITALS (25 sets, daily range): BP systolic 101–150; BP diastolic 55–82; PULSE 56–79; RESP 14–27; TEMP 36.4–37.6; O2SAT 94–100
[2022-02-14 00:53] LABS: Glucose Point of Care 283 mg/dl (65-105)
[2022-02-14] MEDS: dexmedeTOMIDine 400 MCG/100 ML 400 MCG/100 ML BAG 21.6 MCG IV CONT ×3 (00:53→09:44)
[2022-02-14] MEDS: INSULIN ASPART (*BKC) 100 UNITS/ML SUB-Q ×2 (00:57→05:54)
[2022-02-14 04:46] LABS: Alveolar/Arterial O2 Gradient 61.5 mmHg; Carboxyhemoglobin 0.3 % THb (0-2.0); Fractional Inspired Oxygen 30 %; HCO3 ABG 28.2 mEq/l (22.0-26.0); Methemoglobin ABG 0.1 %THb (0-1.5); Oxygen Content ABG 18.2 %vol (16.0-22.0); Oxygen Saturation ABG 98.4 % (95.0-100.0); Oxyhemoglobin 96.8 % THb (90.0-100.0); PCO2 ABG 36.8 mmHg (35.0-45.0); PO2 ABG 109.2 mmHg (80.0-100.0); PO2 FiO2 Ratio Arterial Blood 3.64 %; Reduced Hemoglobin 2.8 %THb (0-5.0); Total Hemoglobin 13.3 g/dL (12.0-18.0)
[2022-02-14 04:47] LABS: Device VENTILATOR; Modified Allen's Test Pass; Site Drawn RIGHT RADIAL; pH ABG 7.502 (7.350-7.450)
[2022-02-14 04:48] LABS: Arterial Blood Gas PEEP 8 cmH2O; Arterial Blood Gas Tidal Volume 450 ml; Arterial Blood Gas Vent Mode CMV; Arterial Blood Gas Ventilator rate 24 /MIN
[2022-02-14 05:26] LABS: Anion Gap 6 mmol/L (8-16); Blood Urea Nitrogen 33 mg/dL (9-20); Calcium 8.2 mg/dL (8.4-10.2); Carbon Dioxide 31 mmol/L (22-30); Chloride 93 mmol/L (98-107); Estimated CRCL calculation 108 ml/min; Estimated Glomerular Filt Rate > 60; Glucose 348 mg/dL (65-110); Magnesium 1.9 mg/dL (1.6-2.3); Potassium 3.5 mmol/L (3.4-5.0); Sodium 130 mmol/L (137-145)
[2022-02-14 05:33] LABS: Basophils Percent Auto 0.3 % (0.2-1.2); Eosinophils Absolute Auto 0.1 K/mm3 (0-0.3); Eosinophils Percent Auto 1.2 % (0-4.4); Hematocrit 36.4 % (42.0-52.0); Hemoglobin 12.3 g/dL (14.0-18.0); Immature Granulocyte Absolute 0.06 K/mm3 (0.00-0.031); Immature Granulocyte Percent A 0.6 % (0-0.5); Immature Platelet Fraction Pct 10.3 % (0.9-11.2); Lymphocytes Absolute Auto 1.71 K/mm3 (0.9-3.2); Lymphocytes Percent Auto 16.3 % (18.3-44.2); Mean Corpuscular HGB Conc 33.8 g/dl (32-36); Mean Corpuscular Hemoglobin 31.6 pg (26-34); Mean Corpuscular Volume 93.6 fl (80-100); Mean Platelet Volume 11.5 fl (7.4-10.4); Monocytes Absolute Auto 0.8 K/mm3 (0.1-0.6); Monocytes Percent Auto 7.6 % (2.6-8.5); Neutrophils Absolute Auto 7.7 K/mm3 (1.3-6.7); Platelet Count Result 147 k/mm3 (150-375); Red Blood Count 3.89 M/mm3 (4.6-6.20); Red Cell Distribution Width 13.8 % (11.5-14.5); White Blood Count 10.5 K/mm3 (4.5-10.0)
[2022-02-14] MEDS: CENTRAL LINE FLUSH 10 ML IV PUSH ×3 (05:48→20:50)
[2022-02-14] MEDS: INSULIN GLARGINE (*BKC) 100 UNITS/ML 55 UNITS SUB-Q (08:14)
[2022-02-14] MEDS: TOLNAFTATE 1% POWDER 45 GM BTL 1 APPLIC TOPICAL ×2 (08:15→20:50)
[2022-02-14] MEDS: BRIMONIDINE TARTRATE 0.2% OP SOLN 5 ML BTL 1 DROP EACH EYE (08:15)
[2022-02-14] MEDS: ASPIRIN 81 MG CHEWABLE TABLET PO (08:16)
[2022-02-14] MEDS: APIXABAN 5 MG TABLET PO (08:16)
[2022-02-14] MEDS: ATORVASTATIN 20 MG TABLET PO (08:16)
[2022-02-14] MEDS: MINERAL OIL/WHITE PETROLATUM OINTMENT 1 APPLIC EACH EYE (08:17)
[2022-02-14] MEDS: MULTIVITAMINS THERAPEUTIC TAB (*BKC) 1 TABLET PO (08:17)
[2022-02-14] MEDS: TIMOLOL MALEATE 0.5% OP SOLN 5 ML BOTTLE 1 DROP EACH EYE (08:17)
[2022-02-14] MEDS: PANTOPRAZOLE SODIUM IV 40 MG VIAL IV PUSH (08:17)
[2022-02-14] MEDS: MICONAZOLE NITRATE 2% CREAM 30 GM TUBE 1 APPLIC TOPICAL (08:17)
[2022-02-14] MEDS: MICAFUNGIN SODIUM 100 MG in SODIUM CHLORIDE 0.9% IV 100 ML IVPB (08:18)
[2022-02-14] MEDS: CHOLECALCIFEROL 1,000 UNITS TABLET 1000 UNITS PO (08:18)
[2022-02-14] MEDS: INSULIN GLARGINE (*BKC) 100 UNITS/ML 65 UNITS SUB-Q (09:23)
--- NOTE | 2022-02-14 11:26 | WPDINTPN ---
Progress Note: A&P Assessment and Plan (1) Fever: Code(s): R50.9 - Fever, unspecified Status: Acute Assessment and Plan: 02/11: Patient with T-max of? 103? F -could be related to urine infection, possible ventilator associated pneumonia, other infectious pathology would be central line, Heck catheter or abdominal source, bacteremia -white count elevated -02/11:? Blood cultures, preliminary report is negative x2 so far -02/11:? Urine cultures:? No growth -02/11:? Sputum cultures: Growing yeast -02/12, venous Dopplers of upper and lower extremities were negative -02/13/2022: Patient remains febrile with a T-max of 101.8?, will obtain CT scan of the chest, abdomen, pelvis. - Tylenol to control fevers -continue imipenem, levofloxacin, vancomycin (02/11) -added micafungin (02/13/2022) -blood pressures, renal function and urine output have been adequate -will continue to monitor blood pressures for adequate end organ perfusion 02/14/2022: Patient has been afebrile in the last 24 hours (2) Acute respiratory failure: Code(s): J96.00 - Acute respiratory failure, unspecified whether with hypoxia or hypercapnia Status: Acute Assessment and Plan: Acute hypoxic and hypercarbic Respiratory failure secondary to influenza, pulmonary edema due to aortic stenosis, secondary bacterial pneumonia, initial BNP on admission was slightly elevated -? Echo shows severe aortic stenosis -positive for influenza A on admission and at risk of secondary bacterial infection -Continue full mechanical ventilation support to prevent hypoxemia/hypercarbia and end organ damage. ABG and ventilator settings reviewed currently on 30% FiO2 and 8 of PEEP -chest x-ray this morning:?Stable airspace opacities in the mid and lower lung zones with a left basilar predominance, consistent with atelectasis versus pneumonia.. Stable small left pleural effusion.. Low tidal volume ventilation strategy to prevent volutrauma -status post full course of Tamiflu -antibiotics as above -continue Precedex infusion, maintain RASS of 0 to -1 Blood pressures are stable, patient has diuresed significantly well over the last few days, euvolemic since admission -02/12:placed patient on pressure support ventilation /, lasted for 2 hours and he was tachypneic, with noticeable respiratory distress, was placed back on CMV mode, will retry later this afternoon -02/13/2022: will place patient again on pressure support this morning and lasted all day long -02/14/2022: Patient placed on SBT and evaluate for extubation today if he passes his spontaneous breathing trial -02/06: CT showed?Bilateral dependent consolidations may reflect atelectasis/edema, noting that infection is not excluded. Suspected trace bilateral pleural effusions (3) Sepsis: Code(s): A41.9 - Sepsis, unspecified organism Status: Acute Assessment and Plan: Secondary to influenza A and possible bacterial pneumonia.? Also has UTI 02/04:Blood culture:? No growth 02/04: Urine cultures growing Enterococcus which is sensitive to vancomycin the patient, continue vancomycin (4) Shock: Code(s): R57.9 - Shock, unspecified Status: Acute Assessment and Plan: RESOLVED -Likely multifactorial secondary to a severe aortic stenosis and sepsis due to pneumonia and UTI -Patient received conservative IV fluids due to concern of pulmonary edema and heart failure -off Levophed since 02/10 -off vasopressin - weaning stress dose steroids (5) UTI (urinary tract infection): Code(s): N39.0 - Urinary tract infection, site not specified Status: Acute Assessment and Plan: 02/04: Urine cultures growing Enterococcus, continue vancomycin (6) Atrial flutter with rapid ventricular response: Code(s): I48.92 - Unspecified atrial flutter Status: Acute (7) Influenza A: Code(s): J10.1 - Influenza due to other identified influenza virus with other respiratory
--- NOTE | 2022-02-14 11:27 | PCFNICU ---
ICU Rounding Note: Pt current nutrition is NPO, was on Vital 1.5 nutrition support. Nutrition recommendation: Continue with current plan of care Last recorded weight is 138.4 kg. Bowel Motility: +BM 02/13 Labs Reviewed:Hgb:12.3, HCT:36.4, NA:130, BUN:33 Meds Noted: Eliquis, lantus, protonix Skin: WNL Additional Notes: Pt on mechanical ventilation but being weaned for possible extubation today. Tube feedings currently on hold. Will continue to monitor. Following daily in ICU rounds. Monitor tolerance, plan of care, labs, meds, etc Follow daily in ICU rounds. Reassess Monday and Monday..
[2022-02-14 11:37] LABS: Glucose Point of Care 245 mg/dl (65-105)
--- NOTE | 2022-02-14 11:42 | PC.NURSE ---
Verbal order given by Dr. Cook to hold Novolog coverage for BG of 245. Pt NPO in anticipation of extubation.
[2022-02-14 13:51] LABS: Alveolar/Arterial O2 Gradient 25.6 mmHg; Base Excess ABG 6.2 mEq/l (+/-2.0); Fractional Inspired Oxygen 30 %; HCO3 ABG 30.6 mEq/l (22.0-26.0); Oxygen Content ABG 20.3 %vol (16.0-22.0); Oxygen Saturation ABG 98.9 % (95.0-100.0); Oxyhemoglobin 97.3 % THb (90.0-100.0); PO2 ABG 137.8 mmHg (80.0-100.0); PO2 FiO2 Ratio Arterial Blood 4.59 %; Total Hemoglobin 14.7 g/dL (12.0-18.0)
[2022-02-14 13:53] LABS: Modified Allen's Test Pass; Site Drawn LEFT RADIAL
[2022-02-14 13:54] LABS: Device VENTILATOR
[2022-02-14 13:55] LABS: Arterial Blood Gas Minute Volume 13.7 LPM; Arterial Blood Gas PEEP 5 cmH2O; Arterial Blood Gas Tidal Volume 571 ml
[2022-02-14 13:56] LABS: Arterial Blood Gas Pressure Support 8 cmH2O; Peak Inspiratory Pressure 13 cmH2O
[2022-02-14 13:57] LABS: Arterial Blood Gas Vent Mode SPONTANEOUS
[2022-02-14] MEDS: dexmedeTOMIDine 400 MCG/100 ML 400 MCG/100 ML BAG 14.4 MCG IV CONT (15:33)
[2022-02-14 18:37] LABS: Glucose Point of Care 143 mg/dl (65-105)
[2022-02-14 20:46] LABS: Glucose Point of Care 162 mg/dl (65-105)
[2022-02-14] MEDS: INSULIN GLARGINE (*BKC) 100 UNITS/ML 30 UNITS SUB-Q (20:53)
[2022-02-14] MEDS: dexmedeTOMIDine 400 MCG/100 ML 400 MCG/100 ML BAG 7.2 MCG IV CONT (21:31)
[2022-02-14 23:56] LABS: Glucose Point of Care 132 mg/dl (65-105)
[2022-02-15] VITALS (24 sets, daily range): BP systolic 108–164; BP diastolic 50–85; PULSE 55–99; RESP 16–21; TEMP 35.1–37.3; O2SAT 95–99
--- NOTE | 2022-02-15 04:26 | PC.NURSE ---
Pt refused kyler russell. Bladder temperature 95.4. Unable to obtain oral temperature. Pt aware of the risks of having a low temperature yet still refuses.
[2022-02-15 04:58] LABS: Basophils Absolute Auto 0.1 K/mm3 (0.0-0.1); Basophils Percent Auto 0.4 % (0.2-1.2); Eosinophils Absolute Auto 0.3 K/mm3 (0-0.3); Eosinophils Percent Auto 1.9 % (0-4.4); Hematocrit 39.4 % (42.0-52.0); Hemoglobin 13.9 g/dL (14.0-18.0); Immature Granulocyte Absolute 0.14 K/mm3 (0.00-0.031); Immature Granulocyte Percent A 0.8 % (0-0.5); Lymphocytes Percent Auto 18.5 % (18.3-44.2); Mean Corpuscular HGB Conc 35.3 g/dl (32-36); Mean Corpuscular Hemoglobin 31.7 pg (26-34); Mean Corpuscular Volume 89.7 fl (80-100); Mean Platelet Volume 11.2 fl (7.4-10.4); Monocytes Absolute Auto 1.3 K/mm3 (0.1-0.6); Monocytes Percent Auto 7.6 % (2.6-8.5); Neutrophils Absolute Auto 12.2 K/mm3 (1.3-6.7); Neutrophils Percent Auto 70.8 % (45.5-73.1); Platelet Count Result 234 k/mm3 (150-375); Red Blood Count 4.39 M/mm3 (4.6-6.20); Red Cell Distribution Width 13.7 % (11.5-14.5); White Blood Count 17.3 K/mm3 (4.5-10.0)
[2022-02-15 05:16] LABS: Anion Gap 4 mmol/L (8-16); Blood Urea Nitrogen 28 mg/dL (9-20); Calcium 8.5 mg/dL (8.4-10.2); Carbon Dioxide 33 mmol/L (22-30); Chloride 95 mmol/L (98-107); Estimated CRCL calculation 108 ml/min; Estimated Glomerular Filt Rate > 60; Glucose 86 mg/dL (65-110); Magnesium 1.9 mg/dL (1.6-2.3); Potassium 2.6 mmol/L (3.4-5.0); Sodium 132 mmol/L (137-145)
[2022-02-15] MEDS: CENTRAL LINE FLUSH 10 ML IV PUSH ×3 (05:51→22:40)
[2022-02-15] MEDS: KCL 40 MEQ/WATER 100 ML 100 ML 25 ML IVPB ×2 (05:51→13:44)
[2022-02-15] MEDS: APIXABAN 5 MG TABLET PO ×2 (08:19→20:41)
[2022-02-15] MEDS: ASPIRIN 81 MG CHEWABLE TABLET PO (08:19)
[2022-02-15] MEDS: MULTIVITAMINS THERAPEUTIC TAB (*BKC) 1 TABLET PO (08:20)
[2022-02-15] MEDS: BRIMONIDINE TARTRATE 0.2% OP SOLN 5 ML BTL 1 DROP EACH EYE (08:20)
[2022-02-15] MEDS: ATORVASTATIN 20 MG TABLET PO (08:20)
[2022-02-15] MEDS: CHOLECALCIFEROL 1,000 UNITS TABLET 1000 UNITS PO (08:20)
[2022-02-15] MEDS: TIMOLOL MALEATE 0.5% OP SOLN 5 ML BOTTLE 1 DROP EACH EYE (08:21)
[2022-02-15] MEDS: PANTOPRAZOLE SODIUM IV 40 MG VIAL IV PUSH (08:21)
[2022-02-15] MEDS: MINERAL OIL/WHITE PETROLATUM OINTMENT 1 APPLIC EACH EYE ×2 (08:21→20:41)
[2022-02-15] MEDS: TOLNAFTATE 1% POWDER 45 GM BTL 1 APPLIC TOPICAL ×2 (08:21→20:41)
[2022-02-15] MEDS: MICAFUNGIN SODIUM 100 MG in SODIUM CHLORIDE 0.9% IV 100 ML IVPB (08:45)
[2022-02-15] MEDS: hydrALAZINE HCL 20 MG/ML VIAL 10 MG IV PUSH (08:55)
[2022-02-15] MEDS: INSULIN GLARGINE (*BKC) 100 UNITS/ML 30 UNITS SUB-Q ×2 (09:04→20:46)
[2022-02-15 09:18] LABS: Glucose Point of Care 159 mg/dl (65-105)
--- NOTE | 2022-02-15 09:30 | PCSTNOTE ---
Please refer to the Bedside Swallow Evaluation in the EMR. Please note, silent aspiration cannot be ruled out at bedside.
[2022-02-15 10:42] LABS: Potassium 3.3 mmol/L (3.4-5.0)
[2022-02-15] MEDS: METOPROLOL TARTRATE 12.5 MG TABLET PO (12:00)
--- NOTE | 2022-02-15 12:02 | PCNFU ---
Nutrition Follow-Up Complete: Inadequate intake from tube feeding related to increased protein energy needs as evidenced by tube feeding order meeting 66% estimated energy needs goal: Meet estimated nutrition needs Patient is progressing towards goal. We will continue current goal. Pt current nutrition is Soft and Bite Sized, Level 6. Last recorded weight is 136.6 kg. Bowel Motility:+BM reported 02/13 Labs Reviewed:Na 132, BUN 28, Hct 39.4,Hgb 13.9 Meds Noted:Lantus, Eliquis, Lopressor, Protonix Skin: WNL Additional Notes: Patient extubated on 02/14. Bedside swallow eval today, recommending Soft and Bite Sized, Level 6 diet orders. Agree with diet orders at this time. Monitor tolerance, plan of care, labs, meds, etc Follow daily in ICU rounds. Reassess every 5 days.
[2022-02-15 12:10] LABS: Glucose Point of Care 137 mg/dl (65-105)
--- NOTE | 2022-02-15 13:52 | WPDINTPN ---
Progress Note: A&P Assessment and Plan (1) Fever: Code(s): R50.9 - Fever, unspecified Status: Acute Assessment and Plan: 02/11: Patient with T-max of? 103? F -could be related to urine infection, possible ventilator associated pneumonia, other infectious pathology would be central line, Heck catheter or abdominal source, bacteremia -white count elevated -02/11:? Blood cultures, preliminary report is negative x2 so far -02/11:? Urine cultures:? No growth -02/11:? Sputum cultures: Growing yeast -02/12, venous Dopplers of upper and lower extremities were negative -02/13/2022: Patient remains febrile with a T-max of 101.8?, will obtain CT scan of the chest, abdomen, pelvis. - Tylenol to control fevers -continue imipenem, levofloxacin, (02/11/2022) and micafungin (02/13/2022) -vancomycin discontinued on 02/15 -blood pressures, renal function and urine output have been adequate -will continue to monitor blood pressures for adequate end organ perfusion 02/14/2022: Patient has been afebrile in the last 24 hours (2) Acute respiratory failure: Code(s): J96.00 - Acute respiratory failure, unspecified whether with hypoxia or hypercapnia Status: Acute Assessment and Plan: Acute hypoxic and hypercarbic Respiratory failure secondary to influenza, pulmonary edema due to aortic stenosis, secondary bacterial pneumonia, initial BNP on admission was slightly elevated -? Echo shows severe aortic stenosis -positive for influenza A on admission and at risk of secondary bacterial infection -02/14/2021: Successfully extubated currently on room air -will have PT/OT evaluate and treat. Assist patient up to chair -encourage incentive spirometry -status post full course of Tamiflu -antibiotics as above -02/06: CT showed?Bilateral dependent consolidations may reflect atelectasis/edema, noting that infection is not excluded. Suspected trace bilateral pleural effusions (3) Sepsis: Code(s): A41.9 - Sepsis, unspecified organism Status: Acute Assessment and Plan: Secondary to influenza A and possible bacterial pneumonia.? Also has UTI 02/04:Blood culture:? No growth 02/04: Urine cultures growing Enterococcus which is sensitive to vancomycin the patient, continue vancomycin (4) Shock: Code(s): R57.9 - Shock, unspecified Status: Acute Assessment and Plan: RESOLVED -Likely multifactorial secondary to a severe aortic stenosis and sepsis due to pneumonia and UTI -Patient received conservative IV fluids due to concern of pulmonary edema and heart failure -off Levophed since 02/10 -off vasopressin - weaning stress dose steroids (5) UTI (urinary tract infection): Code(s): N39.0 - Urinary tract infection, site not specified Status: Acute Assessment and Plan: 02/04: Urine cultures growing Enterococcus, discontinued vancomycin on 02/15/2022 (6) Atrial flutter with rapid ventricular response: Code(s): I48.92 - Unspecified atrial flutter Status: Acute Assessment and Plan: Patient has now converted to sinus rhythm On Eliquis for anticoagulation -continue beta-swati, will increase metoprolol to 25 mg q.12 hours -appreciate cardiology following the patient (7) Influenza A: Code(s): J10.1 - Influenza due to other identified influenza virus with other respiratory manifestations Status: Acute Assessment and Plan: Status post full course of Tamiflu -off isolation (8) Aortic stenosis, severe: Code(s): I35.0 - Nonrheumatic aortic (valve) stenosis Status: Acute Assessment and Plan: Echocardiogram 02/05/2022 Summary ? 1. Technically difficult study with limited views despite definity echo contrast enhancement with limited regional wall motion assessment due to poor endomyocardial border definition. ? 2. Left ventricular chamber dimension is normal. ? 3. There is moderately increased left ventricular wall thickness. ? 4. L
--- NOTE | 2022-02-15 15:36 | PC.NURSE ---
This patient, Pino Arias, was transferred to [facility] on 02/15/22 at 1520. Personal belongings sent with patient. Report given to Rudi Muller. Appropriate documentation sent with patient.
[2022-02-15 16:47] LABS: Glucose Point of Care 105 mg/dl (65-105)
[2022-02-15 19:56] LABS: Glucose Point of Care 127 mg/dl (65-105)
[2022-02-15] MEDS: METOPROLOL TARTRATE 25 MG TABLET PO (20:41)
[2022-02-16] VITALS (15 sets, daily range): BP systolic 125–162; BP diastolic 60–110; PULSE 60–101; RESP 20–24; TEMP 36.1–36.8; O2SAT 96–98
[2022-02-16] MEDS: CENTRAL LINE FLUSH 10 ML IV PUSH ×3 (06:30→21:17)
[2022-02-16 07:49] LABS: Anion Gap 6 mmol/L (8-16); Basophils Absolute Auto 0.1 K/mm3 (0.0-0.1); Basophils Percent Auto 0.4 % (0.2-1.2); Blood Urea Nitrogen 26 mg/dL (9-20); Calcium 8.4 mg/dL (8.4-10.2); Carbon Dioxide 30 mmol/L (22-30); Chloride 101 mmol/L (98-107); Eosinophils Absolute Auto 0.2 K/mm3 (0-0.3); Eosinophils Percent Auto 1.4 % (0-4.4); Estimated CRCL calculation 95 ml/min; Estimated Glomerular Filt Rate > 60; Glucose 91 mg/dL (65-110); Hematocrit 39.5 % (42.0-52.0); Hemoglobin 13.5 g/dL (14.0-18.0); Immature Granulocyte Absolute 0.08 K/mm3 (0.00-0.031); Immature Granulocyte Percent A 0.6 % (0-0.5); Lymphocytes Absolute Auto 2.72 K/mm3 (0.9-3.2); Lymphocytes Percent Auto 19.2 % (18.3-44.2); Magnesium 1.8 mg/dL (1.6-2.3); Mean Corpuscular HGB Conc 34.2 g/dl (32-36); Mean Corpuscular Hemoglobin 31.4 pg (26-34); Mean Corpuscular Volume 91.9 fl (80-100); Mean Platelet Volume 10.8 fl (7.4-10.4); Monocytes Absolute Auto 1.1 K/mm3 (0.1-0.6); Monocytes Percent Auto 7.9 % (2.6-8.5); Neutrophils Percent Auto 70.5 % (45.5-73.1); Platelet Count Result 185 k/mm3 (150-375); Potassium 3.1 mmol/L (3.4-5.0); Red Cell Distribution Width 14.5 % (11.5-14.5); Sodium 137 mmol/L (137-145); White Blood Count 14.1 K/mm3 (4.5-10.0)
[2022-02-16 07:54] LABS: Glucose Point of Care 78 mg/dl (65-105)
[2022-02-16] MEDS: ASPIRIN 81 MG CHEWABLE TABLET PO (10:04)
[2022-02-16] MEDS: ATORVASTATIN 20 MG TABLET PO (10:05)
[2022-02-16] MEDS: POTASSIUM CHLORIDE 20 MEQ TABLET 40 MEQ PO (10:05)
[2022-02-16] MEDS: BRIMONIDINE TARTRATE 0.2% OP SOLN 5 ML BTL 1 DROP EACH EYE (10:05)
[2022-02-16] MEDS: APIXABAN 5 MG TABLET PO ×2 (10:05→21:17)
[2022-02-16] MEDS: METOPROLOL TARTRATE 25 MG TABLET PO ×2 (10:06→21:16)
[2022-02-16] MEDS: MULTIVITAMINS THERAPEUTIC TAB (*BKC) 1 TABLET PO (10:06)
[2022-02-16] MEDS: CHOLECALCIFEROL 1,000 UNITS TABLET 1000 UNITS PO (10:06)
[2022-02-16] MEDS: MICAFUNGIN SODIUM 100 MG in SODIUM CHLORIDE 0.9% IV 100 ML IVPB (10:07)
[2022-02-16] MEDS: PANTOPRAZOLE SODIUM IV 40 MG VIAL IV PUSH (10:07)
[2022-02-16] MEDS: TIMOLOL MALEATE 0.5% OP SOLN 5 ML BOTTLE 1 DROP EACH EYE (10:08)
[2022-02-16] MEDS: TOLNAFTATE 1% POWDER 45 GM BTL 1 APPLIC TOPICAL ×2 (10:08→21:17)
[2022-02-16] MEDS: INSULIN GLARGINE (*BKC) 100 UNITS/ML 30 UNITS SUB-Q (10:18)
--- NOTE | 2022-02-16 10:59 | PCPTNOTE ---
Attempted PT evaluation, pt refused due to being fatigued and fear of over doing it with his heart condition. RN aware. Will follow.
[2022-02-16 12:37] LABS: Glucose Point of Care 102 mg/dl (65-105)
--- NOTE | 2022-02-16 14:28 | PM.IMPN ---
Progress Note: A&P Assessment and Plan (1) Fever: Code(s): R50.9 - Fever, unspecified Status: Acute Assessment and Plan: 02/11: Patient with T-max of? 103? F -could be related to urine infection, possible ventilator associated pneumonia, other infectious pathology would be central line, Heck catheter or abdominal source, bacteremia -white count elevated -02/11:? Blood cultures, preliminary report is negative x2 so far -02/11:? Urine cultures:? No growth -02/11:? Sputum cultures: Growing yeast -02/12, venous Dopplers of upper and lower extremities were negative -02/13/2022: Patient remains febrile with a T-max of 101.8?, will obtain CT scan of the chest, abdomen, pelvis. - Tylenol to control fevers -continue imipenem, levofloxacin, (02/11/2022) and micafungin (02/13/2022) -vancomycin discontinued on 02/15 -blood pressures, renal function and urine output have been adequate -will continue to monitor blood pressures for adequate end organ perfusion 02/14/2022: Patient has been afebrile in the last 24 hours 02/16/22: patient was hypothermic yesteday requiring warming blanket. Temeprature more stable today. Continue Abx and antifungal to treat for 7 days. (2) Acute respiratory failure: Code(s): J96.00 - Acute respiratory failure, unspecified whether with hypoxia or hypercapnia Status: Acute Assessment and Plan: Acute hypoxic and hypercarbic respiratory failure secondary to influenza, pulmonary edema due to aortic stenosis, secondary bacterial pneumonia, initial BNP on admission was slightly elevated -02/06: CT showed?Bilateral dependent consolidations may reflect atelectasis/edema, noting that infection is not excluded. Suspected trace bilateral pleural effusions -? Echo shows severe aortic stenosis -positive for influenza A on admission and at risk of secondary bacterial infection -02/14/2021: Successfully extubated -will have PT/OT evaluate and treat. Assist patient up to chair -encourage incentive spirometry -status post full course of Tamiflu -antibiotics as above -currently on room air (3) Sepsis: Code(s): A41.9 - Sepsis, unspecified organism Status: Acute Assessment and Plan: Secondary to influenza A and possible bacterial pneumonia.? Also has UTI 02/04:Blood culture:? No growth 02/04: Urine cultures growing Enterococcus which is sensitive to vancomycin the patient, he completed vancomycin As above (4) Shock: Code(s): R57.9 - Shock, unspecified Status: Acute Assessment and Plan: RESOLVED -Likely multifactorial secondary to a severe aortic stenosis and sepsis due to pneumonia and UTI -Patient received conservative IV fluids due to concern of pulmonary edema and heart failure -off Levophed since 02/10 -off vasopressin - weaned off stress dose steroids (5) UTI (urinary tract infection): Code(s): N39.0 - Urinary tract infection, site not specified Status: Acute Assessment and Plan: 02/04: Urine cultures growing Enterococcus, discontinued vancomycin on 02/15/2022 (6) Atrial flutter with rapid ventricular response: Code(s): I48.92 - Unspecified atrial flutter Status: Acute Assessment and Plan: Patient has now converted to sinus rhythm On Eliquis for anticoagulation -continue beta-swati 25 mg q.12 hours -appreciate cardiology following the patient (7) Influenza A: Code(s): J10.1 - Influenza due to other identified influenza virus with other respiratory manifestations Status: Acute Assessment and Plan: Status post full course of Tamiflu -off isolation (8) Aortic stenosis, severe: Code(s): I35.0 - Nonrheumatic aortic (valve) stenosis Status: Acute Assessment and Plan: Echocardiogram 02/05/22 Summary ? 1. Technically difficult study with limited views despite definity echo contrast enhancement with limited regional wall motion assessment due to poor endo
[2022-02-16 16:30] LABS: Glucose Point of Care 89 mg/dl (65-105)
[2022-02-16] MEDS: MINERAL OIL/WHITE PETROLATUM OINTMENT 1 APPLIC EACH EYE (21:17)
[2022-02-16 21:20] LABS: Glucose Point of Care 81 mg/dl (65-105)
[2022-02-17] VITALS (18 sets, daily range): BP systolic 109–154; BP diastolic 58–86; PULSE 66–117; RESP 20–22; TEMP 35.7–37.1; O2SAT 96–99
[2022-02-17] MEDS: ACETAMINOPHEN ELIXIR 325 MG/10.15 ML UDC 650 MG PO ×3 (00:23→22:05)
[2022-02-17] MEDS: CENTRAL LINE FLUSH 10 ML IV PUSH ×2 (06:04→14:00)
[2022-02-17 06:27] LABS: Basophils Absolute Auto 0.1 K/mm3 (0.0-0.1); Basophils Percent Auto 0.6 % (0.2-1.2); Eosinophils Absolute Auto 0.2 K/mm3 (0-0.3); Eosinophils Percent Auto 1.7 % (0-4.4); Hematocrit 40.2 % (42.0-52.0); Hemoglobin 13.6 g/dL (14.0-18.0); Immature Granulocyte Absolute 0.05 K/mm3 (0.00-0.031); Immature Granulocyte Percent A 0.4 % (0-0.5); Lymphocytes Absolute Auto 3.39 K/mm3 (0.9-3.2); Lymphocytes Percent Auto 27.3 % (18.3-44.2); Mean Corpuscular HGB Conc 33.8 g/dl (32-36); Mean Corpuscular Hemoglobin 31.4 pg (26-34); Mean Corpuscular Volume 92.8 fl (80-100); Mean Platelet Volume 10.7 fl (7.4-10.4); Monocytes Absolute Auto 1.1 K/mm3 (0.1-0.6); Monocytes Percent Auto 8.6 % (2.6-8.5); Neutrophils Absolute Auto 7.6 K/mm3 (1.3-6.7); Neutrophils Percent Auto 61.4 % (45.5-73.1); Platelet Count Result 205 k/mm3 (150-375); Red Blood Count 4.33 M/mm3 (4.6-6.20); Red Cell Distribution Width 14.3 % (11.5-14.5); White Blood Count 12.4 K/mm3 (4.5-10.0)
[2022-02-17 06:52] LABS: Anion Gap 5 mmol/L (8-16); Blood Urea Nitrogen 21 mg/dL (9-20); Calcium 8.5 mg/dL (8.4-10.2); Carbon Dioxide 31 mmol/L (22-30); Chloride 98 mmol/L (98-107); Estimated CRCL calculation 94 ml/min; Estimated Glomerular Filt Rate > 60; Glucose 93 mg/dL (65-110); Magnesium 1.9 mg/dL (1.6-2.3); Sodium 134 mmol/L (137-145)
[2022-02-17 08:11] LABS: Glucose Point of Care 95 mg/dl (65-105)
[2022-02-17] MEDS: POTASSIUM CHLORIDE 20 MEQ TABLET 40 MEQ PO (09:24)
[2022-02-17] MEDS: MICAFUNGIN SODIUM 100 MG in SODIUM CHLORIDE 0.9% IV 100 ML IVPB (09:25)
[2022-02-17] MEDS: CHOLECALCIFEROL 1,000 UNITS TABLET 1000 UNITS PO (09:26)
[2022-02-17] MEDS: ASPIRIN 81 MG CHEWABLE TABLET PO (09:26)
[2022-02-17] MEDS: APIXABAN 5 MG TABLET PO ×2 (09:26→20:07)
[2022-02-17] MEDS: ATORVASTATIN 20 MG TABLET PO (09:26)
[2022-02-17] MEDS: TIMOLOL MALEATE 0.5% OP SOLN 5 ML BOTTLE 1 DROP EACH EYE (09:26)
[2022-02-17] MEDS: PANTOPRAZOLE SODIUM IV 40 MG VIAL IV PUSH (09:26)
[2022-02-17] MEDS: METOPROLOL TARTRATE 25 MG TABLET PO ×2 (09:26→20:06)
[2022-02-17] MEDS: BRIMONIDINE TARTRATE 0.2% OP SOLN 5 ML BTL 1 DROP EACH EYE (09:26)
[2022-02-17] MEDS: INSULIN GLARGINE (*BKC) 100 UNITS/ML 20 UNITS SUB-Q (09:28)
[2022-02-17] MEDS: TOLNAFTATE 1% POWDER 45 GM BTL 1 APPLIC TOPICAL ×2 (09:28→20:07)
[2022-02-17] MEDS: MULTIVITAMINS THERAPEUTIC TAB (*BKC) 1 TABLET PO (09:28)
[2022-02-17 11:50] LABS: Glucose Point of Care 158 mg/dl (65-105)
[2022-02-17 16:19] LABS: Glucose Point of Care 156 mg/dl (65-105)
--- NOTE | 2022-02-17 17:54 | PM.IMPN ---
Progress Note: A&P Assessment and Plan (1) Fever: Code(s): R50.9 - Fever, unspecified Status: Acute Assessment and Plan: 02/11: Patient with T-max of? 103? F -could be related to urine infection, possible ventilator associated pneumonia, other infectious pathology would be central line, Heck catheter or abdominal source, bacteremia -white count elevated -02/11:? Blood cultures, preliminary report is negative x2 so far -02/11:? Urine cultures:? No growth -02/11:? Sputum cultures: Growing yeast -02/12, venous Dopplers of upper and lower extremities were negative -02/13/2022: Patient remains febrile with a T-max of 101.8?, will obtain CT scan of the chest, abdomen, pelvis. - Tylenol to control fevers -continue imipenem, levofloxacin, (02/11/2022) and micafungin (02/13/2022) -vancomycin discontinued on 02/15 -blood pressures, renal function and urine output have been adequate -will continue to monitor blood pressures for adequate end organ perfusion 02/14/2022: Patient has been afebrile in the last 24 hours 02/16/22: patient was hypothermic yesteday requiring warming blanket. Temeprature more stable today. Continue Abx and antifungal to treat for 7 days. 02/17/22 - fever resolved. No longer having temperature instability. Finishing up IV antibiotics today. Remove central line. Continue IV antifungal treatment to complete a 7 day course. (2) Acute respiratory failure: Code(s): J96.00 - Acute respiratory failure, unspecified whether with hypoxia or hypercapnia Status: Acute Assessment and Plan: Acute hypoxic and hypercarbic respiratory failure secondary to influenza, pulmonary edema due to aortic stenosis, secondary bacterial pneumonia, initial BNP on admission was slightly elevated -02/06: CT showed?Bilateral dependent consolidations may reflect atelectasis/edema, noting that infection is not excluded. Suspected trace bilateral pleural effusions -? Echo shows severe aortic stenosis -positive for influenza A on admission and at risk of secondary bacterial infection -02/14/2021: Successfully extubated -will have PT/OT evaluate and treat. Assist patient up to chair -encourage incentive spirometry -status post full course of Tamiflu -antibiotics as above -currently on room air (3) Sepsis: Code(s): A41.9 - Sepsis, unspecified organism Status: Acute Assessment and Plan: Secondary to influenza A and possible bacterial pneumonia.? Also has UTI 02/04:Blood culture:? No growth 02/04: Urine cultures growing Enterococcus which is sensitive to vancomycin. The patient completed vancomycin As above (4) Shock: Code(s): R57.9 - Shock, unspecified Status: Acute Assessment and Plan: RESOLVED -Likely multifactorial secondary to a severe aortic stenosis and sepsis due to pneumonia and UTI -Patient received conservative IV fluids due to concern of pulmonary edema and heart failure -off Levophed since 02/10 -off vasopressin - weaned off stress dose steroids (5) UTI (urinary tract infection): Code(s): N39.0 - Urinary tract infection, site not specified Status: Acute Assessment and Plan: 02/04: Urine cultures growing Enterococcus, discontinued vancomycin on 02/15/2022 (6) Atrial flutter with rapid ventricular response: Code(s): I48.92 - Unspecified atrial flutter Status: Acute Assessment and Plan: Patient has now converted to sinus rhythm On Eliquis for anticoagulation -continue beta-swati 25 mg q.12 hours -appreciate cardiology following the patient (7) Influenza A: Code(s): J10.1 - Influenza due to other identified influenza virus with other respiratory manifestations Status: Acute Assessment and Plan: Status post full course of Tamiflu -off isolation (8) Aortic stenosis, severe: Code(s): I35.0 - Nonrheumatic aortic (valve) stenosis Status: Acute Assessment and Plan: Ech
[2022-02-17 20:35] LABS: Glucose Point of Care 151 mg/dl (65-105)
[2022-02-17] MEDS: MELATONIN 3 MG TABLET PO (22:05)
[2022-02-18] VITALS (18 sets, daily range): BP systolic 104–146; BP diastolic 58–102; PULSE 67–103; RESP 18–22; TEMP 35.7–36.4; O2SAT 94–100
[2022-02-18] MEDS: CENTRAL LINE FLUSH 10 ML IV PUSH ×3 (05:15→21:06)
[2022-02-18 05:32] LABS: Basophils Absolute Auto 0.1 K/mm3 (0.0-0.1); Basophils Percent Auto 0.7 % (0.2-1.2); Eosinophils Absolute Auto 0.3 K/mm3 (0-0.3); Hematocrit 42.9 % (42.0-52.0); Hemoglobin 14.3 g/dL (14.0-18.0); Immature Granulocyte Absolute 0.05 K/mm3 (0.00-0.031); Immature Granulocyte Percent A 0.4 % (0-0.5); Lymphocytes Absolute Auto 4.16 K/mm3 (0.9-3.2); Lymphocytes Percent Auto 29.9 % (18.3-44.2); Mean Corpuscular HGB Conc 33.3 g/dl (32-36); Mean Corpuscular Hemoglobin 31.3 pg (26-34); Mean Corpuscular Volume 93.9 fl (80-100); Mean Platelet Volume 10.9 fl (7.4-10.4); Monocytes Absolute Auto 1.4 K/mm3 (0.1-0.6); Monocytes Percent Auto 10.1 % (2.6-8.5); Neutrophils Absolute Auto 7.9 K/mm3 (1.3-6.7); Neutrophils Percent Auto 56.9 % (45.5-73.1); Platelet Count Result 253 k/mm3 (150-375); Red Blood Count 4.57 M/mm3 (4.6-6.20); Red Cell Distribution Width 14.6 % (11.5-14.5); White Blood Count 13.9 K/mm3 (4.5-10.0)
[2022-02-18 05:43] LABS: Alanine Aminotransferase 25 U/L (6-50); Albumin Level 3.8 g/dL (3.5-5.1); Alkaline Phosphatase 84 U/L (38-126); Anion Gap 8 mmol/L (8-16); Aspartate Amino Transferase 35 U/L (17-59); Bilirubin,Total 0.9 mg/dL (0.2-1.3); Blood Urea Nitrogen 22 mg/dL (9-20); Carbon Dioxide 28 mmol/L (22-30); Chloride 103 mmol/L (98-107); Estimated CRCL calculation 85 ml/min; Estimated Glomerular Filt Rate > 60; Glucose 128 mg/dL (65-110); Phosphorus 2.9 mg/dL (2.5-4.5); Potassium 3.1 mmol/L (3.4-5.0); Sodium 139 mmol/L (137-145)
[2022-02-18 08:02] LABS: Glucose Point of Care 127 mg/dl (65-105)
[2022-02-18] MEDS: CHOLECALCIFEROL 1,000 UNITS TABLET 1000 UNITS PO (08:23)
[2022-02-18] MEDS: ATORVASTATIN 20 MG TABLET PO (08:23)
[2022-02-18] MEDS: ASPIRIN 81 MG CHEWABLE TABLET PO (08:23)
[2022-02-18] MEDS: METOPROLOL TARTRATE 25 MG TABLET PO ×2 (08:23→21:05)
[2022-02-18] MEDS: APIXABAN 5 MG TABLET PO ×2 (08:23→21:05)
[2022-02-18] MEDS: MULTIVITAMINS THERAPEUTIC TAB (*BKC) 1 TABLET PO (08:24)
[2022-02-18] MEDS: TIMOLOL MALEATE 0.5% OP SOLN 5 ML BOTTLE 1 DROP EACH EYE (08:25)
[2022-02-18] MEDS: TOLNAFTATE 1% POWDER 45 GM BTL 1 APPLIC TOPICAL ×2 (08:25→21:06)
[2022-02-18] MEDS: BRIMONIDINE TARTRATE 0.2% OP SOLN 5 ML BTL 1 DROP EACH EYE (08:25)
[2022-02-18] MEDS: PANTOPRAZOLE SODIUM IV 40 MG VIAL IV PUSH (08:25)
[2022-02-18] MEDS: EUCERIN CREAM 120 GM JAR 1 APPLIC TOPICAL (08:26)
[2022-02-18] MEDS: MICAFUNGIN SODIUM 100 MG in SODIUM CHLORIDE 0.9% IV 100 ML IVPB (08:30)
[2022-02-18] MEDS: INSULIN GLARGINE (*BKC) 100 UNITS/ML 20 UNITS SUB-Q (08:35)
[2022-02-18] MEDS: POTASSIUM CHLORIDE 20 MEQ TABLET 40 MEQ PO (11:30)
[2022-02-18 11:55] LABS: Glucose Point of Care 177 mg/dl (65-105)
--- NOTE | 2022-02-18 12:35 | PM.IMPN ---
Progress Note: A&P Assessment and Plan (1) Fever: Code(s): R50.9 - Fever, unspecified Status: Acute Assessment and Plan: 02/11: Patient with T-max of? 103? F -could be related to urine infection, possible ventilator associated pneumonia, other infectious pathology would be central line, Heck catheter or abdominal source, bacteremia -white count elevated -02/11:? Blood cultures, preliminary report is negative x2 so far -02/11:? Urine cultures:? No growth -02/11:? Sputum cultures: Growing yeast -02/12, venous Dopplers of upper and lower extremities were negative -02/13/2022: Patient remains febrile with a T-max of 101.8?, will obtain CT scan of the chest, abdomen, pelvis. - Tylenol to control fevers -continue imipenem, levofloxacin, (02/11/2022) and micafungin (02/13/2022) -vancomycin discontinued on 02/15 -blood pressures, renal function and urine output have been adequate -will continue to monitor blood pressures for adequate end organ perfusion 02/14/2022: Patient has been afebrile in the last 24 hours 02/16/22: patient was hypothermic yesteday requiring warming blanket. Temeprature more stable today. Continue Abx and antifungal to treat for 7 days. 02/17/22 - fever resolved. No longer having temperature instability. Finishing up IV antibiotics today. Remove central line. Continue IV antifungal treatment to complete a 7 day course. 02/18/22 - central line out. Heck out. Increase activity. Discharge tomorrow after micafungin complete (2) Acute respiratory failure: Code(s): J96.00 - Acute respiratory failure, unspecified whether with hypoxia or hypercapnia Status: Acute Assessment and Plan: Acute hypoxic and hypercarbic respiratory failure secondary to influenza, pulmonary edema due to aortic stenosis, secondary bacterial pneumonia, initial BNP on admission was slightly elevated -02/06: CT showed?Bilateral dependent consolidations may reflect atelectasis/edema, noting that infection is not excluded. Suspected trace bilateral pleural effusions -? Echo shows severe aortic stenosis -positive for influenza A on admission and at risk of secondary bacterial infection -02/14/2021: Successfully extubated -will have PT/OT evaluate and treat. Assist patient up to chair -encourage incentive spirometry -status post full course of Tamiflu -antibiotics as above -currently on room air; RESOLVED (3) Sepsis: Code(s): A41.9 - Sepsis, unspecified organism Status: Acute Assessment and Plan: Secondary to influenza A and possible bacterial pneumonia.? Also has UTI 02/04:Blood culture:? No growth 02/04: Urine cultures growing Enterococcus which is sensitive to vancomycin. The patient completed vancomycin As above (4) Shock: Code(s): R57.9 - Shock, unspecified Status: Acute Assessment and Plan: RESOLVED -Likely multifactorial secondary to a severe aortic stenosis and sepsis due to pneumonia and UTI -Patient received conservative IV fluids due to concern of pulmonary edema and heart failure -off Levophed since 02/10 -off vasopressin - weaned off stress dose steroids (5) UTI (urinary tract infection): Code(s): N39.0 - Urinary tract infection, site not specified Status: Acute Assessment and Plan: 02/04: Urine cultures growing Enterococcus, discontinued vancomycin on 02/15/2022 (6) Atrial flutter with rapid ventricular response: Code(s): I48.92 - Unspecified atrial flutter Status: Acute Assessment and Plan: Patient has now converted to sinus rhythm On Eliquis for anticoagulation -continue beta-swati 25 mg q.12 hours -appreciate cardiology following the patient (7) Influenza A: Code(s): J10.1 - Influenza due to other identified influenza virus with other respiratory manifestations Status: Acute Assessment and Plan: Status post full course of Tamiflu -off isolation (8) Aortic stenosis, severe:
--- NOTE | 2022-02-18 14:23 | PCPTNOTE ---
Attempted to see patient for PT, however patient refused. Patient reported he just worked with therapy (patient just got done with OT). Explained to patient the difference between OT and PT and that he will be getting both PT and OT while in the hospital. Patient reported he was too worn out from working with OT and continued to refuse PT.
--- NOTE | 2022-02-18 15:33 | PCPTNOTE ---
Attempted to see patient a second for PT, however patient refused. Patient reported he was waiting for the bed jonas and would like PT to come back after he's done. Encouraged patient to get up to toilet or commode, patient refused use of toilet or commode and asked PT to come back tomorrow.
[2022-02-18 16:34] LABS: Glucose Point of Care 214 mg/dl (65-105)
[2022-02-18] MEDS: INSULIN ASPART (*BKC) 100 UNITS/ML SUB-Q (17:13)
[2022-02-18 21:01] LABS: Glucose Point of Care 181 mg/dl (65-105)
[2022-02-18] MEDS: MINERAL OIL/WHITE PETROLATUM OINTMENT 1 APPLIC EACH EYE (21:05)
[2022-02-19] VITALS (10 sets, daily range): BP systolic 134–155; BP diastolic 60–86; PULSE 66–90; RESP 16–20; TEMP 35.8–36.2; O2SAT 97–100
[2022-02-19 05:12] LABS: Basophils Absolute Auto 0.1 K/mm3 (0.0-0.1); Basophils Percent Auto 0.7 % (0.2-1.2); Eosinophils Absolute Auto 0.3 K/mm3 (0-0.3); Eosinophils Percent Auto 1.9 % (0-4.4); Hematocrit 40.6 % (42.0-52.0); Hemoglobin 13.7 g/dL (14.0-18.0); Immature Granulocyte Absolute 0.03 K/mm3 (0.00-0.031); Immature Granulocyte Percent A 0.2 % (0-0.5); Lymphocytes Absolute Auto 3.83 K/mm3 (0.9-3.2); Lymphocytes Percent Auto 28.8 % (18.3-44.2); Mean Corpuscular HGB Conc 33.7 g/dl (32-36); Mean Corpuscular Hemoglobin 31.1 pg (26-34); Mean Corpuscular Volume 92.1 fl (80-100); Mean Platelet Volume 10.6 fl (7.4-10.4); Monocytes Absolute Auto 1.2 K/mm3 (0.1-0.6); Monocytes Percent Auto 9.2 % (2.6-8.5); Neutrophils Absolute Auto 7.9 K/mm3 (1.3-6.7); Neutrophils Percent Auto 59.2 % (45.5-73.1); Platelet Count Result 225 k/mm3 (150-375); Red Blood Count 4.41 M/mm3 (4.6-6.20); Red Cell Distribution Width 14.4 % (11.5-14.5); White Blood Count 13.3 K/mm3 (4.5-10.0)
[2022-02-19 05:21] LABS: Anion Gap 6 mmol/L (8-16); Blood Urea Nitrogen 21 mg/dL (9-20); Calcium 8.7 mg/dL (8.4-10.2); Carbon Dioxide 27 mmol/L (22-30); Chloride 106 mmol/L (98-107); Estimated CRCL calculation 95 ml/min; Estimated Glomerular Filt Rate > 60; Glucose 105 mg/dL (65-110); Magnesium 1.8 mg/dL (1.6-2.3); Potassium 3.2 mmol/L (3.4-5.0); Sodium 139 mmol/L (137-145)
--- NOTE | 2022-02-19 05:47 | PC.NURSE ---
This patient, Pino Arias, was transferred to [[id number]] on 02/19/22 at 0550. Personal belongings sent with patient. Report given to [Fuad, RN]. Appropriate documentation sent with patient.
[2022-02-19 07:53] LABS: Glucose Point of Care 108 mg/dl (65-105)
[2022-02-19] MEDS: MICAFUNGIN SODIUM 100 MG in SODIUM CHLORIDE 0.9% IV 100 ML IVPB (08:45)
[2022-02-19] MEDS: MAGNESIUM SULF 2 GM/WATER 50ML 2 GM/50 ML BAG IVPB (08:48)
[2022-02-19] MEDS: APIXABAN 5 MG TABLET PO ×2 (08:49→20:33)
[2022-02-19] MEDS: BRIMONIDINE TARTRATE 0.2% OP SOLN 5 ML BTL 1 DROP EACH EYE (08:49)
[2022-02-19] MEDS: POTASSIUM CHLORIDE 20 MEQ TABLET 40 MEQ PO (08:49)
[2022-02-19] MEDS: MULTIVITAMINS THERAPEUTIC TAB (*BKC) 1 TABLET PO (08:49)
[2022-02-19] MEDS: ASPIRIN 81 MG CHEWABLE TABLET PO (08:49)
[2022-02-19] MEDS: METOPROLOL TARTRATE 25 MG TABLET PO ×2 (08:49→20:34)
[2022-02-19] MEDS: CHOLECALCIFEROL 1,000 UNITS TABLET 1000 UNITS PO (08:49)
[2022-02-19] MEDS: ATORVASTATIN 20 MG TABLET PO (08:49)
[2022-02-19] MEDS: MINERAL OIL/WHITE PETROLATUM OINTMENT 1 APPLIC EACH EYE ×2 (08:52→20:33)
[2022-02-19] MEDS: TIMOLOL MALEATE 0.5% OP SOLN 5 ML BOTTLE 1 DROP EACH EYE (08:56)
[2022-02-19] MEDS: EUCERIN CREAM 120 GM JAR 1 APPLIC TOPICAL (08:56)
[2022-02-19] MEDS: PANTOPRAZOLE SODIUM IV 40 MG VIAL IV PUSH (08:56)
[2022-02-19] MEDS: TOLNAFTATE 1% POWDER 45 GM BTL 1 APPLIC TOPICAL ×2 (08:57→20:33)
[2022-02-19 11:45] LABS: Glucose Point of Care 159 mg/dl (65-105)
--- NOTE | 2022-02-19 15:56 | PM.DS ---
DS: Admitting Diagnosis Discharge Date 02/19/22 Admitting Diagnosis Weakness DS: Discharge Diagnosis Discharge Diagnosis (1) Fever: Code(s): R50.9 - Fever, unspecified Status: Acute (2) Acute respiratory failure: Code(s): J96.00 - Acute respiratory failure, unspecified whether with hypoxia or hypercapnia Status: Acute (3) Sepsis: Code(s): A41.9 - Sepsis, unspecified organism Status: Acute (4) Shock: Code(s): R57.9 - Shock, unspecified Status: Acute (5) UTI (urinary tract infection): Code(s): N39.0 - Urinary tract infection, site not specified Status: Acute (6) Atrial flutter with rapid ventricular response: Code(s): I48.92 - Unspecified atrial flutter Status: Acute (7) Influenza A: Code(s): J10.1 - Influenza due to other identified influenza virus with other respiratory manifestations Status: Acute (8) Aortic stenosis, severe: Code(s): I35.0 - Nonrheumatic aortic (valve) stenosis Status: Acute (9) Hyperlipidemia: Qualifiers: Hyperlipidemia type: unspecified Qualified Code(s): E78.5 - Hyperlipidemia, unspecified Code(s): E78.5 - Hyperlipidemia, unspecified Status: Chronic (10) GERD without esophagitis: Code(s): K21.9 - Gastro-esophageal reflux disease without esophagitis Status: Chronic (11) Type 2 diabetes mellitus with diabetic neuropathy: Qualifiers: Diabetes mellitus long filler cigar roller machine insulin use: without long filler cigar roller machine use Qualified Code(s): E11.40 - Type 2 diabetes mellitus with diabetic neuropathy, unspecified Code(s): E11.40 - Type 2 diabetes mellitus with diabetic neuropathy, unspecified Status: Chronic (12) Bleeding: Code(s): R58 - Hemorrhage, not elsewhere classified Status: Acute DS: Summary Hospital Course Reason for hospitalization: 76o male here with respiratory failure, influenza A, severe aortic stenosis, septic shock, UTI, AFib/flutter RVR. Please see H&P for details. Hospital Course: Patient presented with weakness and found to have fevers and developed respiratory failure. Patient was to the ICU for acute hypoxic and hypercarbic respiratory failure secondary to influenza, pulmonary edema due to aortic stenosis, and secondary bacterial pneumonia. patient was intubated 02/05/2022. Was started on IV broad-spectrum antibiotics. Continued to have fevers and antifungal therapy was added. Fevers resolved. He completed 7 day course of IV antibiotics and IV antifungal treatment. Patient was able to be extubated on 02/14/2022 and easily weaned to room air. Was also noted to have influenza. He was treated with course of Tamiflu. Blood cultures were negative. Urine culture grew out Enterococcus species and this was treated appropriately. Sputum grew yeast. Repeat blood cultures remain negative. Urine culture was repeated and was negative. Venous Doppler was negative for DVT. Patient also had sepsis with shock treated with Vasopressors. These were able to weaned off prior to extubation. Patient developed atrial flutter with RVR. He converted to normal sinus rhythm. He was started on Eliquis. When he was more stable, beta-swati was added a tolerated this well. Echocardiogram was performed which showed severe aortic valve stenosis with an aortic valve area 0.8 centimeter squared. His EF was 55%. Cardiology was involved in his care. Patient did well. He was transferred out of the ICU. He completed his antibiotics and antifungal treatment. He was still very weak. He worked with PT and OT. He overall did well was able be transferred to skilled facility on 02/19/2022. Status at Discharge Cognitive/behavioral status at discharge: Stable Time Spent with Patient Time attestation: Total time spent providing and/or coordinating discharge services: 36 minutes Time spent: Greater than 30 minutes Exam Narrative: HORTENSIA
[2022-02-19 17:03] LABS: Glucose Point of Care 186 mg/dl (65-105)
[2022-02-19 18:43] LABS: EDCOVIDSCREEN Negative (Negative)
[2022-02-19] MEDS: CENTRAL LINE FLUSH 10 ML IV PUSH (20:34)
[2022-02-19 21:53] LABS: Glucose Point of Care 219 mg/dl (65-105)
[2022-02-19] MEDS: ACETAMINOPHEN ELIXIR 325 MG/10.15 ML UDC 650 MG PO (23:57)
[2022-02-19] MEDS: MELATONIN 3 MG TABLET PO (23:58)
[2022-02-20 04:00] VITALS: BP 134/72; PULSE 62; RESP 16; TEMP 35.9; O2SAT 99
[2022-02-20] MEDS: CENTRAL LINE FLUSH 10 ML IV PUSH (06:01)
[2022-02-20 06:58] LABS: Basophils Absolute Auto 0.1 K/mm3 (0.0-0.1); Basophils Percent Auto 0.8 % (0.2-1.2); Eosinophils Absolute Auto 0.3 K/mm3 (0-0.3); Eosinophils Percent Auto 2.5 % (0-4.4); Hematocrit 38.9 % (42.0-52.0); Hemoglobin 13.4 g/dL (14.0-18.0); Immature Granulocyte Absolute 0.04 K/mm3 (0.00-0.031); Immature Granulocyte Percent A 0.4 % (0-0.5); Lymphocytes Absolute Auto 2.78 K/mm3 (0.9-3.2); Lymphocytes Percent Auto 28.3 % (18.3-44.2); Mean Corpuscular HGB Conc 34.4 g/dl (32-36); Mean Corpuscular Hemoglobin 30.9 pg (26-34); Mean Corpuscular Volume 89.8 fl (80-100); Mean Platelet Volume 10.5 fl (7.4-10.4); Monocytes Absolute Auto 0.9 K/mm3 (0.1-0.6); Monocytes Percent Auto 9.2 % (2.6-8.5); Neutrophils Absolute Auto 5.8 K/mm3 (1.3-6.7); Neutrophils Percent Auto 58.8 % (45.5-73.1); Platelet Count Result 229 k/mm3 (150-375); Red Blood Count 4.33 M/mm3 (4.6-6.20); Red Cell Distribution Width 14.1 % (11.5-14.5); White Blood Count 9.8 K/mm3 (4.5-10.0)
[2022-02-20 08:23] LABS: Glucose Point of Care 163 mg/dl (65-105)
[2022-02-20] MEDS: TIMOLOL MALEATE 0.5% OP SOLN 5 ML BOTTLE 1 DROP EACH EYE (09:40)
[2022-02-20] MEDS: INSULIN GLARGINE (*BKC) 100 UNITS/ML 20 UNITS SUB-Q (09:40)
[2022-02-20] MEDS: BRIMONIDINE TARTRATE 0.2% OP SOLN 5 ML BTL 1 DROP EACH EYE (09:40)
[2022-02-20 09:41] VITALS: PULSE 74
[2022-02-20] MEDS: METOPROLOL TARTRATE 25 MG TABLET PO ×2 (09:41→21:46)
[2022-02-20] MEDS: APIXABAN 5 MG TABLET PO ×2 (09:41→21:46)
[2022-02-20] MEDS: ATORVASTATIN 20 MG TABLET PO (09:43)
[2022-02-20] MEDS: PANTOPRAZOLE SODIUM IV 40 MG VIAL IV PUSH (09:43)
[2022-02-20] MEDS: CHOLECALCIFEROL 1,000 UNITS TABLET 1000 UNITS PO (09:43)
[2022-02-20] MEDS: ASPIRIN 81 MG CHEWABLE TABLET PO (09:43)
[2022-02-20] MEDS: MULTIVITAMINS THERAPEUTIC TAB (*BKC) 1 TABLET PO (09:44)
[2022-02-20] MEDS: MINERAL OIL/WHITE PETROLATUM OINTMENT 1 APPLIC EACH EYE ×2 (09:44→21:46)
[2022-02-20] MEDS: TOLNAFTATE 1% POWDER 45 GM BTL 1 APPLIC TOPICAL ×2 (09:46→21:46)
[2022-02-20] MEDS: EUCERIN CREAM 120 GM JAR 1 APPLIC TOPICAL (09:53)
[2022-02-20 12:09] LABS: Glucose Point of Care 243 mg/dl (65-105)
[2022-02-20] MEDS: INSULIN ASPART (*BKC) 100 UNITS/ML SUB-Q (12:48)
[2022-02-20 14:05] VITALS: BP 105/63; PULSE 75; RESP 21; TEMP 36; O2SAT 98
--- NOTE | 2022-02-20 15:12 | PM.IMPN ---
Progress Note: A&P Assessment and Plan (1) Fever: Code(s): R50.9 - Fever, unspecified Status: Acute Assessment and Plan: 02/11: Patient with T-max of? 103? F -could be related to urine infection, possible ventilator associated pneumonia, other infectious pathology would be central line, Heck catheter or abdominal source, bacteremia -white count elevated -02/11:? Blood cultures, preliminary report is negative x2 so far -02/11:? Urine cultures:? No growth -02/11:? Sputum cultures: Growing yeast -02/12, venous Dopplers of upper and lower extremities were negative -02/13/2022: Patient remains febrile with a T-max of 101.8?, will obtain CT scan of the chest, abdomen, pelvis. - Tylenol to control fevers -continue imipenem, levofloxacin, (02/11/2022) and micafungin (02/13/2022) -vancomycin discontinued on 02/15 -blood pressures, renal function and urine output have been adequate -will continue to monitor blood pressures for adequate end organ perfusion 02/14/2022: Patient has been afebrile in the last 24 hours 02/16/22: patient was hypothermic yesteday requiring warming blanket. Temeprature more stable today. Continue Abx and antifungal to treat for 7 days. 02/17/22 - fever resolved. No longer having temperature instability. Finishing up IV antibiotics today. Remove central line. Continue IV antifungal treatment to complete a 7 day course. 02/18/22 - central line out. Heck out. Increase activity. Resolved - discharge when okay with insurance. (2) Acute respiratory failure: Code(s): J96.00 - Acute respiratory failure, unspecified whether with hypoxia or hypercapnia Status: Acute Assessment and Plan: Acute hypoxic and hypercarbic respiratory failure secondary to influenza, pulmonary edema due to aortic stenosis, secondary bacterial pneumonia, initial BNP on admission was slightly elevated -02/06: CT showed?Bilateral dependent consolidations may reflect atelectasis/edema, noting that infection is not excluded. Suspected trace bilateral pleural effusions -? Echo shows severe aortic stenosis -positive for influenza A on admission and at risk of secondary bacterial infection -02/14/2021: Successfully extubated -will have PT/OT evaluate and treat. Assist patient up to chair -encourage incentive spirometry -status post full course of Tamiflu -antibiotics as above -currently on room air; RESOLVED (3) Sepsis: Code(s): A41.9 - Sepsis, unspecified organism Status: Acute Assessment and Plan: Secondary to influenza A and possible bacterial pneumonia.? Also has UTI 02/04:Blood culture:? No growth 02/04: Urine cultures growing Enterococcus which is sensitive to vancomycin. The patient completed vancomycin As above (4) Shock: Code(s): R57.9 - Shock, unspecified Status: Acute Assessment and Plan: Likely multifactorial secondary to a severe aortic stenosis and sepsis due to pneumonia and UTI -Patient received conservative IV fluids due to concern of pulmonary edema and heart failure -off Levophed since 02/10 -off vasopressin -weaned off stress dose steroids RESOLVED (5) UTI (urinary tract infection): Code(s): N39.0 - Urinary tract infection, site not specified Status: Acute Assessment and Plan: 02/04: Urine cultures growing Enterococcus, discontinued vancomycin on 02/15/2022 (6) Atrial flutter with rapid ventricular response: Code(s): I48.92 - Unspecified atrial flutter Status: Acute Assessment and Plan: Patient has now converted to sinus rhythm On Eliquis for anticoagulation -continue beta-swati 25 mg q.12 hours -appreciate cardiology following the patient (7) Influenza A: Code(s): J10.1 - Influenza due to other identified influenza virus with other respiratory manifestations Status: Acute Assessment and Plan: Status post full course of Tamiflu -off isolation (8) Aortic stenosis, severe:
[2022-02-20 17:09] LABS: Glucose Point of Care 195 mg/dl (65-105)
[2022-02-20 20:00] VITALS: BP 139/62; PULSE 69; RESP 16; TEMP 35.9; O2SAT 99
[2022-02-20 21:46] VITALS: PULSE 69
[2022-02-20] MEDS: ACETAMINOPHEN ELIXIR 325 MG/10.15 ML UDC 650 MG PO (21:48)
[2022-02-20 21:59] LABS: Glucose Point of Care 241 mg/dl (65-105)
[2022-02-21 07:30] VITALS: BP 153/74; PULSE 71; RESP 16; TEMP 34.4; O2SAT 99
[2022-02-21 08:00] VITALS: BP 116/65; PULSE 62; RESP 18; TEMP 35.9; O2SAT 97
[2022-02-21 08:35] LABS: Glucose Point of Care 161 mg/dl (65-105)
[2022-02-21] MEDS: CHOLECALCIFEROL 1,000 UNITS TABLET 1000 UNITS PO (09:01)
[2022-02-21] MEDS: MULTIVITAMINS THERAPEUTIC TAB (*BKC) 1 TABLET PO (09:01)
[2022-02-21] MEDS: ATORVASTATIN 20 MG TABLET PO (09:01)
[2022-02-21] MEDS: APIXABAN 5 MG TABLET PO (09:01)
[2022-02-21] MEDS: ASPIRIN 81 MG CHEWABLE TABLET PO (09:01)
[2022-02-21] MEDS: PANTOPRAZOLE SODIUM IV 40 MG VIAL IV PUSH (09:02)
[2022-02-21] MEDS: BRIMONIDINE TARTRATE 0.2% OP SOLN 5 ML BTL 1 DROP EACH EYE (09:03)
[2022-02-21] MEDS: TIMOLOL MALEATE 0.5% OP SOLN 5 ML BOTTLE 1 DROP EACH EYE (09:03)
[2022-02-21 09:04] VITALS: PULSE 62
[2022-02-21] MEDS: METOPROLOL TARTRATE 25 MG TABLET PO (09:04)
[2022-02-21] MEDS: INSULIN GLARGINE (*BKC) 100 UNITS/ML 20 UNITS SUB-Q (09:06)
--- NOTE | 2022-02-21 11:09 | PCNFU ---
Nutrition Follow-Up Complete: Goal:Meet estimated nutrition needs. Pt progressing towards goal Pt current nutrition is soft and bite sized, level 6. Nutrition recommendation: continue with current plan of care Last recorded weight is 131.5 kg - stable at this time. Bowel Motility: +BM 02/20 Labs Reviewed: glu:[id number] Meds Noted: eliquis, lantus, protonix Skin: WNL Additional Notes: Pt continues on a soft and bite sized diet, intake 50-75% of meals. Continue to encourage good po intake. Monitor tolerance, plan of care, labs, meds, etc Follow daily in 7 days.
[2022-02-21 11:38] LABS: Glucose Point of Care 240 mg/dl (65-105)
[2022-02-21] MEDS: MINERAL OIL/WHITE PETROLATUM OINTMENT 1 APPLIC EACH EYE (12:11)
[2022-02-21] MEDS: EUCERIN CREAM 120 GM JAR 1 APPLIC TOPICAL (12:11)
[2022-02-21] MEDS: TOLNAFTATE 1% POWDER 45 GM BTL 1 APPLIC TOPICAL (12:12)
[2022-02-21] MEDS: INSULIN ASPART (*BKC) 100 UNITS/ML SUB-Q ×2 (12:12→17:06)
--- NOTE | 2022-02-21 14:13 | PCOTNOTE ---
Attempted to see patient this pm, however patient refused pending discharge. Pt stated if he was staying he would do anything we discussed. Pt stated, I don't want to get all tired, and then they want to take me over there today. Explained to patient discharge is not confirmed today, however if patient was discharged he would unlikely have therapy tonight. Pt stated, I think it is best for me to not have it today and wait until tomorrow. Pt hopes to discharge today.
--- NOTE | 2022-02-21 14:14 | PM.DS ---
DS: Admitting Diagnosis Discharge Date 02/21/22 Admitting Diagnosis Weakness DS: Discharge Diagnosis Discharge Diagnosis (1) Fever: Code(s): R50.9 - Fever, unspecified Status: Acute (2) Acute respiratory failure: Code(s): J96.00 - Acute respiratory failure, unspecified whether with hypoxia or hypercapnia Status: Acute (3) Sepsis: Code(s): A41.9 - Sepsis, unspecified organism Status: Acute (4) Shock: Code(s): R57.9 - Shock, unspecified Status: Acute (5) UTI (urinary tract infection): Code(s): N39.0 - Urinary tract infection, site not specified Status: Acute (6) Atrial flutter with rapid ventricular response: Code(s): I48.92 - Unspecified atrial flutter Status: Acute (7) Influenza A: Code(s): J10.1 - Influenza due to other identified influenza virus with other respiratory manifestations Status: Acute (8) Aortic stenosis, severe: Code(s): I35.0 - Nonrheumatic aortic (valve) stenosis Status: Acute (9) Hyperlipidemia: Qualifiers: Hyperlipidemia type: unspecified Qualified Code(s): E78.5 - Hyperlipidemia, unspecified Code(s): E78.5 - Hyperlipidemia, unspecified Status: Chronic (10) GERD without esophagitis: Code(s): K21.9 - Gastro-esophageal reflux disease without esophagitis Status: Chronic (11) Type 2 diabetes mellitus with diabetic neuropathy: Qualifiers: Diabetes mellitus lobsterman insulin use: without lobsterman use Qualified Code(s): E11.40 - Type 2 diabetes mellitus with diabetic neuropathy, unspecified Code(s): E11.40 - Type 2 diabetes mellitus with diabetic neuropathy, unspecified Status: Chronic (12) Bleeding: Code(s): R58 - Hemorrhage, not elsewhere classified Status: Acute DS: Summary Hospital Course Reason for hospitalization: 76o male here with respiratory failure, influenza A, severe aortic stenosis, septic shock, UTI, AFib/flutter RVR. Please see H&P for details. Hospital Course: Patient presented with weakness and found to have fevers and developed respiratory failure. Patient was to the ICU for acute hypoxic and hypercarbic respiratory failure secondary to influenza, pulmonary edema due to aortic stenosis, and secondary bacterial pneumonia. patient was intubated 02/05/2022.? Was started on IV broad-spectrum antibiotics.? Continued to have fevers and antifungal therapy was added.? Fevers resolved.? He completed 7 day course of IV antibiotics and IV antifungal treatment.? Patient was able to be extubated on 02/14/2022 and easily weaned to room air.? Was also noted to have influenza.? He was treated with course of Tamiflu.? Blood cultures were negative.? Urine culture grew out Enterococcus species and this was treated appropriately.? Sputum grew yeast.? Repeat blood cultures remain negative.? Urine culture was repeated and? was negative.? Venous Doppler was negative for DVT.? Patient also had sepsis with shock treated with Vasopressors.? These were able to weaned off prior to extubation.? Patient developed atrial flutter with RVR.? He converted to normal sinus rhythm.? He was started on Eliquis.? When he was more stable, beta-swati was added a tolerated this well.? Echocardiogram was performed which showed severe aortic valve stenosis with an aortic valve area 0.8 centimeter squared.? His EF was 55%.? Cardiology was involved in his care.? Patient did well.? He was transferred out of the ICU.? He completed his antibiotics and antifungal treatment.? He was still very weak.? He worked with PT and OT.? Able to be discharged but held over for 2 days due to insurance reasons. No issues or changes. He overall did well was able be transferred to skilled facility on 02/21/2022. Status at Discharge Cognitive/behavioral status at discharge: Stable Time Spent with Patient Time attestation: Total time spent providing and/or coordinating disc
[2022-02-21 16:00] VITALS: BP 140/63; PULSE 70; RESP 20; TEMP 35.9; O2SAT 100
[2022-02-21 16:32] LABS: Glucose Point of Care 251 mg/dl (65-105)
== END 2022-02-21 19:50 | DRG 870 ==
LOC: ANHED 10:03 → ANHIMU 14:49 → ANHICU 02-05 17:14 → ANHIMU 02-15 15:52 → ANH3MEDSUR 02-19 06:20
PROVIDERS: Internal Medicine; Physician Assistant; Student in an Organized Health Care Education/Training Program; Admitting Provider Internal Medicine; Emergency Provider Emergency Medicine; PCP Family Medicine; Visit Provider Internal Medicine
DX: A41.9 Sepsis, unspecified organism (principal); J10.00 Influenza due to other identified influenza virus with unspecified type of pneumonia; J96.02 Acute respiratory failure with hypercapnia; J96.01 Acute respiratory failure with hypoxia; R65.21 Severe sepsis with septic shock; N39.0 Urinary tract infection, site not specified; I48.92 Unspecified atrial flutter; I35.0 Nonrheumatic aortic (valve) stenosis; E78.5 Hyperlipidemia, unspecified; E11.40 Type 2 diabetes mellitus with diabetic neuropathy, unspecified; K21.9 Gastro-esophageal reflux disease without esophagitis; I48.91 Unspecified atrial fibrillation; G47.33 Obstructive sleep apnea (adult) (pediatric); E83.42 Hypomagnesemia; E11.42 Type 2 diabetes mellitus with diabetic polyneuropathy; Z20.822 Contact with and (suspected) exposure to COVID-19; B95.2 Enterococcus as the cause of diseases classified elsewhere; Z96.642 Presence of left artificial hip joint; Z79.84 Long term (current) use of oral hypoglycemic drugs; Z96.652 Presence of left artificial knee joint; Z79.82 Long term (current) use of aspirin; Z87.891 Personal history of nicotine dependence; Z88.3 Allergy status to other anti-infective agents; Z82.49 Family history of ischemic heart disease and other diseases of the circulatory system; Z80.1 Family history of malignant neoplasm of trachea, bronchus and lung; Z88.1 Allergy status to other antibiotic agents
CPT/HCPCS: 31500; 36415; 36600; 70450; 70490; 71045; 71250; 74176; 80048; 80053; 80076; 80202; 81001; 82375; 82805; 82948; 83036; 83050; 83605; 83690; 83735; 83880; 84100; 84132; 84443; 84478; 84484; 85025; 85027; 85049; 85055; 85380; 85384; 85610; 85730; 87040; 87070; 87077; 87086; 87088; 87186; 87205; 87426; 87637; 92610; 93005; 93970; 94002; 94003; 96361; 96374; 96375; 97110; 97162; 97165; 97530; 99285; A9270; C1751; C8929; C9113; C9803; J0131; J0282; J0360; J0461; J0696; J0743; J1650; J1720; J1741; J1815; J1940; J1956; J2248; J2250; J2405; J2543; J2704; J3010; J3370; J3475; J3480; J7030; P9045; Q9957